=== PATIENT | male | born 1945 | race Hispanic/Latino ===

== ENCOUNTER 2018-02-14 09:45 | Inpatient (IN) | payer MEDICARE ==
[2018-02-14] MEDS ORDERED: TYLENOL FEEDTUBE PRN (09:56)
[2018-02-14] MEDS ORDERED: NACL 0.9% 1000 ML IV ONE (09:56)
[2018-02-14] MEDS ORDERED: VANCOMYCIN VIAL IV ONE (09:56)
[2018-02-14] MEDS ORDERED: HumuLIN R IV ONE (09:59)
[2018-02-14] MEDS ORDERED: MAXIPIME/NS 2 GM/100 ML 2 GM/100 ML BAG IV ONE (10:00)
[2018-02-14] MEDS ORDERED: VANCOMYCIN PHARMACY TO DOSE IV SCH (10:00)
[2018-02-14] MEDS ORDERED: TYLENOL PR ONE ×2 (10:04→10:20)
--- NOTE | 2018-02-14 10:04 | Emergency Department Report ---
ED Fever HPI - General Chief Complaint: Dyspnea/Respdistress Stated Complaint: SEPTIZ Time Seen by Provider: 02/14/18 09:55 Source: EMS (verbal report received from EMS.ems notes not available at time of chart dictation) Exam Limitations: physical impairment - History of Present Illness Initial Comments: This is a 72-year-old male who was previously unknown to this provider, has a past medical history of intracranial hemorrhage, tracheostomy, debility, sacral ulcer Brought to the hospital by EMS for hypoxia, clogs tracheostomy tube, fever, weakness. The patient is altered and cannot describe exacerbating or relieving factors. He was hypothermic in the field with a temperature of 102.7 and hyperglycemic. The patient cannot describe exacerbating or relieving factors. No further history is available for collateral information. Fever Severity/Quality: greater than 102 F Fever Therapy TRANSVERSE ABDOMINAL MUSCLE NURSE: other (patient nonverbal) Associated Symptoms: other (patient is nonverbal) ED Review of Systems ROS: Stated complaint: SEPTIZ Other details as noted in HPI Comment: Unobtainable due to pts medical conditions ED Past Medical Hx - Past Medical History Previous Medical History?: Yes Hx Hypertension: Yes Hx Diabetes: Yes Hx GERD: Yes Hx Seizures: Yes Additional medical history: acute respiratory failure. generalized muscle weakness. anemia. dysphagia. hyperlipidemia. BPH. cataracts - Surgical History Past Surgical History?: Yes Additional Surgical History: trach. PEG tube - Social History Smoking Status: Unknown if ever smoked ED Physical Exam - General Limitations: Altered Mental Status, Physical Limitation General appearance: lethargic, in distress - Head Head exam: Present: atraumatic, normocephalic - Eye Eye exam: Present: normal appearance - ENT ENT exam: Present: mucous membranes dry - Neck Neck exam: Present: normal inspection, other (tracheostomy tube noted with no redness, pus or streaking) - Respiratory Respiratory exam: Present: respiratory distress, wheezes, rhonchi - Cardiovascular Cardiovascular Exam: Present: normal rhythm, tachycardia, normal heart sounds. Absent: systolic murmur, diastolic murmur, rubs, gallop - GI/Abdominal GI/Abdominal exam: Present: soft, normal bowel sounds, other (feeding tube is noted with no redness, pus or streaking). Absent: distended, tenderness, guarding, rebound, rigid, pulsatile mass - Rectal Rectal exam: Present: other (there is a 2 x 3 cm sacral wound, unstageable, covered in feces. No active infection is noted at this time.) - exam: Present: normal inspection External exam: Present: normal external exam - Extremities Exam Extremities exam: Present: other (no palpable cord.). Absent: normal inspection (sacral heel wound is noted on the left heel.) - Back Exam Back exam: Present: normal inspection. Absent: paraspinal tenderness, vertebral tenderness - Neurological Exam Neurological exam: Present: altered, other (patient grimaces in response to painful stimuli. Moving the right upper extremity.) - Psychiatric Psychiatric exam: Present: other (patient is nonverbal) - Skin Skin exam: Present: warm ED Course Vital Signs 02/14/18 02/14/18 02/14/18 09:48 10:07 10:17 Temperature 100.7 F H 102 F H Pulse Rate 135 H 139 H Respiratory 56 H 56 H 36 H Rate Blood Pressure 130/88 Blood Pressure 141/91 [Right] O2 Sat by Pulse 90 92 92 Oximetry 02/14/18 10:18 Temperature Pulse Rate Respiratory 37 H Rate Blood Pressure Blood Pressure [Right] O2 Sat by Pulse Oximetry - Reevaluation(s) Reevaluation #1: 02/14/18 11:02 Differential diagnosis, including but not limited to: Pneumonia, bacteremia, urinary tract infection, dehydration, diabetic ketoacidosis, hyperosmolar state Assessment and plan: 72-year-old male who is tachycardic, febrile, weak, hyperglycemic without anion gap and hyponatremic. Appears to be very volume depleted. Patient will be treated empirically for sepsis with IV fluids, blood cultures, acetaminophen, vancomycin and cefepime. At this point time he does not require central line or vasoactive medications. He is also given insulin for his hyperglycemia. He will require medical admission for his undifferentiated sepsis at this time. Reevaluation #2: 02/14/18 11:07 Dr FIGUEROA ACCEPTS THE patient to his service ED Medical Decision Making - Lab Data Result diagrams: 02/14/18 10:15 02/14/18 10:15 Vital Signs 02/14/18 02/14/18 02/14/18 09:48 10:07 10:17 Temperature 100.7 F H 102 F H Pulse Rate 135 H 139 H Respiratory 56 H 56 H 36 H Rate Blood Pressure 130/88 Blood Pressure 141/91 [Right] O2 Sat by Pulse 90 92 92 Oximetry 02/14/18 10:18 Temperature Pulse Rate Respiratory 37 H Rate Blood Pressure Blood Pressure [Right] O2 Sat by Pulse Oximetry Lab Results 02/14/18 02/14/18 02/14/18 Range/Units 09:53 10:04 10:15 WBC (4.5-11.0) K/mm3 RBC (3.65-5.03) M/mm3 Hgb (11.8-15.2) gm/dl Hct (35.5-45.6) % MCV (84-94) fl MCH (28-32) pg MCHC (32-34) % RDW (13.2-15.2) % Plt Count (140-440) K/mm3 APTT (24.2-36.6) Sec. POC ABG pH (7.35-7.45) POC ABG pCO2 (35-45) POC ABG pO2 (80-105) POC ABG HCO3 POC ABG Total CO2 POC ABG O2 Sat POC ABG Base Excess FiO2 % Sodium (137-145) mmol/L Potassium (3.6-5.0) mmol/L Chloride (98-107) mmol/L Carbon Dioxide (22-30) mmol/L Anion Gap mmol/L BUN (9-20) mg/dL Creatinine (0.8-1.5) mg/dL Estimated GFR ml/min BUN/Creatinine Ratio % POC Glucose > 500 H (70-105) Calcium (8.4-10.2) mg/dL Total Bilirubin (0.1-1.2) mg/dL ALT (7-56) units/L Alkaline Phosphatase (35-129) units/L Total Creatine Kinase (55-170) units/L Total Protein (6.3-8.2) g/dL Albumin (3.9-5) g/dL Albumin/Globulin Ratio % Urine Color Yellow (Yellow) Urine Turbidity Hazy (Clear) Urine pH 5.0 (5.0-7.0) Ur Specific [place] 1.022 (1.003-1.030) Urine Protein 30 mg/dl (Negative) mg/dL Urine Glucose (UA) >=500 (Negative) mg/dL Urine Ketones Neg (Negative) mg/dL Urine Blood Sm (Negative) Urine Nitrite Neg (Negative) Urine Bilirubin Neg (Negative) Urine Urobilinogen < 2.0 (<2.0) mg/dL Ur Leukocyte Esterase Lg (Negative) Urine WBC (Auto) 53.0 H (0.0-6.0) /HPF Urine RBC (Auto) 13.0 (0.0-6.0) /HPF U Epithel Cells (Auto) < 1.0 (0-13.0) /HPF Urine Bacteria (Auto) 2+ (Negative) /HPF Urine WBC Clumps 3+ /HPF Hyaline Casts 7 /LPF Urine Mucus Few /HPF Blood Type O POSITIVE 02/14/18 02/14/18 02/14/18 Range/Units 10:15 10:15 10:15 WBC 22.9 H (4.5-11.0) K/mm3 RBC 5.53 H (3.65-5.03) M/mm3 Hgb 12.9 (11.8-15.2) gm/dl Hct 43.1 (35.5-45.6) % MCV 78 L (84-94) fl MCH 23 L (28-32) pg MCHC 30 L (32-34) % RDW 17.5 H (13.2-15.2) % Plt Count 312 (140-440) K/mm3 APTT 31.9 (24.2-36.6) Sec. POC ABG pH (7.35-7.45) POC ABG pCO2 (35-45) POC ABG pO2 (80-105) POC ABG HCO3 POC ABG Total CO2 POC ABG O2 Sat POC ABG Base Excess FiO2 % Sodium 160 H (137-145) mmol/L Potassium 5.3 H (3.6-5.0) mmol/L Chloride 116.1 H (98-107) mmol/L Carbon Dioxide 31 H (22-30) mmol/L Anion Gap 18 mmol/L BUN 61 H (9-20) mg/dL Creatinine 1.3 (0.8-1.5) mg/dL Estimated GFR 55 ml/min BUN/Creatinine Ratio 47 % POC Glucose (70-105) Calcium 11.0 H (8.4-10.2) mg/dL Total Bilirubin 0.40 (0.1-1.2) mg/dL ALT 55 (7-56) units/L Alkaline Phosphatase 216 H (35-129) units/L Total Creatine Kinase 46 L (55-170) units/L Total Protein 6.5 (6.3-8.2) g/dL Albumin 2.9 L (3.9-5) g/dL Albumin/Globulin Ratio 0.8 % Urine Color (Yellow) Urine Turbidity (Clear) Urine pH (5.0-7.0) Ur Specific [place] (1.003-1.030) Urine Protein (Negative) mg/dL Urine Glucose (UA) (Negative) mg/dL Urine Ketones (Negative) mg/dL Urine Blood (Negative) Urine Nitrite (Negative) Urine Bilirubin (Negative) Urine Urobilinogen (<2.0) mg/dL Ur Leukocyte Esterase (Negative) Urine WBC (Auto) (0.0-6.0) /HPF Urine RBC (Auto) (0.0-6.0) /HPF U Epithel Cells (Auto) (0-13.0) /HPF Urine Bacteria (Auto) (Negative) /HPF Urine WBC Clumps /HPF Hyaline Casts /LPF Urine Mucus /HPF Blood Type 02/14/18 Range/Units 10:39 WBC (4.5-11.0) K/mm3 RBC (3.65-5.03) M/mm3 Hgb (11.8-15.2) gm/dl Hct (35.5-45.6) % MCV (84-94) fl MCH (28-32) pg MCHC (32-34) % RDW (13.2-15.2) % Plt Count (140-440) K/mm3 APTT (24.2-36.6) Sec. POC ABG pH 7.521 H (7.35-7.45) POC ABG pCO2 38.8 (35-45) POC ABG pO2 58 L (80-105) POC ABG HCO3 31.8 POC ABG Total CO2 33 POC ABG O2 Sat 92 POC ABG Base Excess 9 FiO2 80 % Sodium (137-145) mmol/L Potassium (3.6-5.0) mmol/L Chloride (98-107) mmol/L Carbon Dioxide (22-30) mmol/L Anion Gap mmol/L BUN (9-20) mg/dL Creatinine (0.8-1.5) mg/dL Estimated GFR ml/min BUN/Creatinine Ratio % POC Glucose (70-105) Calcium (8.4-10.2) mg/dL Total Bilirubin (0.1-1.2) mg/dL ALT (7-56) units/L Alkaline Phosphatase (35-129) units/L Total Creatine Kinase (55-170) units/L Total Protein (6.3-8.2) g/dL Albumin (3.9-5) g/dL Albumin/Globulin Ratio % Urine Color (Yellow) Urine Turbidity (Clear) Urine pH (5.0-7.0) Ur Specific [place] (1.003-1.030) Urine Protein (Negative) mg/dL Urine Glucose (UA) (Negative) mg/dL Urine Ketones (Negative) mg/dL Urine Blood (Negative) Urine Nitrite (Negative) Urine Bilirubin (Negative) Urine Urobilinogen (<2.0) mg/dL Ur Leukocyte Esterase (Negative) Urine WBC (Auto) (0.0-6.0) /HPF Urine RBC (Auto) (0.0-6.0) /HPF U Epithel Cells (Auto) (0-13.0) /HPF Urine Bacteria (Auto) (Negative) /HPF Urine WBC Clumps /HPF Hyaline Casts /LPF Urine Mucus /HPF Blood Type - EKG Data -: EKG Interpreted by Me - EKG Data When compared to previous EKG there are: previous EKG unavailable 02/14/18 11:02 Sinus tachycardia, 133 bpm, normal axis, normal intervals, not consistent with a STEMI - Radiology Data Radiology results: image reviewed interpreted by me: x-ray of the chest, interpreted by me: Right lower lobe pneumonia, tracheostomy tube is in place. Critical care attestation.: If time is entered above; I have spent that time in minutes in the direct care of this critically ill patient, excluding procedure time. ED Disposition Clinical Impression: Sepsis, Dehydration, Hypernatremia, Hyperglycemia Disposition: DC09 OP ADMIT IP TO THIS HOSP Is pt being admited?: Yes Condition: Poor
[2018-02-14 10:24] LABS: Bacteria,Urine 2+ /HPF (Negative); Bilirubin,Urine NEG (Negative); Blood,Urine SM (Negative); Color,Urine Yellow (Yellow); Hyaline Casts,Urine 7 /LPF; Mucus,Urine FEW /HPF; Urobilinogen,Urine < 2.0 mg/dL (<2.0)
[2018-02-14 10:36] LABS: Mean Corpuscular HGB Conc 30 % (32-34); Mean Corpuscular Volume 78 fl (84-94); Platelet Count 312 K/mm3 (140-440); Red Blood Count 5.53 M/mm3 (3.65-5.03); Red Cell Distribution Width 17.5 % (13.2-15.2)
[2018-02-14 10:40] LABS: Hematocrit 43.1 % (35.5-45.6); Hemoglobin 12.9 gm/dl (11.8-15.2); Mean Corpuscular Hemoglobin 23 pg (28-32)
[2018-02-14] MEDS ORDERED: MAXIPIME 2 GM in NACL 0.9% 20 ML IV NR (10:45)
[2018-02-14 10:49] LABS: Albumin 2.9 g/dL (3.9-5)
[2018-02-14] MEDS ORDERED: VANCOMYCIN 2,000 MG in NACL 0.9% 500 ML 500 ML IV ONE (11:00)
[2018-02-14 11:14] LABS: Band Neutrophils # (Manual) 4.4 K/mm3; Basophils % (Manual) 0 % (0.0-1.8); Eosinophils % (Manual) 0 % (0.0-4.3); Total Cells Counted 100
[2018-02-14 11:15] LABS: Anisocytosis 1+; Helmet Cells Rare; Ovalocytes Few; Platelet Clumps Rare; Poikilocytosis 1+; Tear Drop Cells Rare
--- NOTE | 2018-02-14 11:17 | XRay Report ---
AP CHEST: HISTORY: Respiratory distress No comparison. There appears to be an endotracheal tube in position. Small to medium right pleural effusion is identified. There are mild chronic interstitial changes in both lungs but no evidence for pneumonia or pneumothorax. Minor atelectatic changes at the right lung base are noted. Heart size and pulmonary vascularity are within normal limits. IMPRESSION: Small to medium right pleural effusion. Atelectatic changes at the right lung base.
--- NOTE | 2018-02-14 19:53 | Event Note ---
Date: 02/14/18 See dictated H/p in reports
[2018-02-14] MEDS ORDERED: ZOFRAN IV PRN (19:54)
[2018-02-14] MEDS ORDERED: TYLENOL PO PRN (19:54)
[2018-02-14] MEDS ORDERED: SODIUM CHLORIDE FLUSH SYRINGE 10 ML IV PRN (19:54)
[2018-02-14] MEDS ORDERED: MORPHINE IV PRN (19:54)
[2018-02-14] MEDS ORDERED: D5NS 1,000 ML IV SCH (20:00)
[2018-02-14] MEDS: PEPCID IV SCH (22:53)
[2018-02-14] MEDS: SODIUM CHLORIDE FLUSH SYRINGE 10 ML IV SCH (22:54)
[2018-02-14] MEDS: HumaLOG SUB-Q SCH (22:55)
[2018-02-14] MEDS: HEPARIN SUB-Q SCH (22:56)
[2018-02-14] MEDS: LANTUS SUB-Q SCH (22:57)
[2018-02-14] MEDS: VANCOMYCIN 1,500 MG in NACL 0.9% 500 ML 500 ML IV SCH (22:59)
[2018-02-14] MEDS: ZOSYN/NS 3.375GM/50ML 3.375 GM/50 ML BAG IV SCH (23:24)
[2018-02-15 02:40] LABS: Hematocrit 38.8 % (35.5-45.6); Hemoglobin 12.2 gm/dl (11.8-15.2); Mean Corpuscular HGB Conc 31 % (32-34); Mean Corpuscular Volume 77 fl (84-94); Platelet Count 249 K/mm3 (140-440); Red Blood Count 5.02 M/mm3 (3.65-5.03)
[2018-02-15 02:47] LABS: Mean Corpuscular Hemoglobin 24 pg (28-32)
[2018-02-15 02:58] LABS: Alanine Aminotransferase 41 units/L (7-56); BUN/Creatinine Ratio 50; Blood Urea Nitrogen 45 mg/dL (9-20); Calcium 10.7 mg/dL (8.4-10.2); Hemolysis Index 9
[2018-02-15 04:04] LABS: Band Neutrophils # (Manual) 4.5 K/mm3; Basophils % (Manual) 0 % (0.0-1.8); Eosinophils % (Manual) 0.5 % (0.0-4.3); Monocytes % (Manual) 2.5 % (0.0-7.3); Myelocytes # (Manual) 0.2 K/mm3; Total Cells Counted 200
[2018-02-15 04:05] LABS: Platelet Estimate Consistent w Auto
[2018-02-15 04:06] LABS: Hypochromasia 1+
[2018-02-15] MEDS: ZOSYN/NS 3.375GM/50ML 3.375 GM/50 ML BAG IV SCH (06:51)
--- NOTE | 2018-02-15 08:35 | History and Physical Report ---
CHIEF COMPLAINT: Altered sensorium. HISTORY OF PRESENT ILLNESS: A 72-year-old male with past medical history of intracranial hemorrhage, tracheostomy, debility, and sacral ulcer brought in by EMS for hypoxia, clogged tracheostomy tube, fever and weakness, and altered sensorium. The patient was having a temperature 102.7 and high blood glucose in the field. No exacerbating or relieving factors. Not much information available. No chills. No seizures. PAST MEDICAL HISTORY: Significant for hypertension, diabetes, gastroesophageal reflux disease, seizures, acute respiratory failure, generalized muscle weakness, anemia and dysphagia, hyperlipidemia, BPH, and cataracts. PAST SURGICAL HISTORY: Tracheostomy and PEG tube. SOCIAL HISTORY: Not a smoker. FAMILY HISTORY: Hypertension. REVIEW OF SYSTEMS: Significant for altered sensorium, high blood glucose levels and high fever. Otherwise, review of systems negative. A 14-point review of systems done. PHYSICAL EXAMINATION: GENERAL: Elderly man with altered sensorium. VITAL SIGNS: Temperature 100.7 and 102. Pulse rate is 135, respiratory rate is 56, blood pressure is 130/88, sats are 90%. HEENT: Dry mucous membranes. NECK: Supple, no lymphadenopathy, no thyromegaly. LUNGS: Scattered rhonchi bilaterally. CARDIOVASCULAR: S1, S2 heard. No gallop, no murmur, no rub. Apical impulse in left fifth intercostal space and midclavicular line. ABDOMEN: Soft and benign. No hepatosplenomegaly. No guarding, no rigidity. Hernial orifices are normal. EXTREMITIES: Good pedal pulses. No pedal edema. CENTRAL NERVOUS SYSTEM: The patient is totally confused and lethargic. X-ray of the chest, right lower lobe infiltrate present. Tracheostomy tube in place. EKG, sinus tachycardia, heart rate of 133 per minute. LABORATORY DATA: White count is 22,900, H and H is 12.9 and 43.1, platelet count is 312,000. Sodium is 150, potassium 5.3, bicarbonate is 31, chloride is 116, BUN and creatinine 51 and 1.3. Lactic acid is 2.4, glucose is 346. AST is 19, ALT is 41, alkaline phosphatase is 173. Total protein is 6.2, albumin is 2.0. Urine shows white count of 53 cells. ASSESSMENT AND PLAN: 1. Sepsis, probably secondary to urinary tract infection. The patient initiated on broad spectrum antibiotics. Zosyn and vancomycin. IV fluids. 2. Hypernatremia. The patient initiated on D5W. To monitor sodium. Probable dehydration. Volume depletion. 3. Hyperkalemia, mild, should correct with IV fluids. No Kayexalate or calcium gluconate given 4. Urinary tract infection. As mentioned, the patient started on IV Zosyn. Elevated lactic acid secondary to sepsis. Sepsis protocol initiated. 5. Hyperglycemia and uncontrolled diabetes, insulin coverage for the time being. Also, long-acting insulin added for the night regimen and the basal bolus insulin also started. 6. Right lower lobe pneumonia. IV Zosyn again. 7. Deep venous thrombosis prophylaxis, heparin. 8. Acute kidney injury. IV fluids for the time being. Monitor BUN, creatinine. 9. Severe malnutrition. Dietary consult requested. Albumin is 2.0. Oral supplements ordered. In summary, the patient has sepsis, right lower lobe pneumonia and urinary tract infection and hypernatremia and hyperkalemia. JOB# [id number] KAREN/SUZY
[2018-02-15] MEDS: HumaLOG SUB-Q SCH ×3 (08:38→17:03)
--- NOTE | 2018-02-15 08:48 | Progress Note ---
Assessment and Plan Assessment and plan: --Metabolic encephalopathy; multifactorial Secondary to sepsis. Severe hypernatremia, possible UTI Continue supportive care, empiric antibiotics, follow cultures --Lactic acidosis; secondary to sepsis, continue current management --Severe Hypernatremia; free water flushes, D5W, nephrology consultation Closely monitor electrolytes --Sepsis secondary to urinary tract infection; continue empiric antibiotics and follow cultures, supportive care --Type 2 diabetes mellitus uncontrolled diabetes mellitus; Accu-Chek sliding scale coverage tube feeding, insulin as needed --Status post trach and PEG; tracheostomy and PEG tube care --Dyslipidemia; continue lipid lowering medications --DVT prophylaxis; SCD, heparin -- History Interval history: Patient seen and examined medical records reviewed Admitted with altered level of consciousness, clogged trach tube Septic, lactic acidosis On empiric antibiotics Patient noncommunicative, status post trach and PEG Vital signs reviewed Hospitalist Physical - Constitutional Vitals: Temp Pulse Resp BP Pulse Ox 98.0 F 122 H 28 H 125/83 98 02/15/18 07:59 02/15/18 07:59 02/15/18 07:59 02/15/18 07:59 02/14/18 22:07 General appearance: Present: no acute distress, other (noncommunicative, trach and PEG) - EENT Eyes: Present: PERRL, EOM intact ENT: other (tracheostomy) - Neck Neck: Present: supple - Respiratory Respiratory effort: normal Respiratory: bilateral: diminished, rhonchi, negative: rales, wheezing - Cardiovascular Rhythm: regular Heart Sounds: Present: S1 & S2 - Extremities Extremities: no ischemia, No edema, abnormal (contracted) - Abdominal General gastrointestinal: soft, non-tender, non-distended, normal bowel sounds, other (PEG tube in place) - Integumentary Integumentary: Present: clear, warm - Psychiatric Psychiatric: other (noncommunicative) - Neurologic Neurologic: other (noncommunicative) Results - Labs CBC & Chem 7: 02/15/18 02:16 02/15/18 02:16 Labs: Laboratory Last Values WBC 21.8 K/mm3 (4.5-11.0) H 02/15/18 02:16 RBC 5.02 M/mm3 (3.65-5.03) 02/15/18 02:16 Hgb 12.2 gm/dl (11.8-15.2) 02/15/18 02:16 Hct 38.8 % (35.5-45.6) 02/15/18 02:16 MCV 77 fl (84-94) L 02/15/18 02:16 MCH 24 pg (28-32) L 02/15/18 02:16 MCHC 31 % (32-34) L 02/15/18 02:16 RDW 18.0 % (13.2-15.2) H 02/15/18 02:16 Plt Count 249 K/mm3 (140-440) 02/15/18 02:16 Add Manual Diff Complete 02/15/18 02:16 Total Counted 200 02/15/18 02:16 Seg Neuts % (Manual) 62.5 % (40.0-70.0) 02/15/18 02:16 Band Neutrophils % 20.5 % 02/15/18 02:16 Lymphocytes % (Manual) 13.0 % (13.4-35.0) L 02/15/18 02:16 Reactive Lymphs % (Man) 0 % 02/15/18 02:16 Monocytes % (Manual) 2.5 % (0.0-7.3) 02/15/18 02:16 Eosinophils % (Manual) 0.5 % (0.0-4.3) 02/15/18 02:16 Basophils % (Manual) 0 % (0.0-1.8) 02/15/18 02:16 Metamyelocytes % 0 % 02/15/18 02:16 Myelocytes % 1.0 % 02/15/18 02:16 Promyelocytes % 0 % 02/15/18 02:16 Blast Cells % 0 % 02/15/18 02:16 Nucleated RBC % Not Reportable 02/15/18 02:16 Seg Neutrophils # Man 13.6 K/mm3 (1.8-7.7) H 02/15/18 02:16 Band Neutrophils # 4.5 K/mm3 02/15/18 02:16 Lymphocytes # (Manual) 2.8 K/mm3 (1.2-5.4) 02/15/18 02:16 Abs React Lymphs (Man) 0.0 K/mm3 02/15/18 02:16 Monocytes # (Manual) 0.5 K/mm3 (0.0-0.8) 02/15/18 02:16 Eosinophils # (Manual) 0.1 K/mm3 (0.0-0.4) 02/15/18 02:16 Basophils # (Manual) 0.0 K/mm3 (0.0-0.1) 02/15/18 02:16 Metamyelocytes # 0.0 K/mm3 02/15/18 02:16 Myelocytes # 0.2 K/mm3 02/15/18 02:16 Promyelocytes # 0.0 K/mm3 02/15/18 02:16 Blast Cells # 0.0 K/mm3 02/15/18 02:16 WBC Morphology Not Reportable 02/15/18 02:16 Hypersegmented Neuts Not Reportable 02/15/18 02:16 Hyposegmented Neuts Not Reportable 02/15/18 02:16 Hypogranular Neuts Not Reportable 02/15/18 02:16 Smudge Cells Not Reportable 02/15/18 02:16 Toxic Granulation Not Reportable 02/15/18 02:16 Toxic Vacuolation Not Reportable 02/15/18 02:16 Dohle Bodies Not Reportable 02/15/18 02:16 Pelger-Huet Anomaly Not Reportable 02/15/18 02:16 Helene Rods Not Reportable 02/15/18 02:16 Platelet Estimate Consistent w auto 02/15/18 02:16 Clumped Platelets Not Reportable 02/15/18 02:16 Plt Clumps, EDTA Not Reportable 02/15/18 02:16 Large Platelets Not Reportable 02/15/18 02:16 Giant Platelets Not Reportable 02/15/18 02:16 Platelet Satelliting Not Reportable 02/15/18 02:16 Plt Morphology Comment Not Reportable 02/15/18 02:16 RBC Morphology Not Reportable 02/15/18 02:16 Dimorphic RBCs Not Reportable 02/15/18 02:16 Polychromasia Not Reportable 02/15/18 02:16 Hypochromasia 1+ 02/15/18 02:16 Poikilocytosis Not Reportable 02/15/18 02:16 Anisocytosis Not Reportable 02/15/18 02:16 Microcytosis Not Reportable 02/15/18 02:16 Macrocytosis Not Reportable 02/15/18 02:16 Spherocytes Not Reportable 02/15/18 02:16 Pappenheimer Bodies Not Reportable 02/15/18 02:16 Sickle Cells Not Reportable 02/15/18 02:16 Target Cells Not Reportable 02/15/18 02:16 Tear Drop Cells Not Reportable 02/15/18 02:16 Ovalocytes Not Reportable 02/15/18 02:16 Helmet Cells Not Reportable 02/15/18 02:16 [place] Bodies Not Reportable 02/15/18 02:16 [place] Rings Not Reportable 02/15/18 02:16 [place] Cells Not Reportable 02/15/18 02:16 Bite Cells Not Reportable 02/15/18 02:16 Crenated Cell Not Reportable 02/15/18 02:16 Elliptocytes Not Reportable 02/15/18 02:16 Acanthocytes (Spur) Not Reportable 02/15/18 02:16 Rouleaux Not Reportable 02/15/18 02:16 Hemoglobin C Crystals Not Reportable 02/15/18 02:16 Schistocytes Not Reportable 02/15/18 02:16 Malaria parasites Not Reportable 02/15/18 02:16 Huy Bodies Not Reportable 02/15/18 02:16 Hem Pathologist Commnt No 02/15/18 02:16 APTT 31.9 Sec. (24.2-36.6) 02/14/18 10:15 POC ABG pH 7.521 (7.35-7.45) H 02/14/18 10:39 POC ABG pCO2 38.8 (35-45) 02/14/18 10:39 POC ABG pO2 58 (80-105) L 02/14/18 10:39 POC ABG HCO3 31.8 02/14/18 10:39 POC ABG Total CO2 33 02/14/18 10:39 POC ABG O2 Sat 92 02/14/18 10:39 POC ABG Base Excess 9 02/14/18 10:39 FiO2 80 % 02/14/18 10:39 Sodium 163 mmol/L (137-145) H* 02/15/18 02:16 Potassium 4.1 mmol/L (3.6-5.0) D 02/15/18 02:16 Chloride 122.4 mmol/L (98-107) H 02/15/18 02:16 Carbon Dioxide 30 mmol/L (22-30) 02/15/18 02:16 Anion Gap 15 mmol/L 02/15/18 02:16 BUN 45 mg/dL (9-20) H 02/15/18 02:16 Creatinine 0.9 mg/dL (0.8-1.5) 02/15/18 02:16 Estimated GFR > 60 ml/min 02/15/18 02:16 BUN/Creatinine Ratio 50 % 02/15/18 02:16 Glucose 390 mg/dL (75-100) H 02/15/18 02:16 POC Glucose 242 (70-105) H 02/15/18 08:03 Hemoglobin A1c 10.1 % (4-6) H 02/14/18 20:21 Lactic Acid 3.00 mmol/L (0.7-2.0) H* 02/15/18 05:53 Calcium 10.7 mg/dL (8.4-10.2) H 02/15/18 02:16 Total Bilirubin 0.50 mg/dL (0.1-1.2) 02/15/18 02:16 AST 19 units/L (5-40) 02/15/18 02:16 ALT 41 units/L (7-56) 02/15/18 02:16 Alkaline Phosphatase 173 units/L (35-129) H 02/15/18 02:16 Total Creatine Kinase 46 units/L (55-170) L 02/14/18 10:15 Total Protein 6.2 g/dL (6.3-8.2) L 02/15/18 02:16 Albumin 2.0 g/dL (3.9-5) L 02/15/18 02:16 Albumin/Globulin Ratio 0.5 % 02/15/18 02:16 Urine Color Yellow (Yellow) 02/14/18 10:04 Urine Turbidity Hazy (Clear) 02/14/18 10:04 Urine pH 5.0 (5.0-7.0) 02/14/18 10:04 Ur Specific [place] 1.022 (1.003-1.030) 02/14/18 10:04 Urine Protein 30 mg/dl mg/dL (Negative) 02/14/18 10:04 Urine Glucose (UA) >=500 mg/dL (Negative) 02/14/18 10:04 Urine Ketones Neg mg/dL (Negative) 02/14/18 10:04 Urine Blood Sm (Negative) 02/14/18 10:04 Urine Nitrite Neg (Negative) 02/14/18 10:04 Urine Bilirubin Neg (Negative) 02/14/18 10:04 Urine Urobilinogen < 2.0 mg/dL (<2.0) 02/14/18 10:04 Ur Leukocyte Esterase Lg (Negative) 02/14/18 10:04 Urine WBC (Auto) 53.0 /HPF (0.0-6.0) H 02/14/18 10:04 Urine RBC (Auto) 13.0 /HPF (0.0-6.0) 02/14/18 10:04 U Epithel Cells (Auto) < 1.0 /HPF (0-13.0) 02/14/18 10:04 Urine Bacteria (Auto) 2+ /HPF (Negative) 02/14/18 10:04 Urine WBC Clumps 3+ /HPF 02/14/18 10:04 Hyaline Casts 7 /LPF 02/14/18 10:04 Urine Mucus Few /HPF 02/14/18 10:04 Blood Type O POSITIVE 02/14/18 10:15 Antibody Screen Negative 02/14/18 10:15
[2018-02-15] MEDS: D5W 1,000 ML IV SCH ×2 (08:57→20:10)
[2018-02-15] MEDS: HEPARIN SUB-Q SCH ×2 (09:13→22:50)
[2018-02-15] MEDS: VANCOMYCIN 1,500 MG in NACL 0.9% 500 ML 500 ML IV SCH ×2 (09:13→23:36)
[2018-02-15] MEDS: PEPCID IV SCH ×2 (09:14→22:50)
--- NOTE | 2018-02-15 11:10 | Consultation ---
History of Present Illness - Reason for Consult Consult date: 02/15/18 acute renal failure, hypernatremia, hyperkalemia - History of Present Illness The patient is a 72 YO AAM with medical history significant for h/o Intracranial hemorrhage, S/p tracheostomy, HTN, HLD and Sacral ulcer who was brought to the hospital from [place] by EMS for hypoxia, clogged tracheostomy tube, fever and weakness. Unable to obtain any history from the patient at this time and the information was obtained from previous documentation. The T max was 102F. Labs were significant for sodium 160, K 5.3 and creatinine 1.3. Past History Past Medical History: hypertension, hyperlipidemia, other (S/p Trach & PEG, Intracranial hemorrhage) Medications and Allergies Allergies Allergy/AdvReac Type Severity Reaction Status Date / Time aspirin Allergy Unknown Verified 02/14/18 09:48 Home Medications Medication Instructions Recorded Confirmed Last Taken Type Acetaminophen [Tylenol] 650 mg FEEDTUBE Q6HR PRN 02/14/18 02/14/18 Unknown History Amantadine [Symmetrel] 10 ml FEEDTUBE QDAY 02/14/18 02/14/18 Unknown History Atorvastatin Calcium [Lipitor] 10 mg FEEDTUBE HS 02/14/18 02/14/18 Unknown History Benazepril (Nf) 5 mg FEEDTUBE QDAY 02/14/18 02/14/18 Unknown History Bisacodyl [Bisac-Evac] 10 mg RC Q24H PRN 02/14/18 02/14/18 Unknown History Collagenase [Santyl] 1 applicatio TP QDAY 02/14/18 02/14/18 Unknown History Famotidine [Pepcid] 20 mg FEEDTUBE BID 02/14/18 02/14/18 Unknown History Insulin Glargine,Hum.rec.anlog 45 units SUB-Q Q12H 02/14/18 02/14/18 Unknown History [Basaglar Kwikpen U-100] Insulin Lispro [Humalog 100 See Protocol SUB-Q Q6H 02/14/18 02/14/18 Unknown History UNITS/ML Kwikpen] Ipratropium/Albuterol Sulfate 1 ampul IH Q4HR PRN 02/14/18 02/14/18 Unknown History [DUONEB *Not for PRN Use*] Ipratropium/Albuterol Sulfate 1 ampul IH Q6HR PRN 02/14/18 02/14/18 Unknown History [DUONEB *Not for PRN Use*] Levobunolol HCl [Betagan] 1 drop OU QDAY 02/14/18 02/14/18 Unknown History Metoprolol [Lopressor TAB] 50 mg FEEDTUBE Q8H 02/14/18 02/14/18 Unknown History Scopolamine [Transderm-Scop] 1 each TD Q3D 02/14/18 02/14/18 Unknown History Sennosides [Senna] 8.6 mg FEEDTUBE QDAY PRN 02/14/18 02/14/18 Unknown History levETIRAcetam [Levetiracetam] 5 ml FEEDTUBE Q12H 02/14/18 02/14/18 Unknown History traZODone [Desyrel] 25 mg FEEDTUBE BID 02/14/18 02/14/18 Unknown History Active Meds: Active Medications Acetaminophen (Tylenol) 650 mg PO Q4H PRN PRN Reason: Pain MILD(1-3)/Fever >100.5/ALCARAZ Famotidine (Pepcid) 20 mg IV BID [facility] Last Admin: 02/15/18 09:14 Dose: 20 mg Heparin Sodium (Porcine) (Heparin) 5,000 unit SUB-Q Q12HR [facility] Last Admin: 02/15/18 09:13 Dose: 5,000 unit Vancomycin HCl 1,500 mg/ (Sodium Chloride) 515 mls @ 333.333 mls/hr IV Q12HR [facility] Last Admin: 02/15/18 09:13 Dose: 333.333 mls/hr Dextrose (D5w) 1,000 mls @ 125 mls/hr IV DIRECT [facility] Last Admin: 02/15/18 08:57 Dose: 125 mls/hr Piperacillin Sod/Tazobactam Sod (Zosyn/Ns 4.5gm/100ml) 4.5 gm in 100 mls @ 200 mls/hr IV Q8HR [facility] Insulin Glargine (Lantus) 30 units SUB-Q QHS [facility] Last Admin: 02/14/18 22:57 Dose: 30 units Insulin Human Lispro (Humalog) 0 unit SUB-Q ACHS [facility]; Protocol Last Admin: 02/15/18 08:38 Dose: 3 unit Morphine Sulfate (Morphine) 2 mg IV Q4H PRN PRN Reason: Pain, Moderate (4-6) Ondansetron HCl (Zofran) 4 mg IV Q8H PRN PRN Reason: Nausea And Vomiting Sodium Chloride (Sodium Chloride Flush Syringe 10 Ml) 10 ml IV BID [facility] Last Admin: 02/14/18 22:54 Dose: 10 ml Sodium Chloride (Sodium Chloride Flush Syringe 10 Ml) 10 ml IV PRN PRN PRN Reason: LINE FLUSH Vancomycin HCl (Vancomycin Pharmacy To Dose) 1 each IV PKCONSULT [facility] Review of Systems ROS unobtainable: due to mental status Exam - Vital Signs Vital signs: Vital Signs Temp Pulse Resp BP Pulse Ox 100.7 F H 135 H 56 H 130/88 90 02/14/18 09:48 02/14/18 09:48 02/14/18 09:48 02/14/18 09:48 02/14/18 09:48 - General Appearance General appearance: well-developed, appears stated age, other (no distress) EENT: ATNC Neck: Present: Other (s/p Trached on t-piece) Respiratory: Clear to Ascultation Heart: S1S2, no murmurs Gastrointestinal: Present: normoactive bowel sounds, other (PEG tube noted). Absent: tenderness Integumentary: no rash Neurologic: aphasic, other (not following any command, appears stuporous) Musculoskeletal: Present: other (no edema) Results - Lab Results 02/15/18 02:16 02/15/18 02:16 Most recent lab results Calcium 10.7 mg/dL (8.4-10.2) H 02/15/18 02:16 Assessment and Plan 1. Hypernatremia: Continue IV D5W. Water flushes to be started along with tube feeding. 2. Acute kidney injury: Improved. 3. Hyperkalemia: Improved. 4. Sepsis. 5. Lactic acidosis.
[2018-02-15] MEDS ORDERED: SIMPLE SYRUP FEEDTUBE PRN ×2 (14:38)
[2018-02-15] MEDS ORDERED: PANCREAZE DR 10,500 UNIT FEEDTUBE PRN (14:38)
[2018-02-15] MEDS ORDERED: SODIUM BICARBONATE FEEDTUBE PRN (14:38)
[2018-02-15] MEDS: ZOSYN/NS 4.5GM/100ML 4.5 GM/100 ML VIAL IV SCH ×2 (16:25→22:49)
[2018-02-15] MEDS: SODIUM CHLORIDE FLUSH SYRINGE 10 ML IV SCH ×2 (16:26→20:27)
[2018-02-15] MEDS ORDERED: DULCOLAX PR PRN (17:06)
[2018-02-15] MEDS ORDERED: DUONEB *Not for PRN Use IH (17:06)
[2018-02-15] MEDS ORDERED: LEVETIRACETAM FEEDTUBE SCH (17:15)
[2018-02-15] MEDS ORDERED: PROVENTIL IH PRN (17:25)
[2018-02-15] MEDS: TRANSDERM-SCOP TD SCH (18:44)
[2018-02-15] MEDS: LOPRESSOR FEEDTUBE SCH (20:10)
[2018-02-15 20:11] LABS: BUN/Creatinine Ratio 33; Blood Urea Nitrogen 33 mg/dL (9-20); Calcium 10.7 mg/dL (8.4-10.2); Hemolysis Index 8
[2018-02-15] MEDS: DAKIN'S FULL STRENGTH TP SCH (22:29)
[2018-02-15] MEDS: DESYREL PO SCH (22:49)
[2018-02-15] MEDS: LANTUS SUB-Q SCH (22:50)
[2018-02-15] MEDS: KEPPRA FEEDTUBE SCH (22:50)
[2018-02-16] MEDS: HumaLOG SUB-Q SCH ×4 (02:03→17:32)
[2018-02-16] MEDS: ZOSYN/NS 4.5GM/100ML 4.5 GM/100 ML VIAL IV SCH ×3 (06:26→20:18)
[2018-02-16] MEDS: LOPRESSOR FEEDTUBE SCH ×3 (06:26→21:16)
[2018-02-16 06:38] LABS: BUN/Creatinine Ratio 32; Blood Urea Nitrogen 32 mg/dL (9-20); Calcium 10.3 mg/dL (8.4-10.2); Hemolysis Index 0
[2018-02-16] MEDS ORDERED: NACL 0.45% 1000 ML 1,000 ML IV SCH (07:00)
--- NOTE | 2018-02-16 07:37 | Progress Note ---
Assessment and Plan Assessment and plan: --Severe Hypernatremia; mild improvement , continue free water flushes, D5W, nephrology evaluation and recommendation noted and appreciated Frequent monitoring of sodium levels --Hypokalemia; replace per protocol and monitor levels --Metabolic encephalopathy; multifactorial Secondary to sepsis. Severe hypernatremia, possible UTI IV fluids, empiric antibiotics, follow cultures --Lactic acidosis; secondary to sepsis, continue to monitor levels --Sepsis secondary to urinary tract infection; empiric antibiotics, cultures positive for gram-negative rods Follow sensitivities, adjust medications --Type 2 diabetes mellitus uncontrolled diabetes mellitus; Accu-Chek sliding scale coverage tube feeding, insulin as needed --Status post trach and PEG; tracheostomy and PEG tube care --Dyslipidemia; continue lipid lowering medications --DVT prophylaxis; SCD, heparin Full CODE STATUS Continue current management History Interval history: Patient seen and examined medical records reviewed Patient is noncommunicative, no new events reported by the nursing Afebrile last 48 hours Not in acute distress, vital signs reviewed Hospitalist Physical - Constitutional Vitals: Temp Pulse Resp BP Pulse Ox 99.4 F 112 H 28 H 138/82 95 02/16/18 04:01 02/16/18 06:26 02/16/18 04:01 02/16/18 06:26 02/16/18 04:01 General appearance: Present: no acute distress, well-nourished, other ( noncommunicative, trach and PEG) - EENT Eyes: Present: PERRL, EOM intact ENT: other (tracheostomy/T piece) - Neck Neck: Present: supple - Respiratory Respiratory effort: normal Respiratory: bilateral: diminished, negative: rales, rhonchi, wheezing - Cardiovascular Rhythm: regular Heart Sounds: Present: S1 & S2 - Extremities Extremities: no ischemia Extremity abnormal: edema - Abdominal General gastrointestinal: soft, non-tender, non-distended, normal bowel sounds, other (PEG tube in place) - Integumentary Integumentary: Present: clear, warm - Psychiatric Psychiatric: other (noncommunicative) - Neurologic Neurologic: other (noncommunicative) Results - Labs CBC & Chem 7: 02/15/18 02:16 02/16/18 10:17 Labs: Laboratory Last Values WBC 21.8 K/mm3 (4.5-11.0) H 02/15/18 02:16 RBC 5.02 M/mm3 (3.65-5.03) 02/15/18 02:16 Hgb 12.2 gm/dl (11.8-15.2) 02/15/18 02:16 Hct 38.8 % (35.5-45.6) 02/15/18 02:16 MCV 77 fl (84-94) L 02/15/18 02:16 MCH 24 pg (28-32) L 02/15/18 02:16 MCHC 31 % (32-34) L 02/15/18 02:16 RDW 18.0 % (13.2-15.2) H 02/15/18 02:16 Plt Count 249 K/mm3 (140-440) 02/15/18 02:16 Add Manual Diff Complete 02/15/18 02:16 Total Counted 200 02/15/18 02:16 Seg Neuts % (Manual) 62.5 % (40.0-70.0) 02/15/18 02:16 Band Neutrophils % 20.5 % 02/15/18 02:16 Lymphocytes % (Manual) 13.0 % (13.4-35.0) L 02/15/18 02:16 Reactive Lymphs % (Man) 0 % 02/15/18 02:16 Monocytes % (Manual) 2.5 % (0.0-7.3) 02/15/18 02:16 Eosinophils % (Manual) 0.5 % (0.0-4.3) 02/15/18 02:16 Basophils % (Manual) 0 % (0.0-1.8) 02/15/18 02:16 Metamyelocytes % 0 % 02/15/18 02:16 Myelocytes % 1.0 % 02/15/18 02:16 Promyelocytes % 0 % 02/15/18 02:16 Blast Cells % 0 % 02/15/18 02:16 Nucleated RBC % Not Reportable 02/15/18 02:16 Seg Neutrophils # Man 13.6 K/mm3 (1.8-7.7) H 02/15/18 02:16 Band Neutrophils # 4.5 K/mm3 02/15/18 02:16 Lymphocytes # (Manual) 2.8 K/mm3 (1.2-5.4) 02/15/18 02:16 Abs React Lymphs (Man) 0.0 K/mm3 02/15/18 02:16 Monocytes # (Manual) 0.5 K/mm3 (0.0-0.8) 02/15/18 02:16 Eosinophils # (Manual) 0.1 K/mm3 (0.0-0.4) 02/15/18 02:16 Basophils # (Manual) 0.0 K/mm3 (0.0-0.1) 02/15/18 02:16 Metamyelocytes # 0.0 K/mm3 02/15/18 02:16 Myelocytes # 0.2 K/mm3 02/15/18 02:16 Promyelocytes # 0.0 K/mm3 02/15/18 02:16 Blast Cells # 0.0 K/mm3 02/15/18 02:16 WBC Morphology Not Reportable 02/15/18 02:16 Hypersegmented Neuts Not Reportable 02/15/18 02:16 Hyposegmented Neuts Not Reportable 02/15/18 02:16 Hypogranular Neuts Not Reportable 02/15/18 02:16 Smudge Cells Not Reportable 02/15/18 02:16 Toxic Granulation Not Reportable 02/15/18 02:16 Toxic Vacuolation Not Reportable 02/15/18 02:16 Dohle Bodies Not Reportable 02/15/18 02:16 Pelger-Huet Anomaly Not Reportable 02/15/18 02:16 Helene Rods Not Reportable 02/15/18 02:16 Platelet Estimate Consistent w auto 02/15/18 02:16 Clumped Platelets Not Reportable 02/15/18 02:16 Plt Clumps, EDTA Not Reportable 02/15/18 02:16 Large Platelets Not Reportable 02/15/18 02:16 Giant Platelets Not Reportable 02/15/18 02:16 Platelet Satelliting Not Reportable 02/15/18 02:16 Plt Morphology Comment Not Reportable 02/15/18 02:16 RBC Morphology Not Reportable 02/15/18 02:16 Dimorphic RBCs Not Reportable 02/15/18 02:16 Polychromasia Not Reportable 02/15/18 02:16 Hypochromasia 1+ 02/15/18 02:16 Poikilocytosis Not Reportable 02/15/18 02:16 Anisocytosis Not Reportable 02/15/18 02:16 Microcytosis Not Reportable 02/15/18 02:16 Macrocytosis Not Reportable 02/15/18 02:16 Spherocytes Not Reportable 02/15/18 02:16 Pappenheimer Bodies Not Reportable 02/15/18 02:16 Sickle Cells Not Reportable 02/15/18 02:16 Target Cells Not Reportable 02/15/18 02:16 Tear Drop Cells Not Reportable 02/15/18 02:16 Ovalocytes Not Reportable 02/15/18 02:16 Helmet Cells Not Reportable 02/15/18 02:16 Chaudhry-Brawley Bodies Not Reportable 02/15/18 02:16 [place] Rings Not Reportable 02/15/18 02:16 Patricia Cells Not Reportable 02/15/18 02:16 Bite Cells Not Reportable 02/15/18 02:16 Crenated Cell Not Reportable 02/15/18 02:16 Elliptocytes Not Reportable 02/15/18 02:16 Acanthocytes (Spur) Not Reportable 02/15/18 02:16 Rouleaux Not Reportable 02/15/18 02:16 Hemoglobin C Crystals Not Reportable 02/15/18 02:16 Schistocytes Not Reportable 02/15/18 02:16 Malaria parasites Not Reportable 02/15/18 02:16 Huy Bodies Not Reportable 02/15/18 02:16 Hem Pathologist Commnt No 02/15/18 02:16 APTT 31.9 Sec. (24.2-36.6) 02/14/18 10:15 POC ABG pH 7.521 (7.35-7.45) H 02/14/18 10:39 POC ABG pCO2 38.8 (35-45) 02/14/18 10:39 POC ABG pO2 58 (80-105) L 02/14/18 10:39 POC ABG HCO3 31.8 02/14/18 10:39 POC ABG Total CO2 33 02/14/18 10:39 POC ABG O2 Sat 92 02/14/18 10:39 POC ABG Base Excess 9 02/14/18 10:39 FiO2 80 % 02/14/18 10:39 Sodium 164 mmol/L (137-145) H* 02/16/18 05:28 Potassium 3.3 mmol/L (3.6-5.0) L 02/16/18 05:28 Chloride 123.1 mmol/L (98-107) H 02/16/18 05:28 Carbon Dioxide 29 mmol/L (22-30) 02/16/18 05:28 Anion Gap 14 mmol/L 02/16/18 05:28 BUN 32 mg/dL (9-20) H 02/16/18 05:28 Creatinine 1.0 mg/dL (0.8-1.5) 02/16/18 05:28 Estimated GFR > 60 ml/min 02/16/18 05:28 BUN/Creatinine Ratio 32 % 02/16/18 05:28 Glucose 231 mg/dL (75-100) H 02/16/18 05:28 POC Glucose 240 (70-105) H 02/16/18 05:47 Hemoglobin A1c 10.1 % (4-6) H 02/14/18 20:21 Lactic Acid 3.00 mmol/L (0.7-2.0) H* 02/15/18 05:53 Calcium 10.3 mg/dL (8.4-10.2) H 02/16/18 05:28 Phosphorus 2.90 mg/dL (2.5-4.5) 02/16/18 05:28 Magnesium 2.40 mg/dL (1.7-2.3) H 02/16/18 05:28 Total Bilirubin 0.50 mg/dL (0.1-1.2) 02/15/18 02:16 AST 19 units/L (5-40) 02/15/18 02:16 ALT 41 units/L (7-56) 02/15/18 02:16 Alkaline Phosphatase 173 units/L (35-129) H 02/15/18 02:16 Total Creatine Kinase 46 units/L (55-170) L 02/14/18 10:15 Total Protein 6.2 g/dL (6.3-8.2) L 02/15/18 02:16 Albumin 2.0 g/dL (3.9-5) L 02/15/18 02:16 Albumin/Globulin Ratio 0.5 % 02/15/18 02:16 Urine Color Yellow (Yellow) 02/14/18 10:04 Urine Turbidity Hazy (Clear) 02/14/18 10:04 Urine pH 5.0 (5.0-7.0) 02/14/18 10:04 Ur Specific Laura 1.022 (1.003-1.030) 02/14/18 10:04 Urine Protein 30 mg/dl mg/dL (Negative) 02/14/18 10:04 Urine Glucose (UA) >=500 mg/dL (Negative) 02/14/18 10:04 Urine Ketones Neg mg/dL (Negative) 02/14/18 10:04 Urine Blood Sm (Negative) 02/14/18 10:04 Urine Nitrite Neg (Negative) 02/14/18 10:04 Urine Bilirubin Neg (Negative) 02/14/18 10:04 Urine Urobilinogen < 2.0 mg/dL (<2.0) 02/14/18 10:04 Ur Leukocyte Esterase Lg (Negative) 02/14/18 10:04 Urine WBC (Auto) 53.0 /HPF (0.0-6.0) H 02/14/18 10:04 Urine RBC (Auto) 13.0 /HPF (0.0-6.0) 02/14/18 10:04 U Epithel Cells (Auto) < 1.0 /HPF (0-13.0) 02/14/18 10:04 Urine Bacteria (Auto) 2+ /HPF (Negative) 02/14/18 10:04 Urine WBC Clumps 3+ /HPF 02/14/18 10:04 Hyaline Casts 7 /LPF 02/14/18 10:04 Urine Mucus Few /HPF 02/14/18 10:04 Blood Type O POSITIVE 02/14/18 10:15 Antibody Screen Negative 02/14/18 10:15
[2018-02-16] MEDS ORDERED: POTASSIUM CHLORIDE FEEDTUBE ONE (08:00)
[2018-02-16] MEDS: HEPARIN SUB-Q SCH ×2 (09:24→21:18)
[2018-02-16] MEDS: DESYREL PO SCH ×2 (09:25→21:16)
[2018-02-16] MEDS: KEPPRA FEEDTUBE SCH ×2 (09:25→21:17)
[2018-02-16] MEDS: ZESTRIL FEEDTUBE SCH (09:27)
[2018-02-16] MEDS: SODIUM CHLORIDE FLUSH SYRINGE 10 ML IV SCH ×2 (09:28→21:22)
[2018-02-16] MEDS: LANTUS SUB-Q SCH ×2 (09:28→21:19)
[2018-02-16] MEDS: PEPCID IV SCH ×2 (09:28→21:18)
[2018-02-16] MEDS: SYMMETREL FEEDTUBE SCH (09:30)
[2018-02-16] MEDS ORDERED: BENAZEPRIL 5 MG FEEDTUBE SCH (10:00)
--- NOTE | 2018-02-16 12:27 | Progress Note ---
Assessment and Plan 1. Hypernatremia: Patient is on 1/2 NS and water flushes. Sodium level is improving. 2. Acute kidney injury: Improved. 3. Hypokalemia: Replete K. 4. Sepsis. 5. Lactic acidosis. Subjective Date of service: 02/16/18 Interval history: Patient was seen and examined at the bedside. Objective - Vital Signs Vital signs: Vital Signs - 12hr 02/16/18 02/16/18 02/16/18 04:01 06:26 07:23 Temperature 99.4 F 98.4 F Pulse Rate 110 H 112 H 77 Respiratory 28 H 20 Rate Blood Pressure 136/75 138/82 138/73 O2 Sat by Pulse 95 84 Oximetry O2 Sat by Pulse Oximetry [ Assessment] 02/16/18 10:00 Temperature Pulse Rate Respiratory Rate Blood Pressure O2 Sat by Pulse 93 Oximetry O2 Sat by Pulse 93 Oximetry [ Assessment] - General Appearance General appearance: well-developed, appears stated age, other (stuporous) EENT: ATNC Neck: other (Trached, on T-piece) Respiratory: Present: Clear to Ascultation Cardiology: regular, S1S2, no murmurs Gastrointestinal: normoactive bowel sounds, no tenderness, other (PEG tube noted ) Integumentary: no rash, warm and dry Neurologic: aphasic, other (not following any command) Musculoskeletal: other (no edema) - Lab 02/15/18 02:16 02/16/18 10:17 Most recent lab results Calcium 10.3 mg/dL (8.4-10.2) H 02/16/18 05:28 Phosphorus 2.90 mg/dL (2.5-4.5) 02/16/18 05:28 Magnesium 2.40 mg/dL (1.7-2.3) H 02/16/18 05:28
[2018-02-16] MEDS: VANCOMYCIN 1,500 MG in NACL 0.9% 500 ML 500 ML IV SCH ×2 (14:43→21:23)
[2018-02-16] MEDS: D5W 1,000 ML IV SCH (14:48)
[2018-02-16] MEDS: DAKIN'S FULL STRENGTH TP SCH ×2 (15:00→21:23)
[2018-02-17 05:12] LABS: Hematocrit 32.8 % (35.5-45.6); Hemoglobin 10.1 gm/dl (11.8-15.2); Mean Corpuscular HGB Conc 31 % (32-34); Mean Corpuscular Volume 76 fl (84-94); Platelet Count 208 K/mm3 (140-440); Red Blood Count 4.31 M/mm3 (3.65-5.03); Red Cell Distribution Width 17.2 % (13.2-15.2)
[2018-02-17 05:25] LABS: BUN/Creatinine Ratio 25; Blood Urea Nitrogen 28 mg/dL (9-20); Calcium 9.7 mg/dL (8.4-10.2); Hemolysis Index 8; Mean Corpuscular Hemoglobin 24 pg (28-32)
[2018-02-17] MEDS: HumaLOG SUB-Q SCH ×4 (06:17→18:23)
[2018-02-17] MEDS: ZOSYN/NS 4.5GM/100ML 4.5 GM/100 ML VIAL IV SCH ×3 (06:53→22:03)
[2018-02-17] MEDS: LOPRESSOR FEEDTUBE SCH ×3 (06:55→22:03)
[2018-02-17 07:35] LABS: Anisocytosis 1+; Band Neutrophils # (Manual) 0.4 K/mm3; Basophils % (Manual) 0 % (0.0-1.8); Hypochromasia 1+; Monocytes % (Manual) 0 % (0.0-7.3); Total Cells Counted 100
[2018-02-17 07:36] LABS: Platelet Estimate Cons
--- NOTE | 2018-02-17 08:32 | Progress Note ---
Assessment and Plan 1. Hypernatremia: Increase IV D5W. Monitor Sodium level. 2. Acute kidney injury: Improved. 3. Hypokalemia: Replete as appropriate. Monitor. 4. Sepsis. 5. Lactic acidosis. Subjective Date of service: 02/17/18 Interval history: Patient was seen and examined at the bedside. Objective - Vital Signs Vital signs: Vital Signs - 12hr 02/16/18 02/16/18 02/16/18 21:16 22:00 23:46 Temperature Pulse Rate 110 H 94 H Pulse Rate [ 110 H Left Radial] Respiratory 24 Rate Blood Pressure 156/87 Blood Pressure [Right] O2 Sat by Pulse 97 97 Oximetry O2 Sat by Pulse Oximetry [ Assessment] 02/17/18 02/17/18 02/17/18 00:01 00:50 04:09 Temperature 98.9 F 98.8 F Pulse Rate 95 H 105 H Pulse Rate [ Left Radial] Respiratory 20 20 Rate Blood Pressure 140/82 Blood Pressure 131/74 [Right] O2 Sat by Pulse 97 97 Oximetry O2 Sat by Pulse 97 Oximetry [ Assessment] 02/17/18 02/17/18 06:55 07:32 Temperature 98.9 F Pulse Rate 96 H 86 Pulse Rate [ Left Radial] Respiratory 22 Rate Blood Pressure 137/77 Blood Pressure [Right] O2 Sat by Pulse 97 Oximetry O2 Sat by Pulse Oximetry [ Assessment] - General Appearance General appearance: well-developed, appears stated age, other (no distress) EENT: ATNC Neck: other (Trached on T-piece) Respiratory: Present: Clear to Ascultation Cardiology: regular, S1S2, no murmurs Gastrointestinal: normoactive bowel sounds, no tenderness, other (PEG tube noted ) Integumentary: no rash Neurologic: other (stuporous) Musculoskeletal: other (no edema) - Lab 02/17/18 04:25 02/17/18 04:25 Most recent lab results Calcium 9.7 mg/dL (8.4-10.2) 02/17/18 04:25 Phosphorus 3.50 mg/dL (2.5-4.5) D 02/17/18 04:25 Magnesium 2.30 mg/dL (1.7-2.3) 02/17/18 04:25
--- NOTE | 2018-02-17 08:34 | Progress Note ---
Assessment and Plan Assessment and plan: 72-year-old -[place] male with history of hemorrhagic stroke, status post [facility]ach [facility] admitted for sepsis, dehydration -Severe Hypernatremia; mild improvement , continue free water flushes, D5W, nephrology evaluation and recommendation noted and appreciated Frequent monitoring of sodium levels -Hypokalemia: repleted and corrected -Metabolic encephalopathy; multifactorial -patient is non communicative Secondary to sepsis. Severe hypernatremia, possible UTI IV fluids, empiric antibiotics, follow cultures --Lactic acidosis - Due to the above - Resolved --Sepsis secondary to urinary tract infection; empiric antibiotics, cultures positive for gram-negative rods Follow sensitivities, adjust medications --Type 2 diabetes mellitus uncontrolled diabetes mellitus; Accu-Chek sliding scale coverage tube feeding, insulin as needed --Status post trach and PEG; tracheostomy and PEG tube care --Dyslipidemia; continue lipid lowering medications --DVT prophylaxis; SCD, heparin Severe malnutrition Full CODE STATUS Continue current management History Interval history: Patient is on trach, noncommunicative Hospitalist Physical - Physical exam Narrative exam: Patient has trach and on 5 L of oxygen Vital signs as documented. Head exam is unremarkable. No scleral icterus . Neck is without jugular venous distension, thyromegaly, or carotid bruits. Lungs are clear to auscultation. Cardiac exam reveals regular rate and Rhythm. First and second heart sounds normal. No murmurs, rubs or gallops. Abdominal exam reveals normal bowel sounds, no masses, no organomegaly and no aortic enlargement. 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 - Constitutional Vitals: Temp Pulse Resp BP Pulse Ox 98.9 F 86 22 137/77 97 02/17/18 07:32 02/17/18 07:32 02/17/18 07:32 02/17/18 07:32 02/17/18 07:32 General appearance: Present: no acute distress, other (noncommunicative, trach and PEG) Results - Labs CBC & Chem 7: 02/17/18 04:25 02/17/18 04:25 Labs: Laboratory Last Values WBC 18.7 K/mm3 (4.5-11.0) H 02/17/18 04:25 RBC 4.31 M/mm3 (3.65-5.03) 02/17/18 04:25 Hgb 10.1 gm/dl (11.8-15.2) L 02/17/18 04:25 Hct 32.8 % (35.5-45.6) L D 02/17/18 04:25 MCV 76 fl (84-94) L 02/17/18 04:25 MCH 24 pg (28-32) L 02/17/18 04:25 MCHC 31 % (32-34) L 02/17/18 04:25 RDW 17.2 % (13.2-15.2) H 02/17/18 04:25 Plt Count 208 K/mm3 (140-440) 02/17/18 04:25 Add Manual Diff Complete 02/17/18 04:25 Total Counted 100 02/17/18 04:25 Seg Neuts % (Manual) 78.0 % (40.0-70.0) H 02/17/18 04:25 Band Neutrophils % 2.0 % 02/17/18 04:25 Lymphocytes % (Manual) 18.0 % (13.4-35.0) 02/17/18 04:25 Reactive Lymphs % (Man) 0 % 02/17/18 04:25 Monocytes % (Manual) 0 % (0.0-7.3) 02/17/18 04:25 Eosinophils % (Manual) 1.0 % (0.0-4.3) 02/17/18 04:25 Basophils % (Manual) 0 % (0.0-1.8) 02/17/18 04:25 Metamyelocytes % 1.0 % 02/17/18 04:25 Myelocytes % 0 % 02/17/18 04:25 Promyelocytes % 0 % 02/17/18 04:25 Blast Cells % 0 % 02/17/18 04:25 Nucleated RBC % Not Reportable 02/17/18 04:25 Seg Neutrophils # Man 14.6 K/mm3 (1.8-7.7) H 02/17/18 04:25 Band Neutrophils # 0.4 K/mm3 02/17/18 04:25 Lymphocytes # (Manual) 3.4 K/mm3 (1.2-5.4) 02/17/18 04:25 Abs React Lymphs (Man) 0.0 K/mm3 02/17/18 04:25 Monocytes # (Manual) 0.0 K/mm3 (0.0-0.8) 02/17/18 04:25 Eosinophils # (Manual) 0.2 K/mm3 (0.0-0.4) 02/17/18 04:25 Basophils # (Manual) 0.0 K/mm3 (0.0-0.1) 02/17/18 04:25 Metamyelocytes # 0.2 K/mm3 02/17/18 04:25 Myelocytes # 0.0 K/mm3 02/17/18 04:25 Promyelocytes # 0.0 K/mm3 02/17/18 04:25 Blast Cells # 0.0 K/mm3 02/17/18 04:25 WBC Morphology Not Reportable 02/17/18 04:25 Hypersegmented Neuts Not Reportable 02/17/18 04:25 Hyposegmented Neuts Not Reportable 02/17/18 04:25 Hypogranular Neuts Not Reportable 02/17/18 04:25 Smudge Cells Not Reportable 02/17/18 04:25 Toxic Granulation Not Reportable 02/17/18 04:25 Toxic Vacuolation Not Reportable 02/17/18 04:25 Dohle Bodies Not Reportable 02/17/18 04:25 Pelger-Huet Anomaly Not Reportable 02/17/18 04:25 Helene Rods Not Reportable 02/17/18 04:25 Platelet Estimate Cons 02/17/18 04:25 Clumped Platelets Not Reportable 02/17/18 04:25 Plt Clumps, EDTA Not Reportable 02/17/18 04:25 Large Platelets Not Reportable 02/17/18 04:25 Giant Platelets Not Reportable 02/17/18 04:25 Platelet Satelliting Not Reportable 02/17/18 04:25 Plt Morphology Comment Not Reportable 02/17/18 04:25 RBC Morphology Not Reportable 02/17/18 04:25 Dimorphic RBCs Not Reportable 02/17/18 04:25 Polychromasia Not Reportable 02/17/18 04:25 Hypochromasia 1+ 02/17/18 04:25 Poikilocytosis Not Reportable 02/17/18 04:25 Anisocytosis 1+ 02/17/18 04:25 Microcytosis Not Reportable 02/17/18 04:25 Macrocytosis Not Reportable 02/17/18 04:25 Spherocytes Not Reportable 02/17/18 04:25 Pappenheimer Bodies Not Reportable 02/17/18 04:25 Sickle Cells Not Reportable 02/17/18 04:25 Target Cells Not Reportable 02/17/18 04:25 Tear Drop Cells Not Reportable 02/17/18 04:25 Ovalocytes Not Reportable 02/17/18 04:25 Helmet Cells Not Reportable 02/17/18 04:25 Chaudhry-[place] Bodies Not Reportable 02/17/18 04:25 [place] Rings Not Reportable 02/17/18 04:25 Patricia Cells Not Reportable 02/17/18 04:25 Bite Cells Not Reportable 02/17/18 04:25 Crenated Cell Not Reportable 02/17/18 04:25 Elliptocytes Not Reportable 02/17/18 04:25 Acanthocytes (Spur) Not Reportable 02/17/18 04:25 Rouleaux Not Reportable 02/17/18 04:25 Hemoglobin C Crystals Not Reportable 02/17/18 04:25 Schistocytes Not Reportable 02/17/18 04:25 Malaria parasites Not Reportable 02/17/18 04:25 Huy Bodies Not Reportable 02/17/18 04:25 Hem Pathologist Commnt No 02/17/18 04:25 APTT 31.9 Sec. (24.2-36.6) 02/14/18 10:15 POC ABG pH 7.521 (7.35-7.45) H 02/14/18 10:39 POC ABG pCO2 38.8 (35-45) 02/14/18 10:39 POC ABG pO2 58 (80-105) L 02/14/18 10:39 POC ABG HCO3 31.8 02/14/18 10:39 POC ABG Total CO2 33 02/14/18 10:39 POC ABG O2 Sat 92 02/14/18 10:39 POC ABG Base Excess 9 02/14/18 10:39 FiO2 80 % 02/14/18 10:39 Sodium 160 mmol/L (137-145) H 02/17/18 04:25 Potassium 3.8 mmol/L (3.6-5.0) 02/17/18 04:25 Chloride 121.6 mmol/L (98-107) H 02/17/18 04:25 Carbon Dioxide 29 mmol/L (22-30) 02/17/18 04:25 Anion Gap 13 mmol/L 02/17/18 04:25 BUN 28 mg/dL (9-20) H 02/17/18 04:25 Creatinine 1.1 mg/dL (0.8-1.5) 02/17/18 04:25 Estimated GFR > 60 ml/min 02/17/18 04:25 BUN/Creatinine Ratio 25 % 02/17/18 04:25 Glucose 226 mg/dL (75-100) H 02/17/18 04:25 POC Glucose 214 (70-105) H 02/17/18 06:18 Hemoglobin A1c 10.1 % (4-6) H 02/14/18 20:21 Lactic Acid 3.00 mmol/L (0.7-2.0) H* 02/15/18 05:53 Calcium 9.7 mg/dL (8.4-10.2) 02/17/18 04:25 Phosphorus 3.50 mg/dL (2.5-4.5) D 02/17/18 04:25 Magnesium 2.30 mg/dL (1.7-2.3) 02/17/18 04:25 Total Bilirubin 0.50 mg/dL (0.1-1.2) 02/15/18 02:16 AST 19 units/L (5-40) 02/15/18 02:16 ALT 41 units/L (7-56) 02/15/18 02:16 Alkaline Phosphatase 173 units/L (35-129) H 02/15/18 02:16 Total Creatine Kinase 46 units/L (55-170) L 02/14/18 10:15 Total Protein 6.2 g/dL (6.3-8.2) L 02/15/18 02:16 Albumin 2.0 g/dL (3.9-5) L 02/15/18 02:16 Albumin/Globulin Ratio 0.5 % 02/15/18 02:16 Urine Color Yellow (Yellow) 02/14/18 10:04 Urine Turbidity Hazy (Clear) 02/14/18 10:04 Urine pH 5.0 (5.0-7.0) 02/14/18 10:04 Ur Specific [place] 1.022 (1.003-1.030) 02/14/18 10:04 Urine Protein 30 mg/dl mg/dL (Negative) 02/14/18 10:04 Urine Glucose (UA) >=500 mg/dL (Negative) 02/14/18 10:04 Urine Ketones Neg mg/dL (Negative) 02/14/18 10:04 Urine Blood Sm (Negative) 02/14/18 10:04 Urine Nitrite Neg (Negative) 02/14/18 10:04 Urine Bilirubin Neg (Negative) 02/14/18 10:04 Urine Urobilinogen < 2.0 mg/dL (<2.0) 02/14/18 10:04 Ur Leukocyte Esterase Lg (Negative) 02/14/18 10:04 Urine WBC (Auto) 53.0 /HPF (0.0-6.0) H 02/14/18 10:04 Urine RBC (Auto) 13.0 /HPF (0.0-6.0) 02/14/18 10:04 U Epithel Cells (Auto) < 1.0 /HPF (0-13.0) 02/14/18 10:04 Urine Bacteria (Auto) 2+ /HPF (Negative) 02/14/18 10:04 Urine WBC Clumps 3+ /HPF 02/14/18 10:04 Hyaline Casts 7 /LPF 02/14/18 10:04 Urine Mucus Few /HPF 02/14/18 10:04 Blood Type O POSITIVE 02/14/18 10:15 Antibody Screen Negative 02/14/18 10:15
[2018-02-17] MEDS: VANCOMYCIN 1,500 MG in NACL 0.9% 500 ML 500 ML IV SCH ×2 (10:00→10:16)
[2018-02-17] MEDS: KEPPRA FEEDTUBE SCH ×2 (10:17→22:04)
[2018-02-17] MEDS: DESYREL PO SCH ×2 (10:17→22:04)
[2018-02-17] MEDS: ZESTRIL FEEDTUBE SCH (10:17)
[2018-02-17] MEDS: PEPCID FEEDTUBE SCH ×2 (10:17→22:04)
[2018-02-17] MEDS: SYMMETREL FEEDTUBE SCH (10:17)
[2018-02-17] MEDS: LANTUS SUB-Q SCH (10:18)
[2018-02-17] MEDS: HEPARIN SUB-Q SCH ×2 (10:18→22:04)
[2018-02-17] MEDS ORDERED: POTASSIUM CHLORIDE FEEDTUBE ONE (14:00)
[2018-02-17] MEDS: D5W 1,000 ML IV SCH (14:57)
[2018-02-17] MEDS: SODIUM CHLORIDE FLUSH SYRINGE 10 ML IV SCH ×2 (14:58→22:15)
[2018-02-17] MEDS: DAKIN'S FULL STRENGTH TP SCH ×2 (14:58→22:04)
[2018-02-18] MEDS: LANTUS SUB-Q SCH ×2 (00:28→22:21)
[2018-02-18] MEDS: HumaLOG SUB-Q SCH ×4 (00:28→19:07)
[2018-02-18] MEDS: LOPRESSOR FEEDTUBE SCH ×3 (04:51→22:25)
[2018-02-18] MEDS: ZOSYN/NS 4.5GM/100ML 4.5 GM/100 ML VIAL IV SCH (05:14)
[2018-02-18 06:21] LABS: BUN/Creatinine Ratio 26; Blood Urea Nitrogen 26 mg/dL (9-20); Calcium 9.3 mg/dL (8.4-10.2); Hemolysis Index 0
[2018-02-18 06:45] LABS: Hematocrit 30.7 % (35.5-45.6); Hemoglobin 9.5 gm/dl (11.8-15.2); Mean Corpuscular Hemoglobin 24 pg (28-32); Mean Corpuscular Volume 76 fl (84-94); Red Blood Count 4.06 M/mm3 (3.65-5.03)
[2018-02-18 06:46] LABS: Basophils # (Auto) 0.1 K/mm3 (0.0-0.1); Basophils % (Auto) 0.4 % (0.0-1.8); Eosinophils # (Auto) 0.5 K/mm3 (0.0-0.4); Eosinophils % (Auto) 3.9 % (0.0-4.3); Lymphocytes # (Auto) 1.6 K/mm3 (1.2-5.4); Lymphocytes % (Auto) 11.5 % (13.4-35.0); Mean Corpuscular HGB Conc 31 % (32-34); Mean Platelet Volume 8.3 fl (6-12); Monocytes # (Auto) 0.7 K/mm3 (0.0-0.8); Monocytes % (Auto) 5.1 % (0.0-7.3); Platelet Count 187 K/mm3 (140-440); Red Cell Distribution Width 17.1 % (13.2-15.2)
--- NOTE | 2018-02-18 07:15 | Progress Note ---
Assessment and Plan 1. Hypernatremia: Sdoium level is better. IV D5W was stopped due to hyeprglycemia. Monitor Sodium level. 2. Acute kidney injury: Improved. 3. Hypokalemia: Replete as appropriate. Monitor. 4. Sepsis. 5. Lactic acidosis. Subjective Date of service: 02/18/18 Interval history: Patient was seen and examined at the bedside. Objective - Vital Signs Vital signs: Vital Signs - 12hr 02/17/18 02/17/18 02/17/18 20:05 22:00 22:03 Temperature 99.6 F Pulse Rate 98 H 98 H Respiratory 20 Rate Blood Pressure 145/82 145/82 O2 Sat by Pulse 95 97 Oximetry O2 Sat by Pulse Oximetry [ Assessment] 02/17/18 02/17/18 02/18/18 23:00 23:07 03:34 Temperature 98.8 F Pulse Rate 82 Respiratory 20 Rate Blood Pressure 139/77 O2 Sat by Pulse 96 100 Oximetry O2 Sat by Pulse 97 Oximetry [ Assessment] 02/18/18 02/18/18 04:29 04:51 Temperature 99.2 F Pulse Rate 94 H 93 H Respiratory 20 Rate Blood Pressure 145/82 145/82 O2 Sat by Pulse 96 Oximetry O2 Sat by Pulse Oximetry [ Assessment] - General Appearance General appearance: well-developed, appears stated age, other (Trached on T- piece) EENT: ATNC Neck: supple Respiratory: Present: Clear to Ascultation Cardiology: regular, S1S2, no murmurs Gastrointestinal: normoactive bowel sounds, no tenderness, other (PEG tube noted ) Integumentary: no rash Neurologic: other (opens eyes, not following any command) Musculoskeletal: other (no edema) - Lab 02/18/18 05:43 02/18/18 05:43 Most recent lab results Calcium 9.3 mg/dL (8.4-10.2) 02/18/18 05:43 Phosphorus 3.50 mg/dL (2.5-4.5) D 02/17/18 04:25 Magnesium 2.30 mg/dL (1.7-2.3) 02/17/18 04:25
[2018-02-18] MEDS ORDERED: VANCOMYCIN PHARMACY TO DOSE IV SCH (08:00)
[2018-02-18] MEDS ORDERED: LANTUS SUB-Q SCH (08:00)
[2018-02-18] MEDS ORDERED: POTASSIUM CHLORIDE FEEDTUBE NR (08:00)
[2018-02-18] MEDS: SYMMETREL FEEDTUBE SCH (11:28)
[2018-02-18] MEDS: PEPCID FEEDTUBE SCH ×2 (11:29→22:21)
[2018-02-18] MEDS: KEPPRA FEEDTUBE SCH ×2 (11:29→22:20)
[2018-02-18] MEDS: ZESTRIL FEEDTUBE SCH (11:30)
[2018-02-18] MEDS: DAKIN'S FULL STRENGTH TP SCH ×2 (11:31→22:23)
[2018-02-18] MEDS: DESYREL PO SCH ×2 (11:31→22:21)
[2018-02-18] MEDS: SODIUM CHLORIDE FLUSH SYRINGE 10 ML IV SCH ×2 (11:31→22:40)
[2018-02-18] MEDS: HEPARIN SUB-Q SCH ×2 (11:32→22:21)
[2018-02-18] MEDS ORDERED: MAXIPIME/NS 2 GM/100 ML 2 GM/100 ML BAG IV SCH (12:00)
[2018-02-18] MEDS: MAXIPIME 2 GM in NACL 0.9% 20 ML IV SCH (13:56)
--- NOTE | 2018-02-18 13:56 | Progress Note ---
Assessment and Plan Assessment and plan: 72-year-old -[place] male with history of hemorrhagic stroke, status post PEG and trach from long-term admitted for sepsis, dehydration -Severe Hypernatremia; mild improvement , continue free water flushes, D5W, nephrology evaluation and recommendation noted and appreciated Frequent monitoring of sodium levels -Hypokalemia: repleted and corrected -Metabolic encephalopathy; multifactorial -patient is non communicative Secondary to sepsis. Severe hypernatremia, possible UTI IV fluids, empiric antibiotics, follow cultures --Lactic acidosis - Due to the above - Resolved --Sepsis secondary to urinary tract infection - Culture showed MDR bacterias and ID consulted, patient is currently on cefepime and Isolation --Type 2 diabetes mellitus uncontrolled diabetes mellitus; Accu-Chek sliding scale coverage tube feeding, insulin as needed --Status post trach and PEG; tracheostomy and PEG tube care --Dyslipidemia; continue lipid lowering medications --DVT prophylaxis; SCD, heparin Severe malnutrition Full CODE STATUS Continue current management History Interval history: Patient is on trach, noncommunicative but his eyes were open. Hospitalist Physical - Physical exam Narrative exam: Patient has trach and on 5 L of oxygen Vital signs as documented. Head exam is unremarkable. No scleral icterus . Neck is without jugular venous distension, thyromegaly, or carotid bruits. Lungs are clear to auscultation. Cardiac exam reveals regular rate and Rhythm. First and second heart sounds normal. No murmurs, rubs or gallops. Abdominal exam reveals normal bowel sounds, no masses, no organomegaly and no aortic enlargement. 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 were open - Constitutional Vitals: Temp Pulse Resp BP Pulse Ox 99.2 F 82 19 165/90 100 02/18/18 04:29 02/18/18 07:14 02/18/18 07:14 02/18/18 11:30 02/18/18 08:40 General appearance: Present: no acute distress, other (noncommunicative, trach and PEG) Results - Labs CBC & Chem 7: 02/18/18 05:43 02/18/18 05:43 Labs: Laboratory Last Values WBC 13.8 K/mm3 (4.5-11.0) H 02/18/18 05:43 RBC 4.06 M/mm3 (3.65-5.03) 02/18/18 05:43 Hgb 9.5 gm/dl (11.8-15.2) L 02/18/18 05:43 Hct 30.7 % (35.5-45.6) L 02/18/18 05:43 MCV 76 fl (84-94) L 02/18/18 05:43 MCH 24 pg (28-32) L 02/18/18 05:43 MCHC 31 % (32-34) L 02/18/18 05:43 RDW 17.1 % (13.2-15.2) H 02/18/18 05:43 Plt Count 187 K/mm3 (140-440) 02/18/18 05:43 Lymph % (Auto) 11.5 % (13.4-35.0) L 02/18/18 05:43 [place] % (Auto) 5.1 % (0.0-7.3) 02/18/18 05:43 Eos % (Auto) 3.9 % (0.0-4.3) 02/18/18 05:43 Baso % (Auto) 0.4 % (0.0-1.8) 02/18/18 05:43 Lymph # 1.6 K/mm3 (1.2-5.4) 02/18/18 05:43 [place] # 0.7 K/mm3 (0.0-0.8) 02/18/18 05:43 Eos # 0.5 K/mm3 (0.0-0.4) H 02/18/18 05:43 Baso # 0.1 K/mm3 (0.0-0.1) 02/18/18 05:43 Add Manual Diff Complete 02/17/18 04:25 Total Counted 100 02/17/18 04:25 Seg Neutrophils % 79.1 % (40.0-70.0) H 02/18/18 05:43 Seg Neuts % (Manual) 78.0 % (40.0-70.0) H 02/17/18 04:25 Band Neutrophils % 2.0 % 02/17/18 04:25 Lymphocytes % (Manual) 18.0 % (13.4-35.0) 02/17/18 04:25 Reactive Lymphs % (Man) 0 % 02/17/18 04:25 Monocytes % (Manual) 0 % (0.0-7.3) 02/17/18 04:25 Eosinophils % (Manual) 1.0 % (0.0-4.3) 02/17/18 04:25 Basophils % (Manual) 0 % (0.0-1.8) 02/17/18 04:25 Metamyelocytes % 1.0 % 02/17/18 04:25 Myelocytes % 0 % 02/17/18 04:25 Promyelocytes % 0 % 02/17/18 04:25 Blast Cells % 0 % 02/17/18 04:25 Nucleated RBC % Not Reportable 02/17/18 04:25 Seg Neutrophils # 10.9 K/mm3 (1.8-7.7) H 02/18/18 05:43 Seg Neutrophils # Man 14.6 K/mm3 (1.8-7.7) H 02/17/18 04:25 Band Neutrophils # 0.4 K/mm3 02/17/18 04:25 Lymphocytes # (Manual) 3.4 K/mm3 (1.2-5.4) 02/17/18 04:25 Abs React Lymphs (Man) 0.0 K/mm3 02/17/18 04:25 Monocytes # (Manual) 0.0 K/mm3 (0.0-0.8) 02/17/18 04:25 Eosinophils # (Manual) 0.2 K/mm3 (0.0-0.4) 02/17/18 04:25 Basophils # (Manual) 0.0 K/mm3 (0.0-0.1) 02/17/18 04:25 Metamyelocytes # 0.2 K/mm3 02/17/18 04:25 Myelocytes # 0.0 K/mm3 02/17/18 04:25 Promyelocytes # 0.0 K/mm3 02/17/18 04:25 Blast Cells # 0.0 K/mm3 02/17/18 04:25 WBC Morphology Not Reportable 02/17/18 04:25 Hypersegmented Neuts Not Reportable 02/17/18 04:25 Hyposegmented Neuts Not Reportable 02/17/18 04:25 Hypogranular Neuts Not Reportable 02/17/18 04:25 Smudge Cells Not Reportable 02/17/18 04:25 Toxic Granulation Not Reportable 02/17/18 04:25 Toxic Vacuolation Not Reportable 02/17/18 04:25 Dohle Bodies Not Reportable 02/17/18 04:25 Pelger-Huet Anomaly Not Reportable 02/17/18 04:25 Helene Rods Not Reportable 02/17/18 04:25 Platelet Estimate Cons 02/17/18 04:25 Clumped Platelets Not Reportable 02/17/18 04:25 Plt Clumps, EDTA Not Reportable 02/17/18 04:25 Large Platelets Not Reportable 02/17/18 04:25 Giant Platelets Not Reportable 02/17/18 04:25 Platelet Satelliting Not Reportable 02/17/18 04:25 Plt Morphology Comment Not Reportable 02/17/18 04:25 RBC Morphology Not Reportable 02/17/18 04:25 Dimorphic RBCs Not Reportable 02/17/18 04:25 Polychromasia Not Reportable 02/17/18 04:25 Hypochromasia 1+ 02/17/18 04:25 Poikilocytosis Not Reportable 02/17/18 04:25 Anisocytosis 1+ 02/17/18 04:25 Microcytosis Not Reportable 02/17/18 04:25 Macrocytosis Not Reportable 02/17/18 04:25 Spherocytes Not Reportable 02/17/18 04:25 Pappenheimer Bodies Not Reportable 02/17/18 04:25 Sickle Cells Not Reportable 02/17/18 04:25 Target Cells Not Reportable 02/17/18 04:25 Tear Drop Cells Not Reportable 02/17/18 04:25 Ovalocytes Not Reportable 02/17/18 04:25 Helmet Cells Not Reportable 02/17/18 04:25 Chaudhry-[place] Bodies Not Reportable 02/17/18 04:25 [place] Rings Not Reportable 02/17/18 04:25 Patricia Cells Not Reportable 02/17/18 04:25 Bite Cells Not Reportable 02/17/18 04:25 Crenated Cell Not Reportable 02/17/18 04:25 Elliptocytes Not Reportable 02/17/18 04:25 Acanthocytes (Spur) Not Reportable 02/17/18 04:25 Rouleaux Not Reportable 02/17/18 04:25 Hemoglobin C Crystals Not Reportable 02/17/18 04:25 Schistocytes Not Reportable 02/17/18 04:25 Malaria parasites Not Reportable 02/17/18 04:25 Huy Bodies Not Reportable 02/17/18 04:25 Hem Pathologist Commnt No 02/17/18 04:25 APTT 31.9 Sec. (24.2-36.6) 02/14/18 10:15 POC ABG pH 7.521 (7.35-7.45) H 02/14/18 10:39 POC ABG pCO2 38.8 (35-45) 02/14/18 10:39 POC ABG pO2 58 (80-105) L 02/14/18 10:39 POC ABG HCO3 31.8 02/14/18 10:39 POC ABG Total CO2 33 02/14/18 10:39 POC ABG O2 Sat 92 02/14/18 10:39 POC ABG Base Excess 9 02/14/18 10:39 FiO2 80 % 02/14/18 10:39 Sodium 152 mmol/L (137-145) H 02/18/18 05:43 Potassium 3.6 mmol/L (3.6-5.0) 02/18/18 05:43 Chloride 114.3 mmol/L (98-107) H 02/18/18 05:43 Carbon Dioxide 30 mmol/L (22-30) 02/18/18 05:43 Anion Gap 11 mmol/L 02/18/18 05:43 BUN 26 mg/dL (9-20) H 02/18/18 05:43 Creatinine 1.0 mg/dL (0.8-1.5) 02/18/18 05:43 Estimated GFR > 60 ml/min 02/18/18 05:43 BUN/Creatinine Ratio 26 % 02/18/18 05:43 Glucose 322 mg/dL (75-100) H 02/18/18 05:43 POC Glucose 328 (70-105) H 02/18/18 12:21 Hemoglobin A1c 10.1 % (4-6) H 02/14/18 20:21 Lactic Acid 3.00 mmol/L (0.7-2.0) H* 02/15/18 05:53 Calcium 9.3 mg/dL (8.4-10.2) 02/18/18 05:43 Phosphorus 3.50 mg/dL (2.5-4.5) D 02/17/18 04:25 Magnesium 2.30 mg/dL (1.7-2.3) 02/17/18 04:25 Total Bilirubin 0.50 mg/dL (0.1-1.2) 02/15/18 02:16 AST 19 units/L (5-40) 02/15/18 02:16 ALT 41 units/L (7-56) 02/15/18 02:16 Alkaline Phosphatase 173 units/L (35-129) H 02/15/18 02:16 Total Creatine Kinase 46 units/L (55-170) L 02/14/18 10:15 Total Protein 6.2 g/dL (6.3-8.2) L 02/15/18 02:16 Albumin 2.0 g/dL (3.9-5) L 02/15/18 02:16 Albumin/Globulin Ratio 0.5 % 02/15/18 02:16 Urine Color Yellow (Yellow) 02/14/18 10:04 Urine Turbidity Hazy (Clear) 02/14/18 10:04 Urine pH 5.0 (5.0-7.0) 02/14/18 10:04 Ur Specific [place] 1.022 (1.003-1.030) 02/14/18 10:04 Urine Protein 30 mg/dl mg/dL (Negative) 02/14/18 10:04 Urine Glucose (UA) >=500 mg/dL (Negative) 02/14/18 10:04 Urine Ketones Neg mg/dL (Negative) 02/14/18 10:04 Urine Blood Sm (Negative) 02/14/18 10:04 Urine Nitrite Neg (Negative) 02/14/18 10:04 Urine Bilirubin Neg (Negative) 02/14/18 10:04 Urine Urobilinogen < 2.0 mg/dL (<2.0) 02/14/18 10:04 Ur Leukocyte Esterase Lg (Negative) 02/14/18 10:04 Urine WBC (Auto) 53.0 /HPF (0.0-6.0) H 02/14/18 10:04 Urine RBC (Auto) 13.0 /HPF (0.0-6.0) 02/14/18 10:04 U Epithel Cells (Auto) < 1.0 /HPF (0-13.0) 02/14/18 10:04 Urine Bacteria (Auto) 2+ /HPF (Negative) 02/14/18 10:04 Urine WBC Clumps 3+ /HPF 02/14/18 10:04 Hyaline Casts 7 /LPF 02/14/18 10:04 Urine Mucus Few /HPF 02/14/18 10:04 Vancomycin Trough 31.4 ug/mL (5.0-20.0) H 02/17/18 09:37 Random Vancomycin 16.5 ug/mL (0-40.0) 02/18/18 05:43 Blood Type O POSITIVE 02/14/18 10:15 Antibody Screen Negative 02/14/18 10:15
[2018-02-18] MEDS: TRANSDERM-SCOP TD SCH (17:44)
--- NOTE | 2018-02-18 20:29 | Cat Scan Report ---
FINAL REPORT EXAM: CT HEAD/BRAIN WO CON HISTORY: AMS TECHNIQUE: Noncontrast CT axial images of the brain. PRIORS: None. FINDINGS: Mild, patchy low density in the periventricular and subcortical white matter is nonspecific, but may relate to chronic small vessel ischemic change. Focal area of decreased attenuation in the right posteroinferior parieto-occipital region, with some serpiginous isodensity within it may represent ischemic change or infarct versus vasogenic edema secondary to infectious/inflammatory process or neoplastic/metastatic disease. Partial effacement of right occipital horn and overlying cortical sulci. Age related volume loss. No other parenchymal mass, hemorrhage, midline shift or hydrocephalus. No other evidence of acute cortical infarct. No abnormal, extra-axial fluid or air collection. Osseous calvarium grossly intact. Probable mucous retention cyst versus polyp in the left maxillary sinus. Partial opacification of right mastoid air complex. IMPRESSION: 1. Focal area of decreased attenuation in the right parieto-occipital region may represent ischemic change, acute versus subacute or chronic. Differential diagnosis also includes nonspecific, infectious or inflammatory process, as well as neoplastic or metastatic disease. Please note that MRI is a far more sensitive modality in the evaluation of acute cerebral ischemia, inflammatory or neoplastic processes. Therefore, if symptoms persist or clinical suspicion for pathology remains, evaluation with MRI brain may help in further evaluation, as clinically indicated. 2. Chronic ischemic and atrophic changes.
[2018-02-19] MEDS: HumaLOG SUB-Q SCH ×5 (01:20→23:06)
[2018-02-19] MEDS: MAXIPIME 2 GM in NACL 0.9% 20 ML IV SCH ×3 (01:21→23:11)
[2018-02-19] MEDS: LOPRESSOR FEEDTUBE SCH ×3 (04:48→21:01)
[2018-02-19 07:53] LABS: Hemoglobin 10.2 gm/dl (11.8-15.2); Mean Corpuscular HGB Conc 33 % (32-34); Mean Corpuscular Hemoglobin 24 pg (28-32); Mean Corpuscular Volume 74 fl (84-94); Mean Platelet Volume 8.2 fl (6-12); Platelet Count 187 K/mm3 (140-440); Red Blood Count 4.18 M/mm3 (3.65-5.03); Red Cell Distribution Width 16.9 % (13.2-15.2)
[2018-02-19 08:00] LABS: BUN/Creatinine Ratio 30; Blood Urea Nitrogen 24 mg/dL (9-20); Calcium 9.4 mg/dL (8.4-10.2); Hemolysis Index 1
[2018-02-19] MEDS: LANTUS SUB-Q SCH ×2 (08:45→23:06)
[2018-02-19] MEDS: DESYREL PO SCH ×2 (10:59→21:03)
[2018-02-19] MEDS: KEPPRA FEEDTUBE SCH ×2 (10:59→21:02)
[2018-02-19] MEDS: SYMMETREL FEEDTUBE SCH (10:59)
[2018-02-19] MEDS: ZESTRIL FEEDTUBE SCH (10:59)
[2018-02-19] MEDS: HEPARIN SUB-Q SCH ×2 (11:00→21:02)
[2018-02-19] MEDS: PEPCID FEEDTUBE SCH ×2 (11:00→21:02)
[2018-02-19] MEDS: DAKIN'S FULL STRENGTH TP SCH ×2 (11:01→21:13)
[2018-02-19] MEDS: SODIUM CHLORIDE FLUSH SYRINGE 10 ML IV SCH ×2 (11:02→21:12)
[2018-02-19 11:22] LABS: Basophils % (Manual) 0 % (0.0-1.8); Eosinophils % (Manual) 0 % (0.0-4.3); Total Cells Counted 100
[2018-02-19 11:23] LABS: Anisocytosis 1+; Ovalocytes 1+
--- NOTE | 2018-02-19 13:15 | Progress Note ---
Assessment and Plan 1. Hypernatremia: Sdoium level continue to improve. Continue water flushes. Monitor Sodium level. 2. Acute kidney injury: Improved. 3. Hypokalemia: Replete as appropriate. Monitor. 4. Sepsis. 5. Lactic acidosis. Subjective Date of service: 02/19/18 Interval history: Patient was seen and examined at the bedside. Objective - Vital Signs Vital signs: Vital Signs - 12hr 02/19/18 02/19/18 02/19/18 04:37 04:38 04:48 Temperature 98.1 F Pulse Rate 99 H 98 H 83 Respiratory 20 Rate Blood Pressure 138/81 138/82 O2 Sat by Pulse 93 98 Oximetry O2 Sat by Pulse Oximetry [ Assessment] 02/19/18 02/19/18 02/19/18 07:18 07:58 08:00 Temperature 99.0 F Pulse Rate 85 Respiratory 19 Rate Blood Pressure 159/88 O2 Sat by Pulse 96 97 Oximetry O2 Sat by Pulse 97 Oximetry [ Assessment] 02/19/18 02/19/18 10:59 11:19 Temperature 99.4 F Pulse Rate 101 H Respiratory 19 Rate Blood Pressure 159/88 147/85 O2 Sat by Pulse 94 Oximetry O2 Sat by Pulse Oximetry [ Assessment] - General Appearance General appearance: well-developed, appears stated age, other (no distress) EENT: ATNC Neck: supple, other (Trached, on T-piece) Respiratory: Present: Clear to Ascultation Cardiology: regular, S1S2, no murmurs Gastrointestinal: normoactive bowel sounds, no tenderness, no distended, other ( PEG tube noted) Integumentary: no rash, warm and dry Neurologic: other (opens eyes, non-verbal) Musculoskeletal: other (no edema) - Lab 02/19/18 07:14 02/19/18 07:14 Most recent lab results Calcium 9.4 mg/dL (8.4-10.2) 02/19/18 07:14 Phosphorus 3.50 mg/dL (2.5-4.5) D 02/17/18 04:25 Magnesium 2.30 mg/dL (1.7-2.3) 02/17/18 04:25
--- NOTE | 2018-02-19 13:24 | Progress Note ---
Assessment and Plan Assessment and plan: 72-year-old -[place] male with history of hemorrhagic stroke, status post PEG and trach from [facility] admitted for sepsis, dehydration -Severe Hypernatremia; mild improvement , continue free water flushes, D5W, nephrology evaluation and recommendation noted and appreciated Improving -Hypokalemia: repleted -Metabolic encephalopathy; multifactorial, improving Secondary to sepsis. Severe hypernatremia, possible UTI IV fluids, empiric antibiotics, follow cultures --Lactic acidosis - Due to the above - Resolved Sepsis secondary to urinary tract infection - Culture showed MDR bacterias and ID consulted, patient is currently on cefepime and Isolation --Type 2 diabetes mellitus uncontrolled diabetes mellitus; Accu-Chek sliding scale coverage tube feeding, insulin as needed --Status post trach and PEG; tracheostomy and PEG tube care --Dyslipidemia; continue lipid lowering medications --DVT prophylaxis; SCD, heparin Severe malnutrition Full CODE STATUS Continue current management CT head was done and result noted. Patient's mentation is getting better, if worsened we may do MRI. History Interval history: Patient is on trach, patient is on trach, he tried to talk but couldn't understood him, but he was alert and looks understand. Hospitalist Physical - Physical exam Narrative exam: Patient has trach and on 5 L of oxygen Vital signs as documented. Head exam is unremarkable. No scleral icterus . Neck is without jugular venous distension, thyromegaly, or carotid bruits. Lungs are clear to auscultation. Cardiac exam reveals regular rate and Rhythm. First and second heart sounds normal. No murmurs, rubs or gallops. Abdominal exam reveals normal bowel sounds, no masses, no organomegaly and no aortic enlargement. 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 - Constitutional Vitals: Temp Pulse Resp BP Pulse Ox 99.4 F 101 H 19 147/85 94 02/19/18 11:19 02/19/18 11:19 02/19/18 11:19 02/19/18 11:19 02/19/18 11:19 General appearance: Present: no acute distress, other (noncommunicative, trach and PEG) Results - Labs CBC & Chem 7: 02/19/18 07:14 02/19/18 07:14 Labs: Laboratory Last Values WBC 13.8 K/mm3 (4.5-11.0) H 02/19/18 07:14 RBC 4.18 M/mm3 (3.65-5.03) 02/19/18 07:14 Hgb 10.2 gm/dl (11.8-15.2) L 02/19/18 07:14 Hct 31.0 % (35.5-45.6) L 02/19/18 07:14 MCV 74 fl (84-94) L 02/19/18 07:14 MCH 24 pg (28-32) L 02/19/18 07:14 MCHC 33 % (32-34) 02/19/18 07:14 RDW 16.9 % (13.2-15.2) H 02/19/18 07:14 Plt Count 187 K/mm3 (140-440) 02/19/18 07:14 Lymph % (Auto) 11.5 % (13.4-35.0) L 02/18/18 05:43 [place] % (Auto) 5.1 % (0.0-7.3) 02/18/18 05:43 Eos % (Auto) 3.9 % (0.0-4.3) 02/18/18 05:43 Baso % (Auto) 0.4 % (0.0-1.8) 02/18/18 05:43 Lymph # 1.6 K/mm3 (1.2-5.4) 02/18/18 05:43 [place] # 0.7 K/mm3 (0.0-0.8) 02/18/18 05:43 Eos # 0.5 K/mm3 (0.0-0.4) H 02/18/18 05:43 Baso # 0.1 K/mm3 (0.0-0.1) 02/18/18 05:43 Add Manual Diff Complete 02/19/18 07:14 Total Counted 100 02/19/18 07:14 Seg Neutrophils % 79.1 % (40.0-70.0) H 02/18/18 05:43 Seg Neuts % (Manual) 86.0 % (40.0-70.0) H 02/19/18 07:14 Band Neutrophils % 0 % 02/19/18 07:14 Lymphocytes % (Manual) 9.0 % (13.4-35.0) L 02/19/18 07:14 Reactive Lymphs % (Man) 0 % 02/19/18 07:14 Monocytes % (Manual) 4.0 % (0.0-7.3) 02/19/18 07:14 Eosinophils % (Manual) 0 % (0.0-4.3) 02/19/18 07:14 Basophils % (Manual) 0 % (0.0-1.8) 02/19/18 07:14 Metamyelocytes % 1.0 % 02/19/18 07:14 Myelocytes % 0 % 02/19/18 07:14 Promyelocytes % 0 % 02/19/18 07:14 Blast Cells % 0 % 02/19/18 07:14 Nucleated RBC % Not Reportable 02/19/18 07:14 Seg Neutrophils # 10.9 K/mm3 (1.8-7.7) H 02/18/18 05:43 Seg Neutrophils # Man 11.9 K/mm3 (1.8-7.7) H 02/19/18 07:14 Band Neutrophils # 0.0 K/mm3 02/19/18 07:14 Lymphocytes # (Manual) 1.2 K/mm3 (1.2-5.4) 02/19/18 07:14 Abs React Lymphs (Man) 0.0 K/mm3 02/19/18 07:14 Monocytes # (Manual) 0.6 K/mm3 (0.0-0.8) 02/19/18 07:14 Eosinophils # (Manual) 0.0 K/mm3 (0.0-0.4) 02/19/18 07:14 Basophils # (Manual) 0.0 K/mm3 (0.0-0.1) 02/19/18 07:14 Metamyelocytes # 0.1 K/mm3 02/19/18 07:14 Myelocytes # 0.0 K/mm3 02/19/18 07:14 Promyelocytes # 0.0 K/mm3 02/19/18 07:14 Blast Cells # 0.0 K/mm3 02/19/18 07:14 WBC Morphology Not Reportable 02/19/18 07:14 Hypersegmented Neuts Not Reportable 02/19/18 07:14 Hyposegmented Neuts Not Reportable 02/19/18 07:14 Hypogranular Neuts Not Reportable 02/19/18 07:14 Smudge Cells Not Reportable 02/19/18 07:14 Toxic Granulation Not Reportable 02/19/18 07:14 Toxic Vacuolation Not Reportable 02/19/18 07:14 Dohle Bodies Not Reportable 02/19/18 07:14 Pelger-Huet Anomaly Not Reportable 02/19/18 07:14 Helene Rods Not Reportable 02/19/18 07:14 Platelet Estimate Appears normal 02/19/18 07:14 Clumped Platelets Not Reportable 02/19/18 07:14 Plt Clumps, EDTA Not Reportable 02/19/18 07:14 Large Platelets Not Reportable 02/19/18 07:14 Giant Platelets Not Reportable 02/19/18 07:14 Platelet Satelliting Not Reportable 02/19/18 07:14 Plt Morphology Comment Not Reportable 02/19/18 07:14 RBC Morphology Not Reportable 02/19/18 07:14 Dimorphic RBCs Not Reportable 02/19/18 07:14 Polychromasia Not Reportable 02/19/18 07:14 Hypochromasia Not Reportable 02/19/18 07:14 Poikilocytosis Not Reportable 02/19/18 07:14 Anisocytosis 1+ 02/19/18 07:14 Microcytosis Not Reportable 02/19/18 07:14 Macrocytosis Not Reportable 02/19/18 07:14 Spherocytes Not Reportable 02/19/18 07:14 Pappenheimer Bodies Not Reportable 02/19/18 07:14 Sickle Cells Not Reportable 02/19/18 07:14 Target Cells Not Reportable 02/19/18 07:14 Tear Drop Cells Not Reportable 02/19/18 07:14 Ovalocytes 1+ 02/19/18 07:14 Helmet Cells Not Reportable 02/19/18 07:14 [place] Bodies Not Reportable 02/19/18 07:14 [place] Rings Not Reportable 02/19/18 07:14 [place] Cells Not Reportable 02/19/18 07:14 Bite Cells Not Reportable 02/19/18 07:14 Crenated Cell Not Reportable 02/19/18 07:14 Elliptocytes Few 02/19/18 07:14 Acanthocytes (Spur) Not Reportable 02/19/18 07:14 Rouleaux Not Reportable 02/19/18 07:14 Hemoglobin C Crystals Not Reportable 02/19/18 07:14 Schistocytes Not Reportable 02/19/18 07:14 Malaria parasites Not Reportable 02/19/18 07:14 Huy Bodies Not Reportable 02/19/18 07:14 Hem Pathologist Commnt No 02/19/18 07:14 APTT 31.9 Sec. (24.2-36.6) 02/14/18 10:15 POC ABG pH 7.521 (7.35-7.45) H 02/14/18 10:39 POC ABG pCO2 38.8 (35-45) 02/14/18 10:39 POC ABG pO2 58 (80-105) L 02/14/18 10:39 POC ABG HCO3 31.8 02/14/18 10:39 POC ABG Total CO2 33 02/14/18 10:39 POC ABG O2 Sat 92 02/14/18 10:39 POC ABG Base Excess 9 02/14/18 10:39 FiO2 80 % 02/14/18 10:39 Sodium 149 mmol/L (137-145) H 02/19/18 07:14 Potassium 3.5 mmol/L (3.6-5.0) L 02/19/18 07:14 Chloride 111.1 mmol/L (98-107) H 02/19/18 07:14 Carbon Dioxide 30 mmol/L (22-30) 02/19/18 07:14 Anion Gap 11 mmol/L 02/19/18 07:14 BUN 24 mg/dL (9-20) H 02/19/18 07:14 Creatinine 0.8 mg/dL (0.8-1.5) 02/19/18 07:14 Estimated GFR > 60 ml/min 02/19/18 07:14 BUN/Creatinine Ratio 30 % 02/19/18 07:14 Glucose 263 mg/dL (75-100) H 02/19/18 07:14 POC Glucose 293 (70-105) H 02/19/18 11:36 Hemoglobin A1c 10.1 % (4-6) H 02/14/18 20:21 Lactic Acid 3.00 mmol/L (0.7-2.0) H* 02/15/18 05:53 Calcium 9.4 mg/dL (8.4-10.2) 02/19/18 07:14 Phosphorus 3.50 mg/dL (2.5-4.5) D 02/17/18 04:25 Magnesium 2.30 mg/dL (1.7-2.3) 02/17/18 04:25 Total Bilirubin 0.50 mg/dL (0.1-1.2) 02/15/18 02:16 AST 19 units/L (5-40) 02/15/18 02:16 ALT 41 units/L (7-56) 02/15/18 02:16 Alkaline Phosphatase 173 units/L (35-129) H 02/15/18 02:16 Total Creatine Kinase 46 units/L (55-170) L 02/14/18 10:15 Total Protein 6.2 g/dL (6.3-8.2) L 02/15/18 02:16 Albumin 2.0 g/dL (3.9-5) L 02/15/18 02:16 Albumin/Globulin Ratio 0.5 % 02/15/18 02:16 Urine Color Yellow (Yellow) 02/14/18 10:04 Urine Turbidity Hazy (Clear) 02/14/18 10:04 Urine pH 5.0 (5.0-7.0) 02/14/18 10:04 Ur Specific [place] 1.022 (1.003-1.030) 02/14/18 10:04 Urine Protein 30 mg/dl mg/dL (Negative) 02/14/18 10:04 Urine Glucose (UA) >=500 mg/dL (Negative) 02/14/18 10:04 Urine Ketones Neg mg/dL (Negative) 02/14/18 10:04 Urine Blood Sm (Negative) 02/14/18 10:04 Urine Nitrite Neg (Negative) 02/14/18 10:04 Urine Bilirubin Neg (Negative) 02/14/18 10:04 Urine Urobilinogen < 2.0 mg/dL (<2.0) 02/14/18 10:04 Ur Leukocyte Esterase Lg (Negative) 02/14/18 10:04 Urine WBC (Auto) 53.0 /HPF (0.0-6.0) H 02/14/18 10:04 Urine RBC (Auto) 13.0 /HPF (0.0-6.0) 02/14/18 10:04 U Epithel Cells (Auto) < 1.0 /HPF (0-13.0) 02/14/18 10:04 Urine Bacteria (Auto) 2+ /HPF (Negative) 02/14/18 10:04 Urine WBC Clumps 3+ /HPF 02/14/18 10:04 Hyaline Casts 7 /LPF 02/14/18 10:04 Urine Mucus Few /HPF 02/14/18 10:04 Vancomycin Trough 31.4 ug/mL (5.0-20.0) H 02/17/18 09:37 Random Vancomycin 16.5 ug/mL (0-40.0) 02/18/18 05:43 Blood Type O POSITIVE 02/14/18 10:15 Antibody Screen Negative 02/14/18 10:15
[2018-02-19] MEDS ORDERED: POTASSIUM CHLORIDE FEEDTUBE ONE (14:00)
[2018-02-20] MEDS: LOPRESSOR FEEDTUBE SCH ×3 (04:34→22:50)
[2018-02-20 06:05] LABS: Hematocrit 31.1 % (35.5-45.6); Hemoglobin 10.1 gm/dl (11.8-15.2); Mean Corpuscular HGB Conc 33 % (32-34); Mean Corpuscular Hemoglobin 24 pg (28-32); Mean Corpuscular Volume 74 fl (84-94); Red Blood Count 4.22 M/mm3 (3.65-5.03)
[2018-02-20 06:06] LABS: Platelet Count 209 K/mm3 (140-440); Red Cell Distribution Width 16.7 % (13.2-15.2)
[2018-02-20 06:18] LABS: BUN/Creatinine Ratio 30; Blood Urea Nitrogen 24 mg/dL (9-20); Calcium 9.5 mg/dL (8.4-10.2); Hemolysis Index 14
[2018-02-20] MEDS: HumaLOG SUB-Q SCH ×3 (06:31→19:14)
[2018-02-20 07:17] LABS: Anisocytosis 1+; Band Neutrophils # (Manual) 0.3 K/mm3; Basophils % (Manual) 0 % (0.0-1.8); Ovalocytes 1+; Total Cells Counted 100
[2018-02-20 07:18] LABS: Helmet Cells Rare; Stomatocytes Few; Tear Drop Cells Few
--- NOTE | 2018-02-20 09:11 | Progress Note ---
Assessment and Plan 1. Hypernatremia: Will give a dose of Diuril. Continue water flushes. Monitor Sodium level. 2. Acute kidney injury: Improved. 3. Hypokalemia: Replete as appropriate. Monitor. 4. Sepsis. 5. Lactic acidosis. Subjective Date of service: 02/20/18 Interval history: Patient was seen and examined at the bedside. Objective - Vital Signs Vital signs: Vital Signs - 12hr 02/19/18 02/20/18 02/20/18 23:20 00:00 03:28 Temperature 98.1 F 98.4 F Pulse Rate 86 97 H Respiratory 32 H 32 H Rate Blood Pressure 148/80 152/88 O2 Sat by Pulse 95 98 Oximetry O2 Sat by Pulse 98 Oximetry [ Assessment] 02/20/18 02/20/18 04:34 07:30 Temperature 98.0 F Pulse Rate 97 H 91 H Respiratory 32 H Rate Blood Pressure 152/88 145/85 O2 Sat by Pulse 94 Oximetry O2 Sat by Pulse Oximetry [ Assessment] - General Appearance General appearance: well-developed, appears stated age, other (Trached on T- piece) EENT: ATNC, PERRL Neck: supple Respiratory: Present: Clear to Ascultation Cardiology: regular, S1S2, no murmurs Gastrointestinal: normoactive bowel sounds, no tenderness, other (PEG tube noted ) Integumentary: no rash Neurologic: other (opens eyes, follows some command) Musculoskeletal: other (no edema) - Lab 02/20/18 05:03 02/20/18 05:03 Most recent lab results Calcium 9.5 mg/dL (8.4-10.2) 02/20/18 05:03 Phosphorus 3.50 mg/dL (2.5-4.5) D 02/17/18 04:25 Magnesium 2.30 mg/dL (1.7-2.3) 02/17/18 04:25
[2018-02-20] MEDS ORDERED: DIURIL IV SCH (11:00)
[2018-02-20] MEDS ORDERED: WATER FOR INJ IV NR (11:30)
[2018-02-20] MEDS ORDERED: DIURIL IV NR (11:30)
[2018-02-20] MEDS: SYMMETREL FEEDTUBE SCH (12:33)
[2018-02-20] MEDS: PEPCID FEEDTUBE SCH ×2 (12:33→22:44)
[2018-02-20] MEDS: DESYREL PO SCH ×2 (12:34→22:44)
[2018-02-20] MEDS: KEPPRA FEEDTUBE SCH ×2 (12:34→22:43)
[2018-02-20] MEDS: DAKIN'S FULL STRENGTH TP SCH ×2 (12:37→22:42)
[2018-02-20] MEDS: SODIUM CHLORIDE FLUSH SYRINGE 10 ML IV SCH ×2 (12:37→22:45)
[2018-02-20] MEDS: HEPARIN SUB-Q SCH ×2 (12:53→22:44)
[2018-02-20] MEDS: LANTUS SUB-Q SCH ×3 (12:53→22:46)
[2018-02-20] MEDS: ZESTRIL FEEDTUBE SCH (12:53)
--- NOTE | 2018-02-20 13:31 | Progress Note ---
Assessment and Plan Assessment and plan: Severe hypernatremia, likely secondary to dehydration -mild improvement -continue free water flushes and IV D5W -nephrology following Sepsis secondary to UTI -urine culture grew klebsiella and pseudomonas -blood culture neg so far -cont IV cefepime Acute encephalopathy, likely multifactorial -CT head suspicious for ischemic change, will do MRI brain for further eval Hypokalemia -resolved Dysphagia -Status post PEG tube placement -Continue tube feeding Chronic respiratory failure with hypoxia -Status post tracheostomy -Continue supportive care Severe protein calorie malnutrition -On tube feeding -Dietitian following History of hemorrhagic stroke -Continue statin and supportive care IDDM2 with hyperglycemia -Lantus dose increased Dyslipidemia -Continue statin Hypertension, fairly controlled -Lisinopril dose increased -Continue metoprolol -DVT prophylaxis; SCD, heparin Disposition: Discharge patient when medically stable 32 minutes spent coordinating care History Interval history: Patient seen and examined today. He is nonverbal. Hospitalist Physical - Constitutional Vitals: Temp Pulse Resp BP Pulse Ox 97.8 F 99 H 32 H 150/87 96 02/20/18 11:40 02/20/18 12:53 02/20/18 11:40 02/20/18 12:53 02/20/18 11:40 General appearance: Present: no acute distress, other (nonviable) - EENT Eyes: Present: PERRL, EOM intact - Neck Neck: Present: supple, other (status post trach) - Respiratory Respiratory effort: normal Respiratory: bilateral: diminished - Cardiovascular Rhythm: regular Heart Sounds: Present: S1 & S2 - Extremities Extremities: No edema - Abdominal General gastrointestinal: soft, non-tender, normal bowel sounds, other (PEG tube noted) - Neurologic Neurologic: other (patient is nonverbal and unable to follow commands) Results - Labs CBC & Chem 7: 02/20/18 05:03 02/20/18 05:03 Labs: Laboratory Last Values WBC 13.6 K/mm3 (4.5-11.0) H 02/20/18 05:03 RBC 4.22 M/mm3 (3.65-5.03) 02/20/18 05:03 Hgb 10.1 gm/dl (11.8-15.2) L 02/20/18 05:03 Hct 31.1 % (35.5-45.6) L 02/20/18 05:03 MCV 74 fl (84-94) L 02/20/18 05:03 MCH 24 pg (28-32) L 02/20/18 05:03 MCHC 33 % (32-34) 02/20/18 05:03 RDW 16.7 % (13.2-15.2) H 02/20/18 05:03 Plt Count 209 K/mm3 (140-440) 02/20/18 05:03 Lymph % (Auto) 11.5 % (13.4-35.0) L 02/18/18 05:43 [place] % (Auto) 5.1 % (0.0-7.3) 02/18/18 05:43 Eos % (Auto) 3.9 % (0.0-4.3) 02/18/18 05:43 Baso % (Auto) 0.4 % (0.0-1.8) 02/18/18 05:43 Lymph # 1.6 K/mm3 (1.2-5.4) 02/18/18 05:43 [place] # 0.7 K/mm3 (0.0-0.8) 02/18/18 05:43 Eos # 0.5 K/mm3 (0.0-0.4) H 02/18/18 05:43 Baso # 0.1 K/mm3 (0.0-0.1) 02/18/18 05:43 Add Manual Diff Complete 02/20/18 05:03 Total Counted 100 02/20/18 05:03 Seg Neutrophils % 79.1 % (40.0-70.0) H 02/18/18 05:43 Seg Neuts % (Manual) 85.0 % (40.0-70.0) H 02/20/18 05:03 Band Neutrophils % 2.0 % 02/20/18 05:03 Lymphocytes % (Manual) 7.0 % (13.4-35.0) L 02/20/18 05:03 Reactive Lymphs % (Man) 0 % 02/20/18 05:03 Monocytes % (Manual) 1.0 % (0.0-7.3) 02/20/18 05:03 Eosinophils % (Manual) 2.0 % (0.0-4.3) 02/20/18 05:03 Basophils % (Manual) 0 % (0.0-1.8) 02/20/18 05:03 Metamyelocytes % 3.0 % 02/20/18 05:03 Myelocytes % 0 % 02/20/18 05:03 Promyelocytes % 0 % 02/20/18 05:03 Blast Cells % 0 % 02/20/18 05:03 Nucleated RBC % Not Reportable 02/20/18 05:03 Seg Neutrophils # 10.9 K/mm3 (1.8-7.7) H 02/18/18 05:43 Seg Neutrophils # Man 11.6 K/mm3 (1.8-7.7) H 02/20/18 05:03 Band Neutrophils # 0.3 K/mm3 02/20/18 05:03 Lymphocytes # (Manual) 1.0 K/mm3 (1.2-5.4) L 02/20/18 05:03 Abs React Lymphs (Man) 0.0 K/mm3 02/20/18 05:03 Monocytes # (Manual) 0.1 K/mm3 (0.0-0.8) 02/20/18 05:03 Eosinophils # (Manual) 0.3 K/mm3 (0.0-0.4) 02/20/18 05:03 Basophils # (Manual) 0.0 K/mm3 (0.0-0.1) 02/20/18 05:03 Metamyelocytes # 0.4 K/mm3 02/20/18 05:03 Myelocytes # 0.0 K/mm3 02/20/18 05:03 Promyelocytes # 0.0 K/mm3 02/20/18 05:03 Blast Cells # 0.0 K/mm3 02/20/18 05:03 WBC Morphology Not Reportable 02/20/18 05:03 Hypersegmented Neuts Not Reportable 02/20/18 05:03 Hyposegmented Neuts Not Reportable 02/20/18 05:03 Hypogranular Neuts Not Reportable 02/20/18 05:03 Smudge Cells Not Reportable 02/20/18 05:03 Toxic Granulation Not Reportable 02/20/18 05:03 Toxic Vacuolation Not Reportable 02/20/18 05:03 Dohle Bodies Not Reportable 02/20/18 05:03 Pelger-Huet Anomaly Not Reportable 02/20/18 05:03 Helene Rods Not Reportable 02/20/18 05:03 Platelet Estimate Appears normal 02/20/18 05:03 Clumped Platelets Not Reportable 02/20/18 05:03 Plt Clumps, EDTA Not Reportable 02/20/18 05:03 Large Platelets Not Reportable 02/20/18 05:03 Giant Platelets Not Reportable 02/20/18 05:03 Platelet Satelliting Not Reportable 02/20/18 05:03 Plt Morphology Comment Not Reportable 02/20/18 05:03 RBC Morphology Not Reportable 02/20/18 05:03 Dimorphic RBCs Not Reportable 02/20/18 05:03 Polychromasia 1+ 02/20/18 05:03 Hypochromasia Not Reportable 02/20/18 05:03 Poikilocytosis Not Reportable 02/20/18 05:03 Anisocytosis 1+ 02/20/18 05:03 Microcytosis Not Reportable 02/20/18 05:03 Macrocytosis Not Reportable 02/20/18 05:03 Spherocytes Not Reportable 02/20/18 05:03 Pappenheimer Bodies Not Reportable 02/20/18 05:03 Sickle Cells Not Reportable 02/20/18 05:03 Target Cells Not Reportable 02/20/18 05:03 Tear Drop Cells Few 02/20/18 05:03 Ovalocytes 1+ 02/20/18 05:03 Stomatocytes Few 02/20/18 05:03 Helmet Cells Rare 02/20/18 05:03 Chaud[place] Bodies Not Reportable 02/20/18 05:03 [place] Rings Not Reportable 02/20/18 05:03 [place] Cells Not Reportable 02/20/18 05:03 Bite Cells Not Reportable 02/20/18 05:03 Crenated Cell Not Reportable 02/20/18 05:03 Elliptocytes Few 02/20/18 05:03 Acanthocytes (Spur) Not Reportable 02/20/18 05:03 Rouleaux Not Reportable 02/20/18 05:03 Hemoglobin C Crystals Not Reportable 02/20/18 05:03 Schistocytes Not Reportable 02/20/18 05:03 Malaria parasites Not Reportable 02/20/18 05:03 Huy Bodies Not Reportable 02/20/18 05:03 Hem Pathologist Commnt No 02/20/18 05:03 APTT 31.9 Sec. (24.2-36.6) 02/14/18 10:15 POC ABG pH 7.521 (7.35-7.45) H 02/14/18 10:39 POC ABG pCO2 38.8 (35-45) 02/14/18 10:39 POC ABG pO2 58 (80-105) L 02/14/18 10:39 POC ABG HCO3 31.8 02/14/18 10:39 POC ABG Total CO2 33 02/14/18 10:39 POC ABG O2 Sat 92 02/14/18 10:39 POC ABG Base Excess 9 02/14/18 10:39 FiO2 80 % 02/14/18 10:39 Sodium 151 mmol/L (137-145) H 02/20/18 05:03 Potassium 4.2 mmol/L (3.6-5.0) 02/20/18 05:03 Chloride 112.5 mmol/L (98-107) H 02/20/18 05:03 Carbon Dioxide 30 mmol/L (22-30) 02/20/18 05:03 Anion Gap 13 mmol/L 02/20/18 05:03 BUN 24 mg/dL (9-20) H 02/20/18 05:03 Creatinine 0.8 mg/dL (0.8-1.5) 02/20/18 05:03 Estimated GFR > 60 ml/min 02/20/18 05:03 BUN/Creatinine Ratio 30 % 02/20/18 05:03 Glucose 237 mg/dL (75-100) H 02/20/18 05:03 POC Glucose 266 (70-105) H 02/20/18 11:46 Hemoglobin A1c 10.1 % (4-6) H 02/14/18 20:21 Lactic Acid 3.00 mmol/L (0.7-2.0) H* 02/15/18 05:53 Calcium 9.5 mg/dL (8.4-10.2) 02/20/18 05:03 Phosphorus 3.50 mg/dL (2.5-4.5) D 02/17/18 04:25 Magnesium 2.30 mg/dL (1.7-2.3) 02/17/18 04:25 Total Bilirubin 0.50 mg/dL (0.1-1.2) 02/15/18 02:16 AST 19 units/L (5-40) 02/15/18 02:16 ALT 41 units/L (7-56) 02/15/18 02:16 Alkaline Phosphatase 173 units/L (35-129) H 02/15/18 02:16 Total Creatine Kinase 46 units/L (55-170) L 02/14/18 10:15 Total Protein 6.2 g/dL (6.3-8.2) L 02/15/18 02:16 Albumin 2.0 g/dL (3.9-5) L 02/15/18 02:16 Albumin/Globulin Ratio 0.5 % 02/15/18 02:16 Urine Color Yellow (Yellow) 02/14/18 10:04 Urine Turbidity Hazy (Clear) 02/14/18 10:04 Urine pH 5.0 (5.0-7.0) 02/14/18 10:04 Ur Specific [place] 1.022 (1.003-1.030) 02/14/18 10:04 Urine Protein 30 mg/dl mg/dL (Negative) 02/14/18 10:04 Urine Glucose (UA) >=500 mg/dL (Negative) 02/14/18 10:04 Urine Ketones Neg mg/dL (Negative) 02/14/18 10:04 Urine Blood Sm (Negative) 02/14/18 10:04 Urine Nitrite Neg (Negative) 02/14/18 10:04 Urine Bilirubin Neg (Negative) 02/14/18 10:04 Urine Urobilinogen < 2.0 mg/dL (<2.0) 02/14/18 10:04 Ur Leukocyte Esterase Lg (Negative) 02/14/18 10:04 Urine WBC (Auto) 53.0 /HPF (0.0-6.0) H 02/14/18 10:04 Urine RBC (Auto) 13.0 /HPF (0.0-6.0) 02/14/18 10:04 U Epithel Cells (Auto) < 1.0 /HPF (0-13.0) 02/14/18 10:04 Urine Bacteria (Auto) 2+ /HPF (Negative) 02/14/18 10:04 Urine WBC Clumps 3+ /HPF 02/14/18 10:04 Hyaline Casts 7 /LPF 02/14/18 10:04 Urine Mucus Few /HPF 02/14/18 10:04 Vancomycin Trough 31.4 ug/mL (5.0-20.0) H 02/17/18 09:37 Random Vancomycin 16.5 ug/mL (0-40.0) 02/18/18 05:43 Blood Type O POSITIVE 02/14/18 10:15 Antibody Screen Negative 02/14/18 10:15
[2018-02-20] MEDS: MAXIPIME 2 GM in NACL 0.9% 20 ML IV SCH (15:45)
--- NOTE | 2018-02-20 16:30 | Consultation ---
History of Present Illness - Reason for Consult Consult date: 02/20/18 MDR UTI Requesting physician: MCKENZIE LAROSE - History of Present Illness 72 y/o male with history of Intracranial hemorrhage, S/p tracheostomy/PEG, HTN , HLD and Sacral ulcer; admitted on 02/14/18 due to recent fever and weakness, also hypoxia and clogged tracheostomy tube. Patient comes from a [facility]. Patient is a non-historian, unable to provide a history. In the ED, initial temperature 102, heart rate 135, respirations 56, O2 sat 90, blood pressure 130/88. White count 22.9. Nuha 12.9. Platelets 312. Bands 19. Creatinine 1.3. Glucose 544. Urinalysis 53 white blood cells and large leukocyte esterase. In the ED he was found lethargic and nonverbal. He came with a trach, G-tube, santos and a sacral decubitus. Chest x-ray showed right pleural effusion, small. CT of the head showed decreased attenuation of the right parietal occipital ischemic changes. Microbiology: Blood cultures: 02/14 ngtd Urine cultures: 02/14 Serratia K[employer], Pseudomonas MDR Tracheal asp: 02/14 many squamous cells Current Antimicrobials: cefepime 02/18/18 Previous Antimicrobials: Past History Past Medical History: hypertension, hyperlipidemia, other (S/p Trach & PEG, Intracranial hemorrhage) Medications and Allergies Allergies Allergy/AdvReac Type Severity Reaction Status Date / Time aspirin Allergy Unknown Verified 02/14/18 09:48 Home Medications Medication Instructions Recorded Confirmed Last Taken Type Acetaminophen [Tylenol] 650 mg FEEDTUBE Q6HR PRN 02/14/18 02/14/18 Unknown History Amantadine [Symmetrel] 10 ml FEEDTUBE QDAY 02/14/18 02/14/18 Unknown History Atorvastatin Calcium [Lipitor] 10 mg FEEDTUBE HS 02/14/18 02/14/18 Unknown History Benazepril (Nf) 5 mg FEEDTUBE QDAY 02/14/18 02/14/18 Unknown History Bisacodyl [Bisac-Evac] 10 mg RC Q24H PRN 02/14/18 02/14/18 Unknown History Collagenase [Santyl] 1 applicatio TP QDAY 02/14/18 02/14/18 Unknown History Famotidine [Pepcid] 20 mg FEEDTUBE BID 02/14/18 02/14/18 Unknown History Insulin Glargine,Hum.rec.anlog 45 units SUB-Q Q12H 02/14/18 02/14/18 Unknown History [Basaglar Kwikpen U-100] Insulin Lispro [Humalog 100 See Protocol SUB-Q Q6H 02/14/18 02/14/18 Unknown History UNITS/ML Kwikpen] Ipratropium/Albuterol Sulfate 1 ampul IH Q4HR PRN 02/14/18 02/14/18 Unknown History [DUONEB *Not for PRN Use*] Ipratropium/Albuterol Sulfate 1 ampul IH Q6HR PRN 02/14/18 02/14/18 Unknown History [DUONEB *Not for PRN Use*] Levobunolol HCl [Betagan] 1 drop OU QDAY 02/14/18 02/14/18 Unknown History Metoprolol [Lopressor TAB] 50 mg FEEDTUBE Q8H 02/14/18 02/14/18 Unknown History Scopolamine [Transderm-Scop] 1 each TD Q3D 02/14/18 02/14/18 Unknown History Sennosides [Senna] 8.6 mg FEEDTUBE QDAY PRN 02/14/18 02/14/18 Unknown History levETIRAcetam [Levetiracetam] 5 ml FEEDTUBE Q12H 02/14/18 02/14/18 Unknown History traZODone [Desyrel] 25 mg FEEDTUBE BID 02/14/18 02/14/18 Unknown History Active Meds: Active Medications Acetaminophen (Tylenol) 650 mg PO Q4H PRN PRN Reason: Pain MILD(1-3)/Fever >100.5/ALCARAZ Albuterol (Proventil) 2.5 mg IH Q4HRT PRN PRN Reason: Shortness Of Breath Amantadine HCl (Symmetrel) 100 mg FEEDTUBE QDAY [facility] Last Admin: 02/20/18 12:33 Dose: 100 mg Lipase/Protease/Amylase (Pancreaze Dr 10,500 Unit) 1 each FEEDTUBE PRN PRN PRN Reason: For Clogged Feeding Tube Atorvastatin Calcium (Lipitor) 10 mg FEEDTUBE [facility] Last Admin: 02/19/18 21:02 Dose: 10 mg Bisacodyl (Dulcolax) 10 mg MI Q24H PRN PRN Reason: Constipation Famotidine (Pepcid) 20 mg FEEDTUBE BID [facility] Last Admin: 02/20/18 12:33 Dose: 20 mg Heparin Sodium (Porcine) (Heparin) 5,000 unit SUB-Q Q12HR [facility] Last Admin: 02/20/18 12:53 Dose: 5,000 unit Cefepime HCl 2 gm/ Sodium (Chloride) 20 mls @ 2 mls/min IV Q12H [facility] Last Admin: 02/20/18 15:45 Dose: 2 mls/min Insulin Glargine (Lantus) 40 units SUB-Q QHS MARIA LUZ Insulin Glargine (Lantus) 40 units SUB-Q QAMDIAB [facility] Last Admin: 02/20/18 12:53 Dose: 40 units Insulin Human Lispro (Humalog) 0 unit SUB-Q Q6HR [facility]; Protocol Last Admin: 02/20/18 12:33 Dose: 4 unit Levetiracetam (Keppra) 500 mg FEEDTUBE BID [facility] Last Admin: 02/20/18 12:34 Dose: 500 mg Lisinopril (Zestril) 40 mg FEEDTUBE QDAY [facility] Metoprolol Tartrate (Lopressor) 50 mg FEEDTUBE Q8H [facility] Last Admin: 02/20/18 15:58 Dose: 50 mg Morphine Sulfate (Morphine) 2 mg IV Q4H PRN PRN Reason: Pain, Moderate (4-6) Ondansetron HCl (Zofran) 4 mg IV Q8H PRN PRN Reason: Nausea And Vomiting Scopolamine (Transderm-Scop) 1 each TD Q3D [facility] Last Admin: 02/18/18 17:44 Dose: 1 each Simple Syrup (Simple Syrup) 15 ml FEEDTUBE PRN PRN PRN Reason: Hypoglycemia Simple Syrup (Simple Syrup) 30 ml FEEDTUBE PRN PRN PRN Reason: Hypoglycemia Sodium Bicarbonate (Sodium Bicarbonate) 325 mg FEEDTUBE PRN PRN PRN Reason: For Clogged Feeding Tube Sodium Chloride (Sodium Chloride Flush Syringe 10 Ml) 10 ml IV BID [facility] Last Admin: 02/20/18 12:37 Dose: 10 ml Sodium Chloride (Sodium Chloride Flush Syringe 10 Ml) 10 ml IV PRN PRN PRN Reason: LINE FLUSH Sodium Hypochlorite (Dakin's Full Strength) 1 applic TP Q12HR [facility] Last Admin: 02/20/18 12:37 Dose: 1 applicatio Trazodone HCl (Desyrel) 25 mg PO BID [facility] Last Admin: 02/20/18 12:34 Dose: 25 mg Review of Systems ROS unobtainable: due to mental status Physical Examination - Physical Exam Narrative exam: General appearance: Alert in NAD, non conversant Eyes: anicteric sclerae, moist conjunctivae; no lid-lag; PERRLA HENT: Atraumatic; oropharynx limited Neck: Trach with thick greenish secretion Lungs: jeffrey rhonchi CV: RRR, no murmurs Abdomen: Soft, non-tender; Gtube Extremities: No peripheral edema or extremity lymphadenopathy Skin: Normal temperature, turgor and texture; no rash, ulcers or subcutaneous nodules Psych: non verbal Neuro: non verbal Lines: santos in place - Constitutional Vitals: Vital Signs Temp Pulse Resp BP Pulse Ox 97.8 F 105 H 32 H 140/88 96 02/20/18 11:40 02/20/18 15:58 02/20/18 11:40 02/20/18 15:58 02/20/18 11:40 Temperature -Last 24 Hours Temperature 97.8 F Temperature 98.0 F Temperature 98.4 F Temperature 98.1 F Temperature 98.3 F Temperature 99.4 F Results - Labs CBC & Chem 7: 02/20/18 05:03 02/20/18 05:03 Labs: Abnormal lab results 02/19/18 02/19/18 02/20/18 Range/Units 16:42 21:36 05:03 WBC (4.5-11.0) K/mm3 Hgb (11.8-15.2) gm/dl Hct (35.5-45.6) % MCV (84-94) fl MCH (28-32) pg RDW (13.2-15.2) % Seg Neuts % (Manual) (40.0-70.0) % Lymphocytes % (Manual) (13.4-35.0) % Seg Neutrophils # Man (1.8-7.7) K/mm3 Lymphocytes # (Manual) (1.2-5.4) K/mm3 Sodium 151 H (137-145) mmol/L Chloride 112.5 H (98-107) mmol/L BUN 24 H (9-20) mg/dL Glucose 237 H (75-100) mg/dL POC Glucose 264 H 208 H (70-105) 02/20/18 02/20/18 02/20/18 Range/Units 05:03 05:57 11:46 WBC 13.6 H (4.5-11.0) K/mm3 Hgb 10.1 L (11.8-15.2) gm/dl Hct 31.1 L (35.5-45.6) % MCV 74 L (84-94) fl MCH 24 L (28-32) pg RDW 16.7 H (13.2-15.2) % Seg Neuts % (Manual) 85.0 H (40.0-70.0) % Lymphocytes % (Manual) 7.0 L (13.4-35.0) % Seg Neutrophils # Man 11.6 H (1.8-7.7) K/mm3 Lymphocytes # (Manual) 1.0 L (1.2-5.4) K/mm3 Sodium (137-145) mmol/L Chloride (98-107) mmol/L BUN (9-20) mg/dL Glucose (75-100) mg/dL POC Glucose 264 H 266 H (70-105) Assessment and Plan Assessment: 1) Sepsis: Present on admission, manifested by fever, tachycardia, leukocytosis , bandemia, increased lactate. Etiology most likely multifactorial UTI +/- infected sacral decubitus +/- tracheobronchitis. 2) Complicated CA-UTI: Secondary to K[employer] HANDY[employer] Serratia and [employer] Pseudomonas 3) Sacral debubitus infected - per wound care 5.5x9x1.5 cm with purulence, sloughing and necrosis 4) Presumed tracheobronchitis vs. pneumonia-initial CXR did not show consolidation pt came hypoxemic 5) Acute on chronic resp failure 6) DM with hyperglycemia 7) Left heel eschar-present on admission 8) History of Intracranial hemorrhage, S/p tracheostomy/PEG Plan: -exchange santos if it has not been done -obtain repeat tracheal aspirate -repeat CXR -Surgical consult for sacral dec debridement -continue cefepime for now -I asked pharmacy for Avycaz fro K[employer]-Serratia and Pseudomonas -strict contact and droplet isolation due to K[employer]-infection control alerted -wound care Poor prognosis due to comorbilities and K[employer] infection Thank you for your consultation, will follow up with you. Jess Luo MD Infectious Diseases Specialist [facility] M [phone] O [phone]
--- NOTE | 2018-02-20 22:36 | XRay Report ---
FINAL REPORT EXAM: XR CHEST 1V AP HISTORY: eval for pneumonia TECHNIQUE: Single, portable chest x-ray. PRIORS: None. FINDINGS: Patient rotated to the left. Tracheostomy tube tip projects approximately 4.5 cm above the juan antonio. Cardiac and mediastinal silhouette within normal limits. Lungs show patchy and partially confluent opacities projected over the bilateral lower lungs. Very mild blunting of bilateral costophrenic angles. No apparent pneumothorax. IMPRESSION: 1. Patchy, bibasilar opacities or infiltrates and probable small bilateral pleural effusions, which may represent acute inflammatory process. Clinical correlation and radiographic followup after 4-6 weeks advised to document resolution.
[2018-02-21] MEDS: MAXIPIME 2 GM in NACL 0.9% 20 ML IV SCH ×2 (00:47→11:03)
[2018-02-21] MEDS: HumaLOG SUB-Q SCH ×4 (03:37→20:06)
[2018-02-21] MEDS: LOPRESSOR FEEDTUBE SCH ×2 (06:05→15:17)
[2018-02-21 07:24] LABS: BUN/Creatinine Ratio 26; Blood Urea Nitrogen 21 mg/dL (9-20); Calcium 9.9 mg/dL (8.4-10.2); Hemolysis Index 3
--- NOTE | 2018-02-21 08:40 | Progress Note ---
Assessment and Plan Assessment and plan: 72-year-old -[place] male with history of hemorrhagic stroke, status post PEG and trach from senior living admitted for sepsis, dehydration -Severe Hypernatremia; mild improvement , continue free water flushes, -D5W, nephrology evaluation and recommendation noted and appreciated -Improving, Na 146 -Hypokalemia: repleted, corrected -Metabolic encephalopathy; multifactorial, improving Secondary to sepsis. Severe hypernatremia, possible UTI, ischemia IV fluids, follow cultures CXR showed bilateralinfiltrates --Lactic acidosis - Due to the above - Resolved Sepsis secondary to urinary tract infection - Culture showed [employer] SUPER[employer] serratia and pseudomonas, ID consulted, patient is currently on cefepime and Isolation --Type 2 diabetes mellitus uncontrolled diabetes mellitus; Accu-Chek sliding scale coverage tube feeding, adjust insulin as needed sacral decubitus ulcer infected - General surgery consulted for debridement --Status post trach and PEG; tracheostomy and PEG tube care --Dyslipidemia; continue lipid lowering medications --DVT prophylaxis; SCD, heparin Severe malnutrition Full CODE STATUS Continue current management CT head was done and result noted. Will do MRI. History Interval history: Patient is on trach, patient is on trach, he tried to talk but couldn't understood him, but he was alert and looks understand. Hospitalist Physical - Physical exam Narrative exam: Patient has trach and on 5 L of oxygen Vital signs as documented. Head exam is unremarkable. No scleral icterus . Neck is without jugular venous distension, thyromegaly, or carotid bruits. Lungs are clear to auscultation. Cardiac exam reveals regular rate and Rhythm. First and second heart sounds normal. No murmurs, rubs or gallops. Abdominal exam reveals normal bowel sounds, no masses, no organomegaly and no aortic enlargement. Integumentary sacral and heel ulcer POA. 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 - Constitutional Vitals: Temp Pulse Resp BP Pulse Ox 98.7 F 108 H 32 H 148/91 97 02/21/18 03:29 02/21/18 03:29 02/21/18 03:29 02/21/18 03:29 02/21/18 03:29 General appearance: Present: no acute distress, other (nonviable) Results - Labs CBC & Chem 7: 02/20/18 05:03 02/21/18 06:13 Labs: Laboratory Last Values WBC 13.6 K/mm3 (4.5-11.0) H 02/20/18 05:03 RBC 4.22 M/mm3 (3.65-5.03) 02/20/18 05:03 Hgb 10.1 gm/dl (11.8-15.2) L 02/20/18 05:03 Hct 31.1 % (35.5-45.6) L 02/20/18 05:03 MCV 74 fl (84-94) L 02/20/18 05:03 MCH 24 pg (28-32) L 02/20/18 05:03 MCHC 33 % (32-34) 02/20/18 05:03 RDW 16.7 % (13.2-15.2) H 02/20/18 05:03 Plt Count 209 K/mm3 (140-440) 02/20/18 05:03 Lymph % (Auto) 11.5 % (13.4-35.0) L 02/18/18 05:43 Emmons % (Auto) 5.1 % (0.0-7.3) 02/18/18 05:43 Eos % (Auto) 3.9 % (0.0-4.3) 02/18/18 05:43 Baso % (Auto) 0.4 % (0.0-1.8) 02/18/18 05:43 Lymph # 1.6 K/mm3 (1.2-5.4) 02/18/18 05:43 Emmons # 0.7 K/mm3 (0.0-0.8) 02/18/18 05:43 Eos # 0.5 K/mm3 (0.0-0.4) H 02/18/18 05:43 Baso # 0.1 K/mm3 (0.0-0.1) 02/18/18 05:43 Add Manual Diff Complete 02/20/18 05:03 Total Counted 100 02/20/18 05:03 Seg Neutrophils % 79.1 % (40.0-70.0) H 02/18/18 05:43 Seg Neuts % (Manual) 85.0 % (40.0-70.0) H 02/20/18 05:03 Band Neutrophils % 2.0 % 02/20/18 05:03 Lymphocytes % (Manual) 7.0 % (13.4-35.0) L 02/20/18 05:03 Reactive Lymphs % (Man) 0 % 02/20/18 05:03 Monocytes % (Manual) 1.0 % (0.0-7.3) 02/20/18 05:03 Eosinophils % (Manual) 2.0 % (0.0-4.3) 02/20/18 05:03 Basophils % (Manual) 0 % (0.0-1.8) 02/20/18 05:03 Metamyelocytes % 3.0 % 02/20/18 05:03 Myelocytes % 0 % 02/20/18 05:03 Promyelocytes % 0 % 02/20/18 05:03 Blast Cells % 0 % 02/20/18 05:03 Nucleated RBC % Not Reportable 02/20/18 05:03 Seg Neutrophils # 10.9 K/mm3 (1.8-7.7) H 02/18/18 05:43 Seg Neutrophils # Man 11.6 K/mm3 (1.8-7.7) H 02/20/18 05:03 Band Neutrophils # 0.3 K/mm3 02/20/18 05:03 Lymphocytes # (Manual) 1.0 K/mm3 (1.2-5.4) L 02/20/18 05:03 Abs React Lymphs (Man) 0.0 K/mm3 02/20/18 05:03 Monocytes # (Manual) 0.1 K/mm3 (0.0-0.8) 02/20/18 05:03 Eosinophils # (Manual) 0.3 K/mm3 (0.0-0.4) 02/20/18 05:03 Basophils # (Manual) 0.0 K/mm3 (0.0-0.1) 02/20/18 05:03 Metamyelocytes # 0.4 K/mm3 02/20/18 05:03 Myelocytes # 0.0 K/mm3 02/20/18 05:03 Promyelocytes # 0.0 K/mm3 02/20/18 05:03 Blast Cells # 0.0 K/mm3 02/20/18 05:03 WBC Morphology Not Reportable 02/20/18 05:03 Hypersegmented Neuts Not Reportable 02/20/18 05:03 Hyposegmented Neuts Not Reportable 02/20/18 05:03 Hypogranular Neuts Not Reportable 02/20/18 05:03 Smudge Cells Not Reportable 02/20/18 05:03 Toxic Granulation Not Reportable 02/20/18 05:03 Toxic Vacuolation Not Reportable 02/20/18 05:03 Dohle Bodies Not Reportable 02/20/18 05:03 Pelger-Huet Anomaly Not Reportable 02/20/18 05:03 Helene Rods Not Reportable 02/20/18 05:03 Platelet Estimate Appears normal 02/20/18 05:03 Clumped Platelets Not Reportable 02/20/18 05:03 Plt Clumps, EDTA Not Reportable 02/20/18 05:03 Large Platelets Not Reportable 02/20/18 05:03 Giant Platelets Not Reportable 02/20/18 05:03 Platelet Satelliting Not Reportable 02/20/18 05:03 Plt Morphology Comment Not Reportable 02/20/18 05:03 RBC Morphology Not Reportable 02/20/18 05:03 Dimorphic RBCs Not Reportable 02/20/18 05:03 Polychromasia 1+ 02/20/18 05:03 Hypochromasia Not Reportable 02/20/18 05:03 Poikilocytosis Not Reportable 02/20/18 05:03 Anisocytosis 1+ 02/20/18 05:03 Microcytosis Not Reportable 02/20/18 05:03 Macrocytosis Not Reportable 02/20/18 05:03 Spherocytes Not Reportable 02/20/18 05:03 Pappenheimer Bodies Not Reportable 02/20/18 05:03 Sickle Cells Not Reportable 02/20/18 05:03 Target Cells Not Reportable 02/20/18 05:03 Tear Drop Cells Few 02/20/18 05:03 Ovalocytes 1+ 02/20/18 05:03 Stomatocytes Few 02/20/18 05:03 Helmet Cells Rare 02/20/18 05:03 [place] Bodies Not Reportable 02/20/18 05:03 [place] Rings Not Reportable 02/20/18 05:03 Patricia Cells Not Reportable 02/20/18 05:03 Bite Cells Not Reportable 02/20/18 05:03 Crenated Cell Not Reportable 02/20/18 05:03 Elliptocytes Few 02/20/18 05:03 Acanthocytes (Spur) Not Reportable 02/20/18 05:03 Rouleaux Not Reportable 02/20/18 05:03 Hemoglobin C Crystals Not Reportable 02/20/18 05:03 Schistocytes Not Reportable 02/20/18 05:03 Malaria parasites Not Reportable 02/20/18 05:03 Huy Bodies Not Reportable 02/20/18 05:03 Hem Pathologist Commnt No 02/20/18 05:03 APTT 31.9 Sec. (24.2-36.6) 02/14/18 10:15 POC ABG pH 7.521 (7.35-7.45) H 02/14/18 10:39 POC ABG pCO2 38.8 (35-45) 02/14/18 10:39 POC ABG pO2 58 (80-105) L 02/14/18 10:39 POC ABG HCO3 31.8 02/14/18 10:39 POC ABG Total CO2 33 02/14/18 10:39 POC ABG O2 Sat 92 02/14/18 10:39 POC ABG Base Excess 9 02/14/18 10:39 FiO2 80 % 02/14/18 10:39 Sodium 146 mmol/L (137-145) H 02/21/18 06:13 Potassium 4.0 mmol/L (3.6-5.0) 02/21/18 06:13 Chloride 108.2 mmol/L (98-107) H 02/21/18 06:13 Carbon Dioxide 28 mmol/L (22-30) 02/21/18 06:13 Anion Gap 14 mmol/L 02/21/18 06:13 BUN 21 mg/dL (9-20) H 02/21/18 06:13 Creatinine 0.8 mg/dL (0.8-1.5) 02/21/18 06:13 Estimated GFR > 60 ml/min 02/21/18 06:13 BUN/Creatinine Ratio 26 % 02/21/18 06:13 Glucose 198 mg/dL (75-100) H 02/21/18 06:13 POC Glucose 207 (70-105) H 02/21/18 05:56 Hemoglobin A1c 10.1 % (4-6) H 02/14/18 20:21 Lactic Acid 3.00 mmol/L (0.7-2.0) H* 02/15/18 05:53 Calcium 9.9 mg/dL (8.4-10.2) 02/21/18 06:13 Phosphorus 3.50 mg/dL (2.5-4.5) D 02/17/18 04:25 Magnesium 2.30 mg/dL (1.7-2.3) 02/17/18 04:25 Total Bilirubin 0.50 mg/dL (0.1-1.2) 02/15/18 02:16 AST 19 units/L (5-40) 02/15/18 02:16 ALT 41 units/L (7-56) 02/15/18 02:16 Alkaline Phosphatase 173 units/L (35-129) H 02/15/18 02:16 Total Creatine Kinase 46 units/L (55-170) L 02/14/18 10:15 C-Reactive Protein 4.50 mg/dL (0.00-1.30) H 02/20/18 05:03 Total Protein 6.2 g/dL (6.3-8.2) L 02/15/18 02:16 Albumin 2.0 g/dL (3.9-5) L 02/15/18 02:16 Albumin/Globulin Ratio 0.5 % 02/15/18 02:16 Urine Color Yellow (Yellow) 02/14/18 10:04 Urine Turbidity Hazy (Clear) 02/14/18 10:04 Urine pH 5.0 (5.0-7.0) 02/14/18 10:04 Ur Specific [place] 1.022 (1.003-1.030) 02/14/18 10:04 Urine Protein 30 mg/dl mg/dL (Negative) 02/14/18 10:04 Urine Glucose (UA) >=500 mg/dL (Negative) 02/14/18 10:04 Urine Ketones Neg mg/dL (Negative) 02/14/18 10:04 Urine Blood Sm (Negative) 02/14/18 10:04 Urine Nitrite Neg (Negative) 02/14/18 10:04 Urine Bilirubin Neg (Negative) 02/14/18 10:04 Urine Urobilinogen < 2.0 mg/dL (<2.0) 02/14/18 10:04 Ur Leukocyte Esterase Lg (Negative) 02/14/18 10:04 Urine WBC (Auto) 53.0 /HPF (0.0-6.0) H 02/14/18 10:04 Urine RBC (Auto) 13.0 /HPF (0.0-6.0) 02/14/18 10:04 U Epithel Cells (Auto) < 1.0 /HPF (0-13.0) 02/14/18 10:04 Urine Bacteria (Auto) 2+ /HPF (Negative) 02/14/18 10:04 Urine WBC Clumps 3+ /HPF 02/14/18 10:04 Hyaline Casts 7 /LPF 02/14/18 10:04 Urine Mucus Few /HPF 02/14/18 10:04 Vancomycin Trough 31.4 ug/mL (5.0-20.0) H 02/17/18 09:37 Random Vancomycin 16.5 ug/mL (0-40.0) 02/18/18 05:43 Blood Type O POSITIVE 02/14/18 10:15 Antibody Screen Negative 02/14/18 10:15
--- NOTE | 2018-02-21 09:20 | Progress Note ---
Assessment and Plan 1. Hypernatremia: Received a dose of Diuril yesterday. Continue water flushes. Monitor Sodium level. 2. Acute kidney injury: Improved. 3. Hypokalemia: Improved. 4. Sepsis. 5. Lactic acidosis. Subjective Date of service: 02/21/18 Interval history: Patient was seen and examined at the bedside. Objective - Vital Signs Vital signs: Vital Signs - 12hr 02/20/18 02/20/18 02/21/18 22:00 23:18 01:10 Temperature 99.1 F Pulse Rate 105 H Respiratory 32 H Rate Blood Pressure 137/86 O2 Sat by Pulse 99 92 Oximetry O2 Sat by Pulse 98 Oximetry [ Assessment] 02/21/18 02/21/18 03:29 07:30 Temperature 98.7 F 98.2 F Pulse Rate 108 H 97 H Respiratory 32 H 19 Rate Blood Pressure 148/91 138/86 O2 Sat by Pulse 97 95 Oximetry O2 Sat by Pulse Oximetry [ Assessment] - General Appearance General appearance: well-developed, appears stated age, other (no distress, trached, on T-piece) EENT: ATNC, hearing intact Neck: supple Respiratory: Present: Clear to Ascultation Cardiology: regular, S1S2, no murmurs Gastrointestinal: normoactive bowel sounds, other (PEG tube noted) Integumentary: no rash, warm and dry Neurologic: other (opens eyes and follows some simple command) Musculoskeletal: other (no edema) - Lab 02/20/18 05:03 02/22/18 05:46 Most recent lab results Calcium 9.9 mg/dL (8.4-10.2) 02/21/18 06:13 Phosphorus 3.50 mg/dL (2.5-4.5) D 02/17/18 04:25 Magnesium 2.30 mg/dL (1.7-2.3) 02/17/18 04:25
[2018-02-21] MEDS: DESYREL PO SCH (10:48)
[2018-02-21] MEDS: KEPPRA FEEDTUBE SCH (10:48)
[2018-02-21] MEDS: PEPCID FEEDTUBE SCH (10:48)
[2018-02-21] MEDS: LANTUS SUB-Q SCH (10:48)
[2018-02-21] MEDS: SYMMETREL FEEDTUBE SCH (10:49)
[2018-02-21] MEDS: ZESTRIL FEEDTUBE SCH (10:49)
[2018-02-21] MEDS: HEPARIN SUB-Q SCH (11:02)
[2018-02-21] MEDS: SODIUM CHLORIDE FLUSH SYRINGE 10 ML IV SCH (11:02)
[2018-02-21] MEDS: DAKIN'S FULL STRENGTH TP SCH (11:05)
--- NOTE | 2018-02-21 14:24 | Progress Note ---
Assessment and Plan Assessment: 1) Sepsis: better. Etiology most likely multifactorial UTI +/- infected sacral decubitus +/- tracheobronchitis. 2) Complicated CA-UTI: Secondary to [employer]DER Serratia and [employer] Pseudomonas 3) Sacral debubitus infected - per wound care 5.5x9x1.5 cm with purulence, sloughing and necrosis 4) Bilateral pneumonia-initial CXR did not show consolidation pt came hypoxemic. Repeat CXR - jeffrey infiltrates 5) Acute on chronic resp failure 6) DM with hyperglycemia 7) Left heel eschar-present on admission 8) History of Intracranial hemorrhage, S/p tracheostomy/PEG Plan: -exchange santos if it has not been done ? 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 Thank you for your consultation, will follow up with you. Jess Luo MD Infectious Diseases Specialist [facility] M [phone] O [phone] Subjective Date of service: 02/21/18 Principal diagnosis: L[employer] UTI Interval history: Remains non verbal somnolent, no fever. Microbiology: Blood cultures: 02/14 neg Urine cultures: 02/14 Serratia [employer] G[employer] BUILDER, Pseudomonas MDR Tracheal asp: 02/14 many squamous cells Current Antimicrobials: cefepime 02/18/18 Objective - Exam Narrative Exam: General appearance: somnolent in NAD, non conversant Eyes: anicteric sclerae, moist conjunctivae; no lid-lag; PERRLA HENT: Atraumatic; oropharynx limited Neck: Trach with thick greenish secretion Lungs: jeffrey rhonchi CV: RRR, no murmurs Abdomen: Soft, non-tender; Gtube Extremities: No peripheral edema or extremity lymphadenopathy Skin: Normal temperature, turgor and texture; no rash, ulcers or subcutaneous nodules Psych: non verbal Neuro: non verbal Lines: santos in place - Constitutional Vitals: Vital Signs Temp Pulse Resp BP Pulse Ox 98.0 F 97 H 19 149/93 95 02/21/18 12:12 02/21/18 07:30 02/21/18 12:12 02/21/18 12:12 02/21/18 07:30 Temperature -Last 24 Hours Temperature 98.0 F Temperature 98.2 F Temperature 98.7 F Temperature 99.1 F Temperature 98.2 F Temperature 98.7 F - Labs CBC & Chem 7: 02/20/18 05:03 02/21/18 06:13 Labs: Abnormal lab results 02/20/18 02/20/18 02/20/18 Range/Units 05:03 16:09 22:08 Sodium (137-145) mmol/L Chloride (98-107) mmol/L BUN (9-20) mg/dL Glucose (75-100) mg/dL POC Glucose 233 H 207 H (70-105) C-Reactive Protein 4.50 H (0.00-1.30) mg/dL 02/21/18 02/21/18 Range/Units 05:56 06:13 Sodium 146 H (137-145) mmol/L Chloride 108.2 H (98-107) mmol/L BUN 21 H (9-20) mg/dL Glucose 198 H (75-100) mg/dL POC Glucose 207 H (70-105) C-Reactive Protein (0.00-1.30) mg/dL
--- NOTE | 2018-02-21 15:41 | Consultation ---
History of Present Illness Consult date: 02/21/18 Reason for consult: wound care Requesting physician: MCKENZIE LAROSE Chief complaint: sacral wound - History of present illness History of present illness: 72-year-old male [facility] resident presented to the emergency room with a sepsis picture and occluded tracheostomy. Initial evaluation revealed the large sacral wound. General surgery has been consult for evaluation and management. Wound care is currently caring for the wound. Patient unable to give in history. reports that since his stroke in December, he has gradually been declining. She was unaware of this large wound on his back. Past History Past Medical History: diabetes, GERD, hypertension, hyperlipidemia, stroke, other (S/p Trach & PEG, Intracranial hemorrhage) Past Surgical History: Other (tracheostomy and PEG tube placement) Social history: . denies: smoking, alcohol abuse, prescription drug abuse, IV drug use Family history: no significant family history Medications and Allergies Allergies Allergy/AdvReac Type Severity Reaction Status Date / Time aspirin Allergy Unknown Verified 02/14/18 09:48 Home Medications Medication Instructions Recorded Confirmed Last Taken Type Acetaminophen [Tylenol] 650 mg FEEDTUBE Q6HR PRN 02/14/18 02/14/18 Unknown History Amantadine [Symmetrel] 10 ml FEEDTUBE QDAY 02/14/18 02/14/18 Unknown History Atorvastatin Calcium [Lipitor] 10 mg FEEDTUBE HS 02/14/18 02/14/18 Unknown History Benazepril (Nf) 5 mg FEEDTUBE QDAY 02/14/18 02/14/18 Unknown History Bisacodyl [Bisac-Evac] 10 mg RC Q24H PRN 02/14/18 02/14/18 Unknown History Collagenase [Santyl] 1 applicatio TP QDAY 02/14/18 02/14/18 Unknown History Famotidine [Pepcid] 20 mg FEEDTUBE BID 02/14/18 02/14/18 Unknown History Insulin Glargine,Hum.rec.anlog 45 units SUB-Q Q12H 02/14/18 02/14/18 Unknown History [Basaglar Kwikpen U-100] Insulin Lispro [Humalog 100 See Protocol SUB-Q Q6H 02/14/18 02/14/18 Unknown History UNITS/ML Kwikpen] Ipratropium/Albuterol Sulfate 1 ampul IH Q4HR PRN 02/14/18 02/14/18 Unknown History [DUONEB *Not for PRN Use*] Ipratropium/Albuterol Sulfate 1 ampul IH Q6HR PRN 02/14/18 02/14/18 Unknown History [DUONEB *Not for PRN Use*] Levobunolol HCl [Betagan] 1 drop OU QDAY 02/14/18 02/14/18 Unknown History Metoprolol [Lopressor TAB] 50 mg FEEDTUBE Q8H 02/14/18 02/14/18 Unknown History Scopolamine [Transderm-Scop] 1 each TD Q3D 02/14/18 02/14/18 Unknown History Sennosides [Senna] 8.6 mg FEEDTUBE QDAY PRN 02/14/18 02/14/18 Unknown History levETIRAcetam [Levetiracetam] 5 ml FEEDTUBE Q12H 02/14/18 02/14/18 Unknown History traZODone [Desyrel] 25 mg FEEDTUBE BID 02/14/18 02/14/18 Unknown History Active Meds: Active Medications Acetaminophen (Tylenol) 650 mg PO Q4H PRN PRN Reason: Pain MILD(1-3)/Fever >100.5/ALCRAAZ Albuterol (Proventil) 2.5 mg IH Q4HRT PRN PRN Reason: Shortness Of Breath Amantadine HCl (Symmetrel) 100 mg FEEDTUBE QDAY [facility] Last Admin: 02/21/18 10:49 Dose: Not Given Lipase/Protease/Amylase (Pancreles Dr 10,500 Unit) 1 each FEEDTUBE PRN PRN PRN Reason: For Clogged Feeding Tube Atorvastatin Calcium (Lipitor) 10 mg FEEDTUBE HS [facility] Last Admin: 02/20/18 23:00 Dose: 10 mg Bisacodyl (Dulcolax) 10 mg OK Q24H PRN PRN Reason: Constipation Famotidine (Pepcid) 20 mg FEEDTUBE BID [facility] Last Admin: 02/21/18 10:48 Dose: Not Given Heparin Sodium (Porcine) (Heparin) 5,000 unit SUB-Q Q12HR [facility] Last Admin: 02/21/18 11:02 Dose: 5,000 unit CEFTAZIDIME/AVIBACTAM (NF) 2.5 (gm/ Sodium Chloride) 50 mls @ 25 mls/hr IV Q8HR [facility] Insulin Glargine (Lantus) 40 units SUB-Q QHS [facility] Last Admin: 02/20/18 22:46 Dose: Not Given Insulin Glargine (Lantus) 40 units SUB-Q QAMDIAB [facility] Last Admin: 02/21/18 10:48 Dose: Not Given Insulin Human Lispro (Humalog) 0 unit SUB-Q Q6HR [facility]; Protocol Last Admin: 02/21/18 12:35 Dose: Not Given Levetiracetam (Keppra) 500 mg FEEDTUBE BID [facility] Last Admin: 02/21/18 10:48 Dose: Not Given Lisinopril (Zestril) 40 mg FEEDTUBE QDAY [facility] Last Admin: 02/21/18 10:49 Dose: Not Given Metoprolol Tartrate (Lopressor) 50 mg FEEDTUBE Q8H [facility] Last Admin: 02/21/18 15:17 Dose: Not Given Morphine Sulfate (Morphine) 2 mg IV Q4H PRN PRN Reason: Pain, Moderate (4-6) Ondansetron HCl (Zofran) 4 mg IV Q8H PRN PRN Reason: Nausea And Vomiting Scopolamine (Transderm-Scop) 1 each TD Q3D [facility] Last Admin: 02/18/18 17:44 Dose: 1 each Simple Syrup (Simple Syrup) 15 ml FEEDTUBE PRN PRN PRN Reason: Hypoglycemia Simple Syrup (Simple Syrup) 30 ml FEEDTUBE PRN PRN PRN Reason: Hypoglycemia Sodium Bicarbonate (Sodium Bicarbonate) 325 mg FEEDTUBE PRN PRN PRN Reason: For Clogged Feeding Tube Sodium Chloride (Sodium Chloride Flush Syringe 10 Ml) 10 ml IV BID [facility] Last Admin: 02/21/18 11:02 Dose: 10 ml Sodium Chloride (Sodium Chloride Flush Syringe 10 Ml) 10 ml IV PRN PRN PRN Reason: LINE FLUSH Sodium Hypochlorite (Dakin's Full Strength) 1 applic TP Q12HR [facility] Last Admin: 02/21/18 11:05 Dose: 0.5 applicatio Trazodone HCl (Desyrel) 25 mg PO BID [facility] Last Admin: 02/21/18 10:48 Dose: Not Given Review of Systems ROS unobtainable: due to mental status Exam Vital Signs Temp Pulse Resp BP Pulse Ox 100.7 F H 135 H 56 H 130/88 90 02/14/18 09:48 02/14/18 09:48 02/14/18 09:48 02/14/18 09:48 02/14/18 09:48 - General physical appearance Positive: no distress, other (minimally responsive) - Neck Positive: other (trach in place) - Respiratory Positive: normal expansion - Integumentary other (large wound is noted in the low back. It is about 5 x 9 cm. The right half of the wound has a dry eschar. The left half is an open wound that goes into the subcutaneous tissue with some granulation and some fibrinous exudate. No bone or muscle is exposed. I do not appreciate any significant erythema.) Results - Labs 02/20/18 05:03 02/21/18 06:13 Abnormal lab results 02/20/18 02/20/18 02/20/18 Range/Units 05:03 16:09 22:08 Sodium (137-145) mmol/L Chloride (98-107) mmol/L BUN (9-20) mg/dL Glucose (75-100) mg/dL POC Glucose 233 H 207 H (70-105) C-Reactive Protein 4.50 H (0.00-1.30) mg/dL 02/21/18 02/21/18 02/21/18 Range/Units 05:56 06:13 12:20 Sodium 146 H (137-145) mmol/L Chloride 108.2 H (98-107) mmol/L BUN 21 H (9-20) mg/dL Glucose 198 H (75-100) mg/dL POC Glucose 207 H 168 H (70-105) C-Reactive Protein (0.00-1.30) mg/dL Diabetes panel 02/21/18 Range/Units 06:13 Sodium 146 H (137-145) mmol/L Potassium 4.0 (3.6-5.0) mmol/L Chloride 108.2 H (98-107) mmol/L Carbon Dioxide 28 (22-30) mmol/L BUN 21 H (9-20) mg/dL Creatinine 0.8 (0.8-1.5) mg/dL Glucose 198 H (75-100) mg/dL Calcium 9.9 (8.4-10.2) mg/dL Calcium panel 02/21/18 Range/Units 06:13 Calcium 9.9 (8.4-10.2) mg/dL Pituitary panel 02/21/18 Range/Units 06:13 Sodium 146 H (137-145) mmol/L Potassium 4.0 (3.6-5.0) mmol/L Chloride 108.2 H (98-107) mmol/L Carbon Dioxide 28 (22-30) mmol/L BUN 21 H (9-20) mg/dL Creatinine 0.8 (0.8-1.5) mg/dL Glucose 198 H (75-100) mg/dL Calcium 9.9 (8.4-10.2) mg/dL Adrenal panel 02/21/18 Range/Units 06:13 Sodium 146 H (137-145) mmol/L Potassium 4.0 (3.6-5.0) mmol/L Chloride 108.2 H (98-107) mmol/L Carbon Dioxide 28 (22-30) mmol/L BUN 21 H (9-20) mg/dL Creatinine 0.8 (0.8-1.5) mg/dL Glucose 198 H (75-100) mg/dL Calcium 9.9 (8.4-10.2) mg/dL Assessment and Plan - Patient Problems (1) Decubitus ulcer Current Visit: Yes Status: Acute Qualifiers: Pressure ulcer location: sacral region Pressure ulcer stage: unspecified pressure ulcer stage Qualified Code(s): L89.159 - Pressure ulcer of sacral region, unspecified stage Plan to address problem: Patient is stable. We discussed various options from aggressive character comfort care. was struggling with the decision to make. She ultimately decided for aggressive care. Procedure, risks, benefits, alternatives for sacral debridement with wound VAC placement were discussed. All questions were answered. Consent was obtained. Patient is scheduled for surgery on morning at 7:30 AM. Preop orders will be written tomorrow. Time=50min
[2018-02-21] MEDS ORDERED: ATIVAN IV ONE (17:46)
[2018-02-21] MEDS: AVYCAZ IV SCH (18:09)
[2018-02-21] MEDS: NACL 0.9% IV SCH (18:09)
--- NOTE | 2018-02-21 19:19 | Magnetic Resonance Report ---
FINAL REPORT PROCEDURE: MR BRAIN WO CON TECHNIQUE: Magnetic resonance imaging of the brain was performed without contrast material. HISTORY: AMS with abnormal brain CT finding COMPARISON: CT head 02/18/2018 FINDINGS: There is a large area of restricted diffusion in the right occipital lobe. There is high T1 signal and signal dropout seen on gradient echo images peripherally, compatible with areas of hemorrhage of varying stages. There is mild mass effect on the right occipital horn. No midline shift. No cerebellar tonsillar ectopia is seen. No hydrocephalus. There is underlying chronic microvascular ischemic change with bilateral periventricular white matter high T2 signal foci. No abnormal extra-axial fluid collections are seen. There is a mucosal retention cyst in the left maxillary sinus. There is small amount of fluid in the right mastoid air cells. Globes and orbits are unremarkable in appearance. IMPRESSION: Findings are compatible with hemorrhagic infarct in the right occipital lobe. Recommend follow-up CT to evaluate degree of hemorrhage.
--- NOTE | 2018-02-21 19:40 | Cat Scan Report ---
FINAL REPORT PROCEDURE: CT ABDOMEN PELVIS W CON TECHNIQUE: Computerized axial tomography of the abdomen and pelvis was performed after the IV injection of iodinated nonionic contrast. HISTORY: pt septic with large sacral dec COMPARISON: No prior studies are available for comparison. FINDINGS: Visualized lower thorax: There are bilateral lower lobe airspace opacities, which may be related to pneumonia. Small bilateral pleural effusions are present. Liver: Normal size and attenuation. Spleen: Normal size and attenuation. Gallbladder and biliary system: Normal. Pancreas: Normal. Adrenals: Bilateral adrenal hyperplasia. Kidneys: There is a horseshoe kidney. No hydronephrosis bilaterally. GI tract: There is a large volume of stool in the colon, compatible with constipation. The appendix is visualized and does not appear inflamed. There is no bowel obstruction or acute inflammation. There is a gastrostomy tube, with the tip in the gastric lumen. Lymph nodes and mesentery: Normal. Vasculature: There is aortic and bilateral common iliac artery calcification. Bladder: Andrews catheter is present. Reproductive organs: Normal. Peritoneum: No free fluid. Musculoskeletal structures: Multilevel lumbar degenerative disc and facet arthritic changes are present Other: None. IMPRESSION: Constipation. Bilateral lower lobe airspace opacities are compatible with pneumonia.
[2018-02-22] MEDS: LOPRESSOR FEEDTUBE SCH ×4 (00:56→23:22)
[2018-02-22] MEDS: DESYREL PO SCH ×3 (00:58→23:06)
[2018-02-22] MEDS: PEPCID FEEDTUBE SCH ×3 (00:58→23:06)
[2018-02-22] MEDS: KEPPRA FEEDTUBE SCH ×3 (01:00→23:06)
[2018-02-22] MEDS: HEPARIN SUB-Q SCH ×3 (01:02→23:07)
[2018-02-22] MEDS: LANTUS SUB-Q SCH ×3 (01:02→23:07)
[2018-02-22] MEDS: TRANSDERM-SCOP TD SCH (01:05)
[2018-02-22] MEDS: HumaLOG SUB-Q SCH ×5 (01:08→23:07)
[2018-02-22] MEDS: SODIUM CHLORIDE FLUSH SYRINGE 10 ML IV SCH ×3 (01:08→23:23)
[2018-02-22] MEDS: DAKIN'S FULL STRENGTH TP SCH ×2 (01:25→10:00)
[2018-02-22] MEDS: AVYCAZ IV SCH ×4 (02:16→23:24)
[2018-02-22] MEDS: NACL 0.9% IV SCH ×4 (02:16→23:24)
[2018-02-22 07:19] LABS: BUN/Creatinine Ratio 28; Blood Urea Nitrogen 22 mg/dL (9-20); Calcium 10.2 mg/dL (8.4-10.2); Hemolysis Index 0
--- NOTE | 2018-02-22 09:59 | Progress Note ---
Assessment and Plan - Patient Problems (1) Decubitus ulcer Current Visit: Yes Status: Acute Qualifiers: Pressure ulcer location: sacral region Pressure ulcer stage: unspecified pressure ulcer stage Qualified Code(s): L89.159 - Pressure ulcer of sacral region, unspecified stage Plan to address problem: Patient is stable. I called this morning. I informed her that surgery is scheduled for tomorrow morning. She was appreciative. All questions were answered. Consent was obtained. Patient is scheduled for surgery on at 7:30 AM. Preop orders have been written Time=10min Subjective Date of service: 02/22/18 Patient Reports: Positive: other (No new issues) Objective Vital Signs - 12hr 02/21/18 02/22/18 02/22/18 23:12 00:56 01:00 Temperature 98.9 F Pulse Rate 121 H 115 H Respiratory 22 Rate Blood Pressure 143/90 143/90 O2 Sat by Pulse 100 Oximetry O2 Sat by Pulse 98 Oximetry [ Assessment] 02/22/18 02/22/18 02/22/18 04:12 04:38 07:53 Temperature 98.6 F 97.5 F L Pulse Rate 99 H 99 H 95 H Respiratory 20 19 Rate Blood Pressure 138/85 138/88 150/86 O2 Sat by Pulse 96 97 Oximetry O2 Sat by Pulse Oximetry [ Assessment] 02/22/18 02/22/18 09:00 09:35 Temperature Pulse Rate Respiratory Rate Blood Pressure O2 Sat by Pulse 96 Oximetry O2 Sat by Pulse 96 Oximetry [ Assessment] - General physical appearance no distress, no pain, other (resting comfortably in bed) - Respiratory normal expansion, normal respiratory effort - Neurologic other (minimally responsive) - Labs 02/20/18 05:03 02/22/18 05:46 Diabetes panel 02/22/18 Range/Units 05:46 Sodium 145 (137-145) mmol/L Potassium 4.2 (3.6-5.0) mmol/L Chloride 106.6 (98-107) mmol/L Carbon Dioxide 28 (22-30) mmol/L BUN 22 H (9-20) mg/dL Creatinine 0.8 (0.8-1.5) mg/dL Calcium 10.2 (8.4-10.2) mg/dL Calcium panel 02/22/18 Range/Units 05:46 Calcium 10.2 (8.4-10.2) mg/dL Pituitary panel 02/22/18 Range/Units 05:46 Sodium 145 (137-145) mmol/L Potassium 4.2 (3.6-5.0) mmol/L Chloride 106.6 (98-107) mmol/L Carbon Dioxide 28 (22-30) mmol/L BUN 22 H (9-20) mg/dL Creatinine 0.8 (0.8-1.5) mg/dL Calcium 10.2 (8.4-10.2) mg/dL Adrenal panel 02/22/18 Range/Units 05:46 Sodium 145 (137-145) mmol/L Potassium 4.2 (3.6-5.0) mmol/L Chloride 106.6 (98-107) mmol/L Carbon Dioxide 28 (22-30) mmol/L BUN 22 H (9-20) mg/dL Creatinine 0.8 (0.8-1.5) mg/dL Calcium 10.2 (8.4-10.2) mg/dL
[2018-02-22] MEDS: ZESTRIL FEEDTUBE SCH (10:00)
[2018-02-22] MEDS: SYMMETREL FEEDTUBE SCH (10:00)
--- NOTE | 2018-02-22 11:04 | Progress Note ---
Assessment and Plan 1. Hypernatremia: Sodium level is improving. Continue water flushes. 2. Acute kidney injury: Improved. 3. Hypokalemia: Improved. 4. Sepsis. 5. Lactic acidosis. 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 Objective - Vital Signs Vital signs: Vital Signs - 12hr 02/21/18 02/22/18 02/22/18 23:12 00:56 01:00 Temperature 98.9 F Pulse Rate 121 H 115 H Respiratory 22 Rate Blood Pressure 143/90 143/90 O2 Sat by Pulse 100 Oximetry O2 Sat by Pulse 98 Oximetry [ Assessment] 02/22/18 02/22/18 02/22/18 04:12 04:38 07:53 Temperature 98.6 F 97.5 F L Pulse Rate 99 H 99 H 95 H Respiratory 20 19 Rate Blood Pressure 138/85 138/88 150/86 O2 Sat by Pulse 96 97 Oximetry O2 Sat by Pulse Oximetry [ Assessment] 02/22/18 02/22/18 09:00 09:35 Temperature Pulse Rate Respiratory Rate Blood Pressure O2 Sat by Pulse 96 Oximetry O2 Sat by Pulse 96 Oximetry [ Assessment] - General Appearance General appearance: well-developed, appears stated age, other (no distress, trached on T-piece) EENT: ATNC, hearing intact Neck: supple Respiratory: Present: Clear to Ascultation Cardiology: regular, S1S2, no murmurs Gastrointestinal: normoactive bowel sounds, no tenderness, other (PEG tube noted ) Integumentary: no rash, warm and dry Neurologic: other (opens eyes) Musculoskeletal: other (no edema) - Lab 02/20/18 05:03 02/22/18 05:46 Most recent lab results Calcium 10.2 mg/dL (8.4-10.2) 02/22/18 05:46 Phosphorus 3.50 mg/dL (2.5-4.5) D 02/17/18 04:25 Magnesium 2.30 mg/dL (1.7-2.3) 02/17/18 04:25
--- NOTE | 2018-02-22 13:02 | Progress Note ---
Assessment and Plan Assessment and plan: 72-year-old -[place] male with history of hemorrhagic stroke, status post PEG and trach from longterm admitted for sepsis, dehydration -Severe Hypernatremia; resolved. -Nephrology is following -This morning Na 145 -Hypokalemia: repleted, corrected -Metabolic encephalopathy; multifactorial, improving Secondary to sepsis. Severe hypernatremia, possible UTI, ischemia IV fluids, follow cultures CXR showed bilateralinfiltrates -Lactic acidosis - Due to the above - Resolved Sepsis secondary to urinary tract infection - Culture showed CHAR CONVEYOR TENDER CELLAR serratia and pseudomonas, ID consulted, patient is currently on cefepime and Isolation --Type 2 diabetes mellitus uncontrolled diabetes mellitus; Accu-Chek sliding scale coverage tube feeding, adjust insulin as needed sacral decubitus ulcer infected - General surgery consulted and will do debridement tomorrow --Status post trach and PEG; tracheostomy and PEG tube care --Dyslipidemia; continue lipid lowering medications --DVT prophylaxis; SCD, heparin Severe malnutrition Full CODE STATUS Continue current management CT head was done and result noted. Will do MRI. History Interval history: Patient is on trach and PEG, patient is alert but not communicative. Hospitalist Physical - Physical exam Narrative exam: Patient has trach and on 5 L of oxygen Vital signs as documented. Head exam is unremarkable. No scleral icterus . Neck is without jugular venous distension, thyromegaly, or carotid bruits. Lungs are clear to auscultation. Cardiac exam reveals regular rate and Rhythm. First and second heart sounds normal. No murmurs, rubs or gallops. Abdominal exam reveals normal bowel sounds, no masses, no organomegaly and no aortic enlargement. Integumentary sacral and heel ulcer POA. 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2) H 02/20/18 05:03 Plt Count 209 K/mm3 (140-440) 02/20/18 05:03 Lymph % (Auto) 11.5 % (13.4-35.0) L 02/18/18 05:43 Curry % (Auto) 5.1 % (0.0-7.3) 02/18/18 05:43 Eos % (Auto) 3.9 % (0.0-4.3) 02/18/18 05:43 Baso % (Auto) 0.4 % (0.0-1.8) 02/18/18 05:43 Lymph # 1.6 K/mm3 (1.2-5.4) 02/18/18 05:43 Curry # 0.7 K/mm3 (0.0-0.8) 02/18/18 05:43 Eos # 0.5 K/mm3 (0.0-0.4) H 02/18/18 05:43 Baso # 0.1 K/mm3 (0.0-0.1) 02/18/18 05:43 Add Manual Diff Complete 02/20/18 05:03 Total Counted 100 02/20/18 05:03 Seg Neutrophils % 79.1 % (40.0-70.0) H 02/18/18 05:43 Seg Neuts % (Manual) 85.0 % (40.0-70.0) H 02/20/18 05:03 Band Neutrophils % 2.0 % 02/20/18 05:03 Lymphocytes % (Manual) 7.0 % (13.4-35.0) L 02/20/18 05:03 Reactive Lymphs % (Man) 0 % 02/20/18 05:03 Monocytes % (Manual) 1.0 % (0.0-7.3) 02/20/18 05:03 Eosinophils % (Manual) 2.0 % (0.0-4.3) 02/20/18 05:03 Basophils % (Manual) 0 % (0.0-1.8) 02/20/18 05:03 Metamyelocytes % 3.0 % 02/20/18 05:03 Myelocytes % 0 % 02/20/18 05:03 Promyelocytes % 0 % 02/20/18 05:03 Blast Cells % 0 % 02/20/18 05:03 Nucleated RBC % Not Reportable 02/20/18 05:03 Seg Neutrophils # 10.9 K/mm3 (1.8-7.7) H 02/18/18 05:43 Seg Neutrophils # Man 11.6 K/mm3 (1.8-7.7) H 02/20/18 05:03 Band Neutrophils # 0.3 K/mm3 02/20/18 05:03 Lymphocytes # (Manual) 1.0 K/mm3 (1.2-5.4) L 02/20/18 05:03 Abs React Lymphs (Man) 0.0 K/mm3 02/20/18 05:03 Monocytes # (Manual) 0.1 K/mm3 (0.0-0.8) 02/20/18 05:03 Eosinophils # (Manual) 0.3 K/mm3 (0.0-0.4) 02/20/18 05:03 Basophils # (Manual) 0.0 K/mm3 (0.0-0.1) 02/20/18 05:03 Metamyelocytes # 0.4 K/mm3 02/20/18 05:03 Myelocytes # 0.0 K/mm3 02/20/18 05:03 Promyelocytes # 0.0 K/mm3 02/20/18 05:03 Blast Cells # 0.0 K/mm3 02/20/18 05:03 WBC Morphology Not Reportable 02/20/18 05:03 Hypersegmented Neuts Not Reportable 02/20/18 05:03 Hyposegmented Neuts Not Reportable 02/20/18 05:03 Hypogranular Neuts Not Reportable 02/20/18 05:03 Smudge Cells Not Reportable 02/20/18 05:03 Toxic Granulation Not Reportable 02/20/18 05:03 Toxic Vacuolation Not Reportable 02/20/18 05:03 Dohle Bodies Not Reportable 02/20/18 05:03 Pelger-Huet Anomaly Not Reportable 02/20/18 05:03 Helene Rods Not Reportable 02/20/18 05:03 Platelet Estimate Appears normal 02/20/18 05:03 Clumped Platelets Not Reportable 02/20/18 05:03 Plt Clumps, EDTA Not Reportable 02/20/18 05:03 Large Platelets Not Reportable 02/20/18 05:03 Giant Platelets Not Reportable 02/20/18 05:03 Platelet Satelliting Not Reportable 02/20/18 05:03 Plt Morphology Comment Not Reportable 02/20/18 05:03 RBC Morphology Not Reportable 02/20/18 05:03 Dimorphic RBCs Not Reportable 02/20/18 05:03 Polychromasia 1+ 02/20/18 05:03 Hypochromasia Not Reportable 02/20/18 05:03 Poikilocytosis Not Reportable 02/20/18 05:03 Anisocytosis 1+ 02/20/18 05:03 Microcytosis Not Reportable 02/20/18 05:03 Macrocytosis Not Reportable 02/20/18 05:03 Spherocytes Not Reportable 02/20/18 05:03 Pappenheimer Bodies Not Reportable 02/20/18 05:03 Sickle Cells Not Reportable 02/20/18 05:03 Target Cells Not Reportable 02/20/18 05:03 Tear Drop Cells Few 02/20/18 05:03 Ovalocytes 1+ 02/20/18 05:03 Stomatocytes Few 02/20/18 05:03 Helmet Cells Rare 02/20/18 05:03 [place] Bodies Not Reportable 02/20/18 05:03 [place] Rings Not Reportable 02/20/18 05:03 Wheeler Cells Not Reportable 02/20/18 05:03 Bite Cells Not Reportable 02/20/18 05:03 Crenated Cell Not Reportable 02/20/18 05:03 Elliptocytes Few 02/20/18 05:03 Acanthocytes (Spur) Not Reportable 02/20/18 05:03 Rouleaux Not Reportable 02/20/18 05:03 Hemoglobin C Crystals Not Reportable 02/20/18 05:03 Schistocytes Not Reportable 02/20/18 05:03 Malaria parasites Not Reportable 02/20/18 05:03 Huy Bodies Not Reportable 02/20/18 05:03 Hem Pathologist Commnt No 02/20/18 05:03 APTT 31.9 Sec. (24.2-36.6) 02/14/18 10:15 POC ABG pH 7.521 (7.35-7.45) H 02/14/18 10:39 POC ABG pCO2 38.8 (35-45) 02/14/18 10:39 POC ABG pO2 58 (80-105) L 02/14/18 10:39 POC ABG HCO3 31.8 02/14/18 10:39 POC ABG Total CO2 33 02/14/18 10:39 POC ABG O2 Sat 92 02/14/18 10:39 POC ABG Base Excess 9 02/14/18 10:39 FiO2 80 % 02/14/18 10:39 Sodium 145 mmol/L (137-145) 02/22/18 05:46 Potassium 4.2 mmol/L (3.6-5.0) 02/22/18 05:46 Chloride 106.6 mmol/L (98-107) 02/22/18 05:46 Carbon Dioxide 28 mmol/L (22-30) 02/22/18 05:46 Anion Gap 15 mmol/L 02/22/18 05:46 BUN 22 mg/dL (9-20) H 02/22/18 05:46 Creatinine 0.8 mg/dL (0.8-1.5) 02/22/18 05:46 Estimated GFR > 60 ml/min 02/22/18 05:46 BUN/Creatinine Ratio 28 % 02/22/18 05:46 Glucose 198 mg/dL (75-100) H 02/21/18 06:13 POC Glucose 183 (70-105) H 02/22/18 06:11 Hemoglobin A1c 10.1 % (4-6) H 02/14/18 20:21 Lactic Acid 3.00 mmol/L (0.7-2.0) H* 02/15/18 05:53 Calcium 10.2 mg/dL (8.4-10.2) 02/22/18 05:46 Phosphorus 3.50 mg/dL (2.5-4.5) D 02/17/18 04:25 Magnesium 2.30 mg/dL (1.7-2.3) 02/17/18 04:25 Total Bilirubin 0.50 mg/dL (0.1-1.2) 02/15/18 02:16 AST 19 units/L (5-40) 02/15/18 02:16 ALT 41 units/L (7-56) 02/15/18 02:16 Alkaline Phosphatase 173 units/L (35-129) H 02/15/18 02:16 Total Creatine Kinase 46 units/L (55-170) L 02/14/18 10:15 C-Reactive Protein 4.50 mg/dL (0.00-1.30) H 02/20/18 05:03 Total Protein 6.2 g/dL (6.3-8.2) L 02/15/18 02:16 Albumin 2.0 g/dL (3.9-5) L 02/15/18 02:16 Albumin/Globulin Ratio 0.5 % 02/15/18 02:16 Urine Color Yellow (Yellow) 02/14/18 10:04 Urine Turbidity Hazy (Clear) 02/14/18 10:04 Urine pH 5.0 (5.0-7.0) 02/14/18 10:04 Ur Specific [place] 1.022 (1.003-1.030) 02/14/18 10:04 Urine Protein 30 mg/dl mg/dL (Negative) 02/14/18 10:04 Urine Glucose (UA) >=500 mg/dL (Negative) 02/14/18 10:04 Urine Ketones Neg mg/dL (Negative) 02/14/18 10:04 Urine Blood Sm (Negative) 02/14/18 10:04 Urine Nitrite Neg (Negative) 02/14/18 10:04 Urine Bilirubin Neg (Negative) 02/14/18 10:04 Urine Urobilinogen < 2.0 mg/dL (<2.0) 02/14/18 10:04 Ur Leukocyte Esterase Lg (Negative) 02/14/18 10:04 Urine WBC (Auto) 53.0 /HPF (0.0-6.0) H 02/14/18 10:04 Urine RBC (Auto) 13.0 /HPF (0.0-6.0) 02/14/18 10:04 U Epithel Cells (Auto) < 1.0 /HPF (0-13.0) 02/14/18 10:04 Urine Bacteria (Auto) 2+ /HPF (Negative) 02/14/18 10:04 Urine WBC Clumps 3+ /HPF 02/14/18 10:04 Hyaline Casts 7 /LPF 02/14/18 10:04 Urine Mucus Few /HPF 02/14/18 10:04 Vancomycin Trough 31.4 ug/mL (5.0-20.0) H 02/17/18 09:37 Random Vancomycin 16.5 ug/mL (0-40.0) 02/18/18 05:43 Blood Type O POSITIVE 02/14/18 10:15 Antibody Screen Negative 02/14/18 10:15
--- NOTE | 2018-02-22 16:23 | Progress Note ---
Assessment and Plan Assessment: 1) Sepsis: better. Etiology most likely multifactorial UTI +/- infected sacral decubitus +/- tracheobronchitis. 2) Complicated CA-UTI: Secondary to DEPUTY HARBORMASTER Serratia and DEPUTY HARBORMASTER Pseudomonas 3) Sacral debubitus infected - per wound care 5.5x9x1.5 cm with purulence, sloughing and necrosis 4) Bilateral pneumonia-initial CXR did not show consolidation pt came hypoxemic. Repeat CXR - jeffrey infiltrates 5) Acute on chronic resp failure 6) DM with hyperglycemia 7) Left heel eschar-present on admission 8) History of Intracranial hemorrhage, S/p tracheostomy/PEG Plan: -please call CT radiologist provider who read CT to clarify finding in sacral area (not mentioned) -repeat tracheal aspirate - pending -Surgical consult for sacral dec debridement - to be done tomorrow. Appreciate surgery input -obtain deep tissu cultures -treat constipation -continue avycaz D2/10 -strict contact and droplet isolation due to DEPUTY HARBORMASTER-infection control alerted -wound care Poor prognosis Thank you for your consultation, will follow up with you. Jess Luo MD Infectious Diseases Specialist [facility] ([facility] M [phone] O [phone] Subjective Date of service: 02/22/18 Principal diagnosis: DEPUTY HARBORMASTER UTI Interval history: Remains non verbal somnolent, no fever. Microbiology: Blood cultures: 02/14 neg Urine cultures: 02/14 Serratia DEPUTY HARBORMASTER, Pseudomonas MDR Tracheal asp: 02/14 many squamous cells Current Antimicrobials: 02/21 Avycaz Prior Antimicrobials: cefepime 02/18/18-02/21 Objective - Exam Narrative Exam: General appearance: somnolent in NAD, non conversant Eyes: anicteric sclerae, moist conjunctivae; no lid-lag; PERRLA HENT: Atraumatic; oropharynx limited Neck: Trach with thick greenish secretion Lungs: jeffrey rhonchi CV: RRR, no murmurs Abdomen: Soft, non-tender; Gtube Extremities: No peripheral edema or extremity lymphadenopathy Skin: Normal temperature, turgor and texture; no rash, ulcers or subcutaneous nodules Psych: non verbal Neuro: non verbal Lines: santos in place - Constitutional Vitals: Vital Signs Temp Pulse Resp BP Pulse Ox 97.6 F 95 H 19 135/91 96 02/22/18 11:22 02/22/18 07:53 02/22/18 11:22 02/22/18 11:22 02/22/18 09:35 Temperature -Last 24 Hours Temperature 97.6 F Temperature 97.5 F Temperature 98.6 F Temperature 98.9 F Temperature 98.5 F - Labs CBC & Chem 7: 02/20/18 05:03 02/22/18 05:46 Labs: Abnormal lab results 02/21/18 02/21/18 02/21/18 Range/Units 17:14 19:26 21:51 BUN (9-20) mg/dL Glucose (75-100) mg/dL POC Glucose 116 H 121 H 132 H (70-105) 02/22/18 02/22/18 Range/Units 05:46 06:11 BUN 22 H (9-20) mg/dL Glucose 203 H (75-100) mg/dL POC Glucose 183 H (70-105)
[2018-02-23] MEDS: LOPRESSOR FEEDTUBE SCH ×2 (04:08→15:21)
[2018-02-23] MEDS ORDERED: LACTATED RINGERS 1,000 ML IV SCH (06:00)
[2018-02-23] MEDS ORDERED: HYDROGEN PEROXIDE ONE (06:41)
[2018-02-23] MEDS ORDERED: MARCAINE 0.5% 0 ML INFILTRATI ONE (06:41)
[2018-02-23] MEDS: AVYCAZ IV SCH ×3 (06:54→22:52)
[2018-02-23] MEDS: NACL 0.9% IV SCH ×3 (06:54→22:52)
[2018-02-23 07:05] LABS: BUN/Creatinine Ratio 21; Blood Urea Nitrogen 21 mg/dL (9-20); Calcium 10.6 mg/dL (8.4-10.2); Hemolysis Index 5
[2018-02-23] MEDS ORDERED: VERSED IV ONE (07:15)
[2018-02-23] MEDS ORDERED: SUBLIMAZE ONE (07:15)
[2018-02-23] MEDS ORDERED: SUBLIMAZE IV PRN (07:43)
--- NOTE | 2018-02-23 07:43 | Anesthesia Day of Surgery ---
Anesthesia Day of Surgery - Day of Surgery Patient Examined: Yes Patient H&P Reviewed: Yes Patient is NPO: Yes Beta Blockers: Yes
--- NOTE | 2018-02-23 07:43 | Anesthesia Consultation ---
Anesthesia Consult and Med Hx Date of service: 02/23/18 - Pulmonary Exam CTA: No (decreased b/l) - Cardiac Exam Cardiac Exam: RRR - Pre-Operative Health Status ASA Pre-Surgery Classification: ASA4 Proposed Anesthetic Plan: General - Pulmonary Hx Respiratory Symptoms: Yes (b/l pneumonia) - Cardiovascular System Hx Hypertension: Yes - Central Nervous System Hx Seizures: Yes CVA: Yes (s/p ICHmrg. s/p TRACH/PEG) - Endocrine Hx Renal Disease: Yes (ARF) Hx Non-Insulin Dependent Diabetes: Yes - Other Systems Hx Cancer: No - Additional Comments Anesthesia Medical History Comments: sepsis, UTI
[2018-02-23] MEDS: LANTUS SUB-Q SCH (08:00)
[2018-02-23] MEDS: HumaLOG SUB-Q SCH ×3 (08:06→18:23)
[2018-02-23] MEDS ORDERED: NACL 0.9% IR ONE (08:30)
--- NOTE | 2018-02-23 08:42 | Post Operative Note ---
Date of procedure: 02/23/18 (Dictation#[id number]) Pre-op diagnosis: Sacral decubitus ulcer Findings: 11x7.5x5cm bilobed ulcer with 0.5cm depth Procedure: debridement of ulcer and wound vac placement Anesthesia: MAY Surgeon: JUSTEN PINA Estimated blood loss: minimal Pathology: list (necrotic tissue from ulcer) Specimen disposition: to lab Condition: stable Disposition: PACU
[2018-02-23] MEDS ORDERED: D50W (25GM) Syringe IV ONE (08:56)
[2018-02-23] MEDS ORDERED: ZOFRAN ONE (09:00)
[2018-02-23] MEDS ORDERED: D50W (25GM) Syringe IV NR (09:01)
--- NOTE | 2018-02-23 09:39 | Operative Report ---
PREOPERATIVE DIAGNOSIS: Sacral decubitus ulcer. POSTOPERATIVE DIAGNOSIS: Sacral decubitus ulcer. PROCEDURES: 1. Debridement of subcutaneous tissue, muscle and fascia. Total area is 67.5 square cm. 2. Negative pressure wound therapy (wound VAC placement). ATTENDING PHYSICIAN: Carlos Hart M.D. ANESTHESIA: General. ESTIMATED BLOOD LOSS: Minimal. FLUIDS: 250 mL. FINDINGS: Scattered area of necrotic tissue and fascia on the left side of the wound. On the right, the patient had necrotic skin, subcutaneous tissue, fascia and some muscle. SPECIMEN: Necrotic tissue sent for culture. DRAINS: Wound VAC. COMPLICATIONS: Stable, transport to Recovery Room. INDICATIONS: This is a 72-year-old male, detention patient who presented for other issues to the hospital. He was identified to have a large sacral decubitus ulcer. Wound care and General Surgery were consulted. The patient assessed to need for debridement in the operating room. Procedure, risks, benefits were explained to . Risks included but were not limited to infection, bleeding, pain, injury to surrounding structures, possible need for further procedures in the future. understood and consented. OPERATIVE NOTE: The patient was brought to the operating room and placed on the table in supine position. After adequate general anesthesia was established, the patient was placed in the left lateral decubitus position. Sterile prep and drape was performed. The patient was already on antibiotics. Time-out was performed. I began by measuring the wound. The wound bilobed nature. The total was 11 cm. One lobe was 7.5 cm in length, the other one was 5 and then there were some small extensions on the left side. Approximately in total, there was 67.5 square cm. Final depth of the wound was about 0.5 cm. This was down to the level of the fascia on the left and on the right, it went through the fascia to some of the underlying muscle. Bone was palpable, but not visible. There still appeared to be a thin layer of tissue above the sacrum. Began by combination of sharp and electrocautery debridement of all the necrotic tissue. Hemostasis was achieved with electrocautery. Once we had hemostasis, wound was thoroughly washed out. We made sure there are no other bleeding or no other areas of necrosis. The final wound appearance appeared to have viable tissue throughout. There was no longer any necrotic or questionably viable tissue. In order to have a better seal after the wound was cleaned and dried, I placed Mastisol on the inferior aspect of the wound margins. DuoDERM was placed just above the anal opening in order to protect that area of skin and allow for better seal of the wound VAC. We then applied the wound VAC. We had a good seal. There was no leak. The patient tolerated the procedure well. There were no complications. All counts were correct at the end of the case. I called the to give her an update. She was pleased. All questions were answered. JOB# [id number] PATTI/SUZY
--- NOTE | 2018-02-23 09:49 | Progress Note ---
Assessment and Plan 1. Hypernatremia: Increase in the Sodium level since yesterday. Continue water flushes. Start on IV D5W. 2. Acute kidney injury: Improved. 3. Hypokalemia: Improved. 4. Sepsis. 5. Lactic acidosis. Subjective Date of service: 02/23/18 Principal diagnosis: TECHNOLOGY LEAD UTI Interval history: Patient was seen and examined at the bedside. Objective - Vital Signs Vital signs: Vital Signs - 12hr 02/22/18 02/22/18 02/23/18 22:00 23:22 00:03 Temperature 98.2 F Pulse Rate 91 H 89 Respiratory 20 Rate Blood Pressure 138/85 133/80 O2 Sat by Pulse 95 95 Oximetry O2 Sat by Pulse Oximetry [ Assessment] 02/23/18 02/23/18 02/23/18 01:00 04:08 06:35 Temperature 98.2 F Pulse Rate 92 H 92 H Respiratory 20 Rate Blood Pressure 137/87 137/87 O2 Sat by Pulse 95 Oximetry O2 Sat by Pulse 97 Oximetry [ Assessment] 02/23/18 02/23/18 02/23/18 08:35 08:40 08:45 Temperature 97.7 F Pulse Rate 86 85 84 Respiratory 21 21 21 Rate Blood Pressure 107/69 118/78 120/75 O2 Sat by Pulse 93 93 94 Oximetry O2 Sat by Pulse Oximetry [ Assessment] 02/23/18 02/23/18 02/23/18 08:50 08:55 09:00 Temperature Pulse Rate 84 84 84 Respiratory 19 Rate Blood Pressure 111/70 116/71 113/69 O2 Sat by Pulse 94 95 94 Oximetry O2 Sat by Pulse Oximetry [ Assessment] 02/23/18 02/23/18 09:15 09:30 Temperature Pulse Rate 84 83 Respiratory 20 Rate Blood Pressure 120/79 125/81 O2 Sat by Pulse 95 99 Oximetry O2 Sat by Pulse Oximetry [ Assessment] - General Appearance General appearance: well-developed, appears stated age, other (no distress, Trached, on T-piece) EENT: ATNC Neck: supple Respiratory: Present: Clear to Ascultation Cardiology: regular, S1S2, no murmurs Gastrointestinal: normoactive bowel sounds, no tenderness, no distended, other ( PEG tube noted) Integumentary: no rash Neurologic: other (opens eyes, not following any command) Musculoskeletal: other (no edema) - Lab 02/20/18 05:03 02/23/18 05:21 Most recent lab results Calcium 10.6 mg/dL (8.4-10.2) H 02/23/18 05:21 Phosphorus 3.50 mg/dL (2.5-4.5) D 02/17/18 04:25 Magnesium 2.30 mg/dL (1.7-2.3) 02/17/18 04:25
[2018-02-23] MEDS: DAKIN'S FULL STRENGTH TP SCH (12:00)
--- NOTE | 2018-02-23 13:54 | Progress Note ---
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 - CXR showed bilateral infiltrates - on Avibactam Day 12/17, was treated with cefepime - Lactic acidosis Type 2 diabetes mellitus uncontrolled diabetes mellitus; - Accu-Chek sliding scale coverage - tube feeding, adjust insulin as needed sacral decubitus ulcer infected - General surgery consulted and did debridement and wound VAC placement Nutrition - Through PEG tube Dyslipidemia; - continue lipid lowering medications DVT prophylaxis; - SCD, heparin Severe malnutrition - Dietary consult Full CODE STATUS Prognosis: poor History Interval history: Patient is on trach and PEG, patient is alert but not communicative. was in the room and discussed the management plan. Hospitalist Physical - Physical exam Narrative exam: Patient has trach and on 5 L of oxygen Vital signs as documented. Head exam is unremarkable. No scleral icterus . Neck is without jugular venous distension, thyromegaly, or carotid bruits. Lungs are clear to auscultation. Cardiac exam reveals regular rate and Rhythm. First and second heart sounds normal. No murmurs, rubs or gallops. Abdominal exam reveals normal bowel sounds, no masses, no organomegaly and no aortic enlargement. Integumentary sacral and heel ulcer POA. 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 - Constitutional Vitals: Temp Pulse Resp BP Pulse Ox 97.7 F 83 20 125/81 96 02/23/18 08:35 02/23/18 09:30 02/23/18 09:30 02/23/18 09:30 02/23/18 10:00 General appearance: Present: no acute distress, other (nonviable) Results - Labs CBC & Chem 7: 02/20/18 05:03 02/23/18 05:21 Labs: Laboratory Last Values WBC 13.6 K/mm3 (4.5-11.0) H 02/20/18 05:03 RBC 4.22 M/mm3 (3.65-5.03) 02/20/18 05:03 Hgb 10.1 gm/dl (11.8-15.2) L 02/20/18 05:03 Hct 31.1 % (35.5-45.6) L 02/20/18 05:03 MCV 74 fl (84-94) L 02/20/18 05:03 MCH 24 pg (28-32) L 02/20/18 05:03 MCHC 33 % (32-34) 02/20/18 05:03 RDW 16.7 % (13.2-15.2) H 02/20/18 05:03 Plt Count 209 K/mm3 (140-440) 02/20/18 05:03 Lymph % (Auto) 11.5 % (13.4-35.0) L 02/18/18 05:43 Bent % (Auto) 5.1 % (0.0-7.3) 02/18/18 05:43 Eos % (Auto) 3.9 % (0.0-4.3) 02/18/18 05:43 Baso % (Auto) 0.4 % (0.0-1.8) 02/18/18 05:43 Lymph # 1.6 K/mm3 (1.2-5.4) 02/18/18 05:43 Bent # 0.7 K/mm3 (0.0-0.8) 02/18/18 05:43 Eos # 0.5 K/mm3 (0.0-0.4) H 02/18/18 05:43 Baso # 0.1 K/mm3 (0.0-0.1) 02/18/18 05:43 Add Manual Diff Complete 02/20/18 05:03 Total Counted 100 02/20/18 05:03 Seg Neutrophils % 79.1 % (40.0-70.0) H 02/18/18 05:43 Seg Neuts % (Manual) 85.0 % (40.0-70.0) H 02/20/18 05:03 Band Neutrophils % 2.0 % 02/20/18 05:03 Lymphocytes % (Manual) 7.0 % (13.4-35.0) L 02/20/18 05:03 Reactive Lymphs % (Man) 0 % 02/20/18 05:03 Monocytes % (Manual) 1.0 % (0.0-7.3) 02/20/18 05:03 Eosinophils % (Manual) 2.0 % (0.0-4.3) 02/20/18 05:03 Basophils % (Manual) 0 % (0.0-1.8) 02/20/18 05:03 Metamyelocytes % 3.0 % 02/20/18 05:03 Myelocytes % 0 % 02/20/18 05:03 Promyelocytes % 0 % 02/20/18 05:03 Blast Cells % 0 % 02/20/18 05:03 Nucleated RBC % Not Reportable 02/20/18 05:03 Seg Neutrophils # 10.9 K/mm3 (1.8-7.7) H 02/18/18 05:43 Seg Neutrophils # Man 11.6 K/mm3 (1.8-7.7) H 02/20/18 05:03 Band Neutrophils # 0.3 K/mm3 02/20/18 05:03 Lymphocytes # (Manual) 1.0 K/mm3 (1.2-5.4) L 02/20/18 05:03 Abs React Lymphs (Man) 0.0 K/mm3 02/20/18 05:03 Monocytes # (Manual) 0.1 K/mm3 (0.0-0.8) 02/20/18 05:03 Eosinophils # (Manual) 0.3 K/mm3 (0.0-0.4) 02/20/18 05:03 Basophils # (Manual) 0.0 K/mm3 (0.0-0.1) 02/20/18 05:03 Metamyelocytes # 0.4 K/mm3 02/20/18 05:03 Myelocytes # 0.0 K/mm3 02/20/18 05:03 Promyelocytes # 0.0 K/mm3 02/20/18 05:03 Blast Cells # 0.0 K/mm3 02/20/18 05:03 WBC Morphology Not Reportable 02/20/18 05:03 Hypersegmented Neuts Not Reportable 02/20/18 05:03 Hyposegmented Neuts Not Reportable 02/20/18 05:03 Hypogranular Neuts Not Reportable 02/20/18 05:03 Smudge Cells Not Reportable 02/20/18 05:03 Toxic Granulation Not Reportable 02/20/18 05:03 Toxic Vacuolation Not Reportable 02/20/18 05:03 Dohle Bodies Not Reportable 02/20/18 05:03 Pelger-Huet Anomaly Not Reportable 02/20/18 05:03 Helene Rods Not Reportable 02/20/18 05:03 Platelet Estimate Appears normal 02/20/18 05:03 Clumped Platelets Not Reportable 02/20/18 05:03 Plt Clumps, EDTA Not Reportable 02/20/18 05:03 Large Platelets Not Reportable 02/20/18 05:03 Giant Platelets Not Reportable 02/20/18 05:03 Platelet Satelliting Not Reportable 02/20/18 05:03 Plt Morphology Comment Not Reportable 02/20/18 05:03 RBC Morphology Not Reportable 02/20/18 05:03 Dimorphic RBCs Not Reportable 02/20/18 05:03 Polychromasia 1+ 02/20/18 05:03 Hypochromasia Not Reportable 02/20/18 05:03 Poikilocytosis Not Reportable 02/20/18 05:03 Anisocytosis 1+ 02/20/18 05:03 Microcytosis Not Reportable 02/20/18 05:03 Macrocytosis Not Reportable 02/20/18 05:03 Spherocytes Not Reportable 02/20/18 05:03 Pappenheimer Bodies Not Reportable 02/20/18 05:03 Sickle Cells Not Reportable 02/20/18 05:03 Target Cells Not Reportable 02/20/18 05:03 Tear Drop Cells Few 02/20/18 05:03 Ovalocytes 1+ 02/20/18 05:03 Stomatocytes Few 02/20/18 05:03 Helmet Cells Rare 02/20/18 05:03 [place] Bodies Not Reportable 02/20/18 05:03 [place] Rings Not Reportable 02/20/18 05:03 Patricia Cells Not Reportable 02/20/18 05:03 Bite Cells Not Reportable 02/20/18 05:03 Crenated Cell Not Reportable 02/20/18 05:03 Elliptocytes Few 02/20/18 05:03 Acanthocytes (Spur) Not Reportable 02/20/18 05:03 Rouleaux Not Reportable 02/20/18 05:03 Hemoglobin C Crystals Not Reportable 02/20/18 05:03 Schistocytes Not Reportable 02/20/18 05:03 Malaria parasites Not Reportable 02/20/18 05:03 Huy Bodies Not Reportable 02/20/18 05:03 Hem Pathologist Commnt No 02/20/18 05:03 APTT 31.9 Sec. (24.2-36.6) 02/14/18 10:15 POC ABG pH 7.521 (7.35-7.45) H 02/14/18 10:39 POC ABG pCO2 38.8 (35-45) 02/14/18 10:39 POC ABG pO2 58 (80-105) L 02/14/18 10:39 POC ABG HCO3 31.8 02/14/18 10:39 POC ABG Total CO2 33 02/14/18 10:39 POC ABG O2 Sat 92 02/14/18 10:39 POC ABG Base Excess 9 02/14/18 10:39 FiO2 80 % 02/14/18 10:39 Sodium 147 mmol/L (137-145) H 02/23/18 05:21 Potassium 4.8 mmol/L (3.6-5.0) 02/23/18 05:21 Chloride 107.3 mmol/L (98-107) H 02/23/18 05:21 Carbon Dioxide 33 mmol/L (22-30) H 02/23/18 05:21 Anion Gap 12 mmol/L 02/23/18 05:21 BUN 21 mg/dL (9-20) H 02/23/18 05:21 Creatinine 1.0 mg/dL (0.8-1.5) 02/23/18 05:21 Estimated GFR > 60 ml/min 02/23/18 05:21 BUN/Creatinine Ratio 21 % 02/23/18 05:21 Glucose 70 mg/dL (75-100) L 02/23/18 05:21 POC Glucose 88 (70-105) 02/23/18 11:36 Hemoglobin A1c 10.1 % (4-6) H 02/14/18 20:21 Lactic Acid 3.00 mmol/L (0.7-2.0) H* 02/15/18 05:53 Calcium 10.6 mg/dL (8.4-10.2) H 02/23/18 05:21 Phosphorus 3.50 mg/dL (2.5-4.5) D 02/17/18 04:25 Magnesium 2.30 mg/dL (1.7-2.3) 02/17/18 04:25 Total Bilirubin 0.50 mg/dL (0.1-1.2) 02/15/18 02:16 AST 19 units/L (5-40) 02/15/18 02:16 ALT 41 units/L (7-56) 02/15/18 02:16 Alkaline Phosphatase 173 units/L (35-129) H 02/15/18 02:16 Total Creatine Kinase 46 units/L (55-170) L 02/14/18 10:15 C-Reactive Protein 4.50 mg/dL (0.00-1.30) H 02/20/18 05:03 Total Protein 6.2 g/dL (6.3-8.2) L 02/15/18 02:16 Albumin 2.0 g/dL (3.9-5) L 02/15/18 02:16 Albumin/Globulin Ratio 0.5 % 02/15/18 02:16 Urine Color Yellow (Yellow) 02/14/18 10:04 Urine Turbidity Hazy (Clear) 02/14/18 10:04 Urine pH 5.0 (5.0-7.0) 02/14/18 10:04 Ur Specific Philipp 1.022 (1.003-1.030) 02/14/18 10:04 Urine Protein 30 mg/dl mg/dL (Negative) 02/14/18 10:04 Urine Glucose (UA) >=500 mg/dL (Negative) 02/14/18 10:04 Urine Ketones Neg mg/dL (Negative) 02/14/18 10:04 Urine Blood Sm (Negative) 02/14/18 10:04 Urine Nitrite Neg (Negative) 02/14/18 10:04 Urine Bilirubin Neg (Negative) 02/14/18 10:04 Urine Urobilinogen < 2.0 mg/dL (<2.0) 02/14/18 10:04 Ur Leukocyte Esterase Lg (Negative) 02/14/18 10:04 Urine WBC (Auto) 53.0 /HPF (0.0-6.0) H 02/14/18 10:04 Urine RBC (Auto) 13.0 /HPF (0.0-6.0) 02/14/18 10:04 U Epithel Cells (Auto) < 1.0 /HPF (0-13.0) 02/14/18 10:04 Urine Bacteria (Auto) 2+ /HPF (Negative) 02/14/18 10:04 Urine WBC Clumps 3+ /HPF 02/14/18 10:04 Hyaline Casts 7 /LPF 02/14/18 10:04 Urine Mucus Few /HPF 02/14/18 10:04 Vancomycin Trough 31.4 ug/mL (5.0-20.0) H 02/17/18 09:37 Random Vancomycin 16.5 ug/mL (0-40.0) 02/18/18 05:43 Blood Type O POSITIVE 02/14/18 10:15 Antibody Screen Negative 02/14/18 10:15
[2018-02-23] MEDS ORDERED: D5W 1,000 ML IV SCH (14:14)
--- NOTE | 2018-02-23 14:46 | Post Anesthesia Evaluation ---
- Post Anesthesia Evaluation Patient Participated: Yes Airway Patent: Yes Stable Respiratory Function: Yes Nausea/Vomiting: No Temp > 96.8F: Yes Pain Manageable: Yes Adequeate Hydration: Yes Anesthesia Complications: No
[2018-02-23] MEDS: SYMMETREL FEEDTUBE SCH (15:19)
[2018-02-23] MEDS: KEPPRA FEEDTUBE SCH ×2 (15:20→22:56)
[2018-02-23] MEDS: DESYREL PO SCH ×2 (15:20→22:57)
[2018-02-23] MEDS: PEPCID FEEDTUBE SCH ×2 (15:21→22:57)
[2018-02-23] MEDS: HEPARIN SUB-Q SCH ×2 (15:21→22:58)
[2018-02-23] MEDS: SODIUM CHLORIDE FLUSH SYRINGE 10 ML IV SCH (15:22)
[2018-02-23] MEDS: ZESTRIL FEEDTUBE SCH (15:22)
--- NOTE | 2018-02-23 17:10 | Query-Ulcer ---
Dear Chalino Navarro___Date:__02/23/2018____ Duck Farmer/CDS: Rajat Phone#:____[phone] Exercise your independent professional judgment when responding to query. Questions asked do not imply a particular answer is desired or expected. We greatly appreciate your clarification on this issue. Clinical Documentation States: 72-year-old -[place]er male with history of hemorrhagic stroke, status post PEG and trach from residential admitted for sepsis, dehydration. Hospitalist progress note (Chalino Perdomo) 02/23/18. Assessement and Plan: acute on chronic respiratory failure Type 2 diabetes mellitus uncontrolled diabetes mellitus sacral decubitus ulcer infected. General surgery consulted and did debridement Clinical Findings Show: UNSTAGEABLE PRESSURE INJURY TO SACRAL AREA-MEASURES 5.5X9X1.5-ULCER. Description taken from wound nurse note written by (Ayana Azul) on 2017. Pre-op diagnosis: Sacral decubitus ulcer 11x7.5x5cm bilobed ulcer with 0.5cm depth. Taken from operative note(Carlos Jamil) on 02/23/18 Please specify the cause of Ulcer: [ ] Diabetic Ulcer [x ] Pressure Ulcer [ ] Venous Stasis Ulcer [ ] Arterial Ulcers (Ischemic Ulcer) [ ] Other: [ ] Unspecified Please specify the stage below: [ ] Stage I (pre-ulcer skin changes limited to persistent focal erythema) [ ] Stage II (abrasion, blister, and partial thickness skin loss) [ ] Stage III (full thickness skin loss with subcutaneous necrosis/damage) [ ] Stage IV (necrosis of soft tissues through to underlying muscle, tendon, bone) [x ] Unstageable [ ] Unable to determine Present on Admission: [ x] Yes (Y) [ ] Clinically undeterminable (W) [ ] No (N) Please also document response in your Progress Notes and/or Discharge Summary and indicate if the condition was present on admission. MTDD
[2018-02-24] MEDS: HumaLOG SUB-Q SCH ×4 (00:53→18:35)
[2018-02-24] MEDS: LANTUS SUB-Q SCH ×3 (00:56→23:30)
[2018-02-24] MEDS: LOPRESSOR FEEDTUBE SCH ×3 (00:58→13:00)
[2018-02-24 05:43] LABS: Basophils # (Auto) 0.1 K/mm3 (0.0-0.1); Basophils % (Auto) 0.7 % (0.0-1.8); Eosinophils # (Auto) 0.3 K/mm3 (0.0-0.4); Eosinophils % (Auto) 2.7 % (0.0-4.3); Hematocrit 31.4 % (35.5-45.6); Hemoglobin 10.3 gm/dl (11.8-15.2); Lymphocytes # (Auto) 1.5 K/mm3 (1.2-5.4); Mean Corpuscular HGB Conc 33 % (32-34); Mean Corpuscular Volume 74 fl (84-94); Monocytes # (Auto) 0.7 K/mm3 (0.0-0.8); Monocytes % (Auto) 5.5 % (0.0-7.3); Platelet Count 320 K/mm3 (140-440); Red Blood Count 4.25 M/mm3 (3.65-5.03); Red Cell Distribution Width 17.3 % (13.2-15.2)
[2018-02-24 05:52] LABS: BUN/Creatinine Ratio 24; Blood Urea Nitrogen 19 mg/dL (9-20); Calcium 9.9 mg/dL (8.4-10.2); Hemolysis Index 13
[2018-02-24 05:55] LABS: Mean Corpuscular Hemoglobin 24 pg (28-32)
[2018-02-24] MEDS: DAKIN'S FULL STRENGTH TP SCH ×3 (08:37→11:14)
[2018-02-24] MEDS: SODIUM CHLORIDE FLUSH SYRINGE 10 ML IV SCH ×2 (08:38→09:37)
[2018-02-24] MEDS: NACL 0.9% IV SCH ×3 (09:35→23:23)
[2018-02-24] MEDS: AVYCAZ IV SCH ×3 (09:35→23:23)
[2018-02-24] MEDS: HEPARIN SUB-Q SCH ×2 (09:36→23:29)
[2018-02-24] MEDS: DESYREL PO SCH ×2 (09:36→23:28)
[2018-02-24] MEDS: KEPPRA FEEDTUBE SCH ×2 (09:36→23:30)
[2018-02-24] MEDS: ZESTRIL FEEDTUBE SCH (09:37)
[2018-02-24] MEDS: PEPCID FEEDTUBE SCH ×2 (09:37→23:28)
--- NOTE | 2018-02-24 10:30 | Progress Note ---
Assessment and Plan 1. Hypernatremia: Sodium level has improved. Continue water flushes. Will stop IV D5W. 2. Acute kidney injury: Improved. 3. Electrolytes: Hypokalemia, improved. Hyeprcalcemia, improved. Improved. 4. Sepsis. 5. Lactic acidosis. 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 Objective - Vital Signs Vital signs: Vital Signs - 12hr 02/23/18 02/24/18 02/24/18 23:27 00:58 04:50 Temperature 98.6 F Pulse Rate 103 H 100 H 111 H Respiratory 20 Rate Blood Pressure 147/93 140/82 O2 Sat by Pulse 96 98 Oximetry 02/24/18 02/24/18 04:54 08:03 Temperature 98.5 F Pulse Rate 111 H 115 H Respiratory 22 Rate Blood Pressure 157/97 O2 Sat by Pulse 98 98 Oximetry - General Appearance General appearance: well-developed, appears stated age, other (trached, on T- piece, no distress) EENT: ATNC Neck: supple Respiratory: Present: Clear to Ascultation Cardiology: regular, S1S2, no murmurs Gastrointestinal: normoactive bowel sounds, no tenderness, no distended, other ( PEG tube noted) Integumentary: no rash Neurologic: other (barely arousable) Musculoskeletal: other (no edema) - Lab 02/24/18 04:35 02/24/18 04:35 Most recent lab results Calcium 9.9 mg/dL (8.4-10.2) 02/24/18 04:35 Phosphorus 3.50 mg/dL (2.5-4.5) D 02/17/18 04:25 Magnesium 2.30 mg/dL (1.7-2.3) 02/17/18 04:25
--- NOTE | 2018-02-24 11:25 | Progress Note ---
Assessment and Plan Assessment: 1) Sepsis: better. Etiology most likely multifactorial UTI +/- infected sacral decubitus +/- tracheobronchitis. 2) Complicated CA-UTI: Secondary to SOIL SAMPLER Serratia and SOIL SAMPLER Pseudomonas 3) Sacral debubitus infected - per wound care 5.5x9x1.5 cm with purulence, sloughing and necrosis -S/P debridement and wound VAC on 02/23. No clinical osteomyelitis. 4) Bilateral pneumonia-initial CXR did not show consolidation pt came hypoxemic. Repeat CXR - jeffrey infiltrates 5) Acute on chronic resp failure 6) DM with hyperglycemia 7) Left heel eschar-present on admission 8) History of Intracranial hemorrhage, S/p tracheostomy/PEG Plan: -F/u surgical tissue -treat constipation -continue avycaz D4/10 -strict contact and droplet isolation due to SOIL SAMPLER -wound care Poor prognosis Thank you for your consultation, will follow up with you. Jess Luo MD Infectious Diseases Specialist [facility] ([facility] M [phone] O [phone] Subjective Date of service: 02/24/18 Principal diagnosis: SOIL SAMPLER UTI Interval history: Remains non verbal somnolent, no fever. Microbiology: Blood cultures: 02/14 neg Urine cultures: 02/14 Serratia SOIL SAMPLER, Pseudomonas MDR Tracheal asp: 02/14 many squamous cells Current Antimicrobials: 02/21 Avycaz Prior Antimicrobials: cefepime 02/18/18-02/21 Objective - Exam Narrative Exam: General appearance: somnolent in NAD, non conversant Eyes: anicteric sclerae, moist conjunctivae; no lid-lag; PERRLA HENT: Atraumatic; oropharynx limited Neck: Trach with thick greenish secretion Lungs: jeffrey rhonchi CV: RRR, no murmurs Abdomen: Soft, non-tender; Gtube Extremities: No peripheral edema or extremity lymphadenopathy Skin: Normal temperature, turgor and texture; no rash, ulcers or subcutaneous nodules Psych: non verbal Neuro: non verbal Lines: santos in place - Constitutional Vitals: Vital Signs Temp Pulse Resp BP Pulse Ox 98.5 F 115 H 22 157/97 98 02/24/18 08:03 02/24/18 08:03 02/24/18 08:03 02/24/18 08:03 02/24/18 08:03 Temperature -Last 24 Hours Temperature 98.5 F Temperature 98.6 F Temperature 98.4 F Temperature 98.0 F Temperature 98.0 F - Labs CBC & Chem 7: 02/24/18 04:35 02/24/18 04:35 Labs: Abnormal lab results 02/23/18 02/23/18 02/23/18 Range/Units 09:43 17:05 23:54 WBC (4.5-11.0) K/mm3 Hgb (11.8-15.2) gm/dl Hct (35.5-45.6) % MCV (84-94) fl MCH (28-32) pg RDW (13.2-15.2) % Lymph % (Auto) (13.4-35.0) % Seg Neutrophils % (40.0-70.0) % Seg Neutrophils # (1.8-7.7) K/mm3 Glucose (75-100) mg/dL POC Glucose 107 H 110 H 219 H (70-105) 02/24/18 02/24/18 02/24/18 Range/Units 04:35 04:35 05:09 WBC 12.4 H (4.5-11.0) K/mm3 Hgb 10.3 L (11.8-15.2) gm/dl Hct 31.4 L (35.5-45.6) % MCV 74 L (84-94) fl MCH 24 L (28-32) pg RDW 17.3 H (13.2-15.2) % Lymph % (Auto) 12.0 L (13.4-35.0) % Seg Neutrophils % 79.1 H (40.0-70.0) % Seg Neutrophils # 9.8 H (1.8-7.7) K/mm3 Glucose 254 H (75-100) mg/dL POC Glucose 264 H (70-105)
--- NOTE | 2018-02-24 12:37 | Progress Note ---
Assessment and Plan Assessment and plan: 72-year-old -[place] male with history of hemorrhagic stroke, status post PEG and trach from [facility] admitted for sepsis, dehydration acute on chronic respiratory failure - On tracheobronchitis - Trach was clogged on admission, on trach care - On 5 litres of oxygen Hypernatremia -Resolved Hypokalemia: - repleted, corrected Metabolic encephalopathy; - multifactorial - Lethargic Sepsis, due to UTI and Pneumonia, sacral wound infection - BUYING AGENT serratia and BUYING AGENT pseudomonas - CXR showed bilateral infiltrates - on Avibactam Day 12/17, was treated with cefepime - Lactic acidosis Type 2 diabetes mellitus uncontrolled diabetes mellitus; - Accu-Chek sliding scale coverage - tube feeding, adjust insulin as needed sacral decubitus ulcer infected -Status post debridement and wound VAC placement -Pending surgical culture results Nutrition - Through PEG tube Dyslipidemia; - continue lipid lowering medications DVT prophylaxis; - SCD, heparin Severe malnutrition - Dietary consult Full CODE STATUS Prognosis: Guarded History Interval history: Patient is on trach and PEG, patient was lethargic and not communicative. was in the room yesterday and discussed the management plan. Hospitalist Physical - Physical exam Narrative exam: Patient has trach and on 5 L of oxygen Vital signs as documented. Head exam is unremarkable. No scleral icterus . Neck is without jugular venous distension, thyromegaly, or carotid bruits. Lungs are clear to auscultation. Cardiac exam reveals regular rate and Rhythm. First and second heart sounds normal. No murmurs, rubs or gallops. Abdominal exam reveals normal bowel sounds, no masses, no organomegaly and no aortic enlargement. Integumentary sacral and heel ulcer POA. 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 - Constitutional Vitals: Temp Pulse Resp BP Pulse Ox 98.6 F 115 H 22 152/95 98 02/24/18 11:14 02/24/18 11:14 02/24/18 11:14 02/24/18 11:14 02/24/18 11:14 General appearance: Present: no acute distress, other (nonviable) Results - Labs CBC & Chem 7: 02/24/18 04:35 02/24/18 04:35 Labs: Laboratory Last Values WBC 12.4 K/mm3 (4.5-11.0) H 02/24/18 04:35 RBC 4.25 M/mm3 (3.65-5.03) 02/24/18 04:35 Hgb 10.3 gm/dl (11.8-15.2) L 02/24/18 04:35 Hct 31.4 % (35.5-45.6) L 02/24/18 04:35 MCV 74 fl (84-94) L 02/24/18 04:35 MCH 24 pg (28-32) L 02/24/18 04:35 MCHC 33 % (32-34) 02/24/18 04:35 RDW 17.3 % (13.2-15.2) H 02/24/18 04:35 Plt Count 320 K/mm3 (140-440) 02/24/18 04:35 Lymph % (Auto) 12.0 % (13.4-35.0) L 02/24/18 04:35 [place] % (Auto) 5.5 % (0.0-7.3) 02/24/18 04:35 Eos % (Auto) 2.7 % (0.0-4.3) 02/24/18 04:35 Baso % (Auto) 0.7 % (0.0-1.8) 02/24/18 04:35 Lymph # 1.5 K/mm3 (1.2-5.4) 02/24/18 04:35 [place] # 0.7 K/mm3 (0.0-0.8) 02/24/18 04:35 Eos # 0.3 K/mm3 (0.0-0.4) 02/24/18 04:35 Baso # 0.1 K/mm3 (0.0-0.1) 02/24/18 04:35 Add Manual Diff Complete 02/20/18 05:03 Total Counted 100 02/20/18 05:03 Seg Neutrophils % 79.1 % (40.0-70.0) H 02/24/18 04:35 Seg Neuts % (Manual) 85.0 % (40.0-70.0) H 02/20/18 05:03 Band Neutrophils % 2.0 % 02/20/18 05:03 Lymphocytes % (Manual) 7.0 % (13.4-35.0) L 02/20/18 05:03 Reactive Lymphs % (Man) 0 % 02/20/18 05:03 Monocytes % (Manual) 1.0 % (0.0-7.3) 02/20/18 05:03 Eosinophils % (Manual) 2.0 % (0.0-4.3) 02/20/18 05:03 Basophils % (Manual) 0 % (0.0-1.8) 02/20/18 05:03 Metamyelocytes % 3.0 % 02/20/18 05:03 Myelocytes % 0 % 02/20/18 05:03 Promyelocytes % 0 % 02/20/18 05:03 Blast Cells % 0 % 02/20/18 05:03 Nucleated RBC % Not Reportable 02/20/18 05:03 Seg Neutrophils # 9.8 K/mm3 (1.8-7.7) H 02/24/18 04:35 Seg Neutrophils # Man 11.6 K/mm3 (1.8-7.7) H 02/20/18 05:03 Band Neutrophils # 0.3 K/mm3 02/20/18 05:03 Lymphocytes # (Manual) 1.0 K/mm3 (1.2-5.4) L 02/20/18 05:03 Abs React Lymphs (Man) 0.0 K/mm3 02/20/18 05:03 Monocytes # (Manual) 0.1 K/mm3 (0.0-0.8) 02/20/18 05:03 Eosinophils # (Manual) 0.3 K/mm3 (0.0-0.4) 02/20/18 05:03 Basophils # (Manual) 0.0 K/mm3 (0.0-0.1) 02/20/18 05:03 Metamyelocytes # 0.4 K/mm3 02/20/18 05:03 Myelocytes # 0.0 K/mm3 02/20/18 05:03 Promyelocytes # 0.0 K/mm3 02/20/18 05:03 Blast Cells # 0.0 K/mm3 02/20/18 05:03 WBC Morphology Not Reportable 02/20/18 05:03 Hypersegmented Neuts Not Reportable 02/20/18 05:03 Hyposegmented Neuts Not Reportable 02/20/18 05:03 Hypogranular Neuts Not Reportable 02/20/18 05:03 Smudge Cells Not Reportable 02/20/18 05:03 Toxic Granulation Not Reportable 02/20/18 05:03 Toxic Vacuolation Not Reportable 02/20/18 05:03 Dohle Bodies Not Reportable 02/20/18 05:03 Pelger-Huet Anomaly Not Reportable 02/20/18 05:03 Helene Rods Not Reportable 02/20/18 05:03 Platelet Estimate Appears normal 02/20/18 05:03 Clumped Platelets Not Reportable 02/20/18 05:03 Plt Clumps, EDTA Not Reportable 02/20/18 05:03 Large Platelets Not Reportable 02/20/18 05:03 Giant Platelets Not Reportable 02/20/18 05:03 Platelet Satelliting Not Reportable 02/20/18 05:03 Plt Morphology Comment Not Reportable 02/20/18 05:03 RBC Morphology Not Reportable 02/20/18 05:03 Dimorphic RBCs Not Reportable 02/20/18 05:03 Polychromasia 1+ 02/20/18 05:03 Hypochromasia Not Reportable 02/20/18 05:03 Poikilocytosis Not Reportable 02/20/18 05:03 Anisocytosis 1+ 02/20/18 05:03 Microcytosis Not Reportable 02/20/18 05:03 Macrocytosis Not Reportable 02/20/18 05:03 Spherocytes Not Reportable 02/20/18 05:03 Pappenheimer Bodies Not Reportable 02/20/18 05:03 Sickle Cells Not Reportable 02/20/18 05:03 Target Cells Not Reportable 02/20/18 05:03 Tear Drop Cells Few 02/20/18 05:03 Ovalocytes 1+ 02/20/18 05:03 Stomatocytes Few 02/20/18 05:03 Helmet Cells Rare 02/20/18 05:03 Chaudhry-[place] Bodies Not Reportable 02/20/18 05:03 [place] Rings Not Reportable 02/20/18 05:03 Patricia Cells Not Reportable 02/20/18 05:03 Bite Cells Not Reportable 02/20/18 05:03 Crenated Cell Not Reportable 02/20/18 05:03 Elliptocytes Few 02/20/18 05:03 Acanthocytes (Spur) Not Reportable 02/20/18 05:03 Rouleaux Not Reportable 02/20/18 05:03 Hemoglobin C Crystals Not Reportable 02/20/18 05:03 Schistocytes Not Reportable 02/20/18 05:03 Malaria parasites Not Reportable 02/20/18 05:03 Huy Bodies Not Reportable 02/20/18 05:03 Hem Pathologist Commnt No 02/20/18 05:03 APTT 31.9 Sec. (24.2-36.6) 02/14/18 10:15 POC ABG pH 7.521 (7.35-7.45) H 02/14/18 10:39 POC ABG pCO2 38.8 (35-45) 02/14/18 10:39 POC ABG pO2 58 (80-105) L 02/14/18 10:39 POC ABG HCO3 31.8 02/14/18 10:39 POC ABG Total CO2 33 02/14/18 10:39 POC ABG O2 Sat 92 02/14/18 10:39 POC ABG Base Excess 9 02/14/18 10:39 FiO2 80 % 02/14/18 10:39 Sodium 142 mmol/L (137-145) 02/24/18 04:35 Potassium 4.3 mmol/L (3.6-5.0) 02/24/18 04:35 Chloride 101.1 mmol/L (98-107) 02/24/18 04:35 Carbon Dioxide 30 mmol/L (22-30) 02/24/18 04:35 Anion Gap 15 mmol/L 02/24/18 04:35 BUN 19 mg/dL (9-20) 02/24/18 04:35 Creatinine 0.8 mg/dL (0.8-1.5) 02/24/18 04:35 Estimated GFR > 60 ml/min 02/24/18 04:35 BUN/Creatinine Ratio 24 % 02/24/18 04:35 Glucose 254 mg/dL (75-100) H 02/24/18 04:35 POC Glucose 276 (70-105) H 02/24/18 11:21 Hemoglobin A1c 10.1 % (4-6) H 02/14/18 20:21 Lactic Acid 3.00 mmol/L (0.7-2.0) H* 02/15/18 05:53 Calcium 9.9 mg/dL (8.4-10.2) 02/24/18 04:35 Phosphorus 3.50 mg/dL (2.5-4.5) D 02/17/18 04:25 Magnesium 2.30 mg/dL (1.7-2.3) 02/17/18 04:25 Total Bilirubin 0.50 mg/dL (0.1-1.2) 02/15/18 02:16 AST 19 units/L (5-40) 02/15/18 02:16 ALT 41 units/L (7-56) 02/15/18 02:16 Alkaline Phosphatase 173 units/L (35-129) H 02/15/18 02:16 Total Creatine Kinase 46 units/L (55-170) L 02/14/18 10:15 C-Reactive Protein 4.50 mg/dL (0.00-1.30) H 02/20/18 05:03 Total Protein 6.2 g/dL (6.3-8.2) L 02/15/18 02:16 Albumin 2.0 g/dL (3.9-5) L 02/15/18 02:16 Albumin/Globulin Ratio 0.5 % 02/15/18 02:16 Urine Color Yellow (Yellow) 02/14/18 10:04 Urine Turbidity Hazy (Clear) 02/14/18 10:04 Urine pH 5.0 (5.0-7.0) 02/14/18 10:04 Ur Specific [place] 1.022 (1.003-1.030) 02/14/18 10:04 Urine Protein 30 mg/dl mg/dL (Negative) 02/14/18 10:04 Urine Glucose (UA) >=500 mg/dL (Negative) 02/14/18 10:04 Urine Ketones Neg mg/dL (Negative) 02/14/18 10:04 Urine Blood Sm (Negative) 02/14/18 10:04 Urine Nitrite Neg (Negative) 02/14/18 10:04 Urine Bilirubin Neg (Negative) 02/14/18 10:04 Urine Urobilinogen < 2.0 mg/dL (<2.0) 02/14/18 10:04 Ur Leukocyte Esterase Lg (Negative) 02/14/18 10:04 Urine WBC (Auto) 53.0 /HPF (0.0-6.0) H 02/14/18 10:04 Urine RBC (Auto) 13.0 /HPF (0.0-6.0) 02/14/18 10:04 U Epithel Cells (Auto) < 1.0 /HPF (0-13.0) 02/14/18 10:04 Urine Bacteria (Auto) 2+ /HPF (Negative) 02/14/18 10:04 Urine WBC Clumps 3+ /HPF 02/14/18 10:04 Hyaline Casts 7 /LPF 02/14/18 10:04 Urine Mucus Few /HPF 02/14/18 10:04 Vancomycin Trough 31.4 ug/mL (5.0-20.0) H 02/17/18 09:37 Random Vancomycin 16.5 ug/mL (0-40.0) 02/18/18 05:43 Blood Type O POSITIVE 02/14/18 10:15 Antibody Screen Negative 02/14/18 10:15
[2018-02-24] MEDS: SYMMETREL FEEDTUBE SCH (13:00)
--- NOTE | 2018-02-24 15:38 | Progress Note ---
Assessment and Plan - Patient Problems (1) Decubitus ulcer Current Visit: Yes Status: Acute Qualifiers: Pressure ulcer location: sacral region Pressure ulcer stage: unspecified pressure ulcer stage Qualified Code(s): L89.159 - Pressure ulcer of sacral region, unspecified stage Plan to address problem: Patient is stable. s/p sacral decubitus ulcer debridement and wound vac placement 02/23/18 - POD#1. Spoke with Wound Care today. They will manage the wound vac. Next change will be on Tuesday. Continue present care. Please call with questions. Time=10min Subjective Date of service: 02/24/18 Patient Reports: Positive: other (no events) Objective Vital Signs - 12hr 02/24/18 02/24/18 02/24/18 04:50 04:54 08:03 Temperature 98.5 F Pulse Rate 111 H 111 H 115 H Respiratory 22 Rate Blood Pressure 157/97 O2 Sat by Pulse 98 98 98 Oximetry O2 Sat by Pulse Oximetry [ Assessment] 02/24/18 02/24/18 02/24/18 09:00 11:14 15:21 Temperature 98.6 F Pulse Rate 115 H Respiratory 22 Rate Blood Pressure 152/95 O2 Sat by Pulse 98 98 Oximetry O2 Sat by Pulse 98 Oximetry [ Assessment] - General physical appearance no distress, no pain - Respiratory normal expansion, normal respiratory effort - Integumentary other (Wound vac in place with minimal non-purulent drainage. ) - Psychiatric other (minimal interaction) - Labs 02/24/18 04:35 02/24/18 04:35 Diabetes panel 02/24/18 Range/Units 04:35 Sodium 142 (137-145) mmol/L Potassium 4.3 (3.6-5.0) mmol/L Chloride 101.1 (98-107) mmol/L Carbon Dioxide 30 (22-30) mmol/L BUN 19 (9-20) mg/dL Creatinine 0.8 (0.8-1.5) mg/dL Glucose 254 H (75-100) mg/dL Calcium 9.9 (8.4-10.2) mg/dL Calcium panel 02/24/18 Range/Units 04:35 Calcium 9.9 (8.4-10.2) mg/dL Pituitary panel 02/24/18 Range/Units 04:35 Sodium 142 (137-145) mmol/L Potassium 4.3 (3.6-5.0) mmol/L Chloride 101.1 (98-107) mmol/L Carbon Dioxide 30 (22-30) mmol/L BUN 19 (9-20) mg/dL Creatinine 0.8 (0.8-1.5) mg/dL Glucose 254 H (75-100) mg/dL Calcium 9.9 (8.4-10.2) mg/dL Adrenal panel 02/24/18 Range/Units 04:35 Sodium 142 (137-145) mmol/L Potassium 4.3 (3.6-5.0) mmol/L Chloride 101.1 (98-107) mmol/L Carbon Dioxide 30 (22-30) mmol/L BUN 19 (9-20) mg/dL Creatinine 0.8 (0.8-1.5) mg/dL Glucose 254 H (75-100) mg/dL Calcium 9.9 (8.4-10.2) mg/dL
[2018-02-24] MEDS: TRANSDERM-SCOP TD SCH (18:30)
[2018-02-25 06:00] LABS: BUN/Creatinine Ratio 27; Blood Urea Nitrogen 19 mg/dL (9-20); Calcium 9.7 mg/dL (8.4-10.2); Hemolysis Index 23
[2018-02-25 06:28] LABS: Basophils % (Auto) 0.3 % (0.0-1.8); Eosinophils # (Auto) 0.3 K/mm3 (0.0-0.4); Eosinophils % (Auto) 2.7 % (0.0-4.3); Hematocrit 30.8 % (35.5-45.6); Hemoglobin 10.2 gm/dl (11.8-15.2); Lymphocytes # (Auto) 1.9 K/mm3 (1.2-5.4); Lymphocytes % (Auto) 15.4 % (13.4-35.0); Mean Corpuscular HGB Conc 33 % (32-34); Mean Corpuscular Volume 74 fl (84-94); Monocytes # (Auto) 0.7 K/mm3 (0.0-0.8); Monocytes % (Auto) 5.6 % (0.0-7.3); Platelet Count 364 K/mm3 (140-440); Red Blood Count 4.17 M/mm3 (3.65-5.03); Red Cell Distribution Width 17.9 % (13.2-15.2)
[2018-02-25 06:32] LABS: Mean Corpuscular Hemoglobin 24 pg (28-32)
[2018-02-25] MEDS: DAKIN'S FULL STRENGTH TP SCH ×3 (08:00→21:48)
[2018-02-25] MEDS: LOPRESSOR FEEDTUBE SCH ×3 (08:00→21:38)
[2018-02-25] MEDS: SODIUM CHLORIDE FLUSH SYRINGE 10 ML IV SCH ×3 (08:01→21:35)
[2018-02-25] MEDS: HumaLOG SUB-Q SCH ×4 (08:01→17:43)
[2018-02-25] MEDS: AVYCAZ IV SCH ×3 (08:37→21:32)
[2018-02-25] MEDS: NACL 0.9% IV SCH ×3 (08:37→21:32)
[2018-02-25] MEDS: LANTUS SUB-Q SCH (08:37)
[2018-02-25] MEDS: DESYREL PO SCH ×2 (10:32→21:38)
[2018-02-25] MEDS: SYMMETREL FEEDTUBE SCH (10:33)
[2018-02-25] MEDS: KEPPRA FEEDTUBE SCH ×2 (10:33→21:38)
[2018-02-25] MEDS: PEPCID FEEDTUBE SCH ×2 (10:33→21:38)
[2018-02-25] MEDS: HEPARIN SUB-Q SCH ×2 (10:33→21:38)
[2018-02-25] MEDS: ZESTRIL FEEDTUBE SCH (10:33)
--- NOTE | 2018-02-25 12:28 | Progress Note ---
Assessment and Plan 1. Hypernatremia: Sodium level has improved. Continue water flushes. 2. Acute kidney injury: Improved. 3. Electrolytes: Hypokalemia, improved. Hyeprcalcemia, improved. Improved. 4. Sepsis. 5. Lactic acidosis. Will sign off. 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 Objective - Vital Signs Vital signs: Vital Signs - 12hr 02/25/18 02/25/18 02/25/18 04:05 08:05 10:33 Temperature 98.0 F 98.5 F Pulse Rate 113 H 114 H Respiratory 20 22 Rate Blood Pressure 122/76 140/85 140/85 O2 Sat by Pulse 98 97 Oximetry - General Appearance General appearance: well-developed, appears stated age, other (Trached, on T- piece) EENT: ATNC, PERRL Neck: supple Respiratory: Present: Clear to Ascultation Cardiology: regular, S1S2, no murmurs Gastrointestinal: normoactive bowel sounds, no tenderness, other (PEG tube noted ) Integumentary: no rash Neurologic: other (opens eyes, not following any command) Musculoskeletal: other (no edema) - Lab 02/25/18 04:16 02/25/18 04:16 Most recent lab results Calcium 9.7 mg/dL (8.4-10.2) 02/25/18 04:16 Phosphorus 3.50 mg/dL (2.5-4.5) D 02/17/18 04:25 Magnesium 2.30 mg/dL (1.7-2.3) 02/17/18 04:25
--- NOTE | 2018-02-25 13:59 | Progress Note ---
Assessment and Plan Assessment and plan: 72-year-old -Citizen Of [place] male with history of hemorrhagic stroke, status post PEG and trach from [facility] admitted for sepsis, dehydration acute on chronic respiratory failure - On tracheobronchitis - Trach was clogged on admission, on trach care - On 5 litres of oxygen Hypernatremia -Resolved Hypokalemia: - repleted, corrected Metabolic encephalopathy; - multifactorial - Lethargic Sepsis, due to UTI and Pneumonia, sacral wound infection - OUTSIDE [employer]S SALES serratia and OUTSIDE [employer] SALES pseudomonas - CXR showed bilateral infiltrates - on Avibactam Day 01/17, was treated with cefepime - Lactic acidosis Type 2 diabetes mellitus uncontrolled diabetes mellitus; - Accu-Chek sliding scale coverage - tube feeding, adjust insulin as needed sacral decubitus ulcer infected -Status post debridement and wound VAC placement -Pending surgical culture results Nutrition - Through PEG tube Dyslipidemia; - continue lipid lowering medications DVT prophylaxis; - SCD, heparin Severe malnutrition - Dietary consult Full CODE STATUS Prognosis: Guarded History Interval history: Patient is on trach and PEG, patient was lethargic and not communicative. Hospitalist Physical - Physical exam Narrative exam: Patient has trach and on 5 L of oxygen Vital signs as documented. Head exam is unremarkable. No scleral icterus . Neck is without jugular venous distension, thyromegaly, or carotid bruits. Lungs are clear to auscultation. Cardiac exam reveals regular rate and Rhythm. First and second heart sounds normal. No murmurs, rubs or gallops. Abdominal exam reveals PEG tube in place. Integumentary sacral and heel ulcer POA. 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 - Constitutional Vitals: Temp Pulse Resp BP Pulse Ox 98.5 F 114 H 22 140/85 97 02/25/18 08:05 02/25/18 08:05 02/25/18 08:05 02/25/18 10:33 02/25/18 08:05 General appearance: Present: no acute distress, other (nonviable) Results - Labs CBC & Chem 7: 02/25/18 04:16 02/25/18 04:16 Labs: Laboratory Last Values WBC 12.3 K/mm3 (4.5-11.0) H 02/25/18 04:16 RBC 4.17 M/mm3 (3.65-5.03) 02/25/18 04:16 Hgb 10.2 gm/dl (11.8-15.2) L 02/25/18 04:16 Hct 30.8 % (35.5-45.6) L 02/25/18 04:16 MCV 74 fl (84-94) L 02/25/18 04:16 MCH 24 pg (28-32) L 02/25/18 04:16 MCHC 33 % (32-34) 02/25/18 04:16 RDW 17.9 % (13.2-15.2) H 02/25/18 04:16 Plt Count 364 K/mm3 (140-440) 02/25/18 04:16 Lymph % (Auto) 15.4 % (13.4-35.0) 02/25/18 04:16 [place] % (Auto) 5.6 % (0.0-7.3) 02/25/18 04:16 Eos % (Auto) 2.7 % (0.0-4.3) 02/25/18 04:16 Baso % (Auto) 0.3 % (0.0-1.8) 02/25/18 04:16 Lymph # 1.9 K/mm3 (1.2-5.4) 02/25/18 04:16 [place] # 0.7 K/mm3 (0.0-0.8) 02/25/18 04:16 Eos # 0.3 K/mm3 (0.0-0.4) 02/25/18 04:16 Baso # 0.0 K/mm3 (0.0-0.1) 02/25/18 04:16 Add Manual Diff Complete 02/20/18 05:03 Total Counted 100 02/20/18 05:03 Seg Neutrophils % 76.0 % (40.0-70.0) H 02/25/18 04:16 Seg Neuts % (Manual) 85.0 % (40.0-70.0) H 02/20/18 05:03 Band Neutrophils % 2.0 % 02/20/18 05:03 Lymphocytes % (Manual) 7.0 % (13.4-35.0) L 02/20/18 05:03 Reactive Lymphs % (Man) 0 % 02/20/18 05:03 Monocytes % (Manual) 1.0 % (0.0-7.3) 02/20/18 05:03 Eosinophils % (Manual) 2.0 % (0.0-4.3) 02/20/18 05:03 Basophils % (Manual) 0 % (0.0-1.8) 02/20/18 05:03 Metamyelocytes % 3.0 % 02/20/18 05:03 Myelocytes % 0 % 02/20/18 05:03 Promyelocytes % 0 % 02/20/18 05:03 Blast Cells % 0 % 02/20/18 05:03 Nucleated RBC % Not Reportable 02/20/18 05:03 Seg Neutrophils # 9.3 K/mm3 (1.8-7.7) H 02/25/18 04:16 Seg Neutrophils # Man 11.6 K/mm3 (1.8-7.7) H 02/20/18 05:03 Band Neutrophils # 0.3 K/mm3 02/20/18 05:03 Lymphocytes # (Manual) 1.0 K/mm3 (1.2-5.4) L 02/20/18 05:03 Abs React Lymphs (Man) 0.0 K/mm3 02/20/18 05:03 Monocytes # (Manual) 0.1 K/mm3 (0.0-0.8) 02/20/18 05:03 Eosinophils # (Manual) 0.3 K/mm3 (0.0-0.4) 02/20/18 05:03 Basophils # (Manual) 0.0 K/mm3 (0.0-0.1) 02/20/18 05:03 Metamyelocytes # 0.4 K/mm3 02/20/18 05:03 Myelocytes # 0.0 K/mm3 02/20/18 05:03 Promyelocytes # 0.0 K/mm3 02/20/18 05:03 Blast Cells # 0.0 K/mm3 02/20/18 05:03 WBC Morphology Not Reportable 02/20/18 05:03 Hypersegmented Neuts Not Reportable 02/20/18 05:03 Hyposegmented Neuts Not Reportable 02/20/18 05:03 Hypogranular Neuts Not Reportable 02/20/18 05:03 Smudge Cells Not Reportable 02/20/18 05:03 Toxic Granulation Not Reportable 02/20/18 05:03 Toxic Vacuolation Not Reportable 02/20/18 05:03 Dohle Bodies Not Reportable 02/20/18 05:03 Pelger-Huet Anomaly Not Reportable 02/20/18 05:03 Helene Rods Not Reportable 02/20/18 05:03 Platelet Estimate Appears normal 02/20/18 05:03 Clumped Platelets Not Reportable 02/20/18 05:03 Plt Clumps, EDTA Not Reportable 02/20/18 05:03 Large Platelets Not Reportable 02/20/18 05:03 Giant Platelets Not Reportable 02/20/18 05:03 Platelet Satelliting Not Reportable 02/20/18 05:03 Plt Morphology Comment Not Reportable 02/20/18 05:03 RBC Morphology Not Reportable 02/20/18 05:03 Dimorphic RBCs Not Reportable 02/20/18 05:03 Polychromasia 1+ 02/20/18 05:03 Hypochromasia Not Reportable 02/20/18 05:03 Poikilocytosis Not Reportable 02/20/18 05:03 Anisocytosis 1+ 02/20/18 05:03 Microcytosis Not Reportable 02/20/18 05:03 Macrocytosis Not Reportable 02/20/18 05:03 Spherocytes Not Reportable 02/20/18 05:03 Pappenheimer Bodies Not Reportable 02/20/18 05:03 Sickle Cells Not Reportable 02/20/18 05:03 Target Cells Not Reportable 02/20/18 05:03 Tear Drop Cells Few 02/20/18 05:03 Ovalocytes 1+ 02/20/18 05:03 Stomatocytes Few 02/20/18 05:03 Helmet Cells Rare 02/20/18 05:03 [place]aud[place]ry[place] Bodies Not Reportable 02/20/18 05:03 [place] Rings Not Reportable 02/20/18 05:03 Patricia Cells Not Reportable 02/20/18 05:03 Bite Cells Not Reportable 02/20/18 05:03 Crenated Cell Not Reportable 02/20/18 05:03 Elliptocytes Few 02/20/18 05:03 Acanthocytes (Spur) Not Reportable 02/20/18 05:03 Rouleaux Not Reportable 02/20/18 05:03 Hemoglobin C Crystals Not Reportable 02/20/18 05:03 Schistocytes Not Reportable 02/20/18 05:03 Malaria parasites Not Reportable 02/20/18 05:03 Huy Bodies Not Reportable 02/20/18 05:03 Hem Pathologist Commnt No 02/20/18 05:03 APTT 31.9 Sec. (24.2-36.6) 02/14/18 10:15 POC ABG pH 7.521 (7.35-7.45) H 02/14/18 10:39 POC ABG pCO2 38.8 (35-45) 02/14/18 10:39 POC ABG pO2 58 (80-105) L 02/14/18 10:39 POC ABG HCO3 31.8 02/14/18 10:39 POC ABG Total CO2 33 02/14/18 10:39 POC ABG O2 Sat 92 02/14/18 10:39 POC ABG Base Excess 9 02/14/18 10:39 FiO2 80 % 02/14/18 10:39 Sodium 141 mmol/L (137-145) 02/25/18 04:16 Potassium 4.7 mmol/L (3.6-5.0) 02/25/18 04:16 Chloride 101.7 mmol/L (98-107) 02/25/18 04:16 Carbon Dioxide 28 mmol/L (22-30) 02/25/18 04:16 Anion Gap 16 mmol/L 02/25/18 04:16 BUN 19 mg/dL (9-20) 02/25/18 04:16 Creatinine 0.7 mg/dL (0.8-1.5) L 02/25/18 04:16 Estimated GFR > 60 ml/min 02/25/18 04:16 BUN/Creatinine Ratio 27 % 02/25/18 04:16 Glucose 251 mg/dL (75-100) H 02/25/18 04:16 POC Glucose 213 (70-105) H 02/25/18 05:36 Hemoglobin A1c 10.1 % (4-6) H 02/14/18 20:21 Lactic Acid 3.00 mmol/L (0.7-2.0) H* 02/15/18 05:53 Calcium 9.7 mg/dL (8.4-10.2) 02/25/18 04:16 Phosphorus 3.50 mg/dL (2.5-4.5) D 02/17/18 04:25 Magnesium 2.30 mg/dL (1.7-2.3) 02/17/18 04:25 Total Bilirubin 0.50 mg/dL (0.1-1.2) 02/15/18 02:16 AST 19 units/L (5-40) 02/15/18 02:16 ALT 41 units/L (7-56) 02/15/18 02:16 Alkaline Phosphatase 173 units/L (35-129) H 02/15/18 02:16 Total Creatine Kinase 46 units/L (55-170) L 02/14/18 10:15 C-Reactive Protein 4.50 mg/dL (0.00-1.30) H 02/20/18 05:03 Total Protein 6.2 g/dL (6.3-8.2) L 02/15/18 02:16 Albumin 2.0 g/dL (3.9-5) L 02/15/18 02:16 Albumin/Globulin Ratio 0.5 % 02/15/18 02:16 Urine Color Yellow (Yellow) 02/14/18 10:04 Urine Turbidity Hazy (Clear) 02/14/18 10:04 Urine pH 5.0 (5.0-7.0) 02/14/18 10:04 Ur Specific [place] 1.022 (1.003-1.030) 02/14/18 10:04 Urine Protein 30 mg/dl mg/dL (Negative) 02/14/18 10:04 Urine Glucose (UA) >=500 mg/dL (Negative) 02/14/18 10:04 Urine Ketones Neg mg/dL (Negative) 02/14/18 10:04 Urine Blood Sm (Negative) 02/14/18 10:04 Urine Nitrite Neg (Negative) 02/14/18 10:04 Urine Bilirubin Neg (Negative) 02/14/18 10:04 Urine Urobilinogen < 2.0 mg/dL (<2.0) 02/14/18 10:04 Ur Leukocyte Esterase Lg (Negative) 02/14/18 10:04 Urine WBC (Auto) 53.0 /HPF (0.0-6.0) H 02/14/18 10:04 Urine RBC (Auto) 13.0 /HPF (0.0-6.0) 02/14/18 10:04 U Epithel Cells (Auto) < 1.0 /HPF (0-13.0) 02/14/18 10:04 Urine Bacteria (Auto) 2+ /HPF (Negative) 02/14/18 10:04 Urine WBC Clumps 3+ /HPF 02/14/18 10:04 Hyaline Casts 7 /LPF 02/14/18 10:04 Urine Mucus Few /HPF 02/14/18 10:04 Vancomycin Trough 31.4 ug/mL (5.0-20.0) H 02/17/18 09:37 Random Vancomycin 16.5 ug/mL (0-40.0) 02/18/18 05:43 Blood Type O POSITIVE 02/14/18 10:15 Antibody Screen Negative 02/14/18 10:15
[2018-02-26] MEDS: HumaLOG SUB-Q SCH ×4 (01:03→17:54)
[2018-02-26] MEDS: LANTUS SUB-Q SCH ×3 (01:03→22:30)
[2018-02-26] MEDS: LOPRESSOR FEEDTUBE SCH ×3 (06:13→22:30)
[2018-02-26 06:36] LABS: BUN/Creatinine Ratio 23; Blood Urea Nitrogen 18 mg/dL (9-20); Calcium 10.2 mg/dL (8.4-10.2); Hemolysis Index 30
[2018-02-26] MEDS: AVYCAZ IV SCH ×3 (07:02→22:28)
[2018-02-26] MEDS: NACL 0.9% IV SCH ×3 (07:02→22:28)
[2018-02-26] MEDS: DESYREL PO SCH ×2 (09:07→22:29)
[2018-02-26] MEDS: SYMMETREL FEEDTUBE SCH (09:07)
[2018-02-26] MEDS: PEPCID FEEDTUBE SCH ×2 (09:07→22:31)
[2018-02-26] MEDS: HEPARIN SUB-Q SCH (09:07)
[2018-02-26] MEDS: ZESTRIL FEEDTUBE SCH (09:08)
[2018-02-26] MEDS: SODIUM CHLORIDE FLUSH SYRINGE 10 ML IV SCH ×2 (09:09→22:31)
[2018-02-26] MEDS: KEPPRA FEEDTUBE SCH ×2 (10:35→22:30)
--- NOTE | 2018-02-26 13:04 | Progress Note ---
Assessment and Plan Assessment: 1) Sepsis: better. Etiology most likely multifactorial UTI +/- infected sacral decubitus +/- tracheobronchitis. 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 No clinical osteomyelitis. -OR cultures 02/23 HOTEL ASSISTANT MANAGER Pseudomonas, Proteus and Enterococcus raffinosus 4) Bilateral pneumonia-initial CXR did not show consolidation pt came hypoxemic. Repeat CXR - jeffrey infiltrates - still copious secretion 5) Acute on chronic resp failure 6) DM with hyperglycemia 7) Left heel eschar-present on admission 8) History of Intracranial hemorrhage, S/p tracheostomy/PEG Plan: -continue avycaz /10 -strict contact and droplet isolation due to HOTEL ASSISTANT MANAGER -wound care Poor prognosis Thank you for your consultation, will follow up with you. Jess Luo MD Infectious Diseases Specialist [facility] [phone] Subjective Date of service: 02/26/18 Principal diagnosis: HOTEL ASSISTANT MANAGER UTI Interval history: More alert, no fever. Microbiology: Blood cultures: 02/14 neg Urine cultures: 02/14 Serratia HOTEL ASSISTANT MANAGER, Pseudomonas MDR Tracheal asp: 02/14 many squamous cells OR cultures: 02/23 HOTEL ASSISTANT MANAGER Pseudomonas, Proteus and Enterococcus raffinosus Current Antimicrobials: 02/21 Avycaz Prior Antimicrobials: cefepime 02/18/18-02/21 Objective - Exam Narrative Exam: General appearance: somnolent in NAD, non conversant Eyes: anicteric sclerae, moist conjunctivae; no lid-lag; PERRLA HENT: Atraumatic; oropharynx limited Neck: Trach with thick greenish secretion Lungs: jeffrey rhonchi CV: RRR, no murmurs Abdomen: Soft, non-tender; Gtube Extremities: No peripheral edema or extremity lymphadenopathy Skin: Normal temperature, turgor and texture; no rash, ulcers or subcutaneous nodules Psych: non verbal Neuro: non verbal Lines: santos in place - Constitutional Vitals: Vital Signs Temp Pulse Resp BP Pulse Ox 98.2 F 87 20 139/80 98 02/26/18 07:54 02/26/18 07:54 02/26/18 07:54 02/26/18 07:54 02/26/18 08:00 Temperature -Last 24 Hours Temperature 98.2 F Temperature 98.3 F Temperature 99.6 F Temperature 99.3 F Temperature 122.0 F Temperature 98.7 F - Labs CBC & Chem 7: 02/25/18 04:16 02/26/18 05:41 Labs: Abnormal lab results 02/25/18 02/25/18 02/26/18 Range/Units 13:30 17:42 00:28 Glucose (75-100) mg/dL POC Glucose 121 H 111 H 164 H (70-105) 02/26/18 02/26/18 Range/Units 05:41 06:55 Glucose 163 H (75-100) mg/dL POC Glucose 144 H (70-105)
--- NOTE | 2018-02-26 13:44 | Progress Note ---
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 and HUMAN SERVICE WORKER pseudomonas - CXR showed bilateral infiltrates - on Avibactam Day 03/19, was treated with cefepime - Lactic acidosis -OR cultures 02/23 HUMAN SERVICE WORKER Pseudomonas, Proteus and Enterococcus raffinosus Type 2 diabetes mellitus uncontrolled diabetes mellitus; - Accu-Chek sliding scale coverage - tube feeding, adjust insulin as needed sacral decubitus ulcer infected -Status post debridement and wound VAC placement -Pending surgical culture results Nutrition - Through PEG tube Dyslipidemia; - continue lipid lowering medications Hemorrhagic stroke - MRI showed could be chronic, will do F/U CT DVT prophylaxis; - SCD becaues of hemorrhagic stroke Severe malnutrition - Dietary consult Full CODE STATUS Prognosis: poor History Interval history: Patient is on trach and PEG, patient was lethargic and not communicative. Hospitalist Physical - Physical exam Narrative exam: Patient has trach and on 5 L of oxygen Vital signs as documented. Head exam is unremarkable. No scleral icterus . Neck is without jugular venous distension, thyromegaly, or carotid bruits. Lungs are clear to auscultation. Cardiac exam reveals regular rate and Rhythm. First and second heart sounds normal. No murmurs, rubs or gallops. Abdominal exam reveals PEG tube in place. Integumentary sacral and heel ulcer POA. PATIENT CARE; sleepy - Constitutional Vitals: Temp Pulse Resp BP Pulse Ox 98.2 F 87 20 139/80 98 02/26/18 07:54 02/26/18 07:54 02/26/18 07:54 02/26/18 07:54 02/26/18 08:00 General appearance: Present: no acute distress, other (nonviable) Results - Labs CBC & Chem 7: 02/25/18 04:16 02/26/18 05:41 Labs: Laboratory Last Values WBC 12.3 K/mm3 (4.5-11.0) H 02/25/18 04:16 RBC 4.17 M/mm3 (3.65-5.03) 02/25/18 04:16 Hgb 10.2 gm/dl (11.8-15.2) L 02/25/18 04:16 Hct 30.8 % (35.5-45.6) L 02/25/18 04:16 MCV 74 fl (84-94) L 02/25/18 04:16 MCH 24 pg (28-32) L 02/25/18 04:16 MCHC 33 % (32-34) 02/25/18 04:16 RDW 17.9 % (13.2-15.2) H 02/25/18 04:16 Plt Count 364 K/mm3 (140-440) 02/25/18 04:16 Lymph % (Auto) 15.4 % (13.4-35.0) 02/25/18 04:16 [place] % (Auto) 5.6 % (0.0-7.3) 02/25/18 04:16 Eos % (Auto) 2.7 % (0.0-4.3) 02/25/18 04:16 Baso % (Auto) 0.3 % (0.0-1.8) 02/25/18 04:16 Lymph # 1.9 K/mm3 (1.2-5.4) 02/25/18 04:16 [place] # 0.7 K/mm3 (0.0-0.8) 02/25/18 04:16 Eos # 0.3 K/mm3 (0.0-0.4) 02/25/18 04:16 Baso # 0.0 K/mm3 (0.0-0.1) 02/25/18 04:16 Add Manual Diff Complete 02/20/18 05:03 Total Counted 100 02/20/18 05:03 Seg Neutrophils % 76.0 % (40.0-70.0) H 02/25/18 04:16 Seg Neuts % (Manual) 85.0 % (40.0-70.0) H 02/20/18 05:03 Band Neutrophils % 2.0 % 02/20/18 05:03 Lymphocytes % (Manual) 7.0 % (13.4-35.0) L 02/20/18 05:03 Reactive Lymphs % (Man) 0 % 02/20/18 05:03 Monocytes % (Manual) 1.0 % (0.0-7.3) 02/20/18 05:03 Eosinophils % (Manual) 2.0 % (0.0-4.3) 02/20/18 05:03 Basophils % (Manual) 0 % (0.0-1.8) 02/20/18 05:03 Metamyelocytes % 3.0 % 02/20/18 05:03 Myelocytes % 0 % 02/20/18 05:03 Promyelocytes % 0 % 02/20/18 05:03 Blast Cells % 0 % 02/20/18 05:03 Nucleated RBC % Not Reportable 02/20/18 05:03 Seg Neutrophils # 9.3 K/mm3 (1.8-7.7) H 02/25/18 04:16 Seg Neutrophils # Man 11.6 K/mm3 (1.8-7.7) H 02/20/18 05:03 Band Neutrophils # 0.3 K/mm3 02/20/18 05:03 Lymphocytes # (Manual) 1.0 K/mm3 (1.2-5.4) L 02/20/18 05:03 Abs React Lymphs (Man) 0.0 K/mm3 02/20/18 05:03 Monocytes # (Manual) 0.1 K/mm3 (0.0-0.8) 02/20/18 05:03 Eosinophils # (Manual) 0.3 K/mm3 (0.0-0.4) 02/20/18 05:03 Basophils # (Manual) 0.0 K/mm3 (0.0-0.1) 02/20/18 05:03 Metamyelocytes # 0.4 K/mm3 02/20/18 05:03 Myelocytes # 0.0 K/mm3 02/20/18 05:03 Promyelocytes # 0.0 K/mm3 02/20/18 05:03 Blast Cells # 0.0 K/mm3 02/20/18 05:03 WBC Morphology Not Reportable 02/20/18 05:03 Hypersegmented Neuts Not Reportable 02/20/18 05:03 Hyposegmented Neuts Not Reportable 02/20/18 05:03 Hypogranular Neuts Not Reportable 02/20/18 05:03 Smudge Cells Not Reportable 02/20/18 05:03 Toxic Granulation Not Reportable 02/20/18 05:03 Toxic Vacuolation Not Reportable 02/20/18 05:03 Dohle Bodies Not Reportable 02/20/18 05:03 Pelger-Huet Anomaly Not Reportable 02/20/18 05:03 Helene Rods Not Reportable 02/20/18 05:03 Platelet Estimate Appears normal 02/20/18 05:03 Clumped Platelets Not Reportable 02/20/18 05:03 Plt Clumps, EDTA Not Reportable 02/20/18 05:03 Large Platelets Not Reportable 02/20/18 05:03 Giant Platelets Not Reportable 02/20/18 05:03 Platelet Satelliting Not Reportable 02/20/18 05:03 Plt Morphology Comment Not Reportable 02/20/18 05:03 RBC Morphology Not Reportable 02/20/18 05:03 Dimorphic RBCs Not Reportable 02/20/18 05:03 Polychromasia 1+ 02/20/18 05:03 Hypochromasia Not Reportable 02/20/18 05:03 Poikilocytosis Not Reportable 02/20/18 05:03 Anisocytosis 1+ 02/20/18 05:03 Microcytosis Not Reportable 02/20/18 05:03 Macrocytosis Not Reportable 02/20/18 05:03 Spherocytes Not Reportable 02/20/18 05:03 Pappenheimer Bodies Not Reportable 02/20/18 05:03 Sickle Cells Not Reportable 02/20/18 05:03 Target Cells Not Reportable 02/20/18 05:03 Tear Drop Cells Few 02/20/18 05:03 Ovalocytes 1+ 02/20/18 05:03 Stomatocytes Few 02/20/18 05:03 Helmet Cells Rare 02/20/18 05:03 Chaudhry-[place] Bodies Not Reportable 02/20/18 05:03 Bulger Rings Not Reportable 02/20/18 05:03 [place] Cells Not Reportable 02/20/18 05:03 Bite Cells Not Reportable 02/20/18 05:03 Crenated Cell Not Reportable 02/20/18 05:03 Elliptocytes Few 02/20/18 05:03 Acanthocytes (Spur) Not Reportable 02/20/18 05:03 Rouleaux Not Reportable 02/20/18 05:03 Hemoglobin C Crystals Not Reportable 02/20/18 05:03 Schistocytes Not Reportable 02/20/18 05:03 Malaria parasites Not Reportable 02/20/18 05:03 Huy Bodies Not Reportable 02/20/18 05:03 Hem Pathologist Commnt No 02/20/18 05:03 APTT 31.9 Sec. (24.2-36.6) 02/14/18 10:15 POC ABG pH 7.521 (7.35-7.45) H 02/14/18 10:39 POC ABG pCO2 38.8 (35-45) 02/14/18 10:39 POC ABG pO2 58 (80-105) L 02/14/18 10:39 POC ABG HCO3 31.8 02/14/18 10:39 POC ABG Total CO2 33 02/14/18 10:39 POC ABG O2 Sat 92 02/14/18 10:39 POC ABG Base Excess 9 02/14/18 10:39 FiO2 80 % 02/14/18 10:39 Sodium 138 mmol/L (137-145) 02/26/18 05:41 Potassium 4.6 mmol/L (3.6-5.0) 02/26/18 05:41 Chloride 98.3 mmol/L (98-107) 02/26/18 05:41 Carbon Dioxide 28 mmol/L (22-30) 02/26/18 05:41 Anion Gap 16 mmol/L 02/26/18 05:41 BUN 18 mg/dL (9-20) 02/26/18 05:41 Creatinine 0.8 mg/dL (0.8-1.5) 02/26/18 05:41 Estimated GFR > 60 ml/min 02/26/18 05:41 BUN/Creatinine Ratio 23 % 02/26/18 05:41 Glucose 163 mg/dL (75-100) H 02/26/18 05:41 POC Glucose 144 (70-105) H 02/26/18 06:55 Hemoglobin A1c 10.1 % (4-6) H 02/14/18 20:21 Lactic Acid 3.00 mmol/L (0.7-2.0) H* 02/15/18 05:53 Calcium 10.2 mg/dL (8.4-10.2) 05/20/18 05:41 Phosphorus 3.50 mg/dL (2.5-4.5) D 02/17/18 04:25 Magnesium 2.30 mg/dL (1.7-2.3) 02/17/18 04:25 Total Bilirubin 0.50 mg/dL (0.1-1.2) 02/15/18 02:16 AST 19 units/L (5-40) 02/15/18 02:16 ALT 41 units/L (7-56) 02/15/18 02:16 Alkaline Phosphatase 173 units/L (35-129) H 02/15/18 02:16 Total Creatine Kinase 46 units/L (55-170) L 02/14/18 10:15 C-Reactive Protein 4.50 mg/dL (0.00-1.30) H 02/20/18 05:03 Total Protein 6.2 g/dL (6.3-8.2) L 02/15/18 02:16 Albumin 2.0 g/dL (3.9-5) L 02/15/18 02:16 Albumin/Globulin Ratio 0.5 % 02/15/18 02:16 Urine Color Yellow (Yellow) 02/14/18 10:04 Urine Turbidity Hazy (Clear) 02/14/18 10:04 Urine pH 5.0 (5.0-7.0) 02/14/18 10:04 Ur Specific [place] 1.022 (1.003-1.030) 02/14/18 10:04 Urine Protein 30 mg/dl mg/dL (Negative) 02/14/18 10:04 Urine Glucose (UA) >=500 mg/dL (Negative) 02/14/18 10:04 Urine Ketones Neg mg/dL (Negative) 02/14/18 10:04 Urine Blood Sm (Negative) 02/14/18 10:04 Urine Nitrite Neg (Negative) 02/14/18 10:04 Urine Bilirubin Neg (Negative) 02/14/18 10:04 Urine Urobilinogen < 2.0 mg/dL (<2.0) 02/14/18 10:04 Ur Leukocyte Esterase Lg (Negative) 02/14/18 10:04 Urine WBC (Auto) 53.0 /HPF (0.0-6.0) H 02/14/18 10:04 Urine RBC (Auto) 13.0 /HPF (0.0-6.0) 02/14/18 10:04 U Epithel Cells (Auto) < 1.0 /HPF (0-13.0) 02/14/18 10:04 Urine Bacteria (Auto) 2+ /HPF (Negative) 02/14/18 10:04 Urine WBC Clumps 3+ /HPF 02/14/18 10:04 Hyaline Casts 7 /LPF 02/14/18 10:04 Urine Mucus Few /HPF 02/14/18 10:04 Vancomycin Trough 31.4 ug/mL (5.0-20.0) H 02/17/18 09:37 Random Vancomycin 16.5 ug/mL (0-40.0) 02/18/18 05:43 Blood Type O POSITIVE 02/14/18 10:15 Antibody Screen Negative 02/14/18 10:15
--- NOTE | 2018-02-26 15:59 | Cat Scan Report ---
FINAL REPORT PROCEDURE: CT HEAD/BRAIN WO CON TECHNIQUE: Computerized tomography of the head was performed without contrast material. HISTORY: F/U hemorrhagic stroke COMPARISON: Prior CT scan of the brain 02/18/2018 FINDINGS: Moderate-sized area of mixed density again visualized in the right parietal lobe posteriorly extending into the right occipital lobe again visualized. This shows mixed density with predominantly decreased density although ill-defined areas of increased density present more centrally located. This was seen on the prior study as well. Moderate-sized ischemic infarction with scattered hemorrhagic components again appears to be visualized. This has not increased in size significantly compared to the prior study. The abnormality is slightly more clearly defined consistent with ongoing encephalomalacia. There is subtle increased density dependently in the posterior aspect of the right lateral ventricle which may represent a trace amount of intraventricular hemorrhage. This has not changed compared to the prior study. The ventricles sulcal pattern and fissures are prominent consistent with atrophy. There is mild decreased density in the periventricular white matter and deep white matter seen on the prior study suggesting gliosis related to microvascular disease or white matter changes of aging. Nonspecific mineralization of the basal ganglia are visualized bilaterally. Visualized paranasal sinuses appear clear. Mastoid air cells are clear. No evidence of skull fracture. IMPRESSION: Evolving encephalomalacia right parietal lobe extending into the right occipital lobe with a small amount of scattered parenchymal hemorrhage. The amount of hemorrhage has not changed significantly. There appears to be trace intraventricular hemorrhage posteriorly in the right lateral ventricle which is also stable. There is additional evidence of atrophy and gliosis.
[2018-02-26] MEDS: DAKIN'S FULL STRENGTH TP SCH ×2 (22:27→23:58)
[2018-02-27] MEDS: HumaLOG SUB-Q SCH ×4 (00:38→17:56)
[2018-02-27] MEDS: NACL 0.9% IV SCH ×3 (06:12→23:33)
[2018-02-27] MEDS: AVYCAZ IV SCH ×3 (06:12→23:33)
[2018-02-27] MEDS: LOPRESSOR FEEDTUBE SCH ×3 (06:13→23:37)
--- NOTE | 2018-02-27 08:15 | Consultation ---
History of Present Illness Consult date: 02/27/18 History of present illness: patient seen and still very poorly responsive on trach and spoke to RT this appears stable Imp severe encephalopathy poorly responsive pattern r/o seizure plan EEG Past History Past Medical History: diabetes, GERD, hypertension, hyperlipidemia, stroke, other (S/p Trach & PEG, Intracranial hemorrhage) Past Surgical History: Other (tracheostomy and PEG tube placement) Social history: . denies: smoking, alcohol abuse, prescription drug abuse, IV drug use Family history: no significant family history Medications and Allergies Allergies Allergy/AdvReac Type Severity Reaction Status Date / Time aspirin Allergy Unknown Verified 02/14/18 09:48 Home Medications Medication Instructions Recorded Confirmed Last Taken Type Acetaminophen [Tylenol] 650 mg FEEDTUBE Q6HR PRN 02/14/18 02/14/18 Unknown History Amantadine [Symmetrel] 10 ml FEEDTUBE QDAY 02/14/18 02/14/18 Unknown History Atorvastatin Calcium [Lipitor] 10 mg FEEDTUBE HS 02/14/18 02/14/18 Unknown History Benazepril (Nf) 5 mg FEEDTUBE QDAY 02/14/18 02/14/18 Unknown History Bisacodyl [Bisac-Evac] 10 mg RC Q24H PRN 02/14/18 02/14/18 Unknown History Collagenase [Santyl] 1 applicatio TP QDAY 02/14/18 02/14/18 Unknown History Famotidine [Pepcid] 20 mg FEEDTUBE BID 02/14/18 02/14/18 Unknown History Insulin Glargine,Hum.rec.anlog 45 units SUB-Q Q12H 02/14/18 02/14/18 Unknown History [Basaglar Kwikpen U-100] Insulin Lispro [Humalog 100 See Protocol SUB-Q Q6H 02/14/18 02/14/18 Unknown History UNITS/ML Kwikpen] Ipratropium/Albuterol Sulfate 1 ampul IH Q4HR PRN 02/14/18 02/14/18 Unknown History [DUONEB *Not for PRN Use*] Ipratropium/Albuterol Sulfate 1 ampul IH Q6HR PRN 18 02/14/18 Unknown History [DUONEB *Not for PRN Use*] Levobunolol HCl [Betagan] 1 drop OU QDAY 02/14/18 02/14/18 Unknown History Metoprolol [Lopressor TAB] 50 mg FEEDTUBE Q8H 02/14/18 02/14/18 Unknown History Scopolamine [Transderm-Scop] 1 each TD Q3D 02/14/18 02/14/18 Unknown History Sennosides [Senna] 8.6 mg FEEDTUBE QDAY PRN 02/14/18 02/14/18 Unknown History levETIRAcetam [Levetiracetam] 5 ml FEEDTUBE Q12H 02/14/18 02/14/18 Unknown History traZODone [Desyrel] 25 mg FEEDTUBE BID 02/14/18 02/14/18 Unknown History Active Meds: Active Medications Acetaminophen (Tylenol) 650 mg PO Q4H PRN PRN Reason: Pain MILD(1-3)/Fever >100.5/ALCARAZ Albuterol (Proventil) 2.5 mg IH Q4HRT PRN PRN Reason: Shortness Of Breath Amantadine HCl (Symmetrel) 100 mg FEEDTUBE QDAY [facility] Last Admin: 02/26/18 09:07 Dose: 100 mg Lipase/Protease/Amylase (Pancreaze Dr 10,500 Unit) 1 each FEEDTUBE PRN PRN PRN Reason: For Clogged Feeding Tube Atorvastatin Calcium (Lipitor) 10 mg FEEDTUBE HS [facility] Last Admin: 02/26/18 22:30 Dose: 10 mg Bisacodyl (Dulcolax) 10 mg ME Q24H PRN PRN Reason: Constipation Famotidine (Pepcid) 20 mg FEEDTUBE BID [facility] Last Admin: 02/26/18 22:31 Dose: 20 mg CEFTAZIDIME/AVIBACTAM (NF) 2.5 (gm/ Sodium Chloride) 50 mls @ 25 mls/hr IV Q8HR [facility] Stop: 03/02/18 15:59 Last Admin: 02/27/18 06:12 Dose: 25 mls/hr Insulin Glargine (Lantus) 40 units SUB-Q QHS [facility] Last Admin: 02/26/18 22:30 Dose: 40 units Insulin Glargine (Lantus) 40 units SUB-Q QAMDIAB [facility] Last Admin: 02/26/18 09:09 Dose: 40 units Insulin Human Lispro (Humalog) 0 unit SUB-Q Q6HR [facility]; Protocol Last Admin: 02/27/18 06:47 Dose: 3 unit Levetiracetam (Keppra) 500 mg FEEDTUBE BID [facility] Last Admin: 02/26/18 22:30 Dose: 500 mg Lisinopril (Zestril) 40 mg FEEDTUBE QDAY [facility] Last Admin: 02/26/18 09:08 Dose: 40 mg Metoprolol Tartrate (Lopressor) 50 mg FEEDTUBE Q8H [facility] Last Admin: 02/27/18 06:13 Dose: 50 mg Morphine Sulfate (Morphine) 2 mg IV Q4H PRN PRN Reason: Pain, Moderate (4-6) Last Admin: 02/27/18 04:30 Dose: 2 mg Ondansetron HCl (Zofran) 4 mg IV Q8H PRN PRN Reason: Nausea And Vomiting Scopolamine (Transderm-Scop) 1 each TD Q3D [facility] Last Admin: 02/24/18 18:30 Dose: 1 each Simple Syrup (Simple Syrup) 15 ml FEEDTUBE PRN PRN PRN Reason: Hypoglycemia Simple Syrup (Simple Syrup) 30 ml FEEDTUBE PRN PRN PRN Reason: Hypoglycemia Sodium Bicarbonate (Sodium Bicarbonate) 325 mg FEEDTUBE PRN PRN PRN Reason: For Clogged Feeding Tube Sodium Chloride (Sodium Chloride Flush Syringe 10 Ml) 10 ml IV BID [facility] Last Admin: 02/26/18 22:31 Dose: 10 ml Sodium Chloride (Sodium Chloride Flush Syringe 10 Ml) 10 ml IV PRN PRN PRN Reason: LINE FLUSH Sodium Hypochlorite (Dakin's Full Strength) 1 applic TP Q12HR [facility] Last Admin: 02/26/18 23:58 Dose: Not Given Trazodone HCl (Desyrel) 25 mg PO BID [facility] Last Admin: 02/26/18 22:29 Dose: 25 mg Physical Examination - Vital Signs Vital Signs: Vital Signs Temp Pulse Resp BP Pulse Ox 100.7 F H 135 H 56 H 130/88 90 02/14/18 09:48 02/14/18 09:48 02/14/18 09:48 02/14/18 09:48 02/14/18 09:48 Results - Laboratory Findings CBC and BMP: 02/25/18 04:16 02/26/18 05:41 Abnormal Lab Findings: Abnormal Labs 02/14/18 02/14/18 02/14/18 09:53 10:04 10:15 WBC 22.9 H RBC 5.53 H Hgb Hct MCV 78 L MCH 23 L MCHC 30 L RDW 17.5 H Lymph % (Auto) Eos # Seg Neutrophils % Seg Neuts % (Manual) Lymphocytes % (Manual) 13.0 L Seg Neutrophils # Seg Neutrophils # Man 14.4 H Lymphocytes # (Manual) POC ABG pH POC ABG pO2 Sodium Potassium Chloride Carbon Dioxide BUN Creatinine Glucose POC Glucose > 500 H Hemoglobin A1c Lactic Acid Calcium Magnesium AST Alkaline Phosphatase Total Creatine Kinase C-Reactive Protein Total Protein Albumin Urine WBC (Auto) 53.0 H Vancomycin Trough 02/14/18 02/14/18 02/14/18 10:15 10:15 10:39 WBC RBC Hgb Hct MCV MCH MCHC RDW Lymph % (Auto) Eos # Seg Neutrophils % Seg Neuts % (Manual) Lymphocytes % (Manual) Seg Neutrophils # Seg Neutrophils # Man Lymphocytes # (Manual) POC ABG pH 7.521 H POC ABG pO2 58 L Sodium 160 H Potassium 5.3 H Chloride 116.1 H Carbon Dioxide 31 H BUN 61 H Creatinine Glucose 544 H* POC Glucose Hemoglobin A1c Lactic Acid 3.80 H* Calcium 11.0 H Magnesium AST 52 H Alkaline Phosphatase 216 H Total Creatine Kinase 46 L C-Reactive Protein Total Protein Albumin 2.9 L Urine WBC (Auto) Vancomycin Trough 02/14/18 02/14/18 02/14/18 11:36 13:20 14:40 WBC RBC Hgb Hct MCV MCH MCHC RDW Lymph % (Auto) Eos # Seg Neutrophils % Seg Neuts % (Manual) Lymphocytes % (Manual) Seg Neutrophils # Seg Neutrophils # Man Lymphocytes # (Manual) POC ABG pH POC ABG pO2 Sodium Potassium Chloride Carbon Dioxide BUN Creatinine Glucose POC Glucose 409 H Hemoglobin A1c Lactic Acid 3.20 H* 2.40 H* Calcium Magnesium AST Alkaline Phosphatase Total Creatine Kinase C-Reactive Protein Total Protein Albumin Urine WBC (Auto) Vancomycin Trough 02/14/18 02/14/18 02/14/18 17:05 18:35 20:21 WBC RBC Hgb Hct MCV MCH MCHC RDW Lymph % (Auto) Eos # Seg Neutrophils % Seg Neuts % (Manual) Lymphocytes % (Manual) Seg Neutrophils # Seg Neutrophils # Man Lymphocytes # (Manual) POC ABG pH POC ABG pO2 Sodium Potassium Chloride Carbon Dioxide BUN Creatinine Glucose POC Glucose 386 H Hemoglobin A1c Lactic Acid 2.60 H* 2.70 H* Calcium Magnesium AST Alkaline Phosphatase Total Creatine Kinase C-Reactive Protein Total Protein Albumin Urine WBC (Auto) Vancomycin Trough 02/14/18 02/14/18 02/14/18 20:21 21:15 22:13 WBC RBC Hgb Hct MCV MCH MCHC RDW Lymph % (Auto) Eos # Seg Neutrophils % Seg Neuts % (Manual) Lymphocytes % (Manual) Seg Neutrophils # Seg Neutrophils # Man Lymphocytes # (Manual) POC ABG pH POC ABG pO2 Sodium Potassium Chloride Carbon Dioxide BUN Creatinine Glucose POC Glucose Hemoglobin A1c 10.1 H Lactic Acid 2.80 H* 2.60 H* Calcium Magnesium AST Alkaline Phosphatase Total Creatine Kinase C-Reactive Protein Total Protein Albumin Urine WBC (Auto) Vancomycin Trough 02/14/18 02/14/18 02/15/18 22:17 22:54 00:02 WBC RBC Hgb Hct MCV MCH MCHC RDW Lymph % (Auto) Eos # Seg Neutrophils % Seg Neuts % (Manual) Lymphocytes % (Manual) Seg Neutrophils # Seg Neutrophils # Man Lymphocytes # (Manual) POC ABG pH POC ABG pO2 Sodium Potassium Chloride Carbon Dioxide BUN Creatinine Glucose POC Glucose 360 H Hemoglobin A1c Lactic Acid 3.10 H* 2.80 H* Calcium Magnesium AST Alkaline Phosphatase Total Creatine Kinase C-Reactive Protein Total Protein Albumin Urine WBC (Auto) Vancomycin Trough 02/15/18 02/15/18 02/15/18 02:16 02:16 02:16 WBC 21.8 H RBC Hgb Hct MCV 77 L MCH 24 L MCHC 31 L RDW 18.0 H Lymph % (Auto) Eos # Seg Neutrophils % Seg Neuts % (Manual) Lymphocytes % (Manual) 13.0 L Seg Neutrophils # Seg Neutrophils # Man 13.6 H Lymphocytes # (Manual) POC ABG pH POC ABG pO2 Sodium 163 H* Potassium Chloride 122.4 H Carbon Dioxide BUN 45 H Creatinine Glucose 390 H POC Glucose Hemoglobin A1c Lactic Acid 3.30 H* Calcium 10.7 H Magnesium AST Alkaline Phosphatase 173 H Total Creatine Kinase C-Reactive Protein Total Protein 6.2 L Albumin 2.0 L Urine WBC (Auto) Vancomycin Trough 02/15/18 02/15/1802/15/18 05:53 08:03 11:30 WBC RBC Hgb Hct MCV MCH MCHC RDW Lymph % (Auto) Eos # Seg Neutrophils % Seg Neuts % (Manual) Lymphocytes % (Manual) Seg Neutrophils # Seg Neutrophils # Man Lymphocytes # (Manual) POC ABG pH POC ABG pO2 Sodium Potassium Chloride Carbon Dioxide BUN Creatinine Glucose POC Glucose 242 H 306 H Hemoglobin A1c Lactic Acid 3.00 H* Calcium Magnesium AST Alkaline Phosphatase Total Creatine Kinase C-Reactive Protein Total Protein Albumin Urine WBC (Auto) Vancomycin Trough 02/15/18 02/15/18 02/15/18 16:13 19:26 23:30 WBC RBC Hgb Hct MCV MCH MCHC RDW Lymph % (Auto) Eos # Seg Neutrophils % Seg Neuts % (Manual) Lymphocytes % (Manual) Seg Neutrophils # Seg Neutrophils # Man Lymphocytes # (Manual) POC ABG pH POC ABG pO2 Sodium 168 H* Potassium 3.2 L D Chloride 126.8 H Carbon Dioxide BUN 33 H Creatinine Glucose 206 H POC Glucose 246 H 252 H Hemoglobin A1c Lactic Acid Calcium 10.7 H Magnesium AST Alkaline Phosphatase Total Creatine Kinase C-Reactive Protein Total Protein Albumin Urine WBC (Auto) Vancomycin Trough 02/16/18 02/16/18 02/16/18 00:05 05:28 05:47 WBC RBC Hgb Hct MCV MCH MCHC RDW Lymph % (Auto) Eos # Seg Neutrophils % Seg Neuts % (Manual) Lymphocytes % (Manual) Seg Neutrophils # Seg Neutrophils # Man Lymphocytes # (Manual) POC ABG pH POC ABG pO2 Sodium 166 H* 164 H* Potassium 3.3 L Chloride 123.1 H Carbon Dioxide BUN 32 H Creatinine Glucose 231 H POC Glucose 240 H Hemoglobin A1c Lactic Acid Calcium 10.3 H Magnesium 2.40 H AST Alkaline Phosphatase Total Creatine Kinase C-Reactive Protein Total Protein Albumin Urine WBC (Auto) Vancomycin Trough 02/16/18 02/16/18 02/16/18 10:17 11:42 16:41 WBC RBC Hgb Hct MCV MCH MCHC RDW Lymph % (Auto) Eos # Seg Neutrophils % Seg Neuts % (Manual) Lymphocytes % (Manual) Seg Neutrophils # Seg Neutrophils # Man Lymphocytes # (Manual) POC ABG pH POC ABG pO2 Sodium 161 H* Potassium Chloride Carbon Dioxide BUN Creatinine Glucose POC Glucose 152 H 110 H Hemoglobin A1c Lactic Acid Calcium Magnesium AST Alkaline Phosphatase Total Creatine Kinase C-Reactive Protein Total Protein Albumin Urine WBC (Auto) Vancomycin Trough 02/16/18 02/16/18 02/17/18 21:13 21:31 04:25 WBC RBC Hgb Hct MCV MCH MCHC RDW Lymph % (Auto) Eos # Seg Neutrophils % Seg Neuts % (Manual) Lymphocytes % (Manual) Seg Neutrophils # Seg Neutrophils # Man Lymphocytes # (Manual) POC ABG pH POC ABG pO2 Sodium 161 H* 160 H Potassium Chloride 121.6 H Carbon Dioxide BUN 28 H Creatinine Glucose 226 H POC Glucose 187 H Hemoglobin A1c Lactic Acid Calcium Magnesium AST Alkaline Phosphatase Total Creatine Kinase C-Reactive Protein Total Protein Albumin Urine WBC (Auto) Vancomycin Trough 02/17/18 02/17/18 02/17/18 04:25 06:18 09:37 WBC 18.7 H RBC Hgb 10.1 L Hct 32.8 L D MCV 76 L MCH 24 L MCHC 31 L RDW 17.2 H Lymph % (Auto) Eos # Seg Neutrophils % Seg Neuts % (Manual) 78.0 H Lymphocytes % (Manual) Seg Neutrophils # Seg Neutrophils # Man 14.6 H Lymphocytes # (Manual) POC ABG pH POC ABG pO2 Sodium Potassium Chloride Carbon Dioxide BUN Creatinine Glucose POC Glucose 214 H Hemoglobin A1c Lactic Acid Calcium Magnesium AST Alkaline Phosphatase Total Creatine Kinase C-Reactive Protein Total Protein Albumin Urine WBC (Auto) Vancomycin Trough 31.4 H 02/17/18 02/17/18 02/17/18 12:31 17:38 23:51 WBC RBC Hgb Hct MCV MCH MCHC RDW Lymph % (Auto) Eos # Seg Neutrophils % Seg Neuts % (Manual) Lymphocytes % (Manual) Seg Neutrophils # Seg Neutrophils # Man Lymphocytes # (Manual) POC ABG pH POC ABG pO2 Sodium Potassium Chloride Carbon Dioxide BUN Creatinine Glucose POC Glucose 141 H 209 H 261 H Hemoglobin A1c Lactic Acid Calcium Magnesium AST Alkaline Phosphatase Total Creatine Kinase C-Reactive Protein Total Protein Albumin Urine WBC (Auto) Vancomycin Trough 02/18/18 02/18/18 02/18/18 05:43 05:43 06:26 WBC 13.8 H RBC Hgb 9.5 L Hct 30.7 L MCV 76 L MCH 24 L MCHC 31 L RDW 17.1 H Lymph % (Auto) 11.5 L Eos # 0.5 H Seg Neutrophils % 79.1 H Seg Neuts % (Manual) Lymphocytes % (Manual) Seg Neutrophils # 10.9 H Seg Neutrophils # Man Lymphocytes # (Manual) POC ABG pH POC ABG pO2 Sodium 152 H Potassium Chloride 114.3 H Carbon Dioxide BUN 26 H Creatinine Glucose 322 H POC Glucose 308 H Hemoglobin A1c Lactic Acid Calcium Magnesium AST Alkaline Phosphatase Total Creatine Kinase C-Reactive Protein Total Protein Albumin Urine WBC (Auto) Vancomycin Trough 02/18/18 02/18/18 02/18/18 12:21 16:29 21:24 WBC RBC Hgb Hct MCV MCH MCHC RDW Lymph % (Auto) Eos # Seg Neutrophils % Seg Neuts % (Manual) Lymphocytes % (Manual) Seg Neutrophils # Seg Neutrophils # Man Lymphocytes # (Manual) POC ABG pH POC ABG pO2 Sodium Potassium Chloride Carbon Dioxide BUN Creatinine Glucose POC Glucose 328 H 296 H 249 H Hemoglobin A1c Lactic Acid Calcium Magnesium AST Alkaline Phosphatase Total Creatine Kinase C-Reactive Protein Total Protein Albumin Urine WBC (Auto) Vancomycin Trough 02/19/18 02/19/18 02/19/18 06:42 07:14 07:14 WBC 13.8 H RBC Hgb 10.2 L Hct 31.0 L MCV 74 L MCH 24 L MCHC RDW 16.9 H Lymph % (Auto) Eos # Seg Neutrophils % Seg Neuts % (Manual) 86.0 H Lymphocytes % (Manual) 9.0 L Seg Neutrophils # Seg Neutrophils # Man 11.9 H Lymphocytes # (Manual) POC ABG pH POC ABG pO2 Sodium 149 H Potassium 3.5 L Chloride 111.1 H Carbon Dioxide BUN 24 H Creatinine Glucose 263 H POC Glucose 258 H Hemoglobin A1c Lactic Acid Calcium Magnesium AST Alkaline Phosphatase Total Creatine Kinase C-Reactive Protein Total Protein Albumin Urine WBC (Auto) Vancomycin Trough 02/19/18 02/19/18 02/19/18 11:36 16:42 21:36 WBC RBC Hgb Hct MCV MCH MCHC RDW Lymph % (Auto) Eos # Seg Neutrophils % Seg Neuts % (Manual) Lymphocytes % (Manual) Seg Neutrophils # Seg Neutrophils # Man Lymphocytes # (Manual) POC ABG pH POC ABG pO2 Sodium Potassium Chloride Carbon Dioxide BUN Creatinine Glucose POC Glucose 293 H 264 H 208 H Hemoglobin A1c Lactic Acid Calcium Magnesium AST Alkaline Phosphatase Total Creatine Kinase C-Reactive Protein Total Protein Albumin Urine WBC (Auto) Vancomycin Trough 02/20/18 02/20/18 02/20/18 05:03 05:03 05:03 WBC 13.6 H RBC Hgb 10.1 L Hct 31.1 L MCV 74 L MCH 24 L MCHC RDW 16.7 H Lymph % (Auto) Eos # Seg Neutrophils % Seg Neuts % (Manual) 85.0 H Lymphocytes % (Manual) 7.0 L Seg Neutrophils # Seg Neutrophils # Man 11.6 H Lymphocytes # (Manual) 1.0 L POC ABG pH POC ABG pO2 Sodium 151 H Potassium Chloride 112.5 H Carbon Dioxide BUN 24 H Creatinine Glucose 237 H POC Glucose Hemoglobin A1c Lactic Acid Calcium Magnesium AST Alkaline Phosphatase Total Creatine Kinase C-Reactive Protein 4.50 H Total Protein Albumin Urine WBC (Auto) Vancomycin Trough 02/20/18 02/20/18 02/20/18 05:57 11:46 16:09 WBC RBC Hgb Hct MCV MCH MCHC RDW Lymph % (Auto) Eos # Seg Neutrophils % Seg Neuts % (Manual) Lymphocytes % (Manual) Seg Neutrophils # Seg Neutrophils # Man Lymphocytes # (Manual) POC ABG pH POC ABG pO2 Sodium Potassium Chloride Carbon Dioxide BUN Creatinine Glucose POC Glucose 264 H 266 H 233 H Hemoglobin A1c Lactic Acid Calcium Magnesium AST Alkaline Phosphatase Total Creatine Kinase C-Reactive Protein Total Protein Albumin Urine WBC (Auto) Vancomycin Trough 02/20/18 02/21/18 02/21/18 22:08 05:56 06:13 WBC RBC Hgb Hct MCV MCH MCHC RDW Lymph % (Auto) Eos # Seg Neutrophils % Seg Neuts % (Manual) Lymphocytes % (Manual) Seg Neutrophils # Seg Neutrophils # Man Lymphocytes # (Manual) POC ABG pH POC ABG pO2 Sodium 146 H Potassium Chloride 108.2 H Carbon Dioxide BUN 21 H Creatinine Glucose 198 H POC Glucose 207 H 207 H Hemoglobin A1c Lactic Acid Calcium Magnesium AST Alkaline Phosphatase Total Creatine Kinase C-Reactive Protein Total Protein Albumin Urine WBC (Auto) Vancomycin Trough 02/21/18 02/21/18 02/21/18 12:20 17:14 19:26 WBC RBC Hgb Hct MCV MCH MCHC RDW Lymph % (Auto) Eos # Seg Neutrophils % Seg Neuts % (Manual) Lymphocytes % (Manual) Seg Neutrophils # Seg Neutrophils # Man Lymphocytes # (Manual) POC ABG pH POC ABG pO2 Sodium Potassium Chloride Carbon Dioxide BUN Creatinine Glucose POC Glucose 168 H 116 H 121 H Hemoglobin A1c Lactic Acid Calcium Magnesium AST Alkaline Phosphatase Total Creatine Kinase C-Reactive Protein Total Protein Albumin Urine WBC (Auto) Vancomycin Trough 02/21/18 02/22/18 02/22/18 21:51 05:46 06:11 WBC RBC Hgb Hct MCV MCH MCHC RDW Lymph % (Auto) Eos # Seg Neutrophils % Seg Neuts % (Manual) Lymphocytes % (Manual) Seg Neutrophils # Seg Neutrophils # Man Lymphocytes # (Manual) POC ABG pH POC ABG pO2 Sodium Potassium Chloride Carbon Dioxide BUN 22 H Creatinine Glucose 203 H POC Glucose 132 H 183 H Hemoglobin A1c Lactic Acid Calcium Magnesium AST Alkaline Phosphatase Total Creatine Kinase C-Reactive Protein Total Protein Albumin Urine WBC (Auto) Vancomycin Trough 02/22/18 02/22/18 02/22/18 11:30 17:36 22:15 WBC RBC Hgb Hct MCV MCH MCHC RDW Lymph % (Auto) Eos # Seg Neutrophils % Seg Neuts % (Manual) Lymphocytes % (Manual) Seg Neutrophils # Seg Neutrophils # Man Lymphocytes # (Manual) POC ABG pH POC ABG pO2 Sodium Potassium Chloride Carbon Dioxide BUN Creatinine Glucose POC Glucose 222 H 249 H 203 H Hemoglobin A1c Lactic Acid Calcium Magnesium AST Alkaline Phosphatase Total Creatine Kinase C-Reactive Protein Total Protein Albumin Urine WBC (Auto) Vancomycin Trough 02/23/18 02/23/18 02/23/18 05:21 05:58 08:48 WBC RBC Hgb Hct MCV MCH MCHC RDW Lymph % (Auto) Eos # Seg Neutrophils % Seg Neuts % (Manual) Lymphocytes % (Manual) Seg Neutrophils # Seg Neutrophils # Man Lymphocytes # (Manual) POC ABG pH POC ABG pO2 Sodium 147 H Potassium Chloride 107.3 H Carbon Dioxide 33 H BUN 21 H Creatinine Glucose 70 L POC Glucose 66 L 43 L Hemoglobin A1c Lactic Acid Calcium 10.6 H Magnesium AST Alkaline Phosphatase Total Creatine Kinase C-Reactive Protein Total Protein Albumin Urine WBC (Auto) Vancomycin Trough 02/23/18 02/23/18 02/23/18 09:43 17:05 23:54 WBC RBC Hgb Hct MCV MCH MCHC RDW Lymph % (Auto) Eos # Seg Neutrophils % Seg Neuts % (Manual) Lymphocytes % (Manual) Seg Neutrophils # Seg Neutrophils # Man Lymphocytes # (Manual) POC ABG pH POC ABG pO2 Sodium Potassium Chloride Carbon Dioxide BUN Creatinine Glucose POC Glucose 107 H 110 H 219 H Hemoglobin A1c Lactic Acid Calcium Magnesium AST Alkaline Phosphatase Total Creatine Kinase C-Reactive Protein Total Protein Albumin Urine WBC (Auto) Vancomycin Trough 02/24/18 02/24/1818 04:35 04:35 05:09 WBC 12.4 H RBC Hgb 10.3 L Hct 31.4 L MCV 74 L MCH 24 L MCHC RDW 17.3 H Lymph % (Auto) 12.0 L Eos # Seg Neutrophils % 79.1 H Seg Neuts % (Manual) Lymphocytes % (Manual) Seg Neutrophils # 9.8 H Seg Neutrophils # Man Lymphocytes # (Manual) POC ABG pH POC ABG pO2 Sodium Potassium Chloride Carbon Dioxide BUN Creatinine Glucose 254 H POC Glucose 264 H Hemoglobin A1c Lactic Acid Calcium Magnesium AST Alkaline Phosphatase Total Creatine Kinase C-Reactive Protein Total Protein Albumin Urine WBC (Auto) Vancomycin Trough 02/24/18 02/24/18 02/25/18 11:21 16:33 00:08 WBC RBC Hgb Hct MCV MCH MCHC RDW Lymph % (Auto) Eos # Seg Neutrophils % Seg Neuts % (Manual) Lymphocytes % (Manual) Seg Neutrophils # Seg Neutrophils # Man Lymphocytes # (Manual) POC ABG pH POC ABG pO2 Sodium Potassium Chloride Carbon Dioxide BUN Creatinine Glucose POC Glucose 276 H 227 H 250 H Hemoglobin A1c Lactic Acid Calcium Magnesium AST Alkaline Phosphatase Total Creatine Kinase C-Reactive Protein Total Protein Albumin Urine WBC (Auto) Vancomycin Trough 02/25/18 02/25/18 02/25/18 04:16 04:16 05:36 WBC 12.3 H RBC Hgb 10.2 L Hct 30.8 L MCV 74 L MCH 24 L MCHC RDW 17.9 H Lymph % (Auto) Eos # Seg Neutrophils % 76.0 H Seg Neuts % (Manual) Lymphocytes % (Manual) Seg Neutrophils # 9.3 H Seg Neutrophils # Man Lymphocytes # (Manual) POC ABG pH POC ABG pO2 Sodium Potassium Chloride Carbon Dioxide BUN Creatinine 0.7 L Glucose 251 H POC Glucose 213 H Hemoglobin A1c Lactic Acid Calcium Magnesium AST Alkaline Phosphatase Total Creatine Kinase C-Reactive Protein Total Protein Albumin Urine WBC (Auto) Vancomycin Trough 02/25/18 02/25/18 02/26/18 13:30 17:42 00:28 WBC RBC Hgb Hct MCV MCH MCHC RDW Lymph % (Auto) Eos # Seg Neutrophils % Seg Neuts % (Manual) Lymphocytes % (Manual) Seg Neutrophils # Seg Neutrophils # Man Lymphocytes # (Manual) POC ABG pH POC ABG pO2 Sodium Potassium Chloride Carbon Dioxide BUN Creatinine Glucose POC Glucose 121 H 111 H 164 H Hemoglobin A1c Lactic Acid Calcium Magnesium AST Alkaline Phosphatase Total Creatine Kinase C-Reactive Protein Total Protein Albumin Urine WBC (Auto) Vancomycin Trough 02/26/18 02/26/18 02/26/18 05:41 06:55 17:30 WBC RBC Hgb Hct MCV MCH MCHC RDW Lymph % (Auto) Eos # Seg Neutrophils % Seg Neuts % (Manual) Lymphocytes % (Manual) Seg Neutrophils # Seg Neutrophils # Man Lymphocytes # (Manual) POC ABG pH POC ABG pO2 Sodium Potassium Chloride Carbon Dioxide BUN Creatinine Glucose 163 H POC Glucose 144 H 186 H Hemoglobin A1c Lactic Acid Calcium Magnesium AST Alkaline Phosphatase Total Creatine Kinase C-Reactive Protein Total Protein Albumin Urine WBC (Auto) Vancomycin Trough 02/27/18 02/27/18 00:20 06:35 WBC RBC Hgb Hct MCV MCH MCHC RDW Lymph % (Auto) Eos # Seg Neutrophils % Seg Neuts % (Manual) Lymphocytes % (Manual) Seg Neutrophils # Seg Neutrophils # Man Lymphocytes # (Manual) POC ABG pH POC ABG pO2 Sodium Potassium Chloride Carbon Dioxide BUN Creatinine Glucose POC Glucose 154 H 211 H Hemoglobin A1c Lactic Acid Calcium Magnesium AST Alkaline Phosphatase Total Creatine Kinase C-Reactive Protein Total Protein Albumin Urine WBC (Auto) Vancomycin Trough
[2018-02-27] MEDS: LANTUS SUB-Q SCH ×2 (09:08→23:15)
[2018-02-27] MEDS: SYMMETREL FEEDTUBE SCH (09:10)
[2018-02-27] MEDS: KEPPRA FEEDTUBE SCH ×2 (09:10→23:20)
[2018-02-27] MEDS: ZESTRIL FEEDTUBE SCH (09:11)
[2018-02-27] MEDS: PEPCID FEEDTUBE SCH ×2 (09:12→23:25)
[2018-02-27] MEDS: DESYREL PO SCH ×2 (09:14→23:33)
[2018-02-27] MEDS: DAKIN'S FULL STRENGTH TP SCH (09:14)
[2018-02-27] MEDS: SODIUM CHLORIDE FLUSH SYRINGE 10 ML IV SCH (09:15)
--- NOTE | 2018-02-27 13:55 | Progress Note ---
Assessment and Plan Assessment and plan: 72-year-old -[place] male with history of hemorrhagic stroke, status post PEG and trach from snf admitted for sepsis, dehydration acute on chronic respiratory failure - On tracheobronchitis - Trach was clogged on admission, copious secretions, on trach care - On 5 litres of oxygen Hypernatremia -Resolved Hypokalemia: - repleted, corrected Metabolic encephalopathy; - multifactorial - Lethargic Sepsis, due to UTI and Pneumonia, sacral wound infection - CHIEF MEDICAL PHYSICIST serratia and CHIEF MEDICAL PHYSICIST pseudomonas - CXR showed bilateral infiltrates - on Avibactam Day 03/19, was treated with cefepime - Lactic acidosis -OR cultures 02/23 CHIEF MEDICAL PHYSICIST Pseudomonas, Proteus and Enterococcus raffinosus Type 2 diabetes mellitus uncontrolled diabetes mellitus; - Accu-Chek sliding scale coverage - tube feeding, adjust insulin as needed sacral decubitus ulcer infected -Status post debridement and wound VAC placement -Pending surgical culture results Nutrition - Through PEG tube Dyslipidemia; - continue lipid lowering medications Hemorrhagic stroke - MRI showed could be chronic - Patient has history of hemorrhagic stroke - Repeat CT showed no change from baseline DVT prophylaxis; - SCD becaues of hemorrhagic stroke Severe malnutrition - Dietary consult Full CODE STATUS Prognosis: poor I have discussed the management plan and the prognosis with his Mrs Fleming on the phone yesterday. History Interval history: Patient is on trach and PEG, patient was lethargic and non communicative. Hospitalist Physical - Physical exam Narrative exam: Patient has trach and on 5 L of oxygen Vital signs as documented. Head exam is unremarkable. No scleral icterus . Neck is without jugular venous distension, thyromegaly, or carotid bruits. Lungs are clear to auscultation. Cardiac exam reveals regular rate and Rhythm. First and second heart sounds normal. No murmurs, rubs or gallops. Abdominal exam reveals PEG tube in place. Integumentary sacral and heel ulcer POA. OUTSOLE FLEXER: minimally responsive. - Constitutional Vitals: Temp Pulse Resp BP Pulse Ox 98.2 F 111 H 24 124/68 96 02/27/18 07:50 02/27/18 09:11 02/27/18 07:50 02/27/18 09:11 02/27/18 09:00 General appearance: Present: no acute distress, other (nonviable) Results - Labs CBC & Chem 7: 02/25/18 04:16 02/26/18 05:41 Labs: Laboratory Last Values WBC 12.3 K/mm3 (4.5-11.0) H 02/25/18 04:16 RBC 4.17 M/mm3 (3.65-5.03) 02/25/18 04:16 Hgb 10.2 gm/dl (11.8-15.2) L 02/25/18 04:16 Hct 30.8 % (35.5-45.6) L 02/25/18 04:16 MCV 74 fl (84-94) L 02/25/18 04:16 MCH 24 pg (28-32) L 02/25/18 04:16 MCHC 33 % (32-34) 02/25/18 04:16 RDW 17.9 % (13.2-15.2) H 02/25/18 04:16 Plt Count 364 K/mm3 (140-440) 02/25/18 04:16 Lymph % (Auto) 15.4 % (13.4-35.0) 02/25/18 04:16 [place] % (Auto) 5.6 % (0.0-7.3) 02/25/18 04:16 Eos % (Auto) 2.7 % (0.0-4.3) 02/25/18 04:16 Baso % (Auto) 0.3 % (0.0-1.8) 02/25/18 04:16 Lymph # 1.9 K/mm3 (1.2-5.4) 02/25/18 04:16 [place] # 0.7 K/mm3 (0.0-0.8) 02/25/18 04:16 Eos # 0.3 K/mm3 (0.0-0.4) 02/25/18 04:16 Baso # 0.0 K/mm3 (0.0-0.1) 02/25/18 04:16 Add Manual Diff Complete 02/20/18 05:03 Total Counted 100 02/20/18 05:03 Seg Neutrophils % 76.0 % (40.0-70.0) H 02/25/18 04:16 Seg Neuts % (Manual) 85.0 % (40.0-70.0) H 02/20/18 05:03 Band Neutrophils % 2.0 % 02/20/18 05:03 Lymphocytes % (Manual) 7.0 % (13.4-35.0) L 02/20/18 05:03 Reactive Lymphs % (Man) 0 % 02/20/18 05:03 Monocytes % (Manual) 1.0 % (0.0-7.3) 02/20/18 05:03 Eosinophils % (Manual) 2.0 % (0.0-4.3) 02/20/18 05:03 Basophils % (Manual) 0 % (0.0-1.8) 02/20/18 05:03 Metamyelocytes % 3.0 % 02/20/18 05:03 Myelocytes % 0 % 02/20/18 05:03 Promyelocytes % 0 % 02/20/18 05:03 Blast Cells % 0 % 02/20/18 05:03 Nucleated RBC % Not Reportable 02/20/18 05:03 Seg Neutrophils # 9.3 K/mm3 (1.8-7.7) H 02/25/18 04:16 Seg Neutrophils # Man 11.6 K/mm3 (1.8-7.7) H 02/20/18 05:03 Band Neutrophils # 0.3 K/mm3 02/20/18 05:03 Lymphocytes # (Manual) 1.0 K/mm3 (1.2-5.4) L 02/20/18 05:03 Abs React Lymphs (Man) 0.0 K/mm3 02/20/18 05:03 Monocytes # (Manual) 0.1 K/mm3 (0.0-0.8) 02/20/18 05:03 Eosinophils # (Manual) 0.3 K/mm3 (0.0-0.4) 02/20/18 05:03 Basophils # (Manual) 0.0 K/mm3 (0.0-0.1) 02/20/18 05:03 Metamyelocytes # 0.4 K/mm3 02/20/18 05:03 Myelocytes # 0.0 K/mm3 02/20/18 05:03 Promyelocytes # 0.0 K/mm3 02/20/18 05:03 Blast Cells # 0.0 K/mm3 02/20/18 05:03 WBC Morphology Not Reportable 02/20/18 05:03 Hypersegmented Neuts Not Reportable 02/20/18 05:03 Hyposegmented Neuts Not Reportable 02/20/18 05:03 Hypogranular Neuts Not Reportable 02/20/18 05:03 Smudge Cells Not Reportable 02/20/18 05:03 Toxic Granulation Not Reportable 02/20/18 05:03 Toxic Vacuolation Not Reportable 02/20/18 05:03 Dohle Bodies Not Reportable 02/20/18 05:03 Pelger-Huet Anomaly Not Reportable 02/20/18 05:03 Helene Rods Not Reportable 02/20/18 05:03 Platelet Estimate Appears normal 02/20/18 05:03 Clumped Platelets Not Reportable 02/20/18 05:03 Plt Clumps, EDTA Not Reportable 02/20/18 05:03 Large Platelets Not Reportable 02/20/18 05:03 Giant Platelets Not Reportable 02/20/18 05:03 Platelet Satelliting Not Reportable 02/20/18 05:03 Plt Morphology Comment Not Reportable 02/20/18 05:03 RBC Morphology Not Reportable 02/20/18 05:03 Dimorphic RBCs Not Reportable 02/20/18 05:03 Polychromasia 1+ 02/20/18 05:03 Hypochromasia Not Reportable 02/20/18 05:03 Poikilocytosis Not Reportable 02/20/18 05:03 Anisocytosis 1+ 02/20/18 05:03 Microcytosis Not Reportable 02/20/18 05:03 Macrocytosis Not Reportable 02/20/18 05:03 Spherocytes Not Reportable 02/20/18 05:03 Pappenheimer Bodies Not Reportable 02/20/18 05:03 Sickle Cells Not Reportable 02/20/18 05:03 Target Cells Not Reportable 02/20/18 05:03 Tear Drop Cells Few 02/20/18 05:03 Ovalocytes 1+ 02/20/18 05:03 Stomatocytes Few 02/20/18 05:03 Helmet Cells Rare 02/20/18 05:03 Chaudhry-Harvey Bodies Not Reportable 02/20/18 05:03 [place] Rings Not Reportable 02/20/18 05:03 Patricia Cells Not Reportable 02/20/18 05:03 Bite Cells Not Reportable 02/20/18 05:03 Crenated Cell Not Reportable 02/20/18 05:03 Elliptocytes Few 02/20/18 05:03 Acanthocytes (Spur) Not Reportable 02/20/18 05:03 Rouleaux Not Reportable 02/20/18 05:03 Hemoglobin C Crystals Not Reportable 02/20/18 05:03 Schistocytes Not Reportable 02/20/18 05:03 Malaria parasites Not Reportable 02/20/18 05:03 Huy Bodies Not Reportable 02/20/18 05:03 Hem Pathologist Commnt No 02/20/18 05:03 APTT 31.9 Sec. (24.2-36.6) 02/14/18 10:15 POC ABG pH 7.521 (7.35-7.45) H 02/14/18 10:39 POC ABG pCO2 38.8 (35-45) 02/14/18 10:39 POC ABG pO2 58 (80-105) L 02/14/18 10:39 POC ABG HCO3 31.8 02/14/18 10:39 POC ABG Total CO2 33 02/14/18 10:39 POC ABG O2 Sat 92 02/14/18 10:39 POC ABG Base Excess 9 02/14/18 10:39 FiO2 80 % 02/14/18 10:39 Sodium 138 mmol/L (137-145) 02/26/18 05:41 Potassium 4.6 mmol/L (3.6-5.0) 02/26/18 05:41 Chloride 98.3 mmol/L (98-107) 02/26/18 05:41 Carbon Dioxide 28 mmol/L (22-30) 02/26/18 05:41 Anion Gap 16 mmol/L 02/26/18 05:41 BUN 18 mg/dL (9-20) 02/26/18 05:41 Creatinine 0.8 mg/dL (0.8-1.5) 02/26/18 05:41 Estimated GFR > 60 ml/min 02/26/18 05:41 BUN/Creatinine Ratio 23 % 02/26/18 05:41 Glucose 163 mg/dL (75-100) H 02/26/18 05:41 POC Glucose 240 (70-105) H 02/27/18 11:49 Hemoglobin A1c 10.1 % (4-6) H 02/14/18 20:21 Lactic Acid 3.00 mmol/L (0.7-2.0) H* 02/15/18 05:53 Calcium 10.2 mg/dL (8.4-10.2) 02/26/18 05:41 Phosphorus 3.50 mg/dL (2.5-4.5) D 02/17/18 04:25 Magnesium 2.30 mg/dL (1.7-2.3) 02/17/18 04:25 Total Bilirubin 0.50 mg/dL (0.1-1.2) 02/15/18 02:16 AST 19 units/L (5-40) 02/15/18 02:16 ALT 41 units/L (7-56) 02/15/18 02:16 Alkaline Phosphatase 173 units/L (35-129) H 02/15/18 02:16 Total Creatine Kinase 46 units/L (55-170) L 02/14/18 10:15 C-Reactive Protein 4.50 mg/dL (0.00-1.30) H 02/20/18 05:03 Total Protein 6.2 g/dL (6.3-8.2) L 02/15/18 02:16 Albumin 2.0 g/dL (3.9-5) L 02/15/18 02:16 Albumin/Globulin Ratio 0.5 % 02/15/18 02:16 Urine Color Yellow (Yellow) 02/14/18 10:04 Urine Turbidity Hazy (Clear) 02/14/18 10:04 Urine pH 5.0 (5.0-7.0) 02/14/18 10:04 Ur Specific [place] 1.022 (1.003-1.030) 02/14/18 10:04 Urine Protein 30 mg/dl mg/dL (Negative) 02/14/18 10:04 Urine Glucose (UA) >=500 mg/dL (Negative) 02/14/18 10:04 Urine Ketones Neg mg/dL (Negative) 02/14/18 10:04 Urine Blood Sm (Negative) 02/14/18 10:04 Urine Nitrite Neg (Negative) 02/14/18 10:04 Urine Bilirubin Neg (Negative) 02/14/18 10:04 Urine Urobilinogen < 2.0 mg/dL (<2.0) 02/14/18 10:04 Ur Leukocyte Esterase Lg (Negative) 02/14/18 10:04 Urine WBC (Auto) 53.0 /HPF (0.0-6.0) H 02/14/18 10:04 Urine RBC (Auto) 13.0 /HPF (0.0-6.0) 02/14/18 10:04 U Epithel Cells (Auto) < 1.0 /HPF (0-13.0) 02/14/18 10:04 Urine Bacteria (Auto) 2+ /HPF (Negative) 02/14/18 10:04 Urine WBC Clumps 3+ /HPF 02/14/18 10:04 Hyaline Casts 7 /LPF 02/14/18 10:04 Urine Mucus Few /HPF 02/14/18 10:04 Vancomycin Trough 31.4 ug/mL (5.0-20.0) H 02/17/18 09:37 Random Vancomycin 16.5 ug/mL (0-40.0) 02/18/18 05:43 Blood Type O POSITIVE 02/14/18 10:15 Antibody Screen Negative 02/14/18 10:15
[2018-02-27] MEDS: TRANSDERM-SCOP TD SCH (17:54)
--- NOTE | 2018-02-27 20:24 | Progress Note ---
Assessment and Plan Assessment: 1) Sepsis: better. Etiology most likely multifactorial UTI +/- infected sacral decubitus +/- tracheobronchitis. 2) Complicated CA-UTI: Secondary to DIRECTOR OF STRATEGIC ALLIANCES Serratia and DIRECTOR OF STRATEGIC ALLIANCES Pseudomonas 3) Sacral debubitus infected - per wound care 5.5x9x1.5 cm with purulence, sloughing and necrosis -S/P debridement and wound VAC on 02/23. No clinical osteomyelitis. -OR cultures 02/23 DIRECTOR OF STRATEGIC ALLIANCES Pseudomonas, Proteus and Enterococcus raffinosus 4) Bilateral pneumonia-initial CXR did not show consolidation pt came hypoxemic. Repeat CXR - jeffrey infiltrates - still copious secretion 5) Acute on chronic resp failure 6) DM with hyperglycemia 7) Left heel eschar-present on admission 8) History of Intracranial hemorrhage, S/p tracheostomy/PEG Plan: -continue avycaz / - still lots of sputum production -pulmonary toilet -strict contact and droplet isolation due to [employer] OF STRATE[employer]IC [employer]IANCES -wound care -upon discharge will do avycaz 2.5 g IV q8 hours until 03/06/18. Orders sent to shoe caser -high risk for readmissions. Poor prognosis Thank you for your consultation, will follow up with you. Jess Luo MD Infectious Diseases Specialist [facility] ([facility] M [phone] O [phone] Subjective Date of service: 02/27/18 Principal diagnosis: [employer]OR OF STRATEGIC [employer]IANCES UTI Interval history: More alert, no fever. Microbiology: Blood cultures: 02/14 neg Urine cultures: 02/14 Serratia DIRECTOR OF STRATEGIC ALLIANCES, Pseudomonas MDR Tracheal asp: 02/14 many squamous cells OR cultures: 02/23 DIRECTOR OF STRATEGIC ALLIANCES Pseudomonas, Proteus and Enterococcus raffinosus Current Antimicrobials: 02/21 Avycaz Prior Antimicrobials: cefepime 02/18/18-02/21 Objective - Exam Narrative Exam: General appearance: somnolent in NAD, non conversant Eyes: anicteric sclerae, moist conjunctivae; no lid-lag; PERRLA HENT: Atraumatic; oropharynx limited Neck: Trach with thick greenish secretion Lungs: jeffrey loud rhonchi CV: RRR, no murmurs Abdomen: Soft, non-tender; Gtube Extremities: No peripheral edema or extremity lymphadenopathy Skin: Normal temperature, turgor and texture; no rash, ulcers or subcutaneous nodules Psych: non verbal Neuro: non verbal Lines: santos in place - Constitutional Vitals: Vital Signs Temp Pulse Resp BP Pulse Ox 98.2 F 85 24 135/76 96 02/27/18 07:50 02/27/18 15:00 02/27/18 07:50 02/27/18 15:00 02/27/18 09:00 Temperature -Last 24 Hours Temperature 98.2 F Temperature 98.1 F Temperature 99.4 F Temperature 99.3 F - Labs CBC & Chem 7: 02/25/18 04:16 02/26/18 05:41 Labs: Abnormal lab results 02/26/18 02/27/18 02/27/18 Range/Units 17:30 00:20 06:35 POC Glucose 186 H 154 H 211 H (70-105) 02/27/18 02/27/18 Range/Units 11:49 17:44 POC Glucose 240 H 200 H (70-105)
[2018-02-28] MEDS: DAKIN'S FULL STRENGTH TP SCH ×3 (02:57→22:00)
[2018-02-28] MEDS: HumaLOG SUB-Q SCH ×4 (02:58→18:22)
[2018-02-28] MEDS: SODIUM CHLORIDE FLUSH SYRINGE 10 ML IV SCH ×3 (03:01→23:44)
[2018-02-28 05:40] LABS: Basophils # (Auto) 0.1 K/mm3 (0.0-0.1); Basophils % (Auto) 0.6 % (0.0-1.8); Eosinophils # (Auto) 0.2 K/mm3 (0.0-0.4); Eosinophils % (Auto) 1.8 % (0.0-4.3); Hematocrit 37.2 % (35.5-45.6); Lymphocytes # (Auto) 1.6 K/mm3 (1.2-5.4); Lymphocytes % (Auto) 11.3 % (13.4-35.0); Mean Corpuscular HGB Conc 32 % (32-34); Mean Corpuscular Volume 75 fl (84-94); Monocytes # (Auto) 0.7 K/mm3 (0.0-0.8); Monocytes % (Auto) 4.9 % (0.0-7.3); Platelet Count 519 K/mm3 (140-440); Red Blood Count 4.99 M/mm3 (3.65-5.03); Red Cell Distribution Width 18.4 % (13.2-15.2)
[2018-02-28 05:48] LABS: Mean Corpuscular Hemoglobin 24 pg (28-32)
[2018-02-28 06:03] LABS: BUN/Creatinine Ratio 24; Blood Urea Nitrogen 19 mg/dL (9-20); Calcium 10.7 mg/dL (8.4-10.2); Hemolysis Index 1
[2018-02-28] MEDS: NACL 0.9% IV SCH ×3 (06:25→22:00)
[2018-02-28] MEDS: AVYCAZ IV SCH ×3 (06:25→22:00)
[2018-02-28] MEDS: LOPRESSOR FEEDTUBE SCH ×2 (06:27→13:48)
[2018-02-28] MEDS ORDERED: ZOFRAN ONE (10:15)
[2018-02-28] MEDS ORDERED: NEO SYNEPHRINE/NS Syringe(OR USE) IV ONE (10:15)
[2018-02-28] MEDS ORDERED: DECADRON ONE (10:15)
--- NOTE | 2018-02-28 10:30 | Progress Note ---
Assessment and Plan Assessment: 1) Sepsis: better. Etiology most likely multifactorial UTI +/- infected sacral decubitus +/- tracheobronchitis. 2) Complicated CA-UTI: Secondary to TRUSS P[employer]ER HELPER Serratia and TRUSS P[employer]ER HELPER Pseudomonas 3) Sacral debubitus infected - per wound care 5.5x9x1.5 cm with purulence, sloughing and necrosis -S/P debridement and wound VAC on 02/23. No clinical osteomyelitis. -OR cultures 02/23 TRUSS PULLER HELPER Pseudomonas, Proteus and Enterococcus raffinosus 4) Bilateral pneumonia-initial CXR did not show consolidation pt came hypoxemic. Repeat CXR - jeffrey infiltrates - still copious secretion 5) Acute on chronic resp failure 6) DM with hyperglycemia 7) Left heel eschar-present on admission 8) History of Intracranial hemorrhage, S/p tracheostomy/PEG Plan: -continue avycaz D8 -pulmonary toilet -strict contact and droplet isolation due to [employer]USS P[employer] HELPER -wound care -upon discharge will do avycaz 2.5 g IV q8 hours until 03/06/18. Orders sent to special education case manager -high risk for readmissions. I requested consideration of hospice. I am signing off Poor prognosis Thank you for your consultation, will follow up with you. Jess Luo MD Infectious Diseases Specialist [facility] ([facility] M [phone] O [phone] Subjective Date of service: 02/28/18 Principal diagnosis: [employer]USS P[employer] HELPER UTI Interval history: More alert, no fever. Lethargic Microbiology: Blood cultures: 02/14 neg Urine cultures: 02/14 Serratia [employer]USS P[employer]ER HELPER, Pseudomonas MDR Tracheal asp: 02/14 many squamous cells OR cultures: 02/23 [employer]USS P[employer]ER HELPER Pseudomonas, Proteus and Enterococcus raffinosus Current Antimicrobials: 02/21 Avycaz Prior Antimicrobials: cefepime 02/18/18-02/21 Objective - Exam Narrative Exam: General appearance: somnolent in NAD, non conversant Eyes: anicteric sclerae, moist conjunctivae; no lid-lag; PERRLA HENT: Atraumatic; oropharynx limited Neck: Trach clear ecretion Lungs: jeffrey loud rhonchi CV: RRR, no murmurs Abdomen: Soft, non-tender; Gtube Extremities: No peripheral edema or extremity lymphadenopathy Skin: Normal temperature, turgor and texture; no rash, ulcers or subcutaneous nodules Psych: non verbal Neuro: non verbal Lines: santos in place - Constitutional Vitals: Vital Signs Temp Pulse Resp BP Pulse Ox 99.2 F 106 H 20 136/87 98 02/28/18 08:33 02/28/18 08:33 02/28/18 08:33 02/28/18 08:33 02/28/18 09:53 Temperature -Last 24 Hours Temperature 99.2 F Temperature 98.8 F Temperature 98.6 F Temperature 98.9 F Temperature 99.2 F - Labs CBC & Chem 7: 02/28/18 04:11 02/28/18 04:11 Labs: Abnormal lab results 02/27/18 02/27/18 02/27/18 Range/Units 11:49 17:44 21:48 WBC (4.5-11.0) K/mm3 MCV (84-94) fl MCH (28-32) pg RDW (13.2-15.2) % Plt Count (140-440) K/mm3 Lymph % (Auto) (13.4-35.0) % Seg Neutrophils % (40.0-70.0) % Seg Neutrophils # (1.8-7.7) K/mm3 Sodium (137-145) mmol/L Chloride (98-107) mmol/L Carbon Dioxide (22-30) mmol/L Glucose (75-100) mg/dL POC Glucose 240 H 200 H 217 H (70-105) Calcium (8.4-10.2) mg/dL 02/28/18 02/28/18 02/28/18 Range/Units 04:11 04:11 05:36 WBC 14.2 H (4.5-11.0) K/mm3 MCV 75 L (84-94) fl MCH 24 L (28-32) pg RDW 18.4 H (13.2-15.2) % Plt Count 519 H (140-440) K/mm3 Lymph % (Auto) 11.3 L (13.4-35.0) % Seg Neutrophils % 81.4 H (40.0-70.0) % Seg Neutrophils # 11.6 H (1.8-7.7) K/mm3 Sodium 136 L (137-145) mmol/L Chloride 95.9 L (98-107) mmol/L Carbon Dioxide 31 H (22-30) mmol/L Glucose 242 H (75-100) mg/dL POC Glucose 235 H (70-105) Calcium 10.7 H (8.4-10.2) mg/dL
[2018-02-28] MEDS: PEPCID FEEDTUBE SCH ×2 (10:40→23:36)
[2018-02-28] MEDS: DESYREL PO SCH ×2 (10:40→23:36)
[2018-02-28] MEDS: SYMMETREL FEEDTUBE SCH (10:41)
[2018-02-28] MEDS: KEPPRA FEEDTUBE SCH ×2 (10:41→23:36)
[2018-02-28] MEDS: LANTUS SUB-Q SCH ×2 (10:47→23:37)
[2018-02-28] MEDS: ZESTRIL FEEDTUBE SCH (10:50)
--- NOTE | 2018-02-28 14:27 | Progress Note ---
Assessment and Plan Assessment and plan: 72-year-old -[place] male with history of hemorrhagic stroke, status [facility] for sepsis, dehydration acute on chronic respiratory failure - On tracheobronchitis - Trach was clogged on admission, copious secretions, on trach care - On 5 litres of oxygen Hypernatremia -Resolved Hypokalemia: - repleted, corrected Metabolic encephalopathy; - multifactorial - Lethargic Sepsis, due to UTI and Pneumonia, sacral wound infection - MATERIALS ASSOCIATE serratia and MATERIALS ASSOCIATE pseudomonas - CXR showed bilateral infiltrates - on Avibactam Day 05/23, was treated with cefepime - Lactic acidosis -OR cultures 02/23 MATERIALS ASSOCIATE Pseudomonas, Proteus and Enterococcus raffinosus Type 2 diabetes mellitus uncontrolled diabetes mellitus; - Accu-Chek sliding scale coverage - tube feeding, adjust insulin as needed sacral decubitus ulcer infected -Status post debridement and wound VAC placement -Pending surgical culture results Nutrition - Through PEG tube Dyslipidemia; - continue lipid lowering medications Hemorrhagic stroke - MRI showed could be chronic - Patient has history of hemorrhagic stroke - Repeat CT showed no change from baseline DVT prophylaxis; - SCD becaues of hemorrhagic stroke Severe malnutrition - Dietary consult Full CODE STATUS The family wants what option hospice people have. Prognosis: poor I have discussed the management plan and the prognosis with his Mrs Fleming yesterday. The plan [facility] to finish the IV antibiotics & complex case manager she is working on it. History Interval history: Patient is on trach and PEG, patient was lethargic and non communicative. No family member was in the room at the time of examination. I have discussed the management plan was his and his niece. Hospitalist Physical - Physical exam Narrative exam: Patient has trach and on 5 L of oxygen Vital signs as documented. Head exam is unremarkable. No scleral icterus . Neck is without jugular venous distension, thyromegaly, or carotid bruits. Lungs are clear to auscultation. Cardiac exam reveals regular rate and Rhythm. First and second heart sounds normal. No murmurs, rubs or gallops. Abdominal exam reveals PEG tube in place. Integumentary sacral and heel ulcer POA. 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 - Constitutional Vitals: Temp Pulse Resp BP Pulse Ox 98.8 F 118 H 20 133/85 97 02/28/18 12:41 02/28/18 12:41 02/28/18 12:41 02/28/18 13:48 02/28/18 12:41 General appearance: Present: no acute distress, other (nonviable) Results - Labs CBC & Chem 7: 02/28/18 04:11 02/28/18 04:11 Labs: Laboratory Last Values WBC 14.2 K/mm3 (4.5-11.0) H 02/28/18 04:11 RBC 4.99 M/mm3 (3.65-5.03) 02/28/18 04:11 Hgb 12.0 gm/dl (11.8-15.2) 02/28/18 04:11 Hct 37.2 % (35.5-45.6) D 02/28/18 04:11 MCV 75 fl (84-94) L 02/28/18 04:11 MCH 24 pg (28-32) L 02/28/18 04:11 MCHC 32 % (32-34) 02/28/18 04:11 RDW 18.4 % (13.2-15.2) H 02/28/18 04:11 Plt Count 519 K/mm3 (140-440) H 02/28/18 04:11 Lymph % (Auto) 11.3 % (13.4-35.0) L 02/28/18 04:11 [place] % (Auto) 4.9 % (0.0-7.3) 02/28/18 04:11 Eos % (Auto) 1.8 % (0.0-4.3) 02/28/18 04:11 Baso % (Auto) 0.6 % (0.0-1.8) 02/28/18 04:11 Lymph # 1.6 K/mm3 (1.2-5.4) 02/28/18 04:11 [place] # 0.7 K/mm3 (0.0-0.8) 02/28/18 04:11 Eos # 0.2 K/mm3 (0.0-0.4) 02/28/18 04:11 Baso # 0.1 K/mm3 (0.0-0.1) 02/28/18 04:11 Add Manual Diff Complete 02/20/18 05:03 Total Counted 100 02/20/18 05:03 Seg Neutrophils % 81.4 % (40.0-70.0) H 02/28/18 04:11 Seg Neuts % (Manual) 85.0 % (40.0-70.0) H 02/20/18 05:03 Band Neutrophils % 2.0 % 02/20/18 05:03 Lymphocytes % (Manual) 7.0 % (13.4-35.0) L 02/20/18 05:03 Reactive Lymphs % (Man) 0 % 02/20/18 05:03 Monocytes % (Manual) 1.0 % (0.0-7.3) 02/20/18 05:03 Eosinophils % (Manual) 2.0 % (0.0-4.3) 02/20/18 05:03 Basophils % (Manual) 0 % (0.0-1.8) 02/20/18 05:03 Metamyelocytes % 3.0 % 02/20/18 05:03 Myelocytes % 0 % 02/20/18 05:03 Promyelocytes % 0 % 02/20/18 05:03 Blast Cells % 0 % 02/20/18 05:03 Nucleated RBC % Not Reportable 02/20/18 05:03 Seg Neutrophils # 11.6 K/mm3 (1.8-7.7) H 02/28/18 04:11 Seg Neutrophils # Man 11.6 K/mm3 (1.8-7.7) H 02/20/18 05:03 Band Neutrophils # 0.3 K/mm3 02/20/18 05:03 Lymphocytes # (Manual) 1.0 K/mm3 (1.2-5.4) L 02/20/18 05:03 Abs React Lymphs (Man) 0.0 K/mm3 02/20/18 05:03 Monocytes # (Manual) 0.1 K/mm3 (0.0-0.8) 02/20/18 05:03 Eosinophils # (Manual) 0.3 K/mm3 (0.0-0.4) 02/20/18 05:03 Basophils # (Manual) 0.0 K/mm3 (0.0-0.1) 02/20/18 05:03 Metamyelocytes # 0.4 K/mm3 02/20/18 05:03 Myelocytes # 0.0 K/mm3 02/20/18 05:03 Promyelocytes # 0.0 K/mm3 02/20/18 05:03 Blast Cells # 0.0 K/mm3 02/20/18 05:03 WBC Morphology Not Reportable 02/20/18 05:03 Hypersegmented Neuts Not Reportable 02/20/18 05:03 Hyposegmented Neuts Not Reportable 02/20/18 05:03 Hypogranular Neuts Not Reportable 02/20/18 05:03 Smudge Cells Not Reportable 02/20/18 05:03 Toxic Granulation Not Reportable 02/20/18 05:03 Toxic Vacuolation Not Reportable 02/20/18 05:03 Dohle Bodies Not Reportable 02/20/18 05:03 Pelger-Huet Anomaly Not Reportable 02/20/18 05:03 Helene Rods Not Reportable 02/20/18 05:03 Platelet Estimate Appears normal 02/20/18 05:03 Clumped Platelets Not Reportable 02/20/18 05:03 Plt Clumps, EDTA Not Reportable 02/20/18 05:03 Large Platelets Not Reportable 02/20/18 05:03 Giant Platelets Not Reportable 02/20/18 05:03 Platelet Satelliting Not Reportable 02/20/18 05:03 Plt Morphology Comment Not Reportable 02/20/18 05:03 RBC Morphology Not Reportable 02/20/18 05:03 Dimorphic RBCs Not Reportable 02/20/18 05:03 Polychromasia 1+ 02/20/18 05:03 Hypochromasia Not Reportable 02/20/18 05:03 Poikilocytosis Not Reportable 02/20/18 05:03 Anisocytosis 1+ 02/20/18 05:03 Microcytosis Not Reportable 02/20/18 05:03 Macrocytosis Not Reportable 02/20/18 05:03 Spherocytes Not Reportable 02/20/18 05:03 Pappenheimer Bodies Not Reportable 02/20/18 05:03 Sickle Cells Not Reportable 02/20/18 05:03 Target Cells Not Reportable 02/20/18 05:03 Tear Drop Cells Few 02/20/18 05:03 Ovalocytes 1+ 02/20/18 05:03 Stomatocytes Few 02/20/18 05:03 Helmet Cells Rare 02/20/18 05:03 [place] Bodies Not Reportable 02/20/18 05:03 [place] Rings Not Reportable 02/20/18 05:03 [place] Cells Not Reportable 02/20/18 05:03 Bite Cells Not Reportable 02/20/18 05:03 Crenated Cell Not Reportable 02/20/18 05:03 Elliptocytes Few 02/20/18 05:03 Acanthocytes (Spur) Not Reportable 02/20/18 05:03 Rouleaux Not Reportable 02/20/18 05:03 Hemoglobin C Crystals Not Reportable 02/20/18 05:03 Schistocytes Not Reportable 02/20/18 05:03 Malaria parasites Not Reportable 02/20/18 05:03 Huy Bodies Not Reportable 02/20/18 05:03 Hem Pathologist Commnt No 02/20/18 05:03 APTT 31.9 Sec. (24.2-36.6) 02/14/18 10:15 POC ABG pH 7.521 (7.35-7.45) H 02/14/18 10:39 POC ABG pCO2 38.8 (35-45) 02/14/18 10:39 POC ABG pO2 58 (80-105) L 02/14/18 10:39 POC ABG HCO3 31.8 02/14/18 10:39 POC ABG Total CO2 33 02/14/18 10:39 POC ABG O2 Sat 92 02/14/18 10:39 POC ABG Base Excess 9 02/14/18 10:39 FiO2 80 % 02/14/18 10:39 Sodium 136 mmol/L (137-145) L 02/28/18 04:11 Potassium 4.9 mmol/L (3.6-5.0) 02/28/18 04:11 Chloride 95.9 mmol/L (98-107) L 02/28/18 04:11 Carbon Dioxide 31 mmol/L (22-30) H 02/28/18 04:11 Anion Gap 14 mmol/L 02/28/18 04:11 BUN 19 mg/dL (9-20) 02/28/18 04:11 Creatinine 0.8 mg/dL (0.8-1.5) 02/28/18 04:11 Estimated GFR > 60 ml/min 02/28/18 04:11 BUN/Creatinine Ratio 24 % 02/28/18 04:11 Glucose 242 mg/dL (75-100) H 02/28/18 04:11 POC Glucose 198 (70-105) H 02/28/18 12:02 Hemoglobin A1c 10.1 % (4-6) H 02/14/18 20:21 Lactic Acid 3.00 mmol/L (0.7-2.0) H* 02/15/18 05:53 Calcium 10.7 mg/dL (8.4-10.2) H 02/28/18 04:11 Phosphorus 3.50 mg/dL (2.5-4.5) D 02/17/18 04:25 Magnesium 2.30 mg/dL (1.7-2.3) 02/17/18 04:25 Total Bilirubin 0.50 mg/dL (0.1-1.2) 02/15/18 02:16 AST 19 units/L (5-40) 02/15/18 02:16 ALT 41 units/L (7-56) 02/15/18 02:16 Alkaline Phosphatase 173 units/L (35-129) H 02/15/18 02:16 Total Creatine Kinase 46 units/L (55-170) L 02/14/18 10:15 C-Reactive Protein 4.50 mg/dL (0.00-1.30) H 02/20/18 05:03 Total Protein 6.2 g/dL (6.3-8.2) L 02/15/18 02:16 Albumin 2.0 g/dL (3.9-5) L 02/15/18 02:16 Albumin/Globulin Ratio 0.5 % 02/15/18 02:16 Urine Color Yellow (Yellow) 02/14/18 10:04 Urine Turbidity Hazy (Clear) 02/14/18 10:04 Urine pH 5.0 (5.0-7.0) 02/14/18 10:04 Ur Specific [place] 1.022 (1.003-1.030) 02/14/18 10:04 Urine Protein 30 mg/dl mg/dL (Negative) 02/14/18 10:04 Urine Glucose (UA) >=500 mg/dL (Negative) 02/14/18 10:04 Urine Ketones Neg mg/dL (Negative) 02/14/18 10:04 Urine Blood Sm (Negative) 02/14/18 10:04 Urine Nitrite Neg (Negative) 02/14/18 10:04 Urine Bilirubin Neg (Negative) 02/14/18 10:04 Urine Urobilinogen < 2.0 mg/dL (<2.0) 02/14/18 10:04 Ur Leukocyte Esterase Lg (Negative) 02/14/18 10:04 Urine WBC (Auto) 53.0 /HPF (0.0-6.0) H 02/14/18 10:04 Urine RBC (Auto) 13.0 /HPF (0.0-6.0) 02/14/18 10:04 U Epithel Cells (Auto) < 1.0 /HPF (0-13.0) 02/14/18 10:04 Urine Bacteria (Auto) 2+ /HPF (Negative) 02/14/18 10:04 Urine WBC Clumps 3+ /HPF 02/14/18 10:04 Hyaline Casts 7 /LPF 02/14/18 10:04 Urine Mucus Few /HPF 02/14/18 10:04 Vancomycin Trough 31.4 ug/mL (5.0-20.0) H 02/17/18 09:37 Random Vancomycin 16.5 ug/mL (0-40.0) 02/18/18 05:43 Blood Type O POSITIVE 02/14/18 10:15 Antibody Screen Negative 02/14/18 10:15
[2018-03-01] MEDS: HumaLOG SUB-Q SCH ×4 (00:16→18:39)
[2018-03-01] MEDS: LOPRESSOR FEEDTUBE SCH ×4 (00:17→22:48)
[2018-03-01] MEDS: NACL 0.9% IV SCH ×3 (06:41→22:46)
[2018-03-01] MEDS: AVYCAZ IV SCH ×3 (06:41→22:46)
[2018-03-01] MEDS: DAKIN'S FULL STRENGTH TP SCH ×2 (10:35→23:28)
[2018-03-01] MEDS: KEPPRA FEEDTUBE SCH ×2 (10:36→22:48)
[2018-03-01] MEDS: PEPCID FEEDTUBE SCH ×2 (10:36→22:49)
[2018-03-01] MEDS: DESYREL PO SCH ×2 (10:36→22:48)
[2018-03-01] MEDS: ZESTRIL FEEDTUBE SCH ×2 (10:36→23:29)
[2018-03-01] MEDS: SYMMETREL FEEDTUBE SCH (10:37)
[2018-03-01] MEDS: LANTUS SUB-Q SCH ×2 (10:37→22:48)
[2018-03-01] MEDS: SODIUM CHLORIDE FLUSH SYRINGE 10 ML IV SCH ×2 (10:38→22:46)
--- NOTE | 2018-03-01 15:08 | Progress Note ---
Assessment and Plan Assessment and plan: 72-year-old -[place] male with history of hemorrhagic stroke, status post PEG and trach from shelter admitted for sepsis, dehydration acute on chronic respiratory failure - On tracheobronchitis - Trach was clogged on admission, copious secretions, on trach care - On 5 litres of oxygen Hypernatremia -Resolved Hypokalemia: - repleted, corrected Metabolic encephalopathy; - multifactorial - Lethargic Sepsis, due to UTI and Pneumonia, sacral wound infection - AURIST serratia and AURIST pseudomonas - CXR showed bilateral infiltrates - on Avibactam Day 06/23, was treated with cefepime - Lactic acidosis -OR cultures 02/23 AURIST Pseudomonas, Proteus and Enterococcus raffinosus Type 2 diabetes mellitus uncontrolled diabetes mellitus; - Accu-Chek sliding scale coverage - tube feeding, adjust insulin as needed sacral decubitus ulcer infected -Status post debridement and wound VAC placement -Pending surgical culture results Nutrition - Through PEG tube Dyslipidemia; - continue lipid lowering medications Hemorrhagic stroke - MRI showed could be chronic - Patient has history of hemorrhagic stroke - Repeat CT showed no change from baseline DVT prophylaxis; - SCD becaues of hemorrhagic stroke Severe malnutrition - Dietary consult Full CODE STATUS The family wants what option hospice people have. Prognosis: poor I have discussed the management plan and the prognosis with his , Mrs Fleming. The plan was to discharge to shelter to finish the IV antibiotics & outpatient case manager she is working on it. History Interval history: Patient is on trach and PEG, patient was lethargic and non communicative. No family member was in the room at the time of examination. I have discussed the management plan was his and his niece. Hospitalist Physical - Physical exam Narrative exam: Patient has trach and on 5 L of oxygen Vital signs as documented. Head exam is unremarkable. No scleral icterus . Neck is without jugular venous distension, thyromegaly, or carotid bruits. Lungs are clear to auscultation. Cardiac exam reveals regular rate and Rhythm. First and second heart sounds normal. No murmurs, rubs or gallops. Abdominal exam reveals PEG tube in place. Integumentary sacral and heel ulcer POA. 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 - Constitutional Vitals: Temp Pulse Resp BP Pulse Ox 98.6 F 95 H 36 H 130/83 94 03/01/18 08:14 03/01/18 08:14 03/01/18 08:14 03/01/18 08:14 03/01/18 14:41 General appearance: Present: no acute distress, other (nonviable) Results - Labs CBC & Chem 7: 02/28/18 04:11 02/28/18 04:11 Labs: Laboratory Last Values WBC 14.2 K/mm3 (4.5-11.0) H 02/28/18 04:11 RBC 4.99 M/mm3 (3.65-5.03) 02/28/18 04:11 Hgb 12.0 gm/dl (11.8-15.2) 02/28/18 04:11 Hct 37.2 % (35.5-45.6) D 02/28/18 04:11 MCV 75 fl (84-94) L 02/28/18 04:11 MCH 24 pg (28-32) L 02/28/18 04:11 MCHC 32 % (32-34) 02/28/18 04:11 RDW 18.4 % (13.2-15.2) H 02/28/18 04:11 Plt Count 519 K/mm3 (140-440) H 02/28/18 04:11 Lymph % (Auto) 11.3 % (13.4-35.0) L 02/28/18 04:11 [place] % (Auto) 4.9 % (0.0-7.3) 02/28/18 04:11 Eos % (Auto) 1.8 % (0.0-4.3) 02/28/18 04:11 Baso % (Auto) 0.6 % (0.0-1.8) 02/28/18 04:11 Lymph # 1.6 K/mm3 (1.2-5.4) 02/28/18 04:11 [place] # 0.7 K/mm3 (0.0-0.8) 02/28/18 04:11 Eos # 0.2 K/mm3 (0.0-0.4) 02/28/18 04:11 Baso # 0.1 K/mm3 (0.0-0.1) 02/28/18 04:11 Add Manual Diff Complete 02/20/18 05:03 Total Counted 100 02/20/18 05:03 Seg Neutrophils % 81.4 % (40.0-70.0) H 02/28/18 04:11 Seg Neuts % (Manual) 85.0 % (40.0-70.0) H 02/20/18 05:03 Band Neutrophils % 2.0 % 02/20/18 05:03 Lymphocytes % (Manual) 7.0 % (13.4-35.0) L 02/20/18 05:03 Reactive Lymphs % (Man) 0 % 02/20/18 05:03 Monocytes % (Manual) 1.0 % (0.0-7.3) 02/20/18 05:03 Eosinophils % (Manual) 2.0 % (0.0-4.3) 02/20/18 05:03 Basophils % (Manual) 0 % (0.0-1.8) 02/20/18 05:03 Metamyelocytes % 3.0 % 02/20/18 05:03 Myelocytes % 0 % 02/20/18 05:03 Promyelocytes % 0 % 02/20/18 05:03 Blast Cells % 0 % 02/20/18 05:03 Nucleated RBC % Not Reportable 02/20/18 05:03 Seg Neutrophils # 11.6 K/mm3 (1.8-7.7) H 02/28/18 04:11 Seg Neutrophils # Man 11.6 K/mm3 (1.8-7.7) H 02/20/18 05:03 Band Neutrophils # 0.3 K/mm3 02/20/18 05:03 Lymphocytes # (Manual) 1.0 K/mm3 (1.2-5.4) L 02/20/18 05:03 Abs React Lymphs (Man) 0.0 K/mm3 02/20/18 05:03 Monocytes # (Manual) 0.1 K/mm3 (0.0-0.8) 02/20/18 05:03 Eosinophils # (Manual) 0.3 K/mm3 (0.0-0.4) 02/20/18 05:03 Basophils # (Manual) 0.0 K/mm3 (0.0-0.1) 02/20/18 05:03 Metamyelocytes # 0.4 K/mm3 02/20/18 05:03 Myelocytes # 0.0 K/mm3 02/20/18 05:03 Promyelocytes # 0.0 K/mm3 02/20/18 05:03 Blast Cells # 0.0 K/mm3 02/20/18 05:03 WBC Morphology Not Reportable 02/20/18 05:03 Hypersegmented Neuts Not Reportable 02/20/18 05:03 Hyposegmented Neuts Not Reportable 02/20/18 05:03 Hypogranular Neuts Not Reportable 02/20/18 05:03 Smudge Cells Not Reportable 02/20/18 05:03 Toxic Granulation Not Reportable 02/20/18 05:03 Toxic Vacuolation Not Reportable 02/20/18 05:03 Dohle Bodies Not Reportable 02/20/18 05:03 Pelger-Huet Anomaly Not Reportable 02/20/18 05:03 Helene Rods Not Reportable 02/20/18 05:03 Platelet Estimate Appears normal 02/20/18 05:03 Clumped Platelets Not Reportable 02/20/18 05:03 Plt Clumps, EDTA Not Reportable 02/20/18 05:03 Large Platelets Not Reportable 02/20/18 05:03 Giant Platelets Not Reportable 02/20/18 05:03 Platelet Satelliting Not Reportable 02/20/18 05:03 Plt Morphology Comment Not Reportable 02/20/18 05:03 RBC Morphology Not Reportable 02/20/18 05:03 Dimorphic RBCs Not Reportable 02/20/18 05:03 Polychromasia 1+ 02/20/18 05:03 Hypochromasia Not Reportable 02/20/18 05:03 Poikilocytosis Not Reportable 02/20/18 05:03 Anisocytosis 1+ 02/20/18 05:03 Microcytosis Not Reportable 02/20/18 05:03 Macrocytosis Not Reportable 02/20/18 05:03 Spherocytes Not Reportable 02/20/18 05:03 Pappenheimer Bodies Not Reportable 02/20/18 05:03 Sickle Cells Not Reportable 02/20/18 05:03 Target Cells Not Reportable 02/20/18 05:03 Tear Drop Cells Few 02/20/18 05:03 Ovalocytes 1+ 02/20/18 05:03 Stomatocytes Few 02/20/18 05:03 Helmet Cells Rare 02/20/18 05:03 [place] Bodies Not Reportable 02/20/18 05:03 [place] Rings Not Reportable 02/20/18 05:03 [place] Cells Not Reportable 02/20/18 05:03 Bite Cells Not Reportable 02/20/18 05:03 Crenated Cell Not Reportable 02/20/18 05:03 Elliptocytes Few 02/20/18 05:03 Acanthocytes (Spur) Not Reportable 02/20/18 05:03 Rouleaux Not Reportable 02/20/18 05:03 Hemoglobin C Crystals Not Reportable 02/20/18 05:03 Schistocytes Not Reportable 02/20/18 05:03 Malaria parasites Not Reportable 02/20/18 05:03 Huy Bodies Not Reportable 02/20/18 05:03 Hem Pathologist Commnt No 02/20/18 05:03 APTT 31.9 Sec. (24.2-36.6) 02/14/18 10:15 POC ABG pH 7.521 (7.35-7.45) H 02/14/18 10:39 POC ABG pCO2 38.8 (35-45) 02/14/18 10:39 POC ABG pO2 58 (80-105) L 02/14/18 10:39 POC ABG HCO3 31.8 02/14/18 10:39 POC ABG Total CO2 33 02/14/18 10:39 POC ABG O2 Sat 92 02/14/18 10:39 POC ABG Base Excess 9 02/14/18 10:39 FiO2 80 % 02/14/18 10:39 Sodium 136 mmol/L (137-145) L 02/28/18 04:11 Potassium 4.9 mmol/L (3.6-5.0) 02/28/18 04:11 Chloride 95.9 mmol/L (98-107) L 02/28/18 04:11 Carbon Dioxide 31 mmol/L (22-30) H 02/28/18 04:11 Anion Gap 14 mmol/L 02/28/18 04:11 BUN 19 mg/dL (9-20) 02/28/18 04:11 Creatinine 0.8 mg/dL (0.8-1.5) 02/28/18 04:11 Estimated GFR > 60 ml/min 02/28/18 04:11 BUN/Creatinine Ratio 24 % 02/28/18 04:11 Glucose 242 mg/dL (75-100) H 02/28/18 04:11 POC Glucose 227 (70-105) H 03/01/18 13:58 Hemoglobin A1c 10.1 % (4-6) H 02/14/18 20:21 Lactic Acid 3.00 mmol/L (0.7-2.0) H* 02/15/18 05:53 Calcium 10.7 mg/dL (8.4-10.2) H 02/28/18 04:11 Phosphorus 3.50 mg/dL (2.5-4.5) D 02/17/18 04:25 Magnesium 2.30 mg/dL (1.7-2.3) 02/17/18 04:25 Total Bilirubin 0.50 mg/dL (0.1-1.2) 02/15/18 02:16 AST 19 units/L (5-40) 02/15/18 02:16 ALT 41 units/L (7-56) 02/15/18 02:16 Alkaline Phosphatase 173 units/L (35-129) H 02/15/18 02:16 Total Creatine Kinase 46 units/L (55-170) L 02/14/18 10:15 C-Reactive Protein 4.50 mg/dL (0.00-1.30) H 02/20/18 05:03 Total Protein 6.2 g/dL (6.3-8.2) L 02/15/18 02:16 Albumin 2.0 g/dL (3.9-5) L 02/15/18 02:16 Albumin/Globulin Ratio 0.5 % 02/15/18 02:16 Urine Color Yellow (Yellow) 02/14/18 10:04 Urine Turbidity Hazy (Clear) 02/14/18 10:04 Urine pH 5.0 (5.0-7.0) 02/14/18 10:04 Ur Specific [place] 1.022 (1.003-1.030) 02/14/18 10:04 Urine Protein 30 mg/dl mg/dL (Negative) 02/14/18 10:04 Urine Glucose (UA) >=500 mg/dL (Negative) 02/14/18 10:04 Urine Ketones Neg mg/dL (Negative) 02/14/18 10:04 Urine Blood Sm (Negative) 02/14/18 10:04 Urine Nitrite Neg (Negative) 02/14/18 10:04 Urine Bilirubin Neg (Negative) 02/14/18 10:04 Urine Urobilinogen < 2.0 mg/dL (<2.0) 02/14/18 10:04 Ur Leukocyte Esterase Lg (Negative) 02/14/18 10:04 Urine WBC (Auto) 53.0 /HPF (0.0-6.0) H 02/14/18 10:04 Urine RBC (Auto) 13.0 /HPF (0.0-6.0) 02/14/18 10:04 U Epithel Cells (Auto) < 1.0 /HPF (0-13.0) 02/14/18 10:04 Urine Bacteria (Auto) 2+ /HPF (Negative) 02/14/18 10:04 Urine WBC Clumps 3+ /HPF 02/14/18 10:04 Hyaline Casts 7 /LPF 02/14/18 10:04 Urine Mucus Few /HPF 02/14/18 10:04 Vancomycin Trough 31.4 ug/mL (5.0-20.0) H 02/17/18 09:37 Random Vancomycin 16.5 ug/mL (0-40.0) 02/18/18 05:43 Blood Type O POSITIVE 02/14/18 10:15 Antibody Screen Negative 02/14/18 10:15
[2018-03-02] MEDS: HumaLOG SUB-Q SCH ×5 (00:34→23:51)
[2018-03-02] MEDS: LOPRESSOR FEEDTUBE SCH ×3 (06:52→21:48)
[2018-03-02] MEDS: AVYCAZ IV SCH ×3 (07:00→21:39)
[2018-03-02] MEDS: NACL 0.9% IV SCH ×3 (07:00→21:39)
[2018-03-02] MEDS: LANTUS SUB-Q SCH ×2 (11:42→21:47)
[2018-03-02] MEDS: KEPPRA FEEDTUBE SCH ×2 (11:46→21:49)
[2018-03-02] MEDS: DESYREL PO SCH ×2 (11:46→21:48)
[2018-03-02] MEDS: ZESTRIL FEEDTUBE SCH (11:46)
[2018-03-02] MEDS: SYMMETREL FEEDTUBE SCH (11:46)
[2018-03-02] MEDS: PEPCID FEEDTUBE SCH ×2 (11:46→22:07)
[2018-03-02] MEDS: SODIUM CHLORIDE FLUSH SYRINGE 10 ML IV SCH ×2 (11:48→21:47)
[2018-03-02] MEDS: DAKIN'S FULL STRENGTH TP SCH ×2 (11:48→22:06)
--- NOTE | 2018-03-02 15:33 | Progress Note ---
Assessment and Plan Assessment and plan: 72-year-old -[place]ron[place] male with history of hemorrhagic stroke, status [facility] admitted for sepsis, dehydration acute on chronic respiratory failure - On tracheobronchitis - Trach was clogged on admission, copious secretions, on trach care - On 5 litres of oxygen Hypernatremia -Resolved Hypokalemia: - repleted, corrected Metabolic encephalopathy; - multifactorial - Lethargic Sepsis, due to UTI and Pneumonia, sacral wound infection - NEUROSCIENTIST serratia and NEUROSCIENTIST pseudomonas - CXR showed bilateral infiltrates - on Avibactam Day 06/23, was treated with cefepime - Lactic acidosis -OR cultures 02/23 NEUROSCIENTIST Pseudomonas, Proteus and Enterococcus raffinosus Type 2 diabetes mellitus uncontrolled diabetes mellitus; - Accu-Chek sliding scale coverage - tube feeding, adjust insulin as needed sacral decubitus ulcer infected -Status post debridement and wound VAC placement -Pending surgical culture results Nutrition - Through PEG tube Dyslipidemia; - continue lipid lowering medications Hemorrhagic stroke - MRI showed could be chronic - Patient has history of hemorrhagic stroke - Repeat CT showed no change from baseline DVT prophylaxis; - SCD becaues of hemorrhagic stroke Severe malnutrition - Dietary consult Full CODE STATUS The family wants what option hospice people have. Prognosis: poor I have discussed the management plan and the prognosis with his . [facility] & case finisher she is working on it. History Interval history: Patient is on trach and PEG, patient was lethargic and non communicative. No family member was in the room at the time of examination. I have discussed the management plan was his and his niece yesterday. Hospitalist Physical - Physical exam Narrative exam: Patient has trach and on 5 L of oxygen Vital signs as documented. Head exam is unremarkable. No scleral icterus . Neck is without jugular venous distension, thyromegaly, or carotid bruits. Lungs are clear to auscultation. Cardiac exam reveals regular rate and Rhythm. First and second heart sounds normal. No murmurs, rubs or gallops. Abdominal exam reveals PEG tube in place. Integumentary sacral and heel ulcer POA. LIFESTYLE DIRECTOR: minimally responsive. - Constitutional Vitals: Temp Pulse Resp BP Pulse Ox 98.2 F 113 H 20 121/82 97 03/02/18 06:53 03/02/18 06:53 03/02/18 06:53 03/02/18 06:53 03/02/18 13:15 General appearance: Present: no acute distress, other (nonviable) Results - Labs CBC & Chem 7: 02/28/18 04:11 02/28/18 04:11 Labs: Laboratory Last Values WBC 14.2 K/mm3 (4.5-11.0) H 02/28/18 04:11 RBC 4.99 M/mm3 (3.65-5.03) 02/28/18 04:11 Hgb 12.0 gm/dl (11.8-15.2) 02/28/18 04:11 Hct 37.2 % (35.5-45.6) D 02/28/18 04:11 MCV 75 fl (84-94) L 02/28/18 04:11 MCH 24 pg (28-32) L 02/28/18 04:11 MCHC 32 % (32-34) 02/28/18 04:11 RDW 18.4 % (13.2-15.2) H 02/28/18 04:11 Plt Count 519 K/mm3 (140-440) H 02/28/18 04:11 Lymph % (Auto) 11.3 % (13.4-35.0) L 02/28/18 04:11 [place] % (Auto) 4.9 % (0.0-7.3) 02/28/18 04:11 Eos % (Auto) 1.8 % (0.0-4.3) 02/28/18 04:11 Baso % (Auto) 0.6 % (0.0-1.8) 02/28/18 04:11 Lymph # 1.6 K/mm3 (1.2-5.4) 02/28/18 04:11 [place] # 0.7 K/mm3 (0.0-0.8) 02/28/18 04:11 Eos # 0.2 K/mm3 (0.0-0.4) 02/28/18 04:11 Baso # 0.1 K/mm3 (0.0-0.1) 02/28/18 04:11 Add Manual Diff Complete 02/20/18 05:03 Total Counted 100 02/20/18 05:03 Seg Neutrophils % 81.4 % (40.0-70.0) H 02/28/18 04:11 Seg Neuts % (Manual) 85.0 % (40.0-70.0) H 02/20/18 05:03 Band Neutrophils % 2.0 % 02/20/18 05:03 Lymphocytes % (Manual) 7.0 % (13.4-35.0) L 02/20/18 05:03 Reactive Lymphs % (Man) 0 % 02/20/18 05:03 Monocytes % (Manual) 1.0 % (0.0-7.3) 02/20/18 05:03 Eosinophils % (Manual) 2.0 % (0.0-4.3) 02/20/18 05:03 Basophils % (Manual) 0 % (0.0-1.8) 02/20/18 05:03 Metamyelocytes % 3.0 % 02/20/18 05:03 Myelocytes % 0 % 02/20/18 05:03 Promyelocytes % 0 % 02/20/18 05:03 Blast Cells % 0 % 02/20/18 05:03 Nucleated RBC % Not Reportable 02/20/18 05:03 Seg Neutrophils # 11.6 K/mm3 (1.8-7.7) H 02/28/18 04:11 Seg Neutrophils # Man 11.6 K/mm3 (1.8-7.7) H 02/20/18 05:03 Band Neutrophils # 0.3 K/mm3 02/20/18 05:03 Lymphocytes # (Manual) 1.0 K/mm3 (1.2-5.4) L 02/20/18 05:03 Abs React Lymphs (Man) 0.0 K/mm3 02/20/18 05:03 Monocytes # (Manual) 0.1 K/mm3 (0.0-0.8) 02/20/18 05:03 Eosinophils # (Manual) 0.3 K/mm3 (0.0-0.4) 02/20/18 05:03 Basophils # (Manual) 0.0 K/mm3 (0.0-0.1) 02/20/18 05:03 Metamyelocytes # 0.4 K/mm3 02/20/18 05:03 Myelocytes # 0.0 K/mm3 02/20/18 05:03 Promyelocytes # 0.0 K/mm3 02/20/18 05:03 Blast Cells # 0.0 K/mm3 02/20/18 05:03 WBC Morphology Not Reportable 02/20/18 05:03 Hypersegmented Neuts Not Reportable 02/20/18 05:03 Hyposegmented Neuts Not Reportable 02/20/18 05:03 Hypogranular Neuts Not Reportable 02/20/18 05:03 Smudge Cells Not Reportable 02/20/18 05:03 Toxic Granulation Not Reportable 02/20/18 05:03 Toxic Vacuolation Not Reportable 02/20/18 05:03 Dohle Bodies Not Reportable 02/20/18 05:03 Pelger-Huet Anomaly Not Reportable 02/20/18 05:03 Helene Rods Not Reportable 02/20/18 05:03 Platelet Estimate Appears normal 02/20/18 05:03 Clumped Platelets Not Reportable 02/20/18 05:03 Plt Clumps, EDTA Not Reportable 02/20/18 05:03 Large Platelets Not Reportable 02/20/18 05:03 Giant Platelets Not Reportable 02/20/18 05:03 Platelet Satelliting Not Reportable 02/20/18 05:03 Plt Morphology Comment Not Reportable 02/20/18 05:03 RBC Morphology Not Reportable 02/20/18 05:03 Dimorphic RBCs Not Reportable 02/20/18 05:03 Polychromasia 1+ 02/20/18 05:03 Hypochromasia Not Reportable 02/20/18 05:03 Poikilocytosis Not Reportable 02/20/18 05:03 Anisocytosis 1+ 02/20/18 05:03 Microcytosis Not Reportable 02/20/18 05:03 Macrocytosis Not Reportable 02/20/18 05:03 Spherocytes Not Reportable 02/20/18 05:03 Pappenheimer Bodies Not Reportable 02/20/18 05:03 Sickle Cells Not Reportable 02/20/18 05:03 Target Cells Not Reportable 02/20/18 05:03 Tear Drop Cells Few 02/20/18 05:03 Ovalocytes 1+ 02/20/18 05:03 Stomatocytes Few 02/20/18 05:03 Helmet Cells Rare 02/20/18 05:03 Chaudh[place] Bodies Not Reportable 02/20/18 05:03 [place] Rings Not Reportable 02/20/18 05:03 [place] Cells Not Reportable 02/20/18 05:03 Bite Cells Not Reportable 02/20/18 05:03 Crenated Cell Not Reportable 02/20/18 05:03 Elliptocytes Few 02/20/18 05:03 Acanthocytes (Spur) Not Reportable 02/20/18 05:03 Rouleaux Not Reportable 02/20/18 05:03 Hemoglobin C Crystals Not Reportable 02/20/18 05:03 Schistocytes Not Reportable 02/20/18 05:03 Malaria parasites Not Reportable 02/20/18 05:03 Huy Bodies Not Reportable 02/20/18 05:03 Hem Pathologist Commnt No 02/20/18 05:03 APTT 31.9 Sec. (24.2-36.6) 02/14/18 10:15 POC ABG pH 7.521 (7.35-7.45) H 02/14/18 10:39 POC ABG pCO2 38.8 (35-45) 02/14/18 10:39 POC ABG pO2 58 (80-105) L 02/14/18 10:39 POC ABG HCO3 31.8 02/14/18 10:39 POC ABG Total CO2 33 02/14/18 10:39 POC ABG O2 Sat 92 02/14/18 10:39 POC ABG Base Excess 9 02/14/18 10:39 FiO2 80 % 02/14/18 10:39 Sodium 136 mmol/L (137-145) L 02/28/18 04:11 Potassium 4.9 mmol/L (3.6-5.0) 02/28/18 04:11 Chloride 95.9 mmol/L (98-107) L 02/28/18 04:11 Carbon Dioxide 31 mmol/L (22-30) H 02/28/18 04:11 Anion Gap 14 mmol/L 02/28/18 04:11 BUN 19 mg/dL (9-20) 02/28/18 04:11 Creatinine 0.8 mg/dL (0.8-1.5) 02/28/18 04:11 Estimated GFR > 60 ml/min 02/28/18 04:11 BUN/Creatinine Ratio 24 % 02/28/18 04:11 Glucose 242 mg/dL (75-100) H 02/28/18 04:11 POC Glucose 249 (70-105) H 03/02/18 11:37 Hemoglobin A1c 10.1 % (4-6) H 02/14/18 20:21 Lactic Acid 3.00 mmol/L (0.7-2.0) H* 02/15/18 05:53 Calcium 10.7 mg/dL (8.4-10.2) H 02/28/18 04:11 Phosphorus 3.50 mg/dL (2.5-4.5) D 02/17/18 04:25 Magnesium 2.30 mg/dL (1.7-2.3) 02/17/18 04:25 Total Bilirubin 0.50 mg/dL (0.1-1.2) 02/15/18 02:16 AST 19 units/L (5-40) 02/15/18 02:16 ALT 41 units/L (7-56) 02/15/18 02:16 Alkaline Phosphatase 173 units/L (35-129) H 02/15/18 02:16 Total Creatine Kinase 46 units/L (55-170) L 02/14/18 10:15 C-Reactive Protein 4.50 mg/dL (0.00-1.30) H 02/20/18 05:03 Total Protein 6.2 g/dL (6.3-8.2) L 02/15/18 02:16 Albumin 2.0 g/dL (3.9-5) L 02/15/18 02:16 Albumin/Globulin Ratio 0.5 % 02/15/18 02:16 Urine Color Yellow (Yellow) 02/14/18 10:04 Urine Turbidity Hazy (Clear) 02/14/18 10:04 Urine pH 5.0 (5.0-7.0) 02/14/18 10:04 Ur Specific [place] 1.022 (1.003-1.030) 02/14/18 10:04 Urine Protein 30 mg/dl mg/dL (Negative) 02/14/18 10:04 Urine Glucose (UA) >=500 mg/dL (Negative) 02/14/18 10:04 Urine Ketones Neg mg/dL (Negative) 02/14/18 10:04 Urine Blood Sm (Negative) 02/14/18 10:04 Urine Nitrite Neg (Negative) 02/14/18 10:04 Urine Bilirubin Neg (Negative) 02/14/18 10:04 Urine Urobilinogen < 2.0 mg/dL (<2.0) 02/14/18 10:04 Ur Leukocyte Esterase Lg (Negative) 02/14/18 10:04 Urine WBC (Auto) 53.0 /HPF (0.0-6.0) H 02/14/18 10:04 Urine RBC (Auto) 13.0 /HPF (0.0-6.0) 02/14/18 10:04 U Epithel Cells (Auto) < 1.0 /HPF (0-13.0) 02/14/18 10:04 Urine Bacteria (Auto) 2+ /HPF (Negative) 02/14/18 10:04 Urine WBC Clumps 3+ /HPF 02/14/18 10:04 Hyaline Casts 7 /LPF 02/14/18 10:04 Urine Mucus Few /HPF 02/14/18 10:04 Vancomycin Trough 31.4 ug/mL (5.0-20.0) H 02/17/18 09:37 Random Vancomycin 16.5 ug/mL (0-40.0) 02/18/18 05:43 Blood Type O POSITIVE 02/14/18 10:15 Antibody Screen Negative 02/14/18 10:15
[2018-03-02] MEDS: TRANSDERM-SCOP TD SCH (18:10)
[2018-03-03] MEDS: LOPRESSOR FEEDTUBE SCH ×3 (05:07→23:02)
[2018-03-03] MEDS: HumaLOG SUB-Q SCH ×3 (05:43→18:40)
[2018-03-03] MEDS: AVYCAZ IV SCH ×3 (06:07→22:59)
[2018-03-03] MEDS: NACL 0.9% IV SCH ×3 (06:07→22:59)
[2018-03-03] MEDS: LANTUS SUB-Q SCH ×2 (09:11→22:42)
[2018-03-03] MEDS: DAKIN'S FULL STRENGTH TP SCH ×2 (11:18→22:05)
[2018-03-03] MEDS: SYMMETREL FEEDTUBE SCH (11:19)
[2018-03-03] MEDS: KEPPRA FEEDTUBE SCH ×2 (11:19→22:40)
[2018-03-03] MEDS: ZESTRIL FEEDTUBE SCH (11:20)
[2018-03-03] MEDS: DESYREL PO SCH ×2 (11:20→22:41)
[2018-03-03] MEDS: PEPCID FEEDTUBE SCH ×2 (11:20→22:41)
[2018-03-03] MEDS: SODIUM CHLORIDE FLUSH SYRINGE 10 ML IV SCH ×2 (11:23→23:03)
--- NOTE | 2018-03-03 14:29 | Progress Note ---
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 and AUTOMOTIVE ELECTRICAL HELPER pseudomonas - CXR showed bilateral infiltrates - on Avibactam Day 07/23, was treated with cefepime - Lactic acidosis -OR cultures 02/23 AUTOMOTIVE ELECTRICAL HELPER Pseudomonas, Proteus and Enterococcus raffinosus Type 2 diabetes mellitus uncontrolled diabetes mellitus; - Accu-Chek sliding scale coverage - tube feeding, adjust insulin as needed sacral decubitus ulcer infected -Status post debridement and wound VAC placement -Pending surgical culture results Nutrition - Through PEG tube Dyslipidemia; - continue lipid lowering medications Hemorrhagic stroke - MRI showed could be chronic - Patient has history of hemorrhagic stroke - Repeat CT showed no change from baseline DVT prophylaxis; - SCD becaues of hemorrhagic stroke Severe malnutrition - Dietary consult Full CODE STATUS The family wants what option hospice people have. Prognosis: poor I have discussed the management plan and the prognosis with his . [facility] IV antibiotics & rehabilitation case coordinator she is working on it. History Interval history: Patient is on trach and PEG, patient was lethargic and non communicative. No family member was in the room at the time of examination. Hospitalist Physical - Physical exam Narrative exam: Patient has trach and on 5 L of oxygen Vital signs as documented. Head exam is unremarkable. No scleral icterus . Neck is without jugular venous distension, thyromegaly, or carotid bruits. Lungs are clear to auscultation. Cardiac exam reveals regular rate and Rhythm. First and second heart sounds normal. No murmurs, rubs or gallops. Abdominal exam reveals PEG tube in place. Integumentary sacral and heel ulcer POA. ELEVATOR CONSTRUCTOR ELECTRIC: minimally responsive. - Constitutional Vitals: Temp Pulse Resp BP Pulse Ox 97.7 F 93 H 28 H 145/84 99 03/03/18 08:44 03/03/18 08:44 03/03/18 08:44 03/03/18 08:44 03/03/18 08:44 General appearance: Present: no acute distress, other (nonviable) Results - Labs CBC & Chem 7: 02/28/18 04:11 02/28/18 04:11 Labs: Laboratory Last Values WBC 14.2 K/mm3 (4.5-11.0) H 02/28/18 04:11 RBC 4.99 M/mm3 (3.65-5.03) 02/28/18 04:11 Hgb 12.0 gm/dl (11.8-15.2) 02/28/18 04:11 Hct 37.2 % (35.5-45.6) D 02/28/18 04:11 MCV 75 fl (84-94) L 02/28/18 04:11 MCH 24 pg (28-32) L 02/28/18 04:11 MCHC 32 % (32-34) 02/28/18 04:11 RDW 18.4 % (13.2-15.2) H 02/28/18 04:11 Plt Count 519 K/mm3 (140-440) H 02/28/18 04:11 Lymph % (Auto) 11.3 % (13.4-35.0) L 02/28/18 04:11 [place] % (Auto) 4.9 % (0.0-7.3) 02/28/18 04:11 Eos % (Auto) 1.8 % (0.0-4.3) 02/28/18 04:11 Baso % (Auto) 0.6 % (0.0-1.8) 02/28/18 04:11 Lymph # 1.6 K/mm3 (1.2-5.4) 02/28/18 04:11 [place] # 0.7 K/mm3 (0.0-0.8) 02/28/18 04:11 Eos # 0.2 K/mm3 (0.0-0.4) 02/28/18 04:11 Baso # 0.1 K/mm3 (0.0-0.1) 02/28/18 04:11 Add Manual Diff Complete 02/20/18 05:03 Total Counted 100 02/20/18 05:03 Seg Neutrophils % 81.4 % (40.0-70.0) H 02/28/18 04:11 Seg Neuts % (Manual) 85.0 % (40.0-70.0) H 02/20/18 05:03 Band Neutrophils % 2.0 % 02/20/18 05:03 Lymphocytes % (Manual) 7.0 % (13.4-35.0) L 02/20/18 05:03 Reactive Lymphs % (Man) 0 % 02/20/18 05:03 Monocytes % (Manual) 1.0 % (0.0-7.3) 02/20/18 05:03 Eosinophils % (Manual) 2.0 % (0.0-4.3) 02/20/18 05:03 Basophils % (Manual) 0 % (0.0-1.8) 02/20/18 05:03 Metamyelocytes % 3.0 % 02/20/18 05:03 Myelocytes % 0 % 02/20/18 05:03 Promyelocytes % 0 % 02/20/18 05:03 Blast Cells % 0 % 02/20/18 05:03 Nucleated RBC % Not Reportable 02/20/18 05:03 Seg Neutrophils # 11.6 K/mm3 (1.8-7.7) H 02/28/18 04:11 Seg Neutrophils # Man 11.6 K/mm3 (1.8-7.7) H 02/20/18 05:03 Band Neutrophils # 0.3 K/mm3 02/20/18 05:03 Lymphocytes # (Manual) 1.0 K/mm3 (1.2-5.4) L 02/20/18 05:03 Abs React Lymphs (Man) 0.0 K/mm3 02/20/18 05:03 Monocytes # (Manual) 0.1 K/mm3 (0.0-0.8) 02/20/18 05:03 Eosinophils # (Manual) 0.3 K/mm3 (0.0-0.4) 02/20/18 05:03 Basophils # (Manual) 0.0 K/mm3 (0.0-0.1) 02/20/18 05:03 Metamyelocytes # 0.4 K/mm3 02/20/18 05:03 Myelocytes # 0.0 K/mm3 02/20/18 05:03 Promyelocytes # 0.0 K/mm3 02/20/18 05:03 Blast Cells # 0.0 K/mm3 02/20/18 05:03 WBC Morphology Not Reportable 02/20/18 05:03 Hypersegmented Neuts Not Reportable 02/20/18 05:03 Hyposegmented Neuts Not Reportable 02/20/18 05:03 Hypogranular Neuts Not Reportable 02/20/18 05:03 Smudge Cells Not Reportable 02/20/18 05:03 Toxic Granulation Not Reportable 02/20/18 05:03 Toxic Vacuolation Not Reportable 02/20/18 05:03 Dohle Bodies Not Reportable 02/20/18 05:03 Pelger-Huet Anomaly Not Reportable 02/20/18 05:03 Helene Rods Not Reportable 02/20/18 05:03 Platelet Estimate Appears normal 02/20/18 05:03 Clumped Platelets Not Reportable 02/20/18 05:03 Plt Clumps, EDTA Not Reportable 02/20/18 05:03 Large Platelets Not Reportable 02/20/18 05:03 Giant Platelets Not Reportable 02/20/18 05:03 Platelet Satelliting Not Reportable 02/20/18 05:03 Plt Morphology Comment Not Reportable 02/20/18 05:03 RBC Morphology Not Reportable 02/20/18 05:03 Dimorphic RBCs Not Reportable 02/20/18 05:03 Polychromasia 1+ 02/20/18 05:03 Hypochromasia Not Reportable 02/20/18 05:03 Poikilocytosis Not Reportable 02/20/18 05:03 Anisocytosis 1+ 02/20/18 05:03 Microcytosis Not Reportable 02/20/18 05:03 Macrocytosis Not Reportable 02/20/18 05:03 Spherocytes Not Reportable 02/20/18 05:03 Pappenheimer Bodies Not Reportable 02/20/18 05:03 Sickle Cells Not Reportable 02/20/18 05:03 Target Cells Not Reportable 02/20/18 05:03 Tear Drop Cells Few 02/20/18 05:03 Ovalocytes 1+ 02/20/18 05:03 Stomatocytes Few 02/20/18 05:03 Helmet Cells Rare 02/20/18 05:03 [place] Bodies Not Reportable 02/20/18 05:03 [place] Rings Not Reportable 02/20/18 05:03 [place] Cells Not Reportable 02/20/18 05:03 Bite Cells Not Reportable 02/20/18 05:03 Crenated Cell Not Reportable 02/20/18 05:03 Elliptocytes Few 02/20/18 05:03 Acanthocytes (Spur) Not Reportable 02/20/18 05:03 Rouleaux Not Reportable 02/20/18 05:03 Hemoglobin C Crystals Not Reportable 02/20/18 05:03 Schistocytes Not Reportable 02/20/18 05:03 Malaria parasites Not Reportable 02/20/18 05:03 Huy Bodies Not Reportable 02/20/18 05:03 Hem Pathologist Commnt No 02/20/18 05:03 APTT 31.9 Sec. (24.2-36.6) 02/14/18 10:15 POC ABG pH 7.521 (7.35-7.45) H 02/14/18 10:39 POC ABG pCO2 38.8 (35-45) 02/14/18 10:39 POC ABG pO2 58 (80-105) L 02/14/18 10:39 POC ABG HCO3 31.8 02/14/18 10:39 POC ABG Total CO2 33 02/14/18 10:39 POC ABG O2 Sat 92 02/14/18 10:39 POC ABG Base Excess 9 02/14/18 10:39 FiO2 80 % 02/14/18 10:39 Sodium 136 mmol/L (137-145) L 02/28/18 04:11 Potassium 4.9 mmol/L (3.6-5.0) 02/28/18 04:11 Chloride 95.9 mmol/L (98-107) L 02/28/18 04:11 Carbon Dioxide 31 mmol/L (22-30) H 02/28/18 04:11 Anion Gap 14 mmol/L 02/28/18 04:11 BUN 19 mg/dL (9-20) 02/28/18 04:11 Creatinine 0.8 mg/dL (0.8-1.5) 02/28/18 04:11 Estimated GFR > 60 ml/min 02/28/18 04:11 BUN/Creatinine Ratio 24 % 02/28/18 04:11 Glucose 242 mg/dL (75-100) H 02/28/18 04:11 POC Glucose 130 (70-105) H 03/03/18 12:50 Hemoglobin A1c 10.1 % (4-6) H 02/14/18 20:21 Lactic Acid 3.00 mmol/L (0.7-2.0) H* 02/15/18 05:53 Calcium 10.7 mg/dL (8.4-10.2) H 02/28/18 04:11 Phosphorus 3.50 mg/dL (2.5-4.5) D 02/17/18 04:25 Magnesium 2.30 mg/dL (1.7-2.3) 02/17/18 04:25 Total Bilirubin 0.50 mg/dL (0.1-1.2) 02/15/18 02:16 AST 19 units/L (5-40) 02/15/18 02:16 ALT 41 units/L (7-56) 02/15/18 02:16 Alkaline Phosphatase 173 units/L (35-129) H 02/15/18 02:16 Total Creatine Kinase 46 units/L (55-170) L 02/14/18 10:15 C-Reactive Protein 4.50 mg/dL (0.00-1.30) H 02/20/18 05:03 Total Protein 6.2 g/dL (6.3-8.2) L 02/15/18 02:16 Albumin 2.0 g/dL (3.9-5) L 02/15/18 02:16 Albumin/Globulin Ratio 0.5 % 02/15/18 02:16 Urine Color Yellow (Yellow) 02/14/18 10:04 Urine Turbidity Hazy (Clear) 02/14/18 10:04 Urine pH 5.0 (5.0-7.0) 02/14/18 10:04 Ur Specific [place] 1.022 (1.003-1.030) 02/14/18 10:04 Urine Protein 30 mg/dl mg/dL (Negative) 02/14/18 10:04 Urine Glucose (UA) >=500 mg/dL (Negative) 02/14/18 10:04 Urine Ketones Neg mg/dL (Negative) 02/14/18 10:04 Urine Blood Sm (Negative) 02/14/18 10:04 Urine Nitrite Neg (Negative) 02/14/18 10:04 Urine Bilirubin Neg (Negative) 02/14/18 10:04 Urine Urobilinogen < 2.0 mg/dL (<2.0) 02/14/18 10:04 Ur Leukocyte Esterase Lg (Negative) 02/14/18 10:04 Urine WBC (Auto) 53.0 /HPF (0.0-6.0) H 02/14/18 10:04 Urine RBC (Auto) 13.0 /HPF (0.0-6.0) 02/14/18 10:04 U Epithel Cells (Auto) < 1.0 /HPF (0-13.0) 02/14/18 10:04 Urine Bacteria (Auto) 2+ /HPF (Negative) 02/14/18 10:04 Urine WBC Clumps 3+ /HPF 02/14/18 10:04 Hyaline Casts 7 /LPF 02/14/18 10:04 Urine Mucus Few /HPF 02/14/18 10:04 Vancomycin Trough 31.4 ug/mL (5.0-20.0) H 02/17/18 09:37 Random Vancomycin 16.5 ug/mL (0-40.0) 02/18/18 05:43 Blood Type O POSITIVE 02/14/18 10:15 Antibody Screen Negative 02/14/18 10:15
[2018-03-04] MEDS: HumaLOG SUB-Q SCH ×4 (00:50→18:55)
[2018-03-04 05:30] LABS: Basophils # (Auto) 0.1 K/mm3 (0.0-0.1); Basophils % (Auto) 1.3 % (0.0-1.8); Eosinophils # (Auto) 0.3 K/mm3 (0.0-0.4); Eosinophils % (Auto) 2.9 % (0.0-4.3); Hematocrit 39.8 % (35.5-45.6); Hemoglobin 12.9 gm/dl (11.8-15.2); Lymphocytes # (Auto) 1.5 K/mm3 (1.2-5.4); Lymphocytes % (Auto) 13.9 % (13.4-35.0); Mean Corpuscular HGB Conc 32 % (32-34); Mean Corpuscular Volume 76 fl (84-94); Monocytes # (Auto) 0.8 K/mm3 (0.0-0.8); Monocytes % (Auto) 7.1 % (0.0-7.3); Platelet Count 401 K/mm3 (140-440); Red Blood Count 5.24 M/mm3 (3.65-5.03)
[2018-03-04 05:36] LABS: Mean Corpuscular Hemoglobin 25 pg (28-32)
[2018-03-04] MEDS: NACL 0.9% IV SCH ×3 (05:36→22:22)
[2018-03-04] MEDS: AVYCAZ IV SCH ×3 (05:36→22:22)
[2018-03-04] MEDS: LOPRESSOR FEEDTUBE SCH ×3 (05:38→22:35)
[2018-03-04 05:46] LABS: BUN/Creatinine Ratio 31; Blood Urea Nitrogen 25 mg/dL (9-20); Calcium 10.9 mg/dL (8.4-10.2); Hemolysis Index 20
[2018-03-04] MEDS: LANTUS SUB-Q SCH ×2 (09:38→22:43)
[2018-03-04] MEDS: SYMMETREL FEEDTUBE SCH (09:41)
[2018-03-04] MEDS: KEPPRA FEEDTUBE SCH ×2 (09:41→22:14)
[2018-03-04] MEDS: PEPCID FEEDTUBE SCH ×2 (09:42→22:14)
[2018-03-04] MEDS: ZESTRIL FEEDTUBE SCH (09:42)
[2018-03-04] MEDS: DESYREL PO SCH ×2 (09:42→22:14)
[2018-03-04] MEDS: SODIUM CHLORIDE FLUSH SYRINGE 10 ML IV SCH ×2 (09:43→22:15)
[2018-03-04] MEDS: DAKIN'S FULL STRENGTH TP SCH ×2 (09:43→22:13)
--- NOTE | 2018-03-04 13:11 | Progress Note ---
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 and VOCAL MUSIC TEACHER pseudomonas - CXR showed bilateral infiltrates - on Avibactam Day 09/22, was treated with cefepime - Lactic acidosis -OR cultures 02/23 VOCAL MUSIC TEACHER Pseudomonas, Proteus and Enterococcus raffinosus Type 2 diabetes mellitus uncontrolled diabetes mellitus; - Accu-Chek sliding scale coverage - tube feeding, adjust insulin as needed sacral decubitus ulcer infected -Status post debridement and wound VAC placement -Pending surgical culture results Nutrition - Through PEG tube Dyslipidemia; - continue lipid lowering medications Hemorrhagic stroke - MRI showed could be chronic - Patient has history of hemorrhagic stroke - Repeat CT showed no change from baseline DVT prophylaxis; - SCD becaues of hemorrhagic stroke Severe malnutrition - Dietary consult Full CODE STATUS The family wants what option hospice people have. Prognosis: poor I have discussed the management plan and the prognosis with his . The plan was to [facility] to [facility] to finish the IV antibiotics & case coordinator she is working on it. History Interval history: Patient is on trach and PEG, patient was lethargic and non communicative. No family member was in the room at the time of examination. Hospitalist Physical - Physical exam Narrative exam: Patient has trach and on 5 L of oxygen Vital signs as documented. Head exam is unremarkable. No scleral icterus . Neck is without jugular venous distension, thyromegaly, or carotid bruits. Lungs are clear to auscultation. Cardiac exam reveals regular rate and Rhythm. First and second heart sounds normal. No murmurs, rubs or gallops. Abdominal exam reveals PEG tube in place. Integumentary sacral and heel ulcer POA. SUGAR GRINDER:comatose - Constitutional Vitals: Temp Pulse Resp BP Pulse Ox 97.5 F L 96 H 19 147/90 97 03/04/18 07:25 03/04/18 07:25 03/04/18 07:25 03/04/18 09:42 03/04/18 10:00 General appearance: Present: no acute distress, other (nonviable) Results - Labs CBC & Chem 7: 03/04/18 04:52 03/04/18 04:52 Labs: Laboratory Last Values WBC 10.8 K/mm3 (4.5-11.0) 03/04/18 04:52 RBC 5.24 M/mm3 (3.65-5.03) H 03/04/18 04:52 Hgb 12.9 gm/dl (11.8-15.2) 03/04/18 04:52 Hct 39.8 % (35.5-45.6) 03/04/18 04:52 MCV 76 fl (84-94) L 03/04/18 04:52 MCH 25 pg (28-32) L 03/04/18 04:52 MCHC 32 % (32-34) 03/04/18 04:52 RDW 19.0 % (13.2-15.2) H 03/04/18 04:52 Plt Count 401 K/mm3 (140-440) 03/04/18 04:52 Lymph % (Auto) 13.9 % (13.4-35.0) 03/04/18 04:52 [place] % (Auto) 7.1 % (0.0-7.3) 03/04/18 04:52 Eos % (Auto) 2.9 % (0.0-4.3) 03/04/18 04:52 Baso % (Auto) 1.3 % (0.0-1.8) 03/04/18 04:52 Lymph # 1.5 K/mm3 (1.2-5.4) 03/04/18 04:52 [place] # 0.8 K/mm3 (0.0-0.8) 03/04/18 04:52 Eos # 0.3 K/mm3 (0.0-0.4) 03/04/18 04:52 Baso # 0.1 K/mm3 (0.0-0.1) 03/04/18 04:52 Add Manual Diff Complete 02/20/18 05:03 Total Counted 100 02/20/18 05:03 Seg Neutrophils % 74.8 % (40.0-70.0) H 03/04/18 04:52 Seg Neuts % (Manual) 85.0 % (40.0-70.0) H 02/20/18 05:03 Band Neutrophils % 2.0 % 02/20/18 05:03 Lymphocytes % (Manual) 7.0 % (13.4-35.0) L 02/20/18 05:03 Reactive Lymphs % (Man) 0 % 02/20/18 05:03 Monocytes % (Manual) 1.0 % (0.0-7.3) 02/20/18 05:03 Eosinophils % (Manual) 2.0 % (0.0-4.3) 02/20/18 05:03 Basophils % (Manual) 0 % (0.0-1.8) 02/20/18 05:03 Metamyelocytes % 3.0 % 02/20/18 05:03 Myelocytes % 0 % 02/20/18 05:03 Promyelocytes % 0 % 02/20/18 05:03 Blast Cells % 0 % 02/20/18 05:03 Nucleated RBC % Not Reportable 02/20/18 05:03 Seg Neutrophils # 8.1 K/mm3 (1.8-7.7) H 03/04/18 04:52 Seg Neutrophils # Man 11.6 K/mm3 (1.8-7.7) H 02/20/18 05:03 Band Neutrophils # 0.3 K/mm3 02/20/18 05:03 Lymphocytes # (Manual) 1.0 K/mm3 (1.2-5.4) L 02/20/18 05:03 Abs React Lymphs (Man) 0.0 K/mm3 02/20/18 05:03 Monocytes # (Manual) 0.1 K/mm3 (0.0-0.8) 02/20/18 05:03 Eosinophils # (Manual) 0.3 K/mm3 (0.0-0.4) 02/20/18 05:03 Basophils # (Manual) 0.0 K/mm3 (0.0-0.1) 02/20/18 05:03 Metamyelocytes # 0.4 K/mm3 02/20/18 05:03 Myelocytes # 0.0 K/mm3 02/20/18 05:03 Promyelocytes # 0.0 K/mm3 02/20/18 05:03 Blast Cells # 0.0 K/mm3 02/20/18 05:03 WBC Morphology Not Reportable 02/20/18 05:03 Hypersegmented Neuts Not Reportable 02/20/18 05:03 Hyposegmented Neuts Not Reportable 02/20/18 05:03 Hypogranular Neuts Not Reportable 02/20/18 05:03 Smudge Cells Not Reportable 02/20/18 05:03 Toxic Granulation Not Reportable 02/20/18 05:03 Toxic Vacuolation Not Reportable 02/20/18 05:03 Dohle Bodies Not Reportable 02/20/18 05:03 Pelger-Huet Anomaly Not Reportable 02/20/18 05:03 Helene Rods Not Reportable 02/20/18 05:03 Platelet Estimate Appears normal 02/20/18 05:03 Clumped Platelets Not Reportable 02/20/18 05:03 Plt Clumps, EDTA Not Reportable 02/20/18 05:03 Large Platelets Not Reportable 02/20/18 05:03 Giant Platelets Not Reportable 02/20/18 05:03 Platelet Satelliting Not Reportable 02/20/18 05:03 Plt Morphology Comment Not Reportable 02/20/18 05:03 RBC Morphology Not Reportable 02/20/18 05:03 Dimorphic RBCs Not Reportable 02/20/18 05:03 Polychromasia 1+ 02/20/18 05:03 Hypochromasia Not Reportable 02/20/18 05:03 Poikilocytosis Not Reportable 02/20/18 05:03 Anisocytosis 1+ 02/20/18 05:03 Microcytosis Not Reportable 02/20/18 05:03 Macrocytosis Not Reportable 02/20/18 05:03 Spherocytes Not Reportable 02/20/18 05:03 Pappenheimer Bodies Not Reportable 02/20/18 05:03 Sickle Cells Not Reportable 02/20/18 05:03 Target Cells Not Reportable 02/20/18 05:03 Tear Drop Cells Few 02/20/18 05:03 Ovalocytes 1+ 02/20/18 05:03 Stomatocytes Few 02/20/18 05:03 Helmet Cells Rare 02/20/18 05:[address] [place] Bodies Not Reportable 02/20/18 05:03 [place] Rings Not Reportable 02/20/18 05:03 [place] Cells Not Reportable 02/20/18 05:03 Bite Cells Not Reportable 02/20/18 05:03 Crenated Cell Not Reportable 02/20/18 05:03 Elliptocytes Few 02/20/18 05:03 Acanthocytes (Spur) Not Reportable 02/20/18 05:03 Rouleaux Not Reportable 02/20/18 05:03 Hemoglobin C Crystals Not Reportable 02/20/18 05:03 Schistocytes Not Reportable 02/20/18 05:03 Malaria parasites Not Reportable 02/20/18 05:03 Huy Bodies Not Reportable 02/20/18 05:03 Hem Pathologist Commnt No 02/20/18 05:03 APTT 31.9 Sec. (24.2-36.6) 02/14/18 10:15 POC ABG pH 7.521 (7.35-7.45) H 02/14/18 10:39 POC ABG pCO2 38.8 (35-45) 02/14/18 10:39 POC ABG pO2 58 (80-105) L 02/14/18 10:39 POC ABG HCO3 31.8 02/14/18 10:39 POC ABG Total CO2 33 02/14/18 10:39 POC ABG O2 Sat 92 02/14/18 10:39 POC ABG Base Excess 9 02/14/18 10:39 FiO2 80 % 02/14/18 10:39 Sodium 137 mmol/L (137-145) 03/04/18 04:52 Potassium 4.9 mmol/L (3.6-5.0) 03/04/18 04:52 Chloride 93.7 mmol/L (98-107) L 03/04/18 04:52 Carbon Dioxide 32 mmol/L (22-30) H 03/04/18 04:52 Anion Gap 16 mmol/L 03/04/18 04:52 BUN 25 mg/dL (9-20) H 03/04/18 04:52 Creatinine 0.8 mg/dL (0.8-1.5) 03/04/18 04:52 Estimated GFR > 60 ml/min 03/04/18 04:52 BUN/Creatinine Ratio 31 % 03/04/18 04:52 Glucose 171 mg/dL (75-100) H 03/04/18 04:52 POC Glucose 218 (70-105) H 03/04/18 11:27 Hemoglobin A1c 10.1 % (4-6) H 02/14/18 20:21 Lactic Acid 3.00 mmol/L (0.7-2.0) H* 02/15/18 05:53 Calcium 10.9 mg/dL (8.4-10.2) H 03/04/18 04:52 Phosphorus 3.50 mg/dL (2.5-4.5) D 02/17/18 04:25 Magnesium 2.30 mg/dL (1.7-2.3) 02/17/18 04:25 Total Bilirubin 0.50 mg/dL (0.1-1.2) 02/15/18 02:16 AST 19 units/L (5-40) 02/15/18 02:16 ALT 41 units/L (7-56) 02/15/18 02:16 Alkaline Phosphatase 173 units/L (35-129) H 02/15/18 02:16 Total Creatine Kinase 46 units/L (55-170) L 02/14/18 10:15 C-Reactive Protein 4.50 mg/dL (0.00-1.30) H 02/20/18 05:03 Total Protein 6.2 g/dL (6.3-8.2) L 02/15/18 02:16 Albumin 2.0 g/dL (3.9-5) L 02/15/18 02:16 Albumin/Globulin Ratio 0.5 % 02/15/18 02:16 Urine Color Yellow (Yellow) 02/14/18 10:04 Urine Turbidity Hazy (Clear) 02/14/18 10:04 Urine pH 5.0 (5.0-7.0) 02/14/18 10:04 Ur Specific [place] 1.022 (1.003-1.030) 02/14/18 10:04 Urine Protein 30 mg/dl mg/dL (Negative) 02/14/18 10:04 Urine Glucose (UA) >=500 mg/dL (Negative) 02/14/18 10:04 Urine Ketones Neg mg/dL (Negative) 02/14/18 10:04 Urine Blood Sm (Negative) 02/14/18 10:04 Urine Nitrite Neg (Negative) 02/14/18 10:04 Urine Bilirubin Neg (Negative) 02/14/18 10:04 Urine Urobilinogen < 2.0 mg/dL (<2.0) 02/14/18 10:04 Ur Leukocyte Esterase Lg (Negative) 02/14/18 10:04 Urine WBC (Auto) 53.0 /HPF (0.0-6.0) H 02/14/18 10:04 Urine RBC (Auto) 13.0 /HPF (0.0-6.0) 02/14/18 10:04 U Epithel Cells (Auto) < 1.0 /HPF (0-13.0) 02/14/18 10:04 Urine Bacteria (Auto) 2+ /HPF (Negative) 02/14/18 10:04 Urine WBC Clumps 3+ /HPF 02/14/18 10:04 Hyaline Casts 7 /LPF 02/14/18 10:04 Urine Mucus Few /HPF 02/14/18 10:04 Vancomycin Trough 31.4 ug/mL (5.0-20.0) H 02/17/18 09:37 Random Vancomycin 16.5 ug/mL (0-40.0) 02/18/18 05:43 Blood Type O POSITIVE 02/14/18 10:15 Antibody Screen Negative 02/14/18 10:15
[2018-03-05] MEDS: HumaLOG SUB-Q SCH ×3 (00:01→18:13)
[2018-03-05] MEDS: AVYCAZ IV SCH ×3 (06:57→22:50)
[2018-03-05] MEDS: NACL 0.9% IV SCH ×3 (06:57→22:50)
[2018-03-05] MEDS: LOPRESSOR FEEDTUBE SCH ×3 (07:00→22:50)
--- NOTE | 2018-03-05 07:49 | Progress Note ---
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 and OBSTETRICS GYN PHYSICIAN pseudomonas - CXR showed bilateral infiltrates - on Avibactam Day , was treated with cefepime - Lactic acidosis -OR cultures 02/23 OBSTETRICS GYN PHYSICIAN Pseudomonas, Proteus and Enterococcus raffinosus Type 2 diabetes mellitus uncontrolled diabetes mellitus; - Accu-Chek sliding scale coverage - tube feeding, adjust insulin as needed sacral decubitus ulcer infected -Status post debridement and wound VAC placement -Pending surgical culture results Nutrition - Through PEG tube Dyslipidemia; - continue lipid lowering medications Hemorrhagic stroke - MRI showed could be chronic - Patient has history of hemorrhagic stroke - Repeat CT showed no change from baseline DVT prophylaxis; - SCD becaues of hemorrhagic stroke Severe malnutrition - Dietary consult Full CODE STATUS The family wants what option hospice people have. Prognosis: poor I have discussed the management plan and the prognosis with his . The plan was to discharge to care home to finish the IV antibiotics & correctional case manager she is working on it. History Interval history: Patient is on trach and PEG, patient was lethargic and non communicative. No family member was in the room at the time of examination. Hospitalist Physical - Physical exam Narrative exam: Patient has trach and on 5 L of oxygen Vital signs as documented. Head exam is unremarkable. No scleral icterus . Neck is without jugular venous distension, thyromegaly, or carotid bruits. Lungs are clear to auscultation. Cardiac exam reveals regular rate and Rhythm. First and second heart sounds normal. No murmurs, rubs or gallops. Abdominal exam reveals PEG tube in place. Integumentary sacral and heel ulcer POA. CERTIFIED ENERGY MANAGER:comatose - Constitutional Vitals: Temp Pulse Resp BP Pulse Ox 99.1 F 121 H 30 H 131/83 98 03/04/18 19:30 03/05/18 07:00 03/05/18 06:58 03/05/18 07:00 03/04/18 23:35 General appearance: Present: no acute distress, other (nonviable) Results - Labs CBC & Chem 7: 03/04/18 04:52 03/04/18 04:52 Labs: Laboratory Last Values WBC 10.8 K/mm3 (4.5-11.0) 03/04/18 04:52 RBC 5.24 M/mm3 (3.65-5.03) H 03/04/18 04:52 Hgb 12.9 gm/dl (11.8-15.2) 03/04/18 04:52 Hct 39.8 % (35.5-45.6) 03/04/18 04:52 MCV 76 fl (84-94) L 03/04/18 04:52 MCH 25 pg (28-32) L 03/04/18 04:52 MCHC 32 % (32-34) 03/04/18 04:52 RDW 19.0 % (13.2-15.2) H 03/04/18 04:52 Plt Count 401 K/mm3 (140-440) 03/04/18 04:52 Lymph % (Auto) 13.9 % (13.4-35.0) 03/04/18 04:52 [place] % (Auto) 7.1 % (0.0-7.3) 03/04/18 04:52 Eos % (Auto) 2.9 % (0.0-4.3) 03/04/18 04:52 Baso % (Auto) 1.3 % (0.0-1.8) 03/04/18 04:52 Lymph # 1.5 K/mm3 (1.2-5.4) 03/04/18 04:52 [place] # 0.8 K/mm3 (0.0-0.8) 03/04/18 04:52 Eos # 0.3 K/mm3 (0.0-0.4) 03/04/18 04:52 Baso # 0.1 K/mm3 (0.0-0.1) 03/04/18 04:52 Add Manual Diff Complete 02/20/18 05:03 Total Counted 100 02/20/18 05:03 Seg Neutrophils % 74.8 % (40.0-70.0) H 03/04/18 04:52 Seg Neuts % (Manual) 85.0 % (40.0-70.0) H 02/20/18 05:03 Band Neutrophils % 2.0 % 02/20/18 05:03 Lymphocytes % (Manual) 7.0 % (13.4-35.0) L 02/20/18 05:03 Reactive Lymphs % (Man) 0 % 02/20/18 05:03 Monocytes % (Manual) 1.0 % (0.0-7.3) 02/20/18 05:03 Eosinophils % (Manual) 2.0 % (0.0-4.3) 02/20/18 05:03 Basophils % (Manual) 0 % (0.0-1.8) 02/20/18 05:03 Metamyelocytes % 3.0 % 02/20/18 05:03 Myelocytes % 0 % 02/20/18 05:03 Promyelocytes % 0 % 02/20/18 05:03 Blast Cells % 0 % 02/20/18 05:03 Nucleated RBC % Not Reportable 02/20/18 05:03 Seg Neutrophils # 8.1 K/mm3 (1.8-7.7) H 03/04/18 04:52 Seg Neutrophils # Man 11.6 K/mm3 (1.8-7.7) H 02/20/18 05:03 Band Neutrophils # 0.3 K/mm3 02/20/18 05:03 Lymphocytes # (Manual) 1.0 K/mm3 (1.2-5.4) L 02/20/18 05:03 Abs React Lymphs (Man) 0.0 K/mm3 02/20/18 05:03 Monocytes # (Manual) 0.1 K/mm3 (0.0-0.8) 02/20/18 05:03 Eosinophils # (Manual) 0.3 K/mm3 (0.0-0.4) 02/20/18 05:03 Basophils # (Manual) 0.0 K/mm3 (0.0-0.1) 02/20/18 05:03 Metamyelocytes # 0.4 K/mm3 02/20/18 05:03 Myelocytes # 0.0 K/mm3 02/20/18 05:03 Promyelocytes # 0.0 K/mm3 02/20/18 05:03 Blast Cells # 0.0 K/mm3 02/20/18 05:03 WBC Morphology Not Reportable 02/20/18 05:03 Hypersegmented Neuts Not Reportable 02/20/18 05:03 Hyposegmented Neuts Not Reportable 02/20/18 05:03 Hypogranular Neuts Not Reportable 02/20/18 05:03 Smudge Cells Not Reportable 02/20/18 05:03 Toxic Granulation Not Reportable 02/20/18 05:03 Toxic Vacuolation Not Reportable 02/20/18 05:03 Dohle Bodies Not Reportable 02/20/18 05:03 Pelger-Huet Anomaly Not Reportable 02/20/18 05:03 Helene Rods Not Reportable 02/20/18 05:03 Platelet Estimate Appears normal 02/20/18 05:03 Clumped Platelets Not Reportable 02/20/18 05:03 Plt Clumps, EDTA Not Reportable 02/20/18 05:03 Large Platelets Not Reportable 02/20/18 05:03 Giant Platelets Not Reportable 02/20/18 05:03 Platelet Satelliting Not Reportable 02/20/18 05:03 Plt Morphology Comment Not Reportable 02/20/18 05:03 RBC Morphology Not Reportable 02/20/18 05:03 Dimorphic RBCs Not Reportable 02/20/18 05:03 Polychromasia 1+ 02/20/18 05:03 Hypochromasia Not Reportable 02/20/18 05:03 Poikilocytosis Not Reportable 02/20/18 05:03 Anisocytosis 1+ 02/20/18 05:03 Microcytosis Not Reportable 02/20/18 05:03 Macrocytosis Not Reportable 02/20/18 05:03 Spherocytes Not Reportable 02/20/18 05:03 Pappenheimer Bodies Not Reportable 02/20/18 05:03 Sickle Cells Not Reportable 02/20/18 05:03 Target Cells Not Reportable 02/20/18 05:03 Tear Drop Cells Few 02/20/18 05:03 Ovalocytes 1+ 02/20/18 05:03 Stomatocytes Few 02/20/18 05:03 Helmet Cells Rare 02/20/18 05:03 [place] Bodies Not Reportable 02/20/18 05:03 [place] Rings Not Reportable 02/20/18 05:03 [place] Cells Not Reportable 02/20/18 05:03 Bite Cells Not Reportable 02/20/18 05:03 Crenated Cell Not Reportable 02/20/18 05:03 Elliptocytes Few 02/20/18 05:03 Acanthocytes (Spur) Not Reportable 02/20/18 05:03 Rouleaux Not Reportable 02/20/18 05:03 Hemoglobin C Crystals Not Reportable 02/20/18 05:03 Schistocytes Not Reportable 02/20/18 05:03 Malaria parasites Not Reportable 02/20/18 05:03 Huy Bodies Not Reportable 02/20/18 05:03 Hem Pathologist Commnt No 02/20/18 05:03 APTT 31.9 Sec. (24.2-36.6) 02/14/18 10:15 POC ABG pH 7.521 (7.35-7.45) H 02/14/18 10:39 POC ABG pCO2 38.8 (35-45) 02/14/18 10:39 POC ABG pO2 58 (80-105) L 02/14/18 10:39 POC ABG HCO3 31.8 02/14/18 10:39 POC ABG Total CO2 33 02/14/18 10:39 POC ABG O2 Sat 92 02/14/18 10:39 POC ABG Base Excess 9 02/14/18 10:39 FiO2 80 % 02/14/18 10:39 Sodium 137 mmol/L (137-145) 03/04/18 04:52 Potassium 4.9 mmol/L (3.6-5.0) 03/04/18 04:52 Chloride 93.7 mmol/L (98-107) L 03/04/18 04:52 Carbon Dioxide 32 mmol/L (22-30) H 03/04/18 04:52 Anion Gap 16 mmol/L 03/04/18 04:52 BUN 25 mg/dL (9-20) H 03/04/18 04:52 Creatinine 0.8 mg/dL (0.8-1.5) 03/04/18 04:52 Estimated GFR > 60 ml/min 03/04/18 04:52 BUN/Creatinine Ratio 31 % 03/04/18 04:52 Glucose 171 mg/dL (75-100) H 03/04/18 04:52 POC Glucose 199 (70-105) H 03/05/18 06:23 Hemoglobin A1c 10.1 % (4-6) H 02/14/18 20:21 Lactic Acid 3.00 mmol/L (0.7-2.0) H* 02/15/18 05:53 Calcium 10.9 mg/dL (8.4-10.2) H 03/04/18 04:52 Phosphorus 3.50 mg/dL (2.5-4.5) D 02/17/18 04:25 Magnesium 2.30 mg/dL (1.7-2.3) 02/17/18 04:25 Total Bilirubin 0.50 mg/dL (0.1-1.2) 02/15/18 02:16 AST 19 units/L (5-40) 02/15/18 02:16 ALT 41 units/L (7-56) 02/15/18 02:16 Alkaline Phosphatase 173 units/L (35-129) H 02/15/18 02:16 Total Creatine Kinase 46 units/L (55-170) L 02/14/18 10:15 C-Reactive Protein 4.50 mg/dL (0.00-1.30) H 02/20/18 05:03 Total Protein 6.2 g/dL (6.3-8.2) L 02/15/18 02:16 Albumin 2.0 g/dL (3.9-5) L 02/15/18 02:16 Albumin/Globulin Ratio 0.5 % 02/15/18 02:16 Urine Color Yellow (Yellow) 02/14/18 10:04 Urine Turbidity Hazy (Clear) 02/14/18 10:04 Urine pH 5.0 (5.0-7.0) 02/14/18 10:04 Ur Specific [place] 1.022 (1.003-1.030) 02/14/18 10:04 Urine Protein 30 mg/dl mg/dL (Negative) 02/14/18 10:04 Urine Glucose (UA) >=500 mg/dL (Negative) 02/14/18 10:04 Urine Ketones Neg mg/dL (Negative) 02/14/18 10:04 Urine Blood Sm (Negative) 02/14/18 10:04 Urine Nitrite Neg (Negative) 02/14/18 10:04 Urine Bilirubin Neg (Negative) 02/14/18 10:04 Urine Urobilinogen < 2.0 mg/dL (<2.0) 02/14/18 10:04 Ur Leukocyte Esterase Lg (Negative) 02/14/18 10:04 Urine WBC (Auto) 53.0 /HPF (0.0-6.0) H 02/14/18 10:04 Urine RBC (Auto) 13.0 /HPF (0.0-6.0) 02/14/18 10:04 U Epithel Cells (Auto) < 1.0 /HPF (0-13.0) 02/14/18 10:04 Urine Bacteria (Auto) 2+ /HPF (Negative) 02/14/18 10:04 Urine WBC Clumps 3+ /HPF 02/14/18 10:04 Hyaline Casts 7 /LPF 02/14/18 10:04 Urine Mucus Few /HPF 02/14/18 10:04 Vancomycin Trough 31.4 ug/mL (5.0-20.0) H 02/17/18 09:37 Random Vancomycin 16.5 ug/mL (0-40.0) 02/18/18 05:43 Blood Type O POSITIVE 02/14/18 10:15 Antibody Screen Negative 02/14/18 10:15
[2018-03-05] MEDS: KEPPRA FEEDTUBE SCH ×2 (09:15→22:50)
[2018-03-05] MEDS: SYMMETREL FEEDTUBE SCH (09:16)
[2018-03-05] MEDS: DESYREL PO SCH ×2 (09:16→22:50)
[2018-03-05] MEDS: PEPCID FEEDTUBE SCH ×2 (09:16→22:50)
[2018-03-05] MEDS: ZESTRIL FEEDTUBE SCH (09:17)
[2018-03-05] MEDS: LANTUS SUB-Q SCH ×2 (09:19→22:50)
--- NOTE | 2018-03-05 11:52 | Progress Note ---
Subjective Date of service: 03/05/18 Principal diagnosis: [employer] UTI Interval history: labs notes and VS reviewed went over notes no change in neuro status continue to monitor closely Objective - Vital Sign Vital Signs - 12hr 03/05/18 03/05/18 03/05/18 06:58 07:00 07:35 Temperature 98.6 F Pulse Rate 121 H Respiratory 30 H 19 Rate Blood Pressure 131/83 126/80 O2 Sat by Pulse Oximetry O2 Sat by Pulse Oximetry [ Assessment] 03/05/18 03/05/18 03/05/18 09:10 09:12 09:17 Temperature Pulse Rate Respiratory Rate Blood Pressure 126/80 O2 Sat by Pulse 97 Oximetry O2 Sat by Pulse 97 Oximetry [ Assessment] - Laboratory Findings CBC and BMP: 03/04/18 04:52 03/04/18 04:52 Abnormal Lab Findings: Abnormal Labs 02/14/18 02/14/18 02/14/18 09:53 10:04 10:15 WBC 22.9 H RBC 5.53 H Hgb Hct MCV 78 L MCH 23 L MCHC 30 L RDW 17.5 H Plt Count Lymph % (Auto) Eos # Seg Neutrophils % Seg Neuts % (Manual) Lymphocytes % (Manual) 13.0 L Seg Neutrophils # Seg Neutrophils # Man 14.4 H Lymphocytes # (Manual) POC ABG pH POC ABG pO2 Sodium Potassium Chloride Carbon Dioxide BUN Creatinine Glucose POC Glucose > 500 H Hemoglobin A1c Lactic Acid Calcium Magnesium AST Alkaline Phosphatase Total Creatine Kinase C-Reactive Protein Total Protein Albumin Urine WBC (Auto) 53.0 H Vancomycin Trough 02/14/18 02/14/18 02/14/18 10:15 10:15 10:39 WBC RBC Hgb Hct MCV MCH MCHC RDW Plt Count Lymph % (Auto) Eos # Seg Neutrophils % Seg Neuts % (Manual) Lymphocytes % (Manual) Seg Neutrophils # Seg Neutrophils # Man Lymphocytes # (Manual) POC ABG pH 7.521 H POC ABG pO2 58 L Sodium 160 H Potassium 5.3 H Chloride 116.1 H Carbon Dioxide 31 H BUN 61 H Creatinine Glucose 544 H* POC Glucose Hemoglobin A1c Lactic Acid 3.80 H* Calcium 11.0 H Magnesium AST 52 H Alkaline Phosphatase 216 H Total Creatine Kinase 46 L C-Reactive Protein Total Protein Albumin 2.9 L Urine WBC (Auto) Vancomycin Trough 02/14/18 02/14/18 02/14/18 11:36 13:20 14:40 WBC RBC Hgb Hct MCV MCH MCHC RDW Plt Count Lymph % (Auto) Eos # Seg Neutrophils % Seg Neuts % (Manual) Lymphocytes % (Manual) Seg Neutrophils # Seg Neutrophils # Man Lymphocytes # (Manual) POC ABG pH POC ABG pO2 Sodium Potassium Chloride Carbon Dioxide BUN Creatinine Glucose POC Glucose 409 H Hemoglobin A1c Lactic Acid 3.20 H* 2.40 H* Calcium Magnesium AST Alkaline Phosphatase Total Creatine Kinase C-Reactive Protein Total Protein Albumin Urine WBC (Auto) Vancomycin Trough 02/14/18 02/14/18 02/14/18 17:05 18:35 20:21 WBC RBC Hgb Hct MCV MCH MCHC RDW Plt Count Lymph % (Auto) Eos # Seg Neutrophils % Seg Neuts % (Manual) Lymphocytes % (Manual) Seg Neutrophils # Seg Neutrophils # Man Lymphocytes # (Manual) POC ABG pH POC ABG pO2 Sodium Potassium Chloride Carbon Dioxide BUN Creatinine Glucose POC Glucose 386 H Hemoglobin A1c Lactic Acid 2.60 H* 2.70 H* Calcium Magnesium AST Alkaline Phosphatase Total Creatine Kinase C-Reactive Protein Total Protein Albumin Urine WBC (Auto) Vancomycin Trough 02/14/18 02/14/18 02/14/18 20:21 21:15 22:13 WBC RBC Hgb Hct MCV MCH MCHC RDW Plt Count Lymph % (Auto) Eos # Seg Neutrophils % Seg Neuts % (Manual) Lymphocytes % (Manual) Seg Neutrophils # Seg Neutrophils # Man Lymphocytes # (Manual) POC ABG pH POC ABG pO2 Sodium Potassium Chloride Carbon Dioxide BUN Creatinine Glucose POC Glucose Hemoglobin A1c 10.1 H Lactic Acid 2.80 H* 2.60 H* Calcium Magnesium AST Alkaline Phosphatase Total Creatine Kinase C-Reactive Protein Total Protein Albumin Urine WBC (Auto) Vancomycin Trough 02/14/18 02/14/18 02/15/18 22:17 22:54 00:02 WBC RBC Hgb Hct MCV MCH MCHC RDW Plt Count Lymph % (Auto) Eos # Seg Neutrophils % Seg Neuts % (Manual) Lymphocytes % (Manual) Seg Neutrophils # Seg Neutrophils # Man Lymphocytes # (Manual) POC ABG pH POC ABG pO2 Sodium Potassium Chloride Carbon Dioxide BUN Creatinine Glucose POC Glucose 360 H Hemoglobin A1c Lactic Acid 3.10 H* 2.80 H* Calcium Magnesium AST Alkaline Phosphatase Total Creatine Kinase C-Reactive Protein Total Protein Albumin Urine WBC (Auto) Vancomycin Trough 02/15/18 02/15/18 02/15/18 02:16 02:16 02:16 WBC 21.8 H RBC Hgb Hct MCV 77 L MCH 24 L MCHC 31 L RDW 18.0 H Plt Count Lymph % (Auto) Eos # Seg Neutrophils % Seg Neuts % (Manual) Lymphocytes % (Manual) 13.0 L Seg Neutrophils # Seg Neutrophils # Man 13.6 H Lymphocytes # (Manual) POC ABG pH POC ABG pO2 Sodium 163 H* Potassium Chloride 122.4 H Carbon Dioxide BUN 45 H Creatinine Glucose 390 H POC Glucose Hemoglobin A1c Lactic Acid 3.30 H* Calcium 10.7 H Magnesium AST Alkaline Phosphatase 173 H Total Creatine Kinase C-Reactive Protein Total Protein 6.2 L Albumin 2.0 L Urine WBC (Auto) Vancomycin Trough 02/15/18 02/15/18 02/15/18 05:53 08:03 11:30 WBC RBC Hgb Hct MCV MCH MCHC RDW Plt Count Lymph % (Auto) Eos # Seg Neutrophils % Seg Neuts % (Manual) Lymphocytes % (Manual) Seg Neutrophils # Seg Neutrophils # Man Lymphocytes # (Manual) POC ABG pH POC ABG pO2 Sodium Potassium Chloride Carbon Dioxide BUN Creatinine Glucose POC Glucose 242 H 306 H Hemoglobin A1c Lactic Acid 3.00 H* Calcium Magnesium AST Alkaline Phosphatase Total Creatine Kinase C-Reactive Protein Total Protein Albumin Urine WBC (Auto) Vancomycin Trough 02/15/18 02/15/18 02/15/18 16:13 19:26 23:30 WBC RBC Hgb Hct MCV MCH MCHC RDW Plt Count Lymph % (Auto) Eos # Seg Neutrophils % Seg Neuts % (Manual) Lymphocytes % (Manual) Seg Neutrophils # Seg Neutrophils # Man Lymphocytes # (Manual) POC ABG pH POC ABG pO2 Sodium 168 H* Potassium 3.2 L D Chloride 126.8 H Carbon Dioxide BUN 33 H Creatinine Glucose 206 H POC Glucose 246 H 252 H Hemoglobin A1c Lactic Acid Calcium 10.7 H Magnesium AST Alkaline Phosphatase Total Creatine Kinase C-Reactive Protein Total Protein Albumin Urine WBC (Auto) Vancomycin Trough 02/16/18 02/16/18 02/16/18 00:05 05:28 05:47 WBC RBC Hgb Hct MCV MCH MCHC RDW Plt Count Lymph % (Auto) Eos # Seg Neutrophils % Seg Neuts % (Manual) Lymphocytes % (Manual) Seg Neutrophils # Seg Neutrophils # Man Lymphocytes # (Manual) POC ABG pH POC ABG pO2 Sodium 166 H* 164 H* Potassium 3.3 L Chloride 123.1 H Carbon Dioxide BUN 32 H Creatinine Glucose 231 H POC Glucose 240 H Hemoglobin A1c Lactic Acid Calcium 10.3 H Magnesium 2.40 H AST Alkaline Phosphatase Total Creatine Kinase C-Reactive Protein Total Protein Albumin Urine WBC (Auto) Vancomycin Trough 02/16/18 02/16/18 02/16/18 10:17 11:42 16:41 WBC RBC Hgb Hct MCV MCH MCHC RDW Plt Count Lymph % (Auto) Eos # Seg Neutrophils % Seg Neuts % (Manual) Lymphocytes % (Manual) Seg Neutrophils # Seg Neutrophils # Man Lymphocytes # (Manual) POC ABG pH POC ABG pO2 Sodium 161 H* Potassium Chloride Carbon Dioxide BUN Creatinine Glucose POC Glucose 152 H 110 H Hemoglobin A1c Lactic Acid Calcium Magnesium AST Alkaline Phosphatase Total Creatine Kinase C-Reactive Protein Total Protein Albumin Urine WBC (Auto) Vancomycin Trough 02/16/18 02/16/18 02/17/18 21:13 21:31 04:25 WBC RBC Hgb Hct MCV MCH MCHC RDW Plt Count Lymph % (Auto) Eos # Seg Neutrophils % Seg Neuts % (Manual) Lymphocytes % (Manual) Seg Neutrophils # Seg Neutrophils # Man Lymphocytes # (Manual) POC ABG pH POC ABG pO2 Sodium 161 H* 160 H Potassium Chloride 121.6 H Carbon Dioxide BUN 28 H Creatinine Glucose 226 H POC Glucose 187 H Hemoglobin A1c Lactic Acid Calcium Magnesium AST Alkaline Phosphatase Total Creatine Kinase C-Reactive Protein Total Protein Albumin Urine WBC (Auto) Vancomycin Trough 02/17/18 02/17/18 02/17/18 04:25 06:18 09:37 WBC 18.7 H RBC Hgb 10.1 L Hct 32.8 L D MCV 76 L MCH 24 L MCHC 31 L RDW 17.2 H Plt Count Lymph % (Auto) Eos # Seg Neutrophils % Seg Neuts % (Manual) 78.0 H Lymphocytes % (Manual) Seg Neutrophils # Seg Neutrophils # Man 14.6 H Lymphocytes # (Manual) POC ABG pH POC ABG pO2 Sodium Potassium Chloride Carbon Dioxide BUN Creatinine Glucose POC Glucose 214 H Hemoglobin A1c Lactic Acid Calcium Magnesium AST Alkaline Phosphatase Total Creatine Kinase C-Reactive Protein Total Protein Albumin Urine WBC (Auto) Vancomycin Trough 31.4 H 02/17/18 02/17/18 02/17/18 12:31 17:38 23:51 WBC RBC Hgb Hct MCV MCH MCHC RDW Plt Count Lymph % (Auto) Eos # Seg Neutrophils % Seg Neuts % (Manual) Lymphocytes % (Manual) Seg Neutrophils # Seg Neutrophils # Man Lymphocytes # (Manual) POC ABG pH POC ABG pO2 Sodium Potassium Chloride Carbon Dioxide BUN Creatinine Glucose POC Glucose 141 H 209 H 261 H Hemoglobin A1c Lactic Acid Calcium Magnesium AST Alkaline Phosphatase Total Creatine Kinase C-Reactive Protein Total Protein Albumin Urine WBC (Auto) Vancomycin Trough 02/18/18 02/18/18 02/18/18 05:43 05:43 06:26 WBC 13.8 H RBC Hgb 9.5 L Hct 30.7 L MCV 76 L MCH 24 L MCHC 31 L RDW 17.1 H Plt Count Lymph % (Auto) 11.5 L Eos # 0.5 H Seg Neutrophils % 79.1 H Seg Neuts % (Manual) Lymphocytes % (Manual) Seg Neutrophils # 10.9 H Seg Neutrophils # Man Lymphocytes # (Manual) POC ABG pH POC ABG pO2 Sodium 152 H Potassium Chloride 114.3 H Carbon Dioxide BUN 26 H Creatinine Glucose 322 H POC Glucose 308 H Hemoglobin A1c Lactic Acid Calcium Magnesium AST Alkaline Phosphatase Total Creatine Kinase C-Reactive Protein Total Protein Albumin Urine WBC (Auto) Vancomycin Trough 02/18/18 02/18/18 02/18/18 12:21 16:29 21:24 WBC RBC Hgb Hct MCV MCH MCHC RDW Plt Count Lymph % (Auto) Eos # Seg Neutrophils % Seg Neuts % (Manual) Lymphocytes % (Manual) Seg Neutrophils # Seg Neutrophils # Man Lymphocytes # (Manual) POC ABG pH POC ABG pO2 Sodium Potassium Chloride Carbon Dioxide BUN Creatinine Glucose POC Glucose 328 H 296 H 249 H Hemoglobin A1c Lactic Acid Calcium Magnesium AST Alkaline Phosphatase Total Creatine Kinase C-Reactive Protein Total Protein Albumin Urine WBC (Auto) Vancomycin Trough 02/19/18 02/19/18 02/19/18 06:42 07:14 07:14 WBC 13.8 H RBC Hgb 10.2 L Hct 31.0 L MCV 74 L MCH 24 L MCHC RDW 16.9 H Plt Count Lymph % (Auto) Eos # Seg Neutrophils % Seg Neuts % (Manual) 86.0 H Lymphocytes % (Manual) 9.0 L Seg Neutrophils # Seg Neutrophils # Man 11.9 H Lymphocytes # (Manual) POC ABG pH POC ABG pO2 Sodium 149 H Potassium 3.5 L Chloride 111.1 H Carbon Dioxide BUN 24 H Creatinine Glucose 263 H POC Glucose 258 H Hemoglobin A1c Lactic Acid Calcium Magnesium AST Alkaline Phosphatase Total Creatine Kinase C-Reactive Protein Total Protein Albumin Urine WBC (Auto) Vancomycin Trough 02/19/18 02/19/18 02/19/18 11:36 16:42 21:36 WBC RBC Hgb Hct MCV MCH MCHC RDW Plt Count Lymph % (Auto) Eos # Seg Neutrophils % Seg Neuts % (Manual) Lymphocytes % (Manual) Seg Neutrophils # Seg Neutrophils # Man Lymphocytes # (Manual) POC ABG pH POC ABG pO2 Sodium Potassium Chloride Carbon Dioxide BUN Creatinine Glucose POC Glucose 293 H 264 H 208 H Hemoglobin A1c Lactic Acid Calcium Magnesium AST Alkaline Phosphatase Total Creatine Kinase C-Reactive Protein Total Protein Albumin Urine WBC (Auto) Vancomycin Trough 02/20/18 02/20/18 02/20/18 05:03 05:03 05:03 WBC 13.6 H RBC Hgb 10.1 L Hct 31.1 L MCV 74 L MCH 24 L MCHC RDW 16.7 H Plt Count Lymph % (Auto) Eos # Seg Neutrophils % Seg Neuts % (Manual) 85.0 H Lymphocytes % (Manual) 7.0 L Seg Neutrophils # Seg Neutrophils # Man 11.6 H Lymphocytes # (Manual) 1.0 L POC ABG pH POC ABG pO2 Sodium 151 H Potassium Chloride 112.5 H Carbon Dioxide BUN 24 H Creatinine Glucose 237 H POC Glucose Hemoglobin A1c Lactic Acid Calcium Magnesium AST Alkaline Phosphatase Total Creatine Kinase C-Reactive Protein 4.50 H Total Protein Albumin Urine WBC (Auto) Vancomycin Trough 02/20/18 02/20/18 02/20/18 05:57 11:46 16:09 WBC RBC Hgb Hct MCV MCH MCHC RDW Plt Count Lymph % (Auto) Eos # Seg Neutrophils % Seg Neuts % (Manual) Lymphocytes % (Manual) Seg Neutrophils # Seg Neutrophils # Man Lymphocytes # (Manual) POC ABG pH POC ABG pO2 Sodium Potassium Chloride Carbon Dioxide BUN Creatinine Glucose POC Glucose 264 H 266 H 233 H Hemoglobin A1c Lactic Acid Calcium Magnesium AST Alkaline Phosphatase Total Creatine Kinase C-Reactive Protein Total Protein Albumin Urine WBC (Auto) Vancomycin Trough 02/20/18 02/21/18 02/21/18 22:08 05:56 06:13 WBC RBC Hgb Hct MCV MCH MCHC RDW Plt Count Lymph % (Auto) Eos # Seg Neutrophils % Seg Neuts % (Manual) Lymphocytes % (Manual) Seg Neutrophils # Seg Neutrophils # Man Lymphocytes # (Manual) POC ABG pH POC ABG pO2 Sodium 146 H Potassium Chloride 108.2 H Carbon Dioxide BUN 21 H Creatinine Glucose 198 H POC Glucose 207 H 207 H Hemoglobin A1c Lactic Acid Calcium Magnesium AST Alkaline Phosphatase Total Creatine Kinase C-Reactive Protein Total Protein Albumin Urine WBC (Auto) Vancomycin Trough 02/21/18 02/21/18 02/21/18 12:20 17:14 19:26 WBC RBC Hgb Hct MCV MCH MCHC RDW Plt Count Lymph % (Auto) Eos # Seg Neutrophils % Seg Neuts % (Manual) Lymphocytes % (Manual) Seg Neutrophils # Seg Neutrophils # Man Lymphocytes # (Manual) POC ABG pH POC ABG pO2 Sodium Potassium Chloride Carbon Dioxide BUN Creatinine Glucose POC Glucose 168 H 116 H 121 H Hemoglobin A1c Lactic Acid Calcium Magnesium AST Alkaline Phosphatase Total Creatine Kinase C-Reactive Protein Total Protein Albumin Urine WBC (Auto) Vancomycin Trough 02/21/18 02/22/18 02/22/18 21:51 05:46 06:11 WBC RBC Hgb Hct MCV MCH MCHC RDW Plt Count Lymph % (Auto) Eos # Seg Neutrophils % Seg Neuts % (Manual) Lymphocytes % (Manual) Seg Neutrophils # Seg Neutrophils # Man Lymphocytes # (Manual) POC ABG pH POC ABG pO2 Sodium Potassium Chloride Carbon Dioxide BUN 22 H Creatinine Glucose 203 H POC Glucose 132 H 183 H Hemoglobin A1c Lactic Acid Calcium Magnesium AST Alkaline Phosphatase Total Creatine Kinase C-Reactive Protein Total Protein Albumin Urine WBC (Auto) Vancomycin Trough 02/22/18 02/22/18 02/22/18 11:30 17:36 22:15 WBC RBC Hgb Hct MCV MCH MCHC RDW Plt Count Lymph % (Auto) Eos # Seg Neutrophils % Seg Neuts % (Manual) Lymphocytes % (Manual) Seg Neutrophils # Seg Neutrophils # Man Lymphocytes # (Manual) POC ABG pH POC ABG pO2 Sodium Potassium Chloride Carbon Dioxide BUN Creatinine Glucose POC Glucose 222 H 249 H 203 H Hemoglobin A1c Lactic Acid Calcium Magnesium AST Alkaline Phosphatase Total Creatine Kinase C-Reactive Protein Total Protein Albumin Urine WBC (Auto) Vancomycin Trough 02/23/18 02/23/18 02/23/18 05:21 05:58 08:48 WBC RBC Hgb Hct MCV MCH MCHC RDW Plt Count Lymph % (Auto) Eos # Seg Neutrophils % Seg Neuts % (Manual) Lymphocytes % (Manual) Seg Neutrophils # Seg Neutrophils # Man Lymphocytes # (Manual) POC ABG pH POC ABG pO2 Sodium 147 H Potassium Chloride 107.3 H Carbon Dioxide 33 H BUN 21 H Creatinine Glucose 70 L POC Glucose 66 L 43 L Hemoglobin A1c Lactic Acid Calcium 10.6 H Magnesium AST Alkaline Phosphatase Total Creatine Kinase C-Reactive Protein Total Protein Albumin Urine WBC (Auto) Vancomycin Trough 02/23/18 02/23/18 02/23/18 09:43 17:05 23:54 WBC RBC Hgb Hct MCV MCH MCHC RDW Plt Count Lymph % (Auto) Eos # Seg Neutrophils % Seg Neuts % (Manual) Lymphocytes % (Manual) Seg Neutrophils # Seg Neutrophils # Man Lymphocytes # (Manual) POC ABG pH POC ABG pO2 Sodium Potassium Chloride Carbon Dioxide BUN Creatinine Glucose POC Glucose 107 H 110 H 219 H Hemoglobin A1c Lactic Acid Calcium Magnesium AST Alkaline Phosphatase Total Creatine Kinase C-Reactive Protein Total Protein Albumin Urine WBC (Auto) Vancomycin Trough 02/24/18 02/24/18 02/24/18 04:35 04:35 05:09 WBC 12.4 H RBC Hgb 10.3 L Hct 31.4 L MCV 74 L MCH 24 L MCHC RDW 17.3 H Plt Count Lymph % (Auto) 12.0 L Eos # Seg Neutrophils % 79.1 H Seg Neuts % (Manual) Lymphocytes % (Manual) Seg Neutrophils # 9.8 H Seg Neutrophils # Man Lymphocytes # (Manual) POC ABG pH POC ABG pO2 Sodium Potassium Chloride Carbon Dioxide BUN Creatinine Glucose 254 H POC Glucose 264 H Hemoglobin A1c Lactic Acid Calcium Magnesium AST Alkaline Phosphatase Total Creatine Kinase C-Reactive Protein Total Protein Albumin Urine WBC (Auto) Vancomycin Trough 02/24/18 02/24/18 02/25/18 11:21 16:33 00:08 WBC RBC Hgb Hct MCV MCH MCHC RDW Plt Count Lymph % (Auto) Eos # Seg Neutrophils % Seg Neuts % (Manual) Lymphocytes % (Manual) Seg Neutrophils # Seg Neutrophils # Man Lymphocytes # (Manual) POC ABG pH POC ABG pO2 Sodium Potassium Chloride Carbon Dioxide BUN Creatinine Glucose POC Glucose 276 H 227 H 250 H Hemoglobin A1c Lactic Acid Calcium Magnesium AST Alkaline Phosphatase Total Creatine Kinase C-Reactive Protein Total Protein Albumin Urine WBC (Auto) Vancomycin Trough 02/25/18 02/25/18 02/25/18 04:16 04:16 05:36 WBC 12.3 H RBC Hgb 10.2 L Hct 30.8 L MCV 74 L MCH 24 L MCHC RDW 17.9 H Plt Count Lymph % (Auto) Eos # Seg Neutrophils % 76.0 H Seg Neuts % (Manual) Lymphocytes % (Manual) Seg Neutrophils # 9.3 H Seg Neutrophils # Man Lymphocytes # (Manual) POC ABG pH POC ABG pO2 Sodium Potassium Chloride Carbon Dioxide BUN Creatinine 0.7 L Glucose 251 H POC Glucose 213 H Hemoglobin A1c Lactic Acid Calcium Magnesium AST Alkaline Phosphatase Total Creatine Kinase C-Reactive Protein Total Protein Albumin Urine WBC (Auto) Vancomycin Trough 02/25/18 02/25/18 02/26/18 13:30 17:42 00:28 WBC RBC Hgb Hct MCV MCH MCHC RDW Plt Count Lymph % (Auto) Eos # Seg Neutrophils % Seg Neuts % (Manual) Lymphocytes % (Manual) Seg Neutrophils # Seg Neutrophils # Man Lymphocytes # (Manual) POC ABG pH POC ABG pO2 Sodium Potassium Chloride Carbon Dioxide BUN Creatinine Glucose POC Glucose 121 H 111 H 164 H Hemoglobin A1c Lactic Acid Calcium Magnesium AST Alkaline Phosphatase Total Creatine Kinase C-Reactive Protein Total Protein Albumin Urine WBC (Auto) Vancomycin Trough 02/26/18 02/26/18 02/26/18 05:41 06:55 17:30 WBC RBC Hgb Hct MCV MCH MCHC RDW Plt Count Lymph % (Auto) Eos # Seg Neutrophils % Seg Neuts % (Manual) Lymphocytes % (Manual) Seg Neutrophils # Seg Neutrophils # Man Lymphocytes # (Manual) POC ABG pH POC ABG pO2 Sodium Potassium Chloride Carbon Dioxide BUN Creatinine Glucose 163 H POC Glucose 144 H 186 H Hemoglobin A1c Lactic Acid Calcium Magnesium AST Alkaline Phosphatase Total Creatine Kinase C-Reactive Protein Total Protein Albumin Urine WBC (Auto) Vancomycin Trough 02/27/18 02/27/18 02/27/18 00:20 06:35 11:49 WBC RBC Hgb Hct MCV MCH MCHC RDW Plt Count Lymph % (Auto) Eos # Seg Neutrophils % Seg Neuts % (Manual) Lymphocytes % (Manual) Seg Neutrophils # Seg Neutrophils # Man Lymphocytes # (Manual) POC ABG pH POC ABG pO2 Sodium Potassium Chloride Carbon Dioxide BUN Creatinine Glucose POC Glucose 154 H 211 H 240 H Hemoglobin A1c Lactic Acid Calcium Magnesium AST Alkaline Phosphatase Total Creatine Kinase C-Reactive Protein Total Protein Albumin Urine WBC (Auto) Vancomycin Trough 02/27/18 02/27/18 02/28/18 17:44 21:48 04:11 WBC 14.2 H RBC Hgb Hct MCV 75 L MCH 24 L MCHC RDW 18.4 H Plt Count 519 H Lymph % (Auto) 11.3 L Eos # Seg Neutrophils % 81.4 H Seg Neuts % (Manual) Lymphocytes % (Manual) Seg Neutrophils # 11.6 H Seg Neutrophils # Man Lymphocytes # (Manual) POC ABG pH POC ABG pO2 Sodium Potassium Chloride Carbon Dioxide BUN Creatinine Glucose POC Glucose 200 H 217 H Hemoglobin A1c Lactic Acid Calcium Magnesium AST Alkaline Phosphatase Total Creatine Kinase C-Reactive Protein Total Protein Albumin Urine WBC (Auto) Vancomycin Trough 02/28/18 02/28/18 02/28/18 04:11 05:36 12:02 WBC RBC Hgb Hct MCV MCH MCHC RDW Plt Count Lymph % (Auto) Eos # Seg Neutrophils % Seg Neuts % (Manual) Lymphocytes % (Manual) Seg Neutrophils # Seg Neutrophils # Man Lymphocytes # (Manual) POC ABG pH POC ABG pO2 Sodium 136 L Potassium Chloride 95.9 L Carbon Dioxide 31 H BUN Creatinine Glucose 242 H POC Glucose 235 H 198 H Hemoglobin A1c Lactic Acid Calcium 10.7 H Magnesium AST Alkaline Phosphatase Total Creatine Kinase C-Reactive Protein Total Protein Albumin Urine WBC (Auto) Vancomycin Trough 02/28/18 02/28/18 03/01/18 17:41 22:07 05:37 WBC RBC Hgb Hct MCV MCH MCHC RDW Plt Count Lymph % (Auto) Eos # Seg Neutrophils % Seg Neuts % (Manual) Lymphocytes % (Manual) Seg Neutrophils # Seg Neutrophils # Man Lymphocytes # (Manual) POC ABG pH POC ABG pO2 Sodium Potassium Chloride Carbon Dioxide BUN Creatinine Glucose POC Glucose 203 H 236 H 253 H Hemoglobin A1c Lactic Acid Calcium Magnesium AST Alkaline Phosphatase Total Creatine Kinase C-Reactive Protein Total Protein Albumin Urine WBC (Auto) Vancomycin Trough 03/01/18 03/01/18 03/01/18 13:58 17:31 22:04 WBC RBC Hgb Hct MCV MCH MCHC RDW Plt Count Lymph % (Auto) Eos # Seg Neutrophils % Seg Neuts % (Manual) Lymphocytes % (Manual) Seg Neutrophils # Seg Neutrophils # Man Lymphocytes # (Manual) POC ABG pH POC ABG pO2 Sodium Potassium Chloride Carbon Dioxide BUN Creatinine Glucose POC Glucose 227 H 210 H 136 H Hemoglobin A1c Lactic Acid Calcium Magnesium AST Alkaline Phosphatase Total Creatine Kinase C-Reactive Protein Total Protein Albumin Urine WBC (Auto) Vancomycin Trough 03/02/18 03/02/18 03/02/18 06:09 11:37 17:04 WBC RBC Hgb Hct MCV MCH MCHC RDW Plt Count Lymph % (Auto) Eos # Seg Neutrophils % Seg Neuts % (Manual) Lymphocytes % (Manual) Seg Neutrophils # Seg Neutrophils # Man Lymphocytes # (Manual) POC ABG pH POC ABG pO2 Sodium Potassium Chloride Carbon Dioxide BUN Creatinine Glucose POC Glucose 234 H 249 H 217 H Hemoglobin A1c Lactic Acid Calcium Magnesium AST Alkaline Phosphatase Total Creatine Kinase C-Reactive Protein Total Protein Albumin Urine WBC (Auto) Vancomycin Trough 03/02/18 03/03/18 03/03/18 21:17 12:50 18:37 WBC RBC Hgb Hct MCV MCH MCHC RDW Plt Count Lymph % (Auto) Eos # Seg Neutrophils % Seg Neuts % (Manual) Lymphocytes % (Manual) Seg Neutrophils # Seg Neutrophils # Man Lymphocytes # (Manual) POC ABG pH POC ABG pO2 Sodium Potassium Chloride Carbon Dioxide BUN Creatinine Glucose POC Glucose 121 H 130 H 121 H Hemoglobin A1c Lactic Acid Calcium Magnesium AST Alkaline Phosphatase Total Creatine Kinase C-Reactive Protein Total Protein Albumin Urine WBC (Auto) Vancomycin Trough 03/03/18 03/04/18 03/04/18 22:10 00:48 04:52 WBC RBC 5.24 H Hgb Hct MCV 76 L MCH 25 L MCHC RDW 19.0 H Plt Count Lymph % (Auto) Eos # Seg Neutrophils % 74.8 H Seg Neuts % (Manual) Lymphocytes % (Manual) Seg Neutrophils # 8.1 H Seg Neutrophils # Man Lymphocytes # (Manual) POC ABG pH POC ABG pO2 Sodium Potassium Chloride Carbon Dioxide BUN Creatinine Glucose POC Glucose 157 H 222 H Hemoglobin A1c Lactic Acid Calcium Magnesium AST Alkaline Phosphatase Total Creatine Kinase C-Reactive Protein Total Protein Albumin Urine WBC (Auto) Vancomycin Trough 03/04/18 03/04/18 03/04/18 04:52 06:35 11:27 WBC RBC Hgb Hct MCV MCH MCHC RDW Plt Count Lymph % (Auto) Eos # Seg Neutrophils % Seg Neuts % (Manual) Lymphocytes % (Manual) Seg Neutrophils # Seg Neutrophils # Man Lymphocytes # (Manual) POC ABG pH POC ABG pO2 Sodium Potassium Chloride 93.7 L Carbon Dioxide 32 H BUN 25 H Creatinine Glucose 171 H POC Glucose 209 H 218 H Hemoglobin A1c Lactic Acid Calcium 10.9 H Magnesium AST Alkaline Phosphatase Total Creatine Kinase C-Reactive Protein Total Protein Albumin Urine WBC (Auto) Vancomycin Trough 03/04/18 03/04/18 03/05/18 16:29 22:46 06:23 WBC RBC Hgb Hct MCV MCH MCHC RDW Plt Count Lymph % (Auto) Eos # Seg Neutrophils % Seg Neuts % (Manual) Lymphocytes % (Manual) Seg Neutrophils # Seg Neutrophils # Man Lymphocytes # (Manual) POC ABG pH POC ABG pO2 Sodium Potassium Chloride Carbon Dioxide BUN Creatinine Glucose POC Glucose 252 H 191 H 199 H Hemoglobin A1c Lactic Acid Calcium Magnesium AST Alkaline Phosphatase Total Creatine Kinase C-Reactive Protein Total Protein Albumin Urine WBC (Auto) Vancomycin Trough
[2018-03-05] MEDS: SODIUM CHLORIDE FLUSH SYRINGE 10 ML IV SCH ×2 (18:29→22:50)
[2018-03-05] MEDS: DAKIN'S FULL STRENGTH TP SCH ×2 (18:30→22:50)
[2018-03-05] MEDS: TRANSDERM-SCOP TD SCH (19:00)
[2018-03-06] MEDS: HumaLOG SUB-Q SCH ×4 (00:12→18:27)
[2018-03-06 05:16] LABS: Basophils # (Auto) 0.1 K/mm3 (0.0-0.1); Basophils % (Auto) 0.9 % (0.0-1.8); Eosinophils # (Auto) 0.5 K/mm3 (0.0-0.4); Hematocrit 34.6 % (35.5-45.6); Hemoglobin 11.4 gm/dl (11.8-15.2); Lymphocytes % (Auto) 16.9 % (13.4-35.0); Mean Corpuscular HGB Conc 33 % (32-34); Mean Corpuscular Volume 74 fl (84-94); Monocytes # (Auto) 0.9 K/mm3 (0.0-0.8); Monocytes % (Auto) 7.1 % (0.0-7.3); Platelet Count 349 K/mm3 (140-440); Red Blood Count 4.68 M/mm3 (3.65-5.03); Red Cell Distribution Width 18.6 % (13.2-15.2)
[2018-03-06 05:23] LABS: Mean Corpuscular Hemoglobin 24 pg (28-32)
[2018-03-06 05:36] LABS: BUN/Creatinine Ratio 54; Blood Urea Nitrogen 27 mg/dL (9-20); Calcium 8.2 mg/dL (8.4-10.2); Hemolysis Index 29
[2018-03-06] MEDS: NACL 0.9% IV SCH ×2 (05:47→15:13)
[2018-03-06] MEDS: LOPRESSOR FEEDTUBE SCH ×3 (05:47→22:32)
[2018-03-06] MEDS: AVYCAZ IV SCH ×2 (05:47→15:13)
[2018-03-06] MEDS: LANTUS SUB-Q SCH ×2 (08:00→22:33)
--- NOTE | 2018-03-06 11:16 | Progress Note ---
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 INSPECTOR pseudomonas - CXR showed bilateral infiltrates - on Avibactam Day , was treated with cefepime - Lactic acidosis -OR cultures 02/23 ROOMING HOUSE INSPECTOR Pseudomonas, Proteus and Enterococcus raffinosus Type 2 diabetes mellitus uncontrolled diabetes mellitus; - Accu-Chek sliding scale coverage - tube feeding, adjust insulin as needed sacral decubitus ulcer infected -Status post debridement and wound VAC placement -Pending surgical culture results Nutrition - Through PEG tube Dyslipidemia; - continue lipid lowering medications Hemorrhagic stroke - MRI showed could be chronic - Patient has history of hemorrhagic stroke - Repeat CT showed no change from baseline DVT prophylaxis; - SCD becaues of hemorrhagic stroke Severe malnutrition - Dietary consult Full CODE STATUS The family wants what option hospice people have. Prognosis: poor I have discussed the management plan and the prognosis with his . The plan was to discharge to snf to finish the IV antibiotics & case worker she is working on it. History Interval history: Patient is on trach and PEG, patient was lethargic and non communicative. No family member was in the room at the time of examination. Hospitalist Physical - Physical exam Narrative exam: Patient has trach and on 5 L of oxygen Vital signs as documented. Head exam is unremarkable. No scleral icterus . Neck is without jugular venous distension, thyromegaly, or carotid bruits. Lungs are clear to auscultation. Cardiac exam reveals regular rate and Rhythm. First and second heart sounds normal. No murmurs, rubs or gallops. Abdominal exam reveals PEG tube in place. Integumentary sacral and heel ulcer POA. 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 - Constitutional Vitals: Temp Pulse Resp BP Pulse Ox 99.2 F 95 H 32 H 143/81 96 03/06/18 08:07 03/06/18 08:07 03/06/18 08:07 03/06/18 08:07 03/06/18 08:07 General appearance: Present: no acute distress, other (nonviable) Results - Labs CBC & Chem 7: 03/06/18 04:35 03/06/18 04:35 Labs: Laboratory Last Values WBC 12.0 K/mm3 (4.5-11.0) H 03/06/18 04:35 RBC 4.68 M/mm3 (3.65-5.03) 03/06/18 04:35 Hgb 11.4 gm/dl (11.8-15.2) L 03/06/18 04:35 Hct 34.6 % (35.5-45.6) L 03/06/18 04:35 MCV 74 fl (84-94) L 03/06/18 04:35 MCH 24 pg (28-32) L 03/06/18 04:35 MCHC 33 % (32-34) 03/06/18 04:35 RDW 18.6 % (13.2-15.2) H 03/06/18 04:35 Plt Count 349 K/mm3 (140-440) 03/06/18 04:35 Lymph % (Auto) 16.9 % (13.4-35.0) 03/06/18 04:35 [place] % (Auto) 7.1 % (0.0-7.3) 03/06/18 04:35 Eos % (Auto) 4.0 % (0.0-4.3) 03/06/18 04:35 Baso % (Auto) 0.9 % (0.0-1.8) 03/06/18 04:35 Lymph # 2.0 K/mm3 (1.2-5.4) 03/06/18 04:35 [place] # 0.9 K/mm3 (0.0-0.8) H 03/06/18 04:35 Eos # 0.5 K/mm3 (0.0-0.4) H 03/06/18 04:35 Baso # 0.1 K/mm3 (0.0-0.1) 03/06/18 04:35 Add Manual Diff Complete 02/20/18 05:03 Total Counted 100 02/20/18 05:03 Seg Neutrophils % 71.1 % (40.0-70.0) H 03/06/18 04:35 Seg Neuts % (Manual) 85.0 % (40.0-70.0) H 02/20/18 05:03 Band Neutrophils % 2.0 % 02/20/18 05:03 Lymphocytes % (Manual) 7.0 % (13.4-35.0) L 02/20/18 05:03 Reactive Lymphs % (Man) 0 % 02/20/18 05:03 Monocytes % (Manual) 1.0 % (0.0-7.3) 02/20/18 05:03 Eosinophils % (Manual) 2.0 % (0.0-4.3) 02/20/18 05:03 Basophils % (Manual) 0 % (0.0-1.8) 02/20/18 05:03 Metamyelocytes % 3.0 % 02/20/18 05:03 Myelocytes % 0 % 02/20/18 05:03 Promyelocytes % 0 % 02/20/18 05:03 Blast Cells % 0 % 02/20/18 05:03 Nucleated RBC % Not Reportable 02/20/18 05:03 Seg Neutrophils # 8.5 K/mm3 (1.8-7.7) H 03/06/18 04:35 Seg Neutrophils # Man 11.6 K/mm3 (1.8-7.7) H 02/20/18 05:03 Band Neutrophils # 0.3 K/mm3 02/20/18 05:03 Lymphocytes # (Manual) 1.0 K/mm3 (1.2-5.4) L 02/20/18 05:03 Abs React Lymphs (Man) 0.0 K/mm3 02/20/18 05:03 Monocytes # (Manual) 0.1 K/mm3 (0.0-0.8) 02/20/18 05:03 Eosinophils # (Manual) 0.3 K/mm3 (0.0-0.4) 02/20/18 05:03 Basophils # (Manual) 0.0 K/mm3 (0.0-0.1) 02/20/18 05:03 Metamyelocytes # 0.4 K/mm3 02/20/18 05:03 Myelocytes # 0.0 K/mm3 02/20/18 05:03 Promyelocytes # 0.0 K/mm3 02/20/18 05:03 Blast Cells # 0.0 K/mm3 02/20/18 05:03 WBC Morphology Not Reportable 02/20/18 05:03 Hypersegmented Neuts Not Reportable 02/20/18 05:03 Hyposegmented Neuts Not Reportable 02/20/18 05:03 Hypogranular Neuts Not Reportable 02/20/18 05:03 Smudge Cells Not Reportable 02/20/18 05:03 Toxic Granulation Not Reportable 02/20/18 05:03 Toxic Vacuolation Not Reportable 02/20/18 05:03 Dohle Bodies Not Reportable 02/20/18 05:03 Pelger-Huet Anomaly Not Reportable 02/20/18 05:03 Helene Rods Not Reportable 02/20/18 05:03 Platelet Estimate Appears normal 02/20/18 05:03 Clumped Platelets Not Reportable 02/20/18 05:03 Plt Clumps, EDTA Not Reportable 02/20/18 05:03 Large Platelets Not Reportable 02/20/18 05:03 Giant Platelets Not Reportable 02/20/18 05:03 Platelet Satelliting Not Reportable 02/20/18 05:03 Plt Morphology Comment Not Reportable 02/20/18 05:03 RBC Morphology Not Reportable 02/20/18 05:03 Dimorphic RBCs Not Reportable 02/20/18 05:03 Polychromasia 1+ 02/20/18 05:03 Hypochromasia Not Reportable 02/20/18 05:03 Poikilocytosis Not Reportable 02/20/18 05:03 Anisocytosis 1+ 02/20/18 05:03 Microcytosis Not Reportable 02/20/18 05:03 Macrocytosis Not Reportable 02/20/18 05:03 Spherocytes Not Reportable 02/20/18 05:03 Pappenheimer Bodies Not Reportable 02/20/18 05:03 Sickle Cells Not Reportable 02/20/18 05:03 Target Cells Not Reportable 02/20/18 05:03 Tear Drop Cells Few 02/20/18 05:03 Ovalocytes 1+ 02/20/18 05:03 Stomatocytes Few 02/20/18 05:03 Helmet Cells Rare 02/20/18 05:03 Chaudhry-Ophir Bodies Not Reportable 02/20/18 05:03 [place] Rings Not Reportable 02/20/18 05:03 Patricia Cells Not Reportable 02/20/18 05:03 Bite Cells Not Reportable 02/20/18 05:03 Crenated Cell Not Reportable 02/20/18 05:03 Elliptocytes Few 02/20/18 05:03 Acanthocytes (Spur) Not Reportable 02/20/18 05:03 Rouleaux Not Reportable 02/20/18 05:03 Hemoglobin C Crystals Not Reportable 02/20/18 05:03 Schistocytes Not Reportable 02/20/18 05:03 Malaria parasites Not Reportable 02/20/18 05:03 Huy Bodies Not Reportable 02/20/18 05:03 Hem Pathologist Commnt No 02/20/18 05:03 APTT 31.9 Sec. (24.2-36.6) 02/14/18 10:15 POC ABG pH 7.521 (7.35-7.45) H 02/14/18 10:39 POC ABG pCO2 38.8 (35-45) 02/14/18 10:39 POC ABG pO2 58 (80-105) L 02/14/18 10:39 POC ABG HCO3 31.8 02/14/18 10:39 POC ABG Total CO2 33 02/14/18 10:39 POC ABG O2 Sat 92 02/14/18 10:39 POC ABG Base Excess 9 02/14/18 10:39 FiO2 80 % 02/14/18 10:39 Sodium 139 mmol/L (137-145) 03/06/18 04:35 Potassium 4.7 mmol/L (3.6-5.0) 03/06/18 04:35 Chloride 96.2 mmol/L (98-107) L 03/06/18 04:35 Carbon Dioxide 33 mmol/L (22-30) H 03/06/18 04:35 Anion Gap 15 mmol/L 03/06/18 04:35 BUN 27 mg/dL (9-20) H 03/06/18 04:35 Creatinine 0.5 mg/dL (0.8-1.5) L 03/06/18 04:35 Estimated GFR > 60 ml/min 03/06/18 04:35 BUN/Creatinine Ratio 54 % 03/06/18 04:35 Glucose 160 mg/dL (75-100) H 03/06/18 04:35 POC Glucose 147 (70-105) H 03/06/18 06:50 Hemoglobin A1c 10.1 % (4-6) H 02/14/18 20:21 Lactic Acid 3.00 mmol/L (0.7-2.0) H* 02/15/18 05:53 Calcium 8.2 mg/dL (8.4-10.2) L D 03/06/18 04:35 Phosphorus 3.50 mg/dL (2.5-4.5) D 02/17/18 04:25 Magnesium 2.30 mg/dL (1.7-2.3) 02/17/18 04:25 Total Bilirubin 0.50 mg/dL (0.1-1.2) 02/15/18 02:16 AST 19 units/L (5-40) 02/15/18 02:16 ALT 41 units/L (7-56) 02/15/18 02:16 Alkaline Phosphatase 173 units/L (35-129) H 02/15/18 02:16 Total Creatine Kinase 46 units/L (55-170) L 02/14/18 10:15 C-Reactive Protein 4.50 mg/dL (0.00-1.30) H 02/20/18 05:03 Total Protein 6.2 g/dL (6.3-8.2) L 02/15/18 02:16 Albumin 2.0 g/dL (3.9-5) L 02/15/18 02:16 Albumin/Globulin Ratio 0.5 % 02/15/18 02:16 Urine Color Yellow (Yellow) 02/14/18 10:04 Urine Turbidity Hazy (Clear) 02/14/18 10:04 Urine pH 5.0 (5.0-7.0) 02/14/18 10:04 Ur Specific [place] 1.022 (1.003-1.030) 02/14/18 10:04 Urine Protein 30 mg/dl mg/dL (Negative) 02/14/18 10:04 Urine Glucose (UA) >=500 mg/dL (Negative) 02/14/18 10:04 Urine Ketones Neg mg/dL (Negative) 02/14/18 10:04 Urine Blood Sm (Negative) 02/14/18 10:04 Urine Nitrite Neg (Negative) 02/14/18 10:04 Urine Bilirubin Neg (Negative) 02/14/18 10:04 Urine Urobilinogen < 2.0 mg/dL (<2.0) 02/14/18 10:04 Ur Leukocyte Esterase Lg (Negative) 02/14/18 10:04 Urine WBC (Auto) 53.0 /HPF (0.0-6.0) H 02/14/18 10:04 Urine RBC (Auto) 13.0 /HPF (0.0-6.0) 02/14/18 10:04 U Epithel Cells (Auto) < 1.0 /HPF (0-13.0) 02/14/18 10:04 Urine Bacteria (Auto) 2+ /HPF (Negative) 02/14/18 10:04 Urine WBC Clumps 3+ /HPF 02/14/18 10:04 Hyaline Casts 7 /LPF 02/14/18 10:04 Urine Mucus Few /HPF 02/14/18 10:04 Vancomycin Trough 31.4 ug/mL (5.0-20.0) H 02/17/18 09:37 Random Vancomycin 16.5 ug/mL (0-40.0) 02/18/18 05:43 Blood Type O POSITIVE 02/14/18 10:15 Antibody Screen Negative 02/14/18 10:15
[2018-03-06] MEDS: KEPPRA FEEDTUBE SCH ×2 (12:08→22:14)
[2018-03-06] MEDS: PEPCID FEEDTUBE SCH ×2 (12:10→22:14)
[2018-03-06] MEDS: SYMMETREL FEEDTUBE SCH (12:10)
[2018-03-06] MEDS: DESYREL PO SCH ×2 (12:10→22:14)
[2018-03-06] MEDS: SODIUM CHLORIDE FLUSH SYRINGE 10 ML IV SCH ×2 (12:11→22:35)
[2018-03-06] MEDS: ZESTRIL FEEDTUBE SCH (12:11)
[2018-03-06] MEDS: DAKIN'S FULL STRENGTH TP SCH ×2 (13:18→22:15)
[2018-03-07] MEDS: HumaLOG SUB-Q SCH ×2 (00:31→06:48)
[2018-03-07] MEDS: LOPRESSOR FEEDTUBE SCH (05:13)
[2018-03-07 09:18] VITALS: BP 151/92
[2018-03-07] MEDS: LANTUS SUB-Q SCH (10:09)
[2018-03-07] MEDS: DESYREL PO SCH (10:10)
[2018-03-07] MEDS: SYMMETREL FEEDTUBE SCH (10:10)
[2018-03-07] MEDS: DAKIN'S FULL STRENGTH TP SCH (10:10)
[2018-03-07] MEDS: KEPPRA FEEDTUBE SCH (10:11)
[2018-03-07] MEDS: ZESTRIL FEEDTUBE SCH (10:11)
[2018-03-07] MEDS: PEPCID FEEDTUBE SCH (10:11)
[2018-03-07] MEDS: SODIUM CHLORIDE FLUSH SYRINGE 10 ML IV SCH (10:12)
--- NOTE | 2018-03-07 11:17 | Discharge Summary ---
Providers - Providers Date of Admission: 02/14/18 11:09 Attending physician: MCKENZIE LAROSE MD 02/14/18 Consult to Case Management [CONS] Routine Services Needed at Discharge: Home Health Services Notified:: COPY GIVEN TO 02/14/18 19:54 Physical Therapy Evaluation and Treat [CONS] Routine Comment: Reason For Exam: debility 02/14/18 20:00 Consult to Wound/ET Nurse [CONS] Routine Reason For Exam: wound eval 02/15/18 08:02 Consult to Dietitian/Nutrition [CONS] Routine Physician Instructions: Reason For Exam: Malnutrition Reason for Consult: Pt needs oral supplement 02/15/18 11:36 Consult to Dietitian/Nutrition [CONS] Stat Physician Instructions: Reason For Exam: Reason for Consult: Write/Manage Tube Feeding 02/18/18 11:33 Consult to Physician [CONS] Routine Comment: Consulting Provider: JESS BURNETT Physician Instructions: Reason For Exam: multi drug resistant UTI 02/19/18 19:19 Occupational Therapy Evaluate and Treat [CONS] Routine Comment: SNF Placement Reason For Exam: Debility 02/21/18 08:24 Consult to Physician [CONS] Routine Comment: Consulting Provider: JUSTEN PINA Physician Instructions: Reason For Exam: sacral decubitus ulcer, may need debridement 02/23/18 08:39 Consult to Wound/ET Nurse [CONS] Routine Reason For Exam: Wound Vac Management 02/26/18 13:56 Consult to Physician [CONS] Routine Comment: Consulting Provider: CHRISTIAN MOREL Physician Instructions: Reason For Exam: CVA 02/27/18 20:25 Consult to Case Management [CONS] Stat Services Needed at Discharge: Other Notified:: education trainer Additional Physician Instructions: [facility] 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 Fax results to [phone] Jess Acevedo MD 02/27/18 Primary care physician: TRAIN ATTENDANT Hospitalization Reason for admission: CVA, sepsis Condition: Poor Disposition: DC/[place]-03 SNF W [facility] Time spent for discharge: 45 minutes - Discharge Diagnoses (1) CVA (cerebral vascular accident) Status: Acute (2) Decubitus ulcer Status: Acute Qualifiers: Pressure ulcer location: sacral region Pressure ulcer stage: unspecified pressure ulcer stage Qualified Code(s): L89.159 - Pressure ulcer of sacral region, unspecified stage (3) Dehydration Status: Acute (4) Hyperglycemia Status: Acute (5) Hypernatremia Status: Acute (6) Sepsis Status: Acute Core Measure Documentation - Palliative Care Palliative Care/ Comfort Measures: Not Applicable - Core Measures Any of the following diagnoses?: stroke - Stroke Discharge Requirements Statin for LDL = or >70 mg/dl on DC: Yes Anticoag for atrial fib/atrial flutter: Not Applicable Antithrombotic for ischemic stroke: No Reason for no antithrombotic on DC: Medical Contraindication (Patient has hemorrhagic stroke) Exam - Physical Exam Narrative exam: Patient has trach and on 5 L of oxygen Vital signs as documented. Head exam is unremarkable. No scleral icterus . Neck is without jugular venous distension, thyromegaly, or carotid bruits. Lungs are clear to auscultation. Cardiac exam reveals regular rate and Rhythm. First and second heart sounds normal. No murmurs, rubs or gallops. Abdominal exam reveals PEG tube in place. Integumentary sacral and heel ulcer POA. 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
== END 2018-03-07 14:45 | DRG 853 ==
LOC: ED 09:45 → 4A 11:09 → 3A 13:39
PROVIDERS: ADMIT Internal Medicine; ATTEND Internal Medicine
PROC: 4A033R1 Measurement of Arterial Saturation, Peripheral, Percutaneous Approach (ICD-10-PCS; 2018-02-14)
PROC: 0KBP0ZZ Excision of Left Hip Muscle, Open Approach (ICD-10-PCS; principal; 2018-02-23)
PROC: 0KBN0ZZ Excision of Right Hip Muscle, Open Approach (ICD-10-PCS; 2018-02-23)
DX: A41.9 Sepsis, unspecified organism (principal); E43 Unspecified severe protein-calorie malnutrition; G93.41 Metabolic encephalopathy; J96.20 Acute and chronic respiratory failure, unspecified whether with hypoxia or hypercapnia; J18.1 Lobar pneumonia, unspecified organism; E87.0 Hyperosmolality and hypernatremia; N39.0 Urinary tract infection, site not specified; N17.9 Acute kidney failure, unspecified; E86.0 Dehydration; L89.150 Pressure ulcer of sacral region, unstageable; E87.5 Hyperkalemia; I10 Essential (primary) hypertension; E78.5 Hyperlipidemia, unspecified; N40.0 Benign prostatic hyperplasia without lower urinary tract symptoms; R56.9 Unspecified convulsions; E11.65 Type 2 diabetes mellitus with hyperglycemia; K21.9 Gastro-esophageal reflux disease without esophagitis; E87.6 Hypokalemia; Z88.6 Allergy status to analgesic agent; Z93.0 Tracheostomy status; Z82.49 Family history of ischemic heart disease and other diseases of the circulatory system; Z93.1 Gastrostomy status; I69.298 Other sequelae of other nontraumatic intracranial hemorrhage
CPT/HCPCS: 36415; 70450; 70551; 71045; 74177; 80048; 80053; 80202; 81001; 82140; 82550; 82803; 82962; 83036; 83735; 84100; 84295; 85007; 85025; 85730; 86140; 86850; 86900; 86901; 87040; 87076; 87086; 87116; 87186; 87205; 88304; 88305; 93005; 93010; 94760; 96365; 96367; 96375; A9270-GY; G8987-GO; G8988-GO; G8989-GO; J0692; J1100; J1205; J1644; J1815; J2060; J2250; J2370; J2405; J2543; J3010; J3370; J7030; J7040; J7042; J7070; J7120; Q9967

== ENCOUNTER 2018-03-27 19:26 | Inpatient (IN) | payer MEDICARE ==
[2018-03-27] MEDS ORDERED: TYLENOL PR ONE ×2 (19:34→20:00)
[2018-03-27] MEDS ORDERED: NACL 0.9% 500 ML 500 ML IV ONE (19:48)
[2018-03-27] MEDS ORDERED: NACL 0.9% 1000 ML 1,000 ML IV ONE ×2 (19:57→19:58)
--- NOTE | 2018-03-27 19:57 | Emergency Department Report ---
ED General Adult HPI - General Chief complaint: Altered Mental Status Stated complaint: SEPTIC/ALTERED MENTAL STATUS Time Seen by Provider: 03/27/18 19:56 Source: EMS Mode of arrival: Stretcher Limitations: Altered Mental Status - History of Present Illness Initial comments: Patient was transported to the emergency room by EMS for fever. Patient is nonverbal and does not communicate. -: Gradual Treatments Prior to Arrival: none - Related Data Home Medications Medication Instructions Recorded Confirmed Last Taken Acetaminophen [Acetaminophen TAB] 650 mg FEEDTUBE Q6HR PRN 02/14/18 02/14/18 Unknown Amantadine [Symmetrel] 10 ml FEEDTUBE QDAY 02/14/18 02/14/18 Unknown Benazepril (Nf) 5 mg FEEDTUBE QDAY 02/14/18 02/14/18 Unknown Bisacodyl [Bisac-Evac] 10 mg RC Q24H PRN 02/14/18 02/14/18 Unknown Collagenase [Santyl] 1 applicatio TP QDAY 02/14/18 02/14/18 Unknown Famotidine [Pepcid] 20 mg FEEDTUBE BID 02/14/18 02/14/18 Unknown Insulin Glargine,Hum.rec.anlog 45 units SUB-Q Q12H 02/14/18 02/14/18 Unknown [Basaglar Kwikpen U-100] Insulin Lispro [Humalog 100 See Protocol SUB-Q Q6H 02/14/18 02/14/18 Unknown UNITS/ML Kwikpen] Ipratropium/Albuterol Sulfate 1 ampul IH Q4HR PRN 02/14/18 02/14/18 Unknown [DUONEB *Not for PRN Use*] Ipratropium/Albuterol Sulfate 1 ampul IH Q6HR PRN 02/14/18 02/14/18 Unknown [DUONEB *Not for PRN Use*] Levobunolol HCl [Betagan] 1 drop OU QDAY 02/14/18 02/14/18 Unknown Metoprolol [Lopressor TAB] 50 mg FEEDTUBE Q8H 02/14/18 02/14/18 Unknown Scopolamine [Transderm-Scop] 1 each TD Q3D 02/14/18 02/14/18 Unknown Sennosides [Senna] 8.6 mg FEEDTUBE QDAY PRN 02/14/18 02/14/18 Unknown levETIRAcetam [Levetiracetam] 5 ml FEEDTUBE Q12H 02/14/18 02/14/18 Unknown traZODone [Desyrel] 25 mg FEEDTUBE BID 02/14/18 02/14/18 Unknown Previous Rx's Medication Instructions Recorded Last Taken Type Atorvastatin Calcium [Lipitor] 40 mg FEEDTUBE HS #30 03/07/18 Unknown Rx Allergies Allergy/AdvReac Type Severity Reaction Status Date / Time aspirin Allergy Unknown Verified 02/14/18 09:48 ED Review of Systems ROS: Stated complaint: SEPTIC/ALTERED MENTAL STATUS Other details as noted in HPI Comment: Unobtainable due to pts medical conditions (altered mental status) ED Past Medical Hx - Past Medical History Hx Hypertension: Yes Hx Diabetes: Yes Hx GERD: Yes Hx Renal Disease: Yes (ARF) Hx Seizures: Yes Additional medical history: acute respiratory failure. generalized muscle weakness. anemia. dysphagia. hyperlipidemia. BPH. cataracts - Surgical History Additional Surgical History: trach. PEG tube - Social History Smoking Status: Unknown if ever smoked - Medications Home Medications: Home Medications Medication Instructions Recorded Confirmed Last Taken Type Acetaminophen [Acetaminophen TAB] 650 mg FEEDTUBE Q6HR PRN 02/14/18 02/14/18 Unknown History Amantadine [Symmetrel] 10 ml FEEDTUBE QDAY 02/14/18 02/14/18 Unknown History Benazepril (Nf) 5 mg FEEDTUBE QDAY 02/14/18 02/14/18 Unknown History Bisacodyl [Bisac-Evac] 10 mg RC Q24H PRN 02/14/18 02/14/18 Unknown History Collagenase [Santyl] 1 applicatio TP QDAY 02/14/18 02/14/18 Unknown History Famotidine [Pepcid] 20 mg FEEDTUBE BID 02/14/18 02/14/18 Unknown History Insulin Glargine,Hum.rec.anlog 45 units SUB-Q Q12H 02/14/18 02/14/18 Unknown History [Basaglar Kwikpen U-100] Insulin Lispro [Humalog 100 See Protocol SUB-Q Q6H 02/14/18 02/14/18 Unknown History UNITS/ML Kwikpen] Ipratropium/Albuterol Sulfate 1 ampul IH Q4HR PRN 02/14/18 02/14/18 Unknown History [DUONEB *Not for PRN Use*] Ipratropium/Albuterol Sulfate 1 ampul IH Q6HR PRN 02/14/18 02/14/18 Unknown History [DUONEB *Not for PRN Use*] Levobunolol HCl [Betagan] 1 drop OU QDAY 02/14/18 02/14/18 Unknown History Metoprolol [Lopressor TAB] 50 mg FEEDTUBE Q8H 02/14/18 02/14/18 Unknown History Scopolamine [Transderm-Scop] 1 each TD Q3D 02/14/18 02/14/18 Unknown History Sennosides [Senna] 8.6 mg FEEDTUBE QDAY PRN 02/14/18 02/14/18 Unknown History levETIRAcetam [Levetiracetam] 5 ml FEEDTUBE Q12H 02/14/18 02/14/18 Unknown History traZODone [Desyrel] 25 mg FEEDTUBE BID 02/14/18 02/14/18 Unknown History Atorvastatin Calcium [Lipitor] 40 mg FEEDTUBE HS #30 03/07/18 02/14/18 Unknown Rx ED Physical Exam - General Limitations: Altered Mental Status General appearance: alert, in no apparent distress - Head Head exam: Absent: atraumatic, normocephalic, normal inspection - Eye Eye exam: Absent: normal appearance, PERRL, EOMI Pupils: Present: normal accommodation - ENT ENT exam: Present: normal exam, normal orophraynx, mucous membranes dry - Neck Neck exam: Present: normal inspection, full ROM, other (Tracheostomy) - Respiratory Respiratory exam: Present: normal lung sounds bilaterally. Absent: respiratory distress, wheezes, rales, rhonchi - Cardiovascular Cardiovascular Exam: Present: normal rhythm, tachycardia, normal heart sounds - GI/Abdominal GI/Abdominal exam: Present: soft, tenderness, normal bowel sounds. Absent: distended, guarding, rebound - Extremities Exam Extremities exam: Present: pedal edema - Neurological Exam Neurological exam: Present: alert - Psychiatric Psychiatric exam: Present: flat affect - Skin Skin exam: Present: warm, dry ED Course Vital Signs 03/27/18 03/27/18 03/27/18 19:43 19:46 19:52 Temperature 102.4 F H Pulse Rate 150 H 151 H Respiratory 46 H 25 H 46 H Rate Blood Pressure 123/67 123/67 Blood Pressure [Left] O2 Sat by Pulse 87 87 Oximetry 03/27/18 03/27/18 03/27/18 19:54 19:57 20:00 Temperature Pulse Rate 149 H 148 H 150 H Respiratory 49 H 42 H Rate Blood Pressure 103/64 Blood Pressure 113/72 [Left] O2 Sat by Pulse 97 95 Oximetry 03/27/18 03/27/18 03/27/18 20:15 20:30 20:45 Temperature Pulse Rate 141 H 137 H 134 H Respiratory 46 H 42 H 40 H Rate Blood Pressure 106/72 105/71 106/69 Blood Pressure [Left] O2 Sat by Pulse 95 97 Oximetry 03/27/18 03/27/18 03/27/18 21:00 21:15 21:30 Temperature Pulse Rate 132 H 131 H 131 H Respiratory 36 H 38 H 37 H Rate Blood Pressure 104/70 106/71 112/70 Blood Pressure [Left] O2 Sat by Pulse 97 98 92 Oximetry 03/27/18 03/27/18 03/27/18 21:45 22:00 22:15 Temperature Pulse Rate 128 H 126 H 124 H Respiratory 30 H 26 H 32 H Rate Blood Pressure 110/76 107/72 114/74 Blood Pressure [Left] O2 Sat by Pulse 98 97 Oximetry 03/27/18 03/27/18 03/27/18 22:30 22:45 23:00 Temperature Pulse Rate 122 H 122 H 121 H Respiratory 30 H 32 H 36 H Rate Blood Pressure 116/76 113/74 117/77 Blood Pressure [Left] O2 Sat by Pulse Oximetry 03/27/18 03/27/18 03/27/18 23:15 23:29 23:30 Temperature Pulse Rate 121 H 119 H 120 H Respiratory 28 H 27 H 25 H Rate Blood Pressure 109/75 109/75 114/72 Blood Pressure [Left] O2 Sat by Pulse 94 98 97 Oximetry 03/27/18 03/27/18 03/28/18 23:45 23:49 00:00 Temperature Pulse Rate 120 H 119 H 119 H Respiratory 31 H 28 H 25 H Rate Blood Pressure 117/76 117/76 115/76 Blood Pressure [Left] O2 Sat by Pulse 99 Oximetry 03/28/18 03/28/18 00:15 00:30 Temperature Pulse Rate 119 H 118 H Respiratory 30 H 28 H Rate Blood Pressure 121/79 111/75 Blood Pressure [Left] O2 Sat by Pulse Oximetry - Reevaluation(s) Reevaluation #1: 03/28/18 01:20 Patient was admitted to the hospitalist for further evaluation and management. ED Medical Decision Making - Lab Data Result diagrams: 03/27/18 20:01 03/27/18 20:01 - EKG Data -: EKG Interpreted by Me EKG shows normal: sinus rhythm (148) Rate: tachycardia - EKG Data When compared to previous EKG there are: previous EKG unavailable Interpretation: LVH, other (No STEMI) - Radiology Data Radiology results: report reviewed, image reviewed Critical Care Time: Yes Critical care time in (mins) excluding proc time.: 45 Critical care attestation.: If time is entered above; I have spent that time in minutes in the direct care of this critically ill patient, excluding procedure time. ED Disposition Clinical Impression: Dehydration, Hypernatremia Decubitus ulcer Qualifiers: Pressure ulcer location: sacral region Pressure ulcer stage: stage 4 Qualified Code(s): L89.154 - Pressure ulcer of sacral region, stage 4 Fever Qualifiers: Fever type: unspecified Qualified Code(s): R50.9 - Fever, unspecified Disposition: OP ADMIT IP TO THIS HOSP Is pt being admited?: Yes Does the pt Need Aspirin: No Condition: Stable Referrals: PRIMARY CARE, [Primary Care Provider] - 3-5 Days Time of Disposition: 21:15
[2018-03-27 20:28] LABS: Basophils % (Auto) 0.3 % (0.0-1.8); Eosinophils # (Auto) 0.1 K/mm3 (0.0-0.4); Eosinophils % (Auto) 0.6 % (0.0-4.3); Lymphocytes # (Auto) 2.8 K/mm3 (1.2-5.4); Lymphocytes % (Auto) 16.9 % (13.4-35.0); Mean Corpuscular HGB Conc 31 % (32-34); Mean Corpuscular Volume 79 fl (84-94); Monocytes % (Auto) 6.3 % (0.0-7.3); Platelet Count 337 K/mm3 (140-440); Red Blood Count 5.38 M/mm3 (3.65-5.03); Red Cell Distribution Width 19.3 % (13.2-15.2)
[2018-03-27 20:29] LABS: Bacteria,Urine 1+ /HPF (Negative); Bilirubin,Urine NEG (Negative); Blood,Urine NEG (Negative); Color,Urine Yellow (Yellow); Mucus,Urine FEW /HPF; Protein,Urine <15 mg/dL mg/dL (Negative); Urobilinogen,Urine < 2.0 mg/dL (<2.0); WBC,Urine < 1.0 /HPF (0.0-6.0)
[2018-03-27 20:30] LABS: Hematocrit 42.2 % (35.5-45.6); Mean Corpuscular Hemoglobin 24 pg (28-32)
[2018-03-27 20:39] LABS: INR 1.13 (0.87-1.13)
[2018-03-27 20:44] LABS: Alanine Aminotransferase 203 units/L (7-56); Albumin 2.6 g/dL (3.9-5); BUN/Creatinine Ratio 53; Blood Urea Nitrogen 53 mg/dL (9-20); Hemolysis Index 3
[2018-03-27 20:57] LABS: Chol/HDL Ratio 3.92 %
--- NOTE | 2018-03-27 21:59 | XRay Report ---
FINAL REPORT PROCEDURE: XR CHEST 1V AP TECHNIQUE: Chest radiograph anteroposterior view. CPT 71192 HISTORY: possible Sepsis COMPARISON: No prior studies are available for comparison. FINDINGS: Heart: Normal. Mediastinum/Vessels: Normal. Lungs/Pleural space: Subsegmental atelectatic changes are noted in bilateral lung bases. There are no confluent infiltrates or mass lesions. There is minimal thickening of right pleura inferiorly.. Bony thorax: No acute osseous abnormality. Life support devices: Tracheostomy tube is in place.. IMPRESSION: No acute pulmonary infiltrates. There is interval resolution of bilateral lower lung infiltrates. Minimal thickening of right pleural stripe inferiorly may represent minimal right pleural effusion..
[2018-03-27] MEDS ORDERED: ZOSYN/NS 4.5GM/100ML 4.5 GM/100 ML VIAL IV ONE (23:00)
[2018-03-28] MEDS ORDERED: VANCOMYCIN 1,000 MG in NACL 0.9% 500 ML 500 ML IV ONE (01:31)
[2018-03-28] MEDS ORDERED: VANCOMYCIN/NS 1 GM/250 ML 1 GM/250 ML BAG IV ONE (02:00)
[2018-03-28] MEDS ORDERED: D50W (25GM) Syringe IV PRN (02:09)
[2018-03-28] MEDS ORDERED: VANCOMYCIN PHARMACY TO DOSE IV SCH (03:00)
--- NOTE | 2018-03-28 05:25 | History and Physical Report ---
History of Present Illness Date of examination: 03/28/18 Date of admission: 03/28/18 01:23 Chief complaint: Fever History of present illness: Patient is a 72 year old -[place] male, a resident of [facility] who was brought to the ED on account of fever. Patient was a poor historian, so history was obtained from the chart. On arrival to the ED, patient's temperature was noted to be 102.4F. No other history was obtained. Past History Past Medical History: anemia, diabetes, GERD, hypertension, hyperlipidemia, renal failure, seizures, other (BPH, dysphagia, chronic respt failure, BPH) Past Surgical History: Other (S/P PEG TUBE PLACEMENT AND TRACH) Social history: other (could not be obtained due to altered mental status) Family history: other (could not be obtained due to altered mental status) Medications and Allergies Allergies Allergy/AdvReac Type Severity Reaction Status Date / Time aspirin Allergy Unknown Verified 02/14/18 09:48 Home Medications Medication Instructions Recorded Confirmed Last Taken Type Acetaminophen [Acetaminophen TAB] 650 mg FEEDTUBE Q6HR PRN 02/14/18 03/28/18 Unknown History Amantadine [Symmetrel] 10 ml FEEDTUBE QDAY 02/14/18 03/28/18 Unknown History Benazepril (Nf) 10 mg FEEDTUBE QDAY 02/14/18 03/28/18 Unknown History Bisacodyl [Bisac-Evac] 10 mg RC Q24H PRN 02/14/18 03/28/18 Unknown History Collagenase [Santyl] 1 applicatio TP QDAY 02/14/18 03/28/18 Unknown History Famotidine [Pepcid] 20 mg FEEDTUBE BID 02/14/18 03/28/18 Unknown History Insulin Glargine,Hum.rec.anlog 50 units SUB-Q Q12H 02/14/18 03/28/18 Unknown History [Basaglar Kwikpen U-100] Insulin Lispro [Humalog 100 See Protocol SUB-Q BID 02/14/18 03/28/18 Unknown History UNITS/ML Kwikpen] Ipratropium/Albuterol Sulfate 1 ampul IH Q4HR PRN 02/14/18 03/28/18 Unknown History [DUONEB *Not for PRN Use*] Ipratropium/Albuterol Sulfate 1 ampul IH Q6HR PRN 02/14/18 03/28/18 Unknown History [DUONEB *Not for PRN Use*] Levobunolol HCl [Betagan] 1 drop OU QDAY 02/14/18 03/28/18 Unknown History Metoprolol [Lopressor TAB] 50 mg FEEDTUBE Q8H 02/14/18 03/28/18 Unknown History Scopolamine [Transderm-Scop] 1 each TD Q3D 02/14/18 03/28/18 Unknown History Sennosides [Senna] 8.6 mg FEEDTUBE QDAY PRN 02/14/18 03/28/18 Unknown History levETIRAcetam [Levetiracetam] 5 ml FEEDTUBE Q12H 02/14/18 03/28/18 Unknown History traZODone [Desyrel] 25 mg FEEDTUBE BID 02/14/18 03/28/18 Unknown History Atorvastatin Calcium [Lipitor] 40 mg FEEDTUBE HS #30 03/07/18 03/28/18 Unknown Rx Active Meds: Active Medications Dextrose (D50w (25gm) Syringe) 50 ml IV PRN PRN PRN Reason: Hypoglycemia Dextrose (D5w) 1,000 mls @ 42 mls/hr IV DIRECT [facility]IA LUZ Piperacillin Sod/Tazobactam Sod (Zosyn/Ns 3.375gm/50ml) 3.375 gm in 50 mls @ 100 mls/hr IV Q8HR [facility] LUZ; Protocol Vancomycin HCl (Vancomycin/Ns 1 Gm/250 Ml) 1 gm in 250 mls @ 250 mls/hr IV Q18H [facility]Z Insulin Glargine (Lantus) 20 units SUB-Q BID MARIA LUZ Insulin Human Regular (Humulin R) 0 units SUB-Q ACHS MARIA LUZ; Protocol Vancomycin HCl (Vancomycin Pharmacy To Dose) 1 each IV PKCONSULT MARIA LUZ; Protocol Review of Systems ROS unobtainable: due to mental status Exam - Constitutional Vitals: Temp Pulse Resp BP Pulse Ox 102.4 F H 115 H 26 H 124/78 99 03/27/18 19:43 03/28/18 03:15 03/28/18 03:15 03/28/18 03:15 03/27/18 23:49 General appearance: Present: no acute distress - EENT Eyes: Present: PERRL ENT: clear oral mucosa - Neck Neck: Present: supple - Respiratory Respiratory effort: normal Respiratory: bilateral: rales - Cardiovascular Rhythm: other (tachycardia with regular rhythm) Heart Sounds: Present: S1 & S2 - Extremities Extremities: No edema - Abdominal General gastrointestinal: Present: soft, non-tender, non-distended, normal bowel sounds, other (PEG tube noted) - Integumentary Integumentary: Present: erythema (decubitus ulcers) - Neurologic Neurologic: other (pt is bedridden) Results - Labs CBC & Chem 7: 03/27/18 20:01 03/27/18 20:01 Labs: Laboratory Last Values WBC 16.7 K/mm3 (4.5-11.0) H 03/27/18 20: RBC 5.38 M/mm3 (3.65-5.03) H 03/27/18 20: Hgb 13.0 gm/dl (11.8-15.2) 03/27/18 20: Hct 42.2 % (35.5-45.6) 03/27/18 20: MCV 79 fl (84-94) L 03/27/18 20: MCH 24 pg (28-32) L 03/27/18 20: MCHC 31 % (32-34) L 03/27/18 20: RDW 19.3 % (13.2-15.2) H 03/27/18 20: Plt Count 337 K/mm3 (140-440) 03/27/18 20:01 Lymph % (Auto) 16.9 % (13.4-35.0) 03/27/18 20: [place] % (Auto) 6.3 % (0.0-7.3) 03/27/18 20:01 Eos % (Auto) 0.6 % (0.0-4.3) 03/27/18 20: Baso % (Auto) 0.3 % (0.0-1.8) 03/27/18 20: Lymph # 2.8 K/mm3 (1.2-5.4) 03/27/18 20:01 [place] # 1.0 K/mm3 (0.0-0.8) H 03/27/18 20: Eos # 0.1 K/mm3 (0.0-0.4) 03/27/18 20:01 Baso # 0.0 K/mm3 (0.0-0.1) 03/27/18 20:01 Seg Neutrophils % 75.9 % (40.0-70.0) H 03/27/18 20:01 Seg Neutrophils # 12.7 K/mm3 (1.8-7.7) H 03/27/18 20:01 PT 15.1 Sec. (12.2-14.9) H 03/27/18 20:01 INR 1.13 (0.87-1.13) 03/27/18 20:01 APTT 32.0 Sec. (24.2-36.6) 03/27/18 20:01 VBG pH 7.425 (7.320-7.420) H 03/27/18 20:01 Sodium 166 mmol/L (137-145) H* 03/27/18 20:01 Potassium 4.0 mmol/L (3.6-5.0) 03/27/18 20:01 Chloride 121.2 mmol/L (98-107) H 03/27/18 20:01 Carbon Dioxide 33 mmol/L (22-30) H 03/27/18 20:01 Anion Gap 15 mmol/L 03/27/18 20:01 BUN 53 mg/dL (9-20) H 03/27/18 20:01 Creatinine 1.0 mg/dL (0.8-1.5) 03/27/18 20:01 Estimated GFR > 60 ml/min 03/27/18 20:01 BUN/Creatinine Ratio 53 % 03/27/18 20:01 Glucose 446 mg/dL (75-100) H 03/27/18 20:01 Lactic Acid 2.70 mmol/L (0.7-2.0) H* 03/28/18 00:50 Calcium 11.0 mg/dL (8.4-10.2) H 03/27/18 20:01 Total Bilirubin 0.30 mg/dL (0.1-1.2) 03/27/18 20:01 AST 78 units/L (5-40) H 03/27/18 20:01 ALT 203 units/L (7-56) H 03/27/18 20:01 Alkaline Phosphatase 208 units/L (35-129) H 03/27/18 20:01 Troponin T 0.048 ng/mL (0.00-0.029) H 03/27/18 20:05 Total Protein 6.9 g/dL (6.3-8.2) 03/27/18 20:01 Albumin 2.6 g/dL (3.9-5) L 03/27/18 20:01 Albumin/Globulin Ratio 0.6 % 03/27/18 20:01 Triglycerides 151 mg/dL (2-149) H 03/27/18 20:05 Cholesterol 106 mg/dL (50-199) 03/27/18 20:05 LDL Cholesterol Direct 57 mg/dL (50-130) 03/27/18 20:05 HDL Cholesterol 27 mg/dL (40-59) L 03/27/18 20:05 Cholesterol/HDL Ratio 3.92 % 03/27/18 20:05 Urine Color Yellow (Yellow) 03/27/18 19:51 Urine Turbidity Clear (Clear) 03/27/18 19:51 Urine pH 5.0 (5.0-7.0) 03/27/18 19:51 Ur Specific [place] 1.023 (1.003-1.030) 03/27/18 19:51 Urine Protein <15 mg/dl mg/dL (Negative) 03/27/18 19:51 Urine Glucose (UA) >=500 mg/dL (Negative) 03/27/18 19:51 Urine Ketones Neg mg/dL (Negative) 03/27/18 19:51 Urine Blood Neg (Negative) 03/27/18 19:51 Urine Nitrite Neg (Negative) 03/27/18 19:51 Urine Bilirubin Neg (Negative) 03/27/18 19:51 Urine Urobilinogen < 2.0 mg/dL (<2.0) 03/27/18 19:51 Ur Leukocyte Esterase Neg (Negative) 03/27/18 19:51 Urine WBC (Auto) < 1.0 /HPF (0.0-6.0) 03/27/18 19:51 Urine RBC (Auto) 1.0 /HPF (0.0-6.0) 03/27/18 19:51 U Epithel Cells (Auto) < 1.0 /HPF (0-13.0) 03/27/18 19:51 Urine Bacteria (Auto) 1+ /HPF (Negative) 03/27/18 19:51 Urine Mucus Few /HPF 03/27/18 19:51 Assessment and Plan Assessment and plan: Severe sepsis -Probably secondary to infected decubitus ulcers versus pneumonia -Patient will be placed on sepsis protocol -Follow up blood and sputum culture results Hypernatremia -Patient will be placed on IV fluid with close monitoring of his sodium level -Will also need free water adjustment -Nephrology consulted Sacral decubital ulcers -Surgery consulted in the ED IDDM2 with hyperglycemia -Patient will be placed on both basal and prandial insulin regimen Chronic respiratory failure with hypoxia -Status post tracheostomy -Continue oxygen supplementation as needed Dysphagia status post PEG tube placement -Dietitian consulted Seizure disorder -Resume home [place] HTN -BP stable Prophylaxis -DVT prophylaxis with Lovenox 40 minutes spent coordinating care
[2018-03-28] MEDS ORDERED: ZOSYN/NS 3.375GM/50ML 3.375 GM/50 ML BAG IV SCH (06:00)
[2018-03-28] MEDS: HumuLIN R SUB-Q SCH ×3 (07:30→18:43)
[2018-03-28] MEDS ORDERED: DUONEB *Not for PRN Use IH (08:29)
[2018-03-28] MEDS ORDERED: INSULIN GLARGINE HUM REC ANLOG 50 UNIT SUB-Q SCH (08:30)
[2018-03-28] MEDS ORDERED: LEVETIRACETAM FEEDTUBE SCH (08:30)
--- NOTE | 2018-03-28 08:34 | Progress Note ---
Assessment and Plan Assessment and plan: --Severe sepsis Probably secondary to infected decubitus ulcers versus pneumonia Continue sepsis protocol, empiric antibiotics, Follow up blood urine and wound cultures --Hypernatremia Free water flushes via PEG tube,Continue 5W, closely monitor electrolytes, Nephrology following --Sacral decubital ulcers Wound care and wound cultures Surgery following Possible surgical debridement and patient is stable --type 2 diabetes mellitus ; Accu-Chek sliding scale coverage and ADA diet and insulin shock and long-acting --Chronic respiratory failure with hypoxia; status post tracheostomy trach care, oxygen and nebulizers as needed --Dysphagia status post PEG tube placement Feeds per protocol --History of Seizure disorder Seizure precautions, antiepileptic medications Keppra --Malignant HTN; Moderate control, continue current antihypertensives and when necessary medications -DVT prophylaxis with Lovenox --full code status Nephrology evaluation and recommendation noted and appreciated Closely monitor the patient and just management as needed Critical care time 31 minutes History Interval history: Patient seen and examined in the ER waiting room assignment Patient with chronic hypoxia status post trach and PEG was admitted through the emergency room Retrieval with MAXIMUM TEMPERATUREof 102.4F She'll evaluation was consistent with sepsis severe hyponatremia and stage IV sacral decubitus ulcers Patient is admitted to the hospital, advised free water flushes and supportive care Patient is chronically ill-looking cachectic He mentioned it to being dehydrated Vital signs reviewed Febrile Hospitalist Physical - Constitutional Vitals: Temp Pulse Resp BP Pulse Ox 98.3 F 116 H 28 H 134/82 98 03/28/18 07:48 03/28/18 06:00 03/28/18 06:00 03/28/18 06:00 03/28/18 06:00 General appearance: Present: mild distress, cachectic, disheveled, other - EENT Eyes: Present: PERRL, EOM intact (dehydrated) ENT: other (status post tracheostomy on T piece) - Neck Neck: Present: supple, other (tracheostomy and T piece) - Respiratory Respiratory effort: normal Respiratory: bilateral: diminished, rhonchi, negative: rales, wheezing - Cardiovascular Rhythm: regular Heart Sounds: Present: S1 & S2 - Extremities Extremities: no ischemia Extremity abnormal: edema - Abdominal General gastrointestinal: soft, non-tender, non-distended, normal bowel sounds - Integumentary Integumentary: Present: clear, warm, erythema (stage IV sacral decubitus ulcer) - Psychiatric Psychiatric: other (minimally communicative) - Neurologic Neurologic: other (minimally communicative) Results - Labs CBC & Chem 7: 03/27/18 20:01 03/28/18 14:38 Labs: Laboratory Last Values WBC 16.7 K/mm3 (4.5-11.0) H 03/27/18 20:01 RBC 5.38 M/mm3 (3.65-5.03) H 03/27/18 20:01 Hgb 13.0 gm/dl (11.8-15.2) 03/27/18 20:01 Hct 42.2 % (35.5-45.6) 03/27/18 20:01 MCV 79 fl (84-94) L 03/27/18 20:01 MCH 24 pg (28-32) L 03/27/18 20:01 MCHC 31 % (32-34) L 03/27/18 20:01 RDW 19.3 % (13.2-15.2) H 03/27/18 20:01 Plt Count 337 K/mm3 (140-440) 03/27/18 20:01 Lymph % (Auto) 16.9 % (13.4-35.0) 03/27/18 20:01 [place] % (Auto) 6.3 % (0.0-7.3) 03/27/18 20:01 Eos % (Auto) 0.6 % (0.0-4.3) 03/27/18 20:01 Baso % (Auto) 0.3 % (0.0-1.8) 03/27/18 20:01 Lymph # 2.8 K/mm3 (1.2-5.4) 03/27/18 20:01 [place] # 1.0 K/mm3 (0.0-0.8) H 03/27/18 20:01 Eos # 0.1 K/mm3 (0.0-0.4) 03/27/18 20:01 Baso # 0.0 K/mm3 (0.0-0.1) 03/27/18 20:01 Seg Neutrophils % 75.9 % (40.0-70.0) H 03/27/18 20:01 Seg Neutrophils # 12.7 K/mm3 (1.8-7.7) H 03/27/18 20:01 PT 15.1 Sec. (12.2-14.9) H 03/27/18 20:01 INR 1.13 (0.87-1.13) 03/27/18 20:01 APTT 32.0 Sec. (24.2-36.6) 03/27/18 20:01 VBG pH 7.425 (7.320-7.420) H 03/27/18 20:01 Sodium 166 mmol/L (137-145) H* 03/27/18 20:01 Potassium 4.0 mmol/L (3.6-5.0) 03/27/18 20:01 Chloride 121.2 mmol/L (98-107) H 03/27/18 20:01 Carbon Dioxide 33 mmol/L (22-30) H 03/27/18 20:01 Anion Gap 15 mmol/L 03/27/18 20:01 BUN 53 mg/dL (9-20) H 03/27/18 20:01 Creatinine 1.0 mg/dL (0.8-1.5) 03/27/18 20:01 Estimated GFR > 60 ml/min 03/27/18 20:01 BUN/Creatinine Ratio 53 % 03/27/18 20:01 Glucose 446 mg/dL (75-100) H 03/27/18 20:01 POC Glucose 195 (70-105) H 03/28/18 07:45 Lactic Acid 5.40 mmol/L (0.7-2.0) H* 03/28/18 04:50 Calcium 11.0 mg/dL (8.4-10.2) H 03/27/18 20:01 Total Bilirubin 0.30 mg/dL (0.1-1.2) 03/27/18 20:01 AST 78 units/L (5-40) H 03/27/18 20:01 ALT 203 units/L (7-56) H 03/27/18 20:01 Alkaline Phosphatase 208 units/L (35-129) H 03/27/18 20:01 Troponin T 0.048 ng/mL (0.00-0.029) H 03/27/18 20:05 Total Protein 6.9 g/dL (6.3-8.2) 03/27/18 20:01 Albumin 2.6 g/dL (3.9-5) L 03/27/18 20:01 Albumin/Globulin Ratio 0.6 % 03/27/18 20:01 Triglycerides 151 mg/dL (2-149) H 03/27/18 20:05 Cholesterol 106 mg/dL (50-199) 03/27/18 20:05 LDL Cholesterol Direct 57 mg/dL (50-130) 03/27/18 20:05 HDL Cholesterol 27 mg/dL (40-59) L 03/27/18 20:05 Cholesterol/HDL Ratio 3.92 % 03/27/18 20:05 Urine Color Yellow (Yellow) 03/27/18 19:51 Urine Turbidity Clear (Clear) 03/27/18 19:51 Urine pH 5.0 (5.0-7.0) 03/27/18 19:51 Ur Specific [place] 1.023 (1.003-1.030) 03/27/18 19:51 Urine Protein <15 mg/dl mg/dL (Negative) 03/27/18 19:51 Urine Glucose (UA) >=500 mg/dL (Negative) 03/27/18 19:51 Urine Ketones Neg mg/dL (Negative) 03/27/18 19:51 Urine Blood Neg (Negative) 03/27/18 19:51 Urine Nitrite Neg (Negative) 03/27/18 19:51 Urine Bilirubin Neg (Negative) 03/27/18 19:51 Urine Urobilinogen < 2.0 mg/dL (<2.0) 03/27/18 19:51 Ur Leukocyte Esterase Neg (Negative) 03/27/18 19:51 Urine WBC (Auto) < 1.0 /HPF (0.0-6.0) 03/27/18 19:51 Urine RBC (Auto) 1.0 /HPF (0.0-6.0) 03/27/18 19:51 U Epithel Cells (Auto) < 1.0 /HPF (0-13.0) 03/27/18 19:51 Urine Bacteria (Auto) 1+ /HPF (Negative) 03/27/18 19:51 Urine Mucus Few /HPF 03/27/18 19:51
[2018-03-28] MEDS ORDERED: D5W 1,000 ML IV ONE (08:44)
--- NOTE | 2018-03-28 08:48 | Consultation ---
History of Present Illness - Reason for Consult Consult date: 03/28/18 acute renal failure, hypernatremia - History of Present Illness The patient is a 72 YO male with history significant for DM-2, HTN, HLD, Hemorrhagic stroke, Respiratory failure s/p Tracheostomy, Sacral decubital ulcer , Dysphagia status post PEG tube, Seizure disorder and alf resident who was brought to the ED for evaluation of fever. Unable to obtain any history from patient and information was obtained from the chart. On arrival to the ED, his temperature was noted to be 102.4 F. His labs were significant for Sodium 171, Lactate 5.1 and WBC 16.7. He was treated for similar illness and discharged from [facility] on 03/07/18. Past History Past Medical History: anemia, diabetes, GERD, hypertension, hyperlipidemia, renal failure, seizures, other (BPH, dysphagia, chronic respt failure, BPH) Past Surgical History: Other (S/P PEG TUBE PLACEMENT AND TRACH) Social history: other (could not be obtained due to altered mental status) Family history: other (could not be obtained due to altered mental status) Medications and Allergies Allergies Allergy/AdvReac Type Severity Reaction Status Date / Time aspirin Allergy Unknown Verified 02/14/18 09:48 Home Medications Medication Instructions Recorded Confirmed Last Taken Type Acetaminophen [Acetaminophen TAB] 650 mg FEEDTUBE Q6HR PRN 02/14/18 03/28/18 Unknown History Amantadine [Symmetrel] 10 ml FEEDTUBE QDAY 02/14/18 03/28/18 Unknown History Benazepril (Nf) 10 mg FEEDTUBE QDAY 02/14/18 03/28/18 Unknown History Bisacodyl [Bisac-Evac] 10 mg RC Q24H PRN 02/14/18 03/28/18 Unknown History Collagenase [Santyl] 1 applicatio TP QDAY 02/14/18 03/28/18 Unknown History Famotidine [Pepcid] 20 mg FEEDTUBE BID 02/14/18 03/28/18 Unknown History Insulin Glargine,Hum.rec.anlog 50 units SUB-Q Q12H 02/14/18 03/28/18 Unknown History [Basaglar Kwikpen U-100] Insulin Lispro [Humalog 100 See Protocol SUB-Q BID 02/14/18 03/28/18 Unknown History UNITS/ML Kwikpen] Ipratropium/Albuterol Sulfate 1 ampul IH Q4HR PRN 02/14/18 03/28/18 Unknown History [DUONEB *Not for PRN Use*] Ipratropium/Albuterol Sulfate 1 ampul IH Q6HR PRN 02/14/18 03/28/18 Unknown History [DUONEB *Not for PRN Use*] Levobunolol HCl [Betagan] 1 drop OU QDAY 02/14/18 03/28/18 Unknown History Metoprolol [Lopressor TAB] 50 mg FEEDTUBE Q8H 02/14/18 03/28/18 Unknown History Scopolamine [Transderm-Scop] 1 each TD Q3D 02/14/18 03/28/18 Unknown History Sennosides [Senna] 8.6 mg FEEDTUBE QDAY PRN 02/14/18 03/28/18 Unknown History levETIRAcetam [Levetiracetam] 5 ml FEEDTUBE Q12H 02/14/18 03/28/18 Unknown History traZODone [Desyrel] 25 mg FEEDTUBE BID 02/14/18 03/28/18 Unknown History Atorvastatin Calcium [Lipitor] 40 mg FEEDTUBE HS #30 03/07/18 03/28/18 Unknown Rx Active Meds: Active Medications Albuterol/Ipratropium (Duoneb *Not For Prn Use*) 1 ampul IH Q4HR PRN PRN Reason: Shortness Of Breath Amantadine HCl (Symmetrel) 100 mg FEEDTUBE QDAY MARIA LUZ Atorvastatin Calcium (Lipitor) 40 mg FEEDTUBE HS MARIA LUZ Dextrose (D50w (25gm) Syringe) 50 ml IV PRN PRN PRN Reason: Hypoglycemia Enoxaparin Sodium (Lovenox) 30 mg SUB-Q QDAY MARIA LUZ Famotidine (Pepcid) 20 mg FEEDTUBE BID MARIA LUZ Dextrose (D5w) 1,000 mls @ 42 mls/hr IV DIRECT MARIA LUZ Vancomycin HCl (Vancomycin/Ns 1 Gm/250 Ml) 1 gm in 250 mls @ 250 mls/hr IV Q18H MARIA LUZ Piperacillin Sod/Tazobactam Sod (Zosyn/Ns 4.5gm/100ml) 4.5 gm in 100 mls @ 200 mls/hr IV Q8HR MARIA LUZ Insulin Glargine (Lantus) 20 units SUB-Q BID MARIA LUZ Insulin Human Lispro (Humalog) 0 unit SUB-Q Q6HR MARIA LUZ; Protocol Insulin Human Regular (Humulin R) 0 units SUB-Q ACHS MARIA LUZ; Protocol Metoprolol Tartrate (Lopressor) 50 mg FEEDTUBE Q8H MARIA LUZ Miscellaneous Medication (Benazepril (Nf)) 10 mg FEEDTUBE QDAY MARIA LUZ Miscellaneous Medication (Insulin Glargine,Hum.Rec.Anlog [Basaglar Kwikpen U-100 ]) 50 units SUB-Q Q12H MARIA LUZ Miscellaneous Medication (Levetiracetam [Levetiracetam]) 5 ml FEEDTUBE Q12H MARIA LUZ Scopolamine (Transderm-Scop) 1 each TD Q3D MARIA LUZ Senna (Senokot) 8.6 mg FEEDTUBE QDAY PRN PRN Reason: Constipation Trazodone HCl (Desyrel) 25 mg PO BID MARIA LUZ Vancomycin HCl (Vancomycin Pharmacy To Dose) 1 each IV PKCONSULT MARIA LUZ; Protocol Review of Systems ROS unobtainable: due to mental status Exam - Vital Signs Vital signs: Vital Signs Temp Pulse Resp BP Pulse Ox 102.4 F H 150 H 46 H 123/67 87 03/27/18 19:43 03/27/18 19:43 03/27/18 19:43 03/27/18 19:43 03/27/18 19:43 - General Appearance General appearance: well-developed, appears stated age, other (barely arousable) EENT: ATNC Neck: Present: Other (Trached, On T-piece) Respiratory: Other (coarse breath sounds) Heart: regular, S1S2, no murmurs Gastrointestinal: Present: normoactive bowel sounds, other (PEG tube noted). Absent: tenderness Integumentary: no rash Neurologic: other (non-verbal, not following any command) Musculoskeletal: Present: other (no edema) Results - Lab Results 03/27/18 20:01 03/28/18 13:15 Most recent lab results Calcium 11.0 mg/dL (8.4-10.2) H 03/27/18 20:01 Assessment and Plan 1. Hypernatremia: Continue IV D5W. Monitor Sodium levels. 2. Azotemia / Acute kidney injury: Vasomotor / hemodynamically mediated [place]. Continue IV fluids. 3. Sepsis. 4. HTN. 5. Sacral decubitus.
[2018-03-28] MEDS: D5W 1,000 ML IV SCH (08:59)
[2018-03-28 09:49] LABS: BUN/Creatinine Ratio 58; Blood Urea Nitrogen 46 mg/dL (9-20); Calcium 10.6 mg/dL (8.4-10.2); Hemolysis Index 5
[2018-03-28] MEDS ORDERED: SENOKOT FEEDTUBE PRN (10:00)
[2018-03-28] MEDS ORDERED: BENAZEPRIL 10 MG FEEDTUBE SCH (10:00)
[2018-03-28] MEDS ORDERED: LOVENOX SUB-Q SCH (10:00)
[2018-03-28] MEDS ORDERED: ZESTRIL PO SCH (11:00)
[2018-03-28] MEDS ORDERED: LOVENOX SUB-Q ONE (11:07)
[2018-03-28] MEDS ORDERED: KEPPRA PO ONE (11:07)
[2018-03-28] MEDS ORDERED: DESYREL PO ONE (11:07)
[2018-03-28] MEDS ORDERED: PEPCID ONE (11:08)
[2018-03-28] MEDS ORDERED: LOPRESSOR ONE (11:08)
[2018-03-28] MEDS: DESYREL PO SCH (11:17)
[2018-03-28] MEDS: KEPPRA FEEDTUBE SCH ×2 (11:17→22:30)
[2018-03-28] MEDS: LOPRESSOR FEEDTUBE SCH ×3 (11:17→22:30)
[2018-03-28] MEDS: PEPCID FEEDTUBE SCH ×2 (11:18→22:30)
[2018-03-28] MEDS: DAKIN'S HALF STRENGTH TP SCH (11:20)
[2018-03-28] MEDS: TRANSDERM-SCOP TD SCH (11:21)
[2018-03-28] MEDS: SYMMETREL FEEDTUBE SCH (11:21)
[2018-03-28] MEDS ORDERED: LANTUS SUB-Q SCH (11:30)
[2018-03-28] MEDS ORDERED: ZESTRIL ONE (11:46)
[2018-03-28] MEDS: ZESTRIL FEEDTUBE SCH (11:53)
[2018-03-28] MEDS ORDERED: SODIUM BICARBONATE FEEDTUBE PRN (12:00)
[2018-03-28] MEDS ORDERED: PROVENTIL IH PRN (12:00)
[2018-03-28] MEDS ORDERED: HumaLOG SUB-Q SCH (12:00)
[2018-03-28] MEDS ORDERED: PANCREAZE DR 10,500 UNIT FEEDTUBE PRN (12:00)
[2018-03-28] MEDS ORDERED: SIMPLE SYRUP FEEDTUBE PRN ×2 (12:00)
[2018-03-28] MEDS: LANTUS SUB-Q SCH (12:37)
--- NOTE | 2018-03-28 13:41 | Consultation ---
History of Present Illness Consult date: 03/28/18 Chief complaint: sacral wound - History of present illness History of present illness: 72 yo M chronically bed bound, s/p trach/PEG and with known sacral wound presents with fevers from [facility]. The patient is nonverbal and all of the history is obtained from the chart. The patient was admitted last month and seen by Dr. Hart for sacral wound. The patient was taken to the OR and underwent debridement at that time and placement of wound vac. Unfortunately , he returned to hospital with signs of sepsis. Past History Past Medical History: anemia, diabetes, GERD, hypertension, hyperlipidemia, renal failure, seizures, other (BPH, dysphagia, chronic respt failure, BPH) Past Surgical History: Other (S/P PEG TUBE PLACEMENT AND TRACH, debridement sacral wound) Social history: other (could not be obtained due to altered mental status) Family history: other (could not be obtained due to altered mental status) Medications and Allergies Allergies Allergy/AdvReac Type Severity Reaction Status Date / Time aspirin Allergy Unknown Verified 02/14/18 09:48 Home Medications Medication Instructions Recorded Confirmed Last Taken Type Acetaminophen [Acetaminophen TAB] 650 mg FEEDTUBE Q6HR PRN 02/14/18 03/28/18 Unknown History Amantadine [Symmetrel] 10 ml FEEDTUBE QDAY 02/14/18 03/28/18 Unknown History Benazepril (Nf) 10 mg FEEDTUBE QDAY 02/14/18 03/28/18 Unknown History Bisacodyl [Bisac-Evac] 10 mg RC Q24H PRN 02/14/18 03/28/18 Unknown History Collagenase [Santyl] 1 applicatio TP QDAY 02/14/18 03/28/18 Unknown History Famotidine [Pepcid] 20 mg FEEDTUBE BID 02/14/18 03/28/18 Unknown History Insulin Glargine,Hum.rec.anlog 50 units SUB-Q Q12H 02/14/18 03/28/18 Unknown History [Basaglar Kwikpen U-100] Insulin Lispro [Humalog 100 See Protocol SUB-Q BID 02/14/18 03/28/18 Unknown History UNITS/ML Kwikpen] Ipratropium/Albuterol Sulfate 1 ampul IH Q4HR PRN 02/14/18 03/28/18 Unknown History [DUONEB *Not for PRN Use*] Ipratropium/Albuterol Sulfate 1 ampul IH Q6HR PRN 02/14/18 03/28/18 Unknown History [DUONEB *Not for PRN Use*] Levobunolol HCl [Betagan] 1 drop OU QDAY 02/14/18 03/28/18 Unknown History Metoprolol [Lopressor TAB] 50 mg FEEDTUBE Q8H 02/14/18 03/28/18 Unknown History Scopolamine [Transderm-Scop] 1 each TD Q3D 02/14/18 03/28/18 Unknown History Sennosides [Senna] 8.6 mg FEEDTUBE QDAY PRN 02/14/18 03/28/18 Unknown History levETIRAcetam [Levetiracetam] 5 ml FEEDTUBE Q12H 02/14/18 03/28/18 Unknown History traZODone [Desyrel] 25 mg FEEDTUBE BID 02/14/18 03/28/18 Unknown History Atorvastatin Calcium [Lipitor] 40 mg FEEDTUBE HS #30 03/07/18 03/28/18 Unknown Rx Active Meds: Active Medications Albuterol (Proventil) 2.5 mg IH Q4HRT PRN PRN Reason: Shortness Of Breath Amantadine HCl (Symmetrel) 100 mg FEEDTUBE QDAY [facility] Last Admin: 03/28/18 11:21 Dose: 100 mg Lipase/Protease/Amylase (Pancreaze Dr 10,500 Unit) 1 each FEEDTUBE PRN PRN PRN Reason: For Clogged Feeding Tube Atorvastatin Calcium (Lipitor) 40 mg FEEDTUBE QHS [facility] Dextrose (D50w (25gm) Syringe) 50 ml IV PRN PRN PRN Reason: Hypoglycemia Enoxaparin Sodium (Lovenox) 40 mg SUB-Q QDAY@1000 [facility] LU[facility] Famotidine (Pepcid) 20 mg FEEDTUBE BID [facility] Last Admin: 03/28/18 11:18 Dose: 20 mg Dextrose (D5w) 1,000 mls @ 100 mls/hr IV DIRECT [facility]IA LU[facility] Last Infusion: 03/28/18 10:56 Dose: 100 mls/hr Vancomycin HCl (Vancomycin/Ns 1 Gm/250 Ml) 1 gm in 250 mls @ 250 mls/hr IV Q18H [facility] Piperacillin Sod/Tazobactam Sod (Zosyn/Ns 4.5gm/100ml) 4.5 gm in 100 mls @ 200 mls/hr IV Q8HR [facility] Insulin Glargine (Lantus) 20 units SUB-Q BID [facility] Last Admin: 03/28/18 12:37 Dose: 20 units Insulin Human Regular (Humulin R) 0 units SUB-Q ACHS [facility]; Protocol Last Admin: 03/28/18 07:30 Dose: Not Given Levetiracetam (Keppra) 500 mg FEEDTUBE BID [facility] Last Admin: 03/28/18 11:17 Dose: 500 mg Lisinopril (Zestril) 10 mg FEEDTUBE QDAY [facility] Last Admin: 03/28/18 11:53 Dose: 10 mg Metoprolol Tartrate (Lopressor) 50 mg FEEDTUBE Q8HR [facility] Last Admin: 03/28/18 11:17 Dose: 50 mg Scopolamine (Transderm-Scop) 1 each TD Q3D [facility] Last Admin: 03/28/18 11:21 Dose: 1 each Senna (Senokot) 8.6 mg FEEDTUBE QDAY PRN PRN Reason: Constipation Simple Syrup (Simple Syrup) 15 ml FEEDTUBE PRN PRN PRN Reason: Hypoglycemia Simple Syrup (Simple Syrup) 30 ml FEEDTUBE PRN PRN PRN Reason: Hypoglycemia Sodium Bicarbonate (Sodium Bicarbonate) 325 mg FEEDTUBE PRN PRN PRN Reason: For Clogged Feeding Tube Sodium Hypochlorite (Dakin's Half Strength) 1 applic TP BID [facility] Last Admin: 03/28/18 11:20 Dose: 1 1000units Trazodone HCl (Desyrel) 25 mg PO BID [facility] Last Admin: 03/28/18 11:17 Dose: 25 mg Vancomycin HCl (Vancomycin Pharmacy To Dose) 1 each IV PKCONSULT [facility]; Protocol Review of Systems ROS unobtainable: due to mental status Exam Vital Signs Temp Pulse Resp BP Pulse Ox 102.4 F H 150 H 46 H 123/67 87 03/27/18 19:43 03/27/18 19:43 03/27/18 19:43 03/27/18 19:43 03/27/18 19:43 Narrative exam: Gen: Awake. NAD ENT: tracheostomy to O2 CV: s1, S2+ resp: even and unlabored Abd; soft, NT, ND. PEG tube in place, flushes easily and pulls back gastric contents Ext: L heel superficial wound Sacrum: 8.5X8X2.5 cm stage 4 sacral wound - wound bed covered with slough. No drainage. packed with mesalt, gauze, and secured with coversite dressing. Results - Labs 03/27/18 20:01 03/28/18 13:15 Abnormal lab results 03/27/18 03/27/18 03/27/18 Range/Units 20:01 20:01 20:01 WBC 16.7 H (4.5-11.0) K/mm3 RBC 5.38 H (3.65-5.03) M/mm3 MCV 79 L (84-94) fl MCH 24 L (28-32) pg MCHC 31 L (32-34) % RDW 19.3 H (13.2-15.2) % Bennett # 1.0 H (0.0-0.8) K/mm3 Seg Neutrophils % 75.9 H (40.0-70.0) % Seg Neutrophils # 12.7 H (1.8-7.7) K/mm3 PT 15.1 H (12.2-14.9) Sec. VBG pH (7.320-7.420) Sodium 166 H* (137-145) mmol/L Chloride 121.2 H (98-107) mmol/L Carbon Dioxide 33 H (22-30) mmol/L BUN 53 H (9-20) mg/dL Glucose 446 H (75-100) mg/dL POC Glucose (70-105) Lactic Acid (0.7-2.0) mmol/L Calcium 11.0 H (8.4-10.2) mg/dL AST 78 H (5-40) units/L ALT 203 H (7-56) units/L Alkaline Phosphatase 208 H (35-129) units/L Troponin T (0.00-0.029) ng/mL Albumin 2.6 L (3.9-5) g/dL Triglycerides (2-149) mg/dL HDL Cholesterol (40-59) mg/dL 03/27/18 03/27/18 03/27/18 Range/Units 20:01 20:01 20:05 WBC (4.5-11.0) K/mm3 RBC (3.65-5.03) M/mm3 MCV (84-94) fl MCH (28-32) pg MCHC (32-34) % RDW (13.2-15.2) % Bennett # (0.0-0.8) K/mm3 Seg Neutrophils % (40.0-70.0) % Seg Neutrophils # (1.8-7.7) K/mm3 PT (12.2-14.9) Sec. VBG pH 7.425 H (7.320-7.420) Sodium (137-145) mmol/L Chloride (98-107) mmol/L Carbon Dioxide (22-30) mmol/L BUN (9-20) mg/dL Glucose (75-100) mg/dL POC Glucose (70-105) Lactic Acid 4.10 H* (0.7-2.0) mmol/L Calcium (8.4-10.2) mg/dL AST (5-40) units/L ALT (7-56) units/L Alkaline Phosphatase (35-129) units/L Troponin T 0.048 H (0.00-0.029) ng/mL Albumin (3.9-5) g/dL Triglycerides 151 H (2-149) mg/dL HDL Cholesterol 27 L (40-59) mg/dL 03/27/18 03/27/18/ Range/Units 21:29 22:04 22:55 WBC (4.5-11.0) K/mm3 RBC (3.65-5.03) M/mm3 MCV (84-94) fl MCH (28-32) pg MCHC (32-34) % RDW (13.2-15.2) % Bennett # (0.0-0.8) K/mm3 Seg Neutrophils % (40.0-70.0) % Seg Neutrophils # (1.8-7.7) K/mm3 PT (12.2-14.9) Sec. VBG pH (7.320-7.420) Sodium (137-145) mmol/L Chloride (98-107) mmol/L Carbon Dioxide (22-30) mmol/L BUN (9-20) mg/dL Glucose (75-100) mg/dL POC Glucose (70-105) Lactic Acid 3.20 H* 3.30 H* 2.70 H* (0.7-2.0) mmol/L Calcium (8.4-10.2) mg/dL AST (5-40) units/L ALT (7-56) units/L Alkaline Phosphatase (35-129) units/L Troponin T (0.00-0.029) ng/mL Albumin (3.9-5) g/dL Triglycerides (2-149) mg/dL HDL Cholesterol (40-59) mg/dL 03/28/18 03/28/18 03/28/18 Range/Units 00:50 04:50 07:45 WBC (4.5-11.0) K/mm3 RBC (3.65-5.03) M/mm3 MCV (84-94) fl MCH (28-32) pg MCHC (32-34) % RDW (13.2-15.2) % Bennett # (0.0-0.8) K/mm3 Seg Neutrophils % (40.0-70.0) % Seg Neutrophils # (1.8-7.7) K/mm3 PT (12.2-14.9) Sec. VBG pH (7.320-7.420) Sodium (137-145) mmol/L Chloride (98-107) mmol/L Carbon Dioxide (22-30) mmol/L BUN (9-20) mg/dL Glucose (75-100) mg/dL POC Glucose 195 H (70-105) Lactic Acid 2.70 H* 5.40 H* (0.7-2.0) mmol/L Calcium (8.4-10.2) mg/dL AST (5-40) units/L ALT (7-56) units/L Alkaline Phosphatase (35-129) units/L Troponin T (0.00-0.029) ng/mL Albumin (3.9-5) g/dL Triglycerides (2-149) mg/dL HDL Cholesterol (40-59) mg/dL 03/28/18 03/28/18 03/28/18 Range/Units 09:22 09:22 10:51 WBC (4.5-11.0) K/mm3 RBC (3.65-5.03) M/mm3 MCV (84-94) fl MCH (28-32) pg MCHC (32-34) % RDW (13.2-15.2) % Bennett # (0.0-0.8) K/mm3 Seg Neutrophils % (40.0-70.0) % Seg Neutrophils # (1.8-7.7) K/mm3 PT (12.2-14.9) Sec. VBG pH (7.320-7.420) Sodium 171 H* (137-145) mmol/L Chloride 130.8 H (98-107) mmol/L Carbon Dioxide 35 H (22-30) mmol/L BUN 46 H (9-20) mg/dL Glucose 203 H (75-100) mg/dL POC Glucose 224 H (70-105) Lactic Acid 2.10 H* (0.7-2.0) mmol/L Calcium 10.6 H (8.4-10.2) mg/dL AST (5-40) units/L ALT (7-56) units/L Alkaline Phosphatase (35-129) units/L Troponin T (0.00-0.029) ng/mL Albumin (3.9-5) g/dL Triglycerides (2-149) mg/dL HDL Cholesterol (40-59) mg/dL 18 / Range/Units 10:52 12:43 WBC (4.5-11.0) K/mm3 RBC (3.65-5.03) M/mm3 MCV (84-94) fl MCH (28-32) pg MCHC (32-34) % RDW (13.2-15.2) % Bennett # (0.0-0.8) K/mm3 Seg Neutrophils % (40.0-70.0) % Seg Neutrophils # (1.8-7.7) K/mm3 PT (12.2-14.9) Sec. VBG pH (7.320-7.420) Sodium (137-145) mmol/L Chloride (98-107) mmol/L Carbon Dioxide (22-30) mmol/L BUN (9-20) mg/dL Glucose (75-100) mg/dL POC Glucose 214 H (70-105) Lactic Acid 2.50 H* (0.7-2.0) mmol/L Calcium (8.4-10.2) mg/dL AST (5-40) units/L ALT (7-56) units/L Alkaline Phosphatase (35-129) units/L Troponin T (0.00-0.029) ng/mL Albumin (3.9-5) g/dL Triglycerides (2-149) mg/dL HDL Cholesterol (40-59) mg/dL Diabetes panel 03/27/18 03/27/18 03/28/18 Range/Units 20:01 20:05 09:22 Sodium 166 H* 171 H* (137-145) mmol/L Potassium 4.0 4.1 (3.6-5.0) mmol/L Chloride 121.2 H 130.8 H (98-107) mmol/L Carbon Dioxide 33 H 35 H (22-30) mmol/L BUN 53 H 46 H (9-20) mg/dL Creatinine 1.0 0.8 (0.8-1.5) mg/dL Glucose 446 H 203 H (75-100) mg/dL Calcium 11.0 H 10.6 H (8.4-10.2) mg/dL AST 78 H (5-40) units/L ALT 203 H (7-56) units/L Alkaline Phosphatase 208 H (35-129) units/L Total Protein 6.9 (6.3-8.2) g/dL Albumin 2.6 L (3.9-5) g/dL Triglycerides 151 H (2-149) mg/dL HDL Cholesterol 27 L (40-59) mg/dL Calcium panel 03/27/18 03/28/18 Range/Units 20:01 09:22 Calcium 11.0 H 10.6 H (8.4-10.2) mg/dL Albumin 2.6 L (3.9-5) g/dL Pituitary panel 03/27/18 03/28/18 Range/Units 20:01 09:22 Sodium 166 H* 171 H* (137-145) mmol/L Potassium 4.0 4.1 (3.6-5.0) mmol/L Chloride 121.2 H 130.8 H (98-107) mmol/L Carbon Dioxide 33 H 35 H (22-30) mmol/L BUN 53 H 46 H (9-20) mg/dL Creatinine 1.0 0.8 (0.8-1.5) mg/dL Glucose 446 H 203 H (75-100) mg/dL Calcium 11.0 H 10.6 H (8.4-10.2) mg/dL Adrenal panel 03/27/18 03/28/18 Range/Units 20:01 09:22 Sodium 166 H* 171 H* (137-145) mmol/L Potassium 4.0 4.1 (3.6-5.0) mmol/L Chloride 121.2 H 130.8 H (98-107) mmol/L Carbon Dioxide 33 H 35 H (22-30) mmol/L BUN 53 H 46 H (9-20) mg/dL Creatinine 1.0 0.8 (0.8-1.5) mg/dL Glucose 446 H 203 H (75-100) mg/dL Calcium 11.0 H 10.6 H (8.4-10.2) mg/dL Total Bilirubin 0.30 (0.1-1.2) mg/dL AST 78 H (5-40) units/L ALT 203 H (7-56) units/L Alkaline Phosphatase 208 H (35-129) units/L Total Protein 6.9 (6.3-8.2) g/dL Albumin 2.6 L (3.9-5) g/dL Assessment and Plan 72 yo M with 1. sepsis 2. infected sacral wound - stage 4 3. hypernatremia 4. dehydration 5. malnutrition - albumin 2.6 6. lactic acidosis 7. positive troponin Plan: 1. dakins to sacral wound BID 2. valve steamer following 3. IV abx - vanco and zosyn 4. needs debridement but will need correction of Na prior to any surgical procedure 5. offloading, turn patient q2 6. optimize nutrition 7. start TF via PEG 8. PEG tube is patent - free water flushes may be administered through PEG I discussed the patient's condition with his over the telephone in great detail. I recommend surgical debridement of the sacral wound in order to remove as much necrotic tissue as possible and place vac. At this time however, the patient is not a good candidate for surgery because of his severe hypernatremia. She understands. I told her that we are trying to correct the electrolyte issues, optimize his nutrition, and treat the infection with antibiotics. However, this takes time and needs to be sustained even when he leaves the hospital. With his overall health status being so poor, I did tell her that he may never heal the wound. She understands. She would like to hold off on any surgical debridement until the labs have improved, which I agree with. She will think about surgery over the next few days and I will be back in touch with her for consent if she chooses to proceed. Thank you for this consultation, please call with questions or concerns
[2018-03-28 13:55] LABS: BUN/Creatinine Ratio 55; Blood Urea Nitrogen 44 mg/dL (9-20); Calcium 10.4 mg/dL (8.4-10.2); Hemolysis Index 43
[2018-03-28] MEDS: ZOSYN/NS 4.5GM/100ML 4.5 GM/100 ML VIAL IV SCH (14:50)
[2018-03-28 16:31] LABS: BUN/Creatinine Ratio 49; Blood Urea Nitrogen 44 mg/dL (9-20); Calcium 10.4 mg/dL (8.4-10.2); Hemolysis Index 9
[2018-03-28 21:01] LABS: BUN/Creatinine Ratio 53; Blood Urea Nitrogen 42 mg/dL (9-20); Calcium 10.4 mg/dL (8.4-10.2); Hemolysis Index 9
--- NOTE | 2018-03-29 07:18 | Progress Note ---
Assessment and Plan 1. Hypernatremia: Continue IV D5W and water flushes. Monitor Sodium levels. 2. Azotemia / Acute kidney injury: Vasomotor / hemodynamically mediated [place]. Renal function is improving. Continue IV fluids. 3. Hyperkalemia: Will stop Lisinopril. Patient is on IV D5W. 4. Sepsis. 5. HTN. 6. Sacral decubitus. Subjective Date of service: 03/29/18 Interval history: Patient was seen and examined at the bedside. Objective - Vital Signs Vital signs: Vital Signs - 12hr 03/28/18 03/28/18 03/28/18 20:17 20:57 21:16 Temperature 97.5 F L Pulse Rate 90 Respiratory 20 Rate Blood Pressure 120/80 [Left] O2 Sat by Pulse 99 98 Oximetry O2 Sat by Pulse 98 Oximetry [ Assessment] - General Appearance General appearance: well-developed, appears stated age, other (stuporous) EENT: ATNC, PERRL Neck: supple Respiratory: Present: Clear to Ascultation Cardiology: regular, S1S2, no murmurs Gastrointestinal: normoactive bowel sounds, other (PEG tube noted) Integumentary: no rash Neurologic: other (not following any command) - Lab 03/27/18 20:01 03/29/18 10:42 Most recent lab results Calcium 10.4 mg/dL (8.4-10.2) H 03/28/18 20:24
[2018-03-29] MEDS: HumuLIN R SUB-Q SCH ×3 (09:54→22:47)
[2018-03-29] MEDS: DESYREL PO SCH ×2 (09:55→22:46)
[2018-03-29] MEDS: LOVENOX SUB-Q SCH (09:55)
[2018-03-29] MEDS: LOPRESSOR FEEDTUBE SCH ×3 (09:56→22:46)
[2018-03-29] MEDS: PEPCID FEEDTUBE SCH ×2 (09:56→22:47)
[2018-03-29] MEDS: KEPPRA FEEDTUBE SCH ×2 (09:56→22:46)
[2018-03-29] MEDS: LANTUS SUB-Q SCH ×2 (09:58→11:32)
--- NOTE | 2018-03-29 09:59 | Progress Note ---
Assessment and Plan Assessment and plan: --Hypernatremia; mild improvement and 171-163 Free water flushes via PEG tube,Continue 5W, closely monitor electrolytes, Nephrology following --Severe sepsis; Probably secondary to infected decubitus ulcers and pneumonia Continue current antibiotics, follow cultures --Sacral decubital ulcers Wound care and wound cultures Surgery following Possible surgical debridement when patient is stable --type 2 diabetes mellitus ; uncontrolled, partly secondary to D5W Accu-Chek sliding scale coverage and ADA diet Increase long-acting insulin dose --Chronic respiratory failure with hypoxia; status post tracheostomy trach care, oxygen and nebulizers as needed --Dysphagia status post PEG tube placement Feeds per protocol --History of Seizure disorder Seizure precautions, antiepileptic medications Keppra --Malignant HTN; Moderate control, continue current antihypertensives and when necessary medications -DVT prophylaxis with Lovenox --full code status Consults and recommendations noted and appreciated Plan of care reviewed with the patient's nurse History Interval history: Patient seen and examined medical records reviewed Patient feels slightly better, sodium levels mild mild improvement No new events reported by the nursing Patient is alert and awake not in acute distress Vital signs reviewed Hospitalist Physical - Constitutional Vitals: Temp Pulse Resp BP Pulse Ox 97.4 F L 88 18 126/81 97 03/29/18 08:31 03/29/18 08:31 03/29/18 08:31 03/29/18 08:31 03/29/18 09:09 General appearance: Present: no acute distress, cachectic, disheveled - EENT Eyes: Present: PERRL, EOM intact - Neck Neck: Present: supple, normal ROM, other (status post tracheostomy) - Respiratory Respiratory effort: normal Respiratory: bilateral: diminished, rales, negative: rhonchi, wheezing - Cardiovascular Rhythm: regular Heart Sounds: Present: S1 & S2 - Extremities Extremities: no ischemia, No edema - Abdominal General gastrointestinal: soft, non-tender, non-distended, other (PEG tube in place) - Integumentary Integumentary: Present: clear, warm, erythema (stage IV sacral decubitus ulcer) - Psychiatric Psychiatric: other (confused minimally communicative) - Neurologic Neurologic: other (subjective weakness) Results - Labs CBC & Chem 7: 03/29/18 15:16 03/29/18 10:42 Labs: Laboratory Last Values WBC 16.7 K/mm3 (4.5-11.0) H 03/27/18 20:01 RBC 5.38 M/mm3 (3.65-5.03) H 03/27/18 20:01 Hgb 13.0 gm/dl (11.8-15.2) 03/27/18 20: Hct 42.2 % (35.5-45.6) 03/27/18 20: MCV 79 fl (84-94) L 03/27/18 20: MCH 24 pg (28-32) L 03/27/18 20: MCHC 31 % (32-34) L 03/27/18 20: RDW 19.3 % (13.2-15.2) H 03/27/18 20:01 Plt Count 337 K/mm3 (140-440) 03/27/18 20:01 Lymph % (Auto) 16.9 % (13.4-35.0) 03/27/18 20:01 Grant % (Auto) 6.3 % (0.0-7.3) 03/27/18 20:01 Eos % (Auto) 0.6 % (0.0-4.3) 03/27/18 20:01 Baso % (Auto) 0.3 % (0.0-1.8) 03/27/18 20: Lymph # 2.8 K/mm3 (1.2-5.4) 03/27/18 20:01 Grant # 1.0 K/mm3 (0.0-0.8) H 03/27/18 20:01 Eos # 0.1 K/mm3 (0.0-0.4) 03/27/18 20:01 Baso # 0.0 K/mm3 (0.0-0.1) 03/27/18 20:01 Seg Neutrophils % 75.9 % (40.0-70.0) H 03/27/18 20:01 Seg Neutrophils # 12.7 K/mm3 (1.8-7.7) H 03/27/18 20:01 PT 15.1 Sec. (12.2-14.9) H 03/27/18 20:01 INR 1.13 (0.87-1.13) 03/27/18 20:01 APTT 32.0 Sec. (24.2-36.6) 03/27/18 20:01 VBG pH 7.425 (7.320-7.420) H 03/27/18 20:01 Sodium 167 mmol/L (137-145) H* 03/28/18 20:24 Potassium 4.0 mmol/L (3.6-5.0) 03/28/18 20:24 Chloride 125.1 mmol/L (98-107) H 03/28/18 20:24 Carbon Dioxide 32 mmol/L (22-30) H 03/28/18 20:24 Anion Gap 14 mmol/L 03/28/18 20:24 BUN 42 mg/dL (9-20) H 03/28/18 20:24 Creatinine 0.8 mg/dL (0.8-1.5) 03/28/18 20:24 Estimated GFR > 60 ml/min 03/28/18 20:24 BUN/Creatinine Ratio 53 % 03/28/18 20:24 Glucose 206 mg/dL (75-100) H 03/28/18 20:24 POC Glucose 243 (70-105) H 03/29/18 09:34 Lactic Acid 2.70 mmol/L (0.7-2.0) H* 03/28/18 14:38 Calcium 10.4 mg/dL (8.4-10.2) H 03/28/18 20:24 Total Bilirubin 0.30 mg/dL (0.1-1.2) 03/27/18 20:01 AST 78 units/L (5-40) H 03/27/18 20:01 ALT 203 units/L (7-56) H 03/27/18 20:01 Alkaline Phosphatase 208 units/L (35-129) H 03/27/18 20:01 Troponin T 0.048 ng/mL (0.00-0.029) H 03/27/18 20:05 Total Protein 6.9 g/dL (6.3-8.2) 03/27/18 20:01 Albumin 2.6 g/dL (3.9-5) L 03/27/18 20:01 Albumin/Globulin Ratio 0.6 % 03/27/18 20:01 Triglycerides 151 mg/dL (2-149) H 03/27/18 20:05 Cholesterol 106 mg/dL (50-199) 03/27/18 20:05 LDL Cholesterol Direct 57 mg/dL (50-130) 03/27/18 20:05 HDL Cholesterol 27 mg/dL (40-59) L 03/27/18 20:05 Cholesterol/HDL Ratio 3.92 % 03/27/18 20:05 Urine Color Yellow (Yellow) 03/27/18 19:51 Urine Turbidity Clear (Clear) 03/27/18 19:51 Urine pH 5.0 (5.0-7.0) 03/27/18 19:51 Ur Specific [place] 1.023 (1.003-1.030) 03/27/18 19:51 Urine Protein <15 mg/dl mg/dL (Negative) 03/27/18 19:51 Urine Glucose (UA) >=500 mg/dL (Negative) 03/27/18 19:51 Urine Ketones Neg mg/dL (Negative) 03/27/18 19:51 Urine Blood Neg (Negative) 03/27/18 19:51 Urine Nitrite Neg (Negative) 03/27/18 19:51 Urine Bilirubin Neg (Negative) 03/27/18 19:51 Urine Urobilinogen < 2.0 mg/dL (<2.0) 03/27/18 19:51 Ur Leukocyte Esterase Neg (Negative) 03/27/18 19:51 Urine WBC (Auto) < 1.0 /HPF (0.0-6.0) 03/27/18 19:51 Urine RBC (Auto) 1.0 /HPF (0.0-6.0) 03/27/18 19:51 U Epithel Cells (Auto) < 1.0 /HPF (0-13.0) 03/27/18 19:51 Urine Bacteria (Auto) 1+ /HPF (Negative) 03/27/18 19:51 Urine Mucus Few /HPF 03/27/18 19:51
[2018-03-29] MEDS: ZESTRIL FEEDTUBE SCH (10:32)
[2018-03-29] MEDS: ZOSYN/NS 4.5GM/100ML 4.5 GM/100 ML VIAL IV SCH ×4 (11:34→22:47)
[2018-03-29 11:41] LABS: Albumin 1.9 g/dL (3.9-5); BUN/Creatinine Ratio 53; Blood Urea Nitrogen 37 mg/dL (9-20); Calcium 10.2 mg/dL (8.4-10.2); Hemolysis Index 181
[2018-03-29 12:09] LABS: Alanine Aminotransferase 99 units/L (7-56)
[2018-03-29] MEDS: VANCOMYCIN/NS 1 GM/250 ML 1 GM/250 ML BAG IV SCH (12:19)
[2018-03-29] MEDS ORDERED: KIONEX PO ONE (14:00)
[2018-03-29] MEDS: SYMMETREL FEEDTUBE SCH (15:00)
[2018-03-29] MEDS: D5W 1,000 ML IV SCH (15:03)
[2018-03-29 16:07] LABS: Mean Corpuscular HGB Conc 28 % (32-34); Mean Corpuscular Volume 82 fl (84-94); Red Blood Count 5.64 M/mm3 (3.65-5.03); Red Cell Distribution Width 19.3 % (13.2-15.2)
[2018-03-29 16:12] LABS: Hematocrit 46.4 % (35.5-45.6); Hemoglobin 13.1 gm/dl (11.8-15.2); Mean Corpuscular Hemoglobin 23 pg (28-32); Platelet Count 203 K/mm3 (140-440)
--- NOTE | 2018-03-29 16:37 | Progress Note ---
Assessment and Plan 72 yo M with 1. sepsis 2. infected sacral wound - stage 4 3. hypernatremia 4. dehydration 5. malnutrition - albumin 2.6 6. lactic acidosis 7. positive troponin Plan: 1. dakins to sacral wound BID 2. airport baggage screener following 3. IV abx - vanco and zosyn 4. offloading, turn patient q2 5. optimize nutrition 6. start TF via PEG 7. free water flushes may be administered through PEG The patient needs a sacral debridement but his overall prognosis is poor. I don' t feel that in his overall condition, he is a good candidate for the OR. If his wishes to proceed with debridement, will attempt to perform at the bedside. However, this is unlikely to improve his prognosis overall. Thank you for this consultation, please call with questions or concerns Subjective Date of service: 03/29/18 Narrative: Pt seen and examined. Appears more lethargic today. D/W nursing and patient has been this way all day. Afebrile today. Objective Vital Signs - 12hr 03/29/18 03/29/18 03/29/18 08:31 09:09 10:00 Temperature 97.4 F L Pulse Rate 88 Respiratory 18 16 Rate Blood Pressure 126/81 O2 Sat by Pulse 99 97 Oximetry 03/29/18 03/29/18 13:47 15:02 Temperature 98.2 F Pulse Rate 96 H 96 H Respiratory 18 Rate Blood Pressure 129/85 129/85 O2 Sat by Pulse 99 Oximetry - General physical appearance Narrative Exam: Gen: Lethargic appearing. Opens eyes to stimuli CV: S1, S2+ resp: even and unlabored ExT: no c/c/e. Flacid - Labs 03/29/18 15:16 03/29/18 10:42 Diabetes panel 03/28/18 03/28/18 03/29/18 Range/Units 14:38 20:24 10:42 Sodium 170 H* 167 H* 163 H* (137-145) mmol/L Potassium 4.0 5.4 H D (3.6-5.0) mmol/L Chloride 125.1 H 124.0 H (98-107) mmol/L Carbon Dioxide 32 H 30 (22-30) mmol/L BUN 42 H 37 H (9-20) mg/dL Creatinine 0.8 0.7 L (0.8-1.5) mg/dL Glucose 206 H 236 H (75-100) mg/dL Calcium 10.4 H 10.2 (8.4-10.2) mg/dL AST 42 H (5-40) units/L ALT 99 H (7-56) units/L Alkaline Phosphatase 143 H (35-129) units/L Total Protein 5.9 L (6.3-8.2) g/dL Albumin 1.9 L (3.9-5) g/dL Calcium panel 03/28/18 03/29/18 Range/Units 20:24 10:42 Calcium 10.4 H 10.2 (8.4-10.2) mg/dL Phosphorus 3.90 (2.5-4.5) mg/dL Albumin 1.9 L (3.9-5) g/dL Pituitary panel 03/28/18 03/28/18 03/29/18 Range/Units 14:38 20:24 10:42 Sodium 170 H* 167 H* 163 H* (137-145) mmol/L Potassium 4.0 5.4 H D (3.6-5.0) mmol/L Chloride 125.1 H 124.0 H (98-107) mmol/L Carbon Dioxide 32 H 30 (22-30) mmol/L BUN 42 H 37 H (9-20) mg/dL Creatinine 0.8 0.7 L (0.8-1.5) mg/dL Glucose 206 H 236 H (75-100) mg/dL Calcium 10.4 H 10.2 (8.4-10.2) mg/dL Adrenal panel 03/28/18 03/28/18 03/29/18 Range/Units 14:38 20:24 10:42 Sodium 170 H* 167 H* 163 H* (137-145) mmol/L Potassium 4.0 5.4 H D (3.6-5.0) mmol/L Chloride 125.1 H 124.0 H (98-107) mmol/L Carbon Dioxide 32 H 30 (22-30) mmol/L BUN 42 H 37 H (9-20) mg/dL Creatinine 0.8 0.7 L (0.8-1.5) mg/dL Glucose 206 H 236 H (75-100) mg/dL Calcium 10.4 H 10.2 (8.4-10.2) mg/dL Total Bilirubin 0.60 (0.1-1.2) mg/dL AST 42 H (5-40) units/L ALT 99 H (7-56) units/L Alkaline Phosphatase 143 H (35-129) units/L Total Protein 5.9 L (6.3-8.2) g/dL Albumin 1.9 L (3.9-5) g/dL
[2018-03-29 16:55] LABS: Basophils % (Manual) 0 % (0.0-1.8); Eosinophils % (Manual) 0 % (0.0-4.3); Total Cells Counted 100
[2018-03-29 16:57] LABS: Anisocytosis 1+; Target Cells Few
[2018-03-29] MEDS: DAKIN'S HALF STRENGTH TP SCH (22:48)
[2018-03-30] MEDS: D5W 1,000 ML IV SCH ×2 (01:11→14:03)
[2018-03-30] MEDS: LOPRESSOR FEEDTUBE SCH ×2 (06:27→13:55)
[2018-03-30] MEDS: ZOSYN/NS 4.5GM/100ML 4.5 GM/100 ML VIAL IV SCH ×2 (06:27→13:56)
[2018-03-30] MEDS: VANCOMYCIN/NS 1 GM/250 ML 1 GM/250 ML BAG IV SCH (07:23)
[2018-03-30 09:09] LABS: Alanine Aminotransferase 75 units/L (7-56); Albumin 1.8 g/dL (3.9-5); BUN/Creatinine Ratio 45; Blood Urea Nitrogen 27 mg/dL (9-20); Calcium 9.7 mg/dL (8.4-10.2); Hemolysis Index 13
--- NOTE | 2018-03-30 09:12 | Progress Note ---
Assessment and Plan 1. Hypernatremia: Continue IV D5W and water flushes. Sodium level is improving. 2. Azotemia / Acute kidney injury: Vasomotor / hemodynamically mediated [place]. Renal function is improving. Continue IV fluids. 3. Hypokalemia: Replete K. 4. Sepsis. 5. HTN. 6. Sacral decubitus. Subjective Date of service: 03/30/18 Interval history: Patient was seen and examined at the bedside. Objective - Vital Signs Vital signs: Vital Signs - 12hr 03/29/18 03/29/18 03/29/18 22:40 22:46 23:38 Pulse Rate 96 H Respiratory 18 Rate O2 Sat by Pulse Oximetry O2 Sat by Pulse 96 Oximetry [ Assessment] 03/29/18 03/30/18 03/30/18 23:49 02:00 06:27 Pulse Rate 96 H 96 H Respiratory Rate O2 Sat by Pulse 97 Oximetry O2 Sat by Pulse Oximetry [ Assessment] 03/30/18 03/30/18 08:09 08:12 Pulse Rate Respiratory Rate O2 Sat by Pulse 98 Oximetry O2 Sat by Pulse 98 Oximetry [ Assessment] - General Appearance General appearance: well-developed, appears stated age, other (no distress) EENT: ATNC Neck: other (trached) Respiratory: Present: Clear to Ascultation Cardiology: regular, S1S2, no murmurs Gastrointestinal: normoactive bowel sounds, no tenderness, other (PEG tube noted ) Integumentary: no rash Neurologic: other (stuporous) Musculoskeletal: other (no edema) - Lab 03/29/18 15:16 03/30/18 08:27 Most recent lab results Calcium 9.7 mg/dL (8.4-10.2) 03/30/18 08:27 Phosphorus 3.90 mg/dL (2.5-4.5) 03/29/18 10:42 Magnesium 2.60 mg/dL (1.7-2.3) H 03/29/18 10:42
[2018-03-30 09:19] LABS: Bilirubin,Direct < 0.2 mg/dL (0-0.2)
[2018-03-30] MEDS ORDERED: POTASSIUM CHLORIDE FEEDTUBE ONE ×2 (09:24→12:00)
[2018-03-30] MEDS: HumuLIN R SUB-Q SCH ×3 (10:00→17:23)
[2018-03-30] MEDS: PEPCID FEEDTUBE SCH (11:23)
[2018-03-30] MEDS: LOVENOX SUB-Q SCH (11:23)
[2018-03-30] MEDS: KEPPRA FEEDTUBE SCH (11:23)
[2018-03-30] MEDS: SYMMETREL FEEDTUBE SCH (11:23)
[2018-03-30] MEDS: DESYREL PO SCH (11:24)
[2018-03-30] MEDS: DAKIN'S HALF STRENGTH TP SCH (11:31)
[2018-03-30] MEDS ORDERED: PANCREAZE DR 10,500 UNIT FEEDTUBE PRN (14:57)
[2018-03-30] MEDS ORDERED: SIMPLE SYRUP FEEDTUBE PRN ×2 (14:57)
[2018-03-30] MEDS ORDERED: SODIUM BICARBONATE FEEDTUBE PRN (14:57)
--- NOTE | 2018-03-30 20:43 | Progress Note ---
Assessment and Plan Assessment and plan: --Hypernatremia; mild improvement and 171-163-and 57 Free water flushes via PEG tube,Continue 5W, closely monitor electrolytes, Nephrology following --Severe sepsis; Probably secondary to infected decubitus ulcers and pneumonia Continue current antibiotics, follow cultures --Sacral decubital ulcers Wound care and wound cultures Surgery following Possible surgical debridement when patient is stable --type 2 diabetes mellitus ; uncontrolled, partly secondary to D5W Accu-Chek sliding scale coverage and ADA diet Increase long-acting insulin dose --Chronic respiratory failure with hypoxia; status post tracheostomy trach care, oxygen and nebulizers as needed --Dysphagia status post PEG tube placement Feeds per protocol --History of Seizure disorder Seizure precautions, antiepileptic medications Keppra --Malignant HTN; Moderate control, continue current antihypertensives and when necessary medications Transaminitis; trending down, probably secondary to sepsis closely monitor Severe malnutrition/hypoalbuminemia; supportive care nutrition supplements, nutrition consult Hyperkalemia; resolved -DVT prophylaxis with Lovenox --full code status Consults and recommendations noted and appreciated Plan of care reviewed with the patient's nurse History Interval history: Patient seen and examined medical records reviewed Status post trach and PEG on T piece No new events reported Vital signs stable Hospitalist Physical - Constitutional Vitals: Temp Pulse Resp BP Pulse Ox 97.7 F 81 18 152/81 99 03/30/18 13:30 03/30/18 13:55 03/30/18 13:30 03/30/18 13:55 03/30/18 13:30 General appearance: Present: no acute distress, cachectic, disheveled, other ( trach and PEG) - EENT Eyes: Present: PERRL, EOM intact - Neck Neck: Present: supple, normal ROM - Respiratory Respiratory effort: normal Respiratory: bilateral: diminished, negative: rales, rhonchi - Cardiovascular Rhythm: regular Heart Sounds: Present: S1 & S2 - Extremities Extremities: no ischemia, No edema - Abdominal General gastrointestinal: soft, non-tender, non-distended, normal bowel sounds - Integumentary Integumentary: Present: clear, warm - Psychiatric Psychiatric: other (noncommunicative) - Neurologic Neurologic: other (noncommunicative) Results - Labs CBC & Chem 7: 03/29/18 15:16 03/30/18 08:27 Labs: Laboratory Last Values WBC 16.9 K/mm3 (4.5-11.0) H 03/29/18 15:16 RBC 5.64 M/mm3 (3.65-5.03) H 03/29/18 15:16 Hgb 13.1 gm/dl (11.8-15.2) 03/29/18 15:16 Hct 46.4 % (35.5-45.6) H 03/29/18 15:16 MCV 82 fl (84-94) L 03/29/18 15:16 MCH 23 pg (28-32) L 03/29/18 15:16 MCHC 28 % (32-34) L 03/29/18 15:16 RDW 19.3 % (13.2-15.2) H 03/29/18 15:16 Plt Count 203 K/mm3 (140-440) 03/29/18 15:16 Lymph % (Auto) Clinical Academic Allergist 03/29/18 15:16 [place] % (Auto) Clinical Academic Allergist 03/29/18 15:16 Eos % (Auto) Clinical Academic Allergist 03/29/18 15:16 Baso % (Auto) Clinical Academic Allergist 03/29/18 15:16 Lymph # Clinical Academic Allergist 03/29/18 15:16 [place] # Clinical Academic Allergist 03/29/18 15:16 Eos # Clinical Academic Allergist 03/29/18 15:16 Baso # Clinical Academic Allergist 03/29/18 15:16 Add Manual Diff Complete 03/29/18 15:16 Total Counted 100 03/29/18 15:16 Seg Neutrophils % Clinical Academic Allergist 03/29/18 15:16 Seg Neuts % (Manual) 83.0 % (40.0-70.0) H 03/29/18 15:16 Band Neutrophils % 0 % 03/29/18 15:16 Lymphocytes % (Manual) 13.0 % (13.4-35.0) L 03/29/18 15:16 Reactive Lymphs % (Man) 0 % 03/29/18 15:16 Monocytes % (Manual) 4.0 % (0.0-7.3) 03/29/18 15:16 Eosinophils % (Manual) 0 % (0.0-4.3) 03/29/18 15:16 Basophils % (Manual) 0 % (0.0-1.8) 03/29/18 15:16 Metamyelocytes % 0 % 03/29/18 15:16 Myelocytes % 0 % 03/29/18 15:16 Promyelocytes % 0 % 03/29/18 15:16 Blast Cells % 0 % 03/29/18 15:16 Nucleated RBC % 1.0 % (0.0-0.9) H 03/29/18 15:16 Seg Neutrophils # Clinical Academic Allergist 03/29/18 15:16 Seg Neutrophils # Man 14.0 K/mm3 (1.8-7.7) H 03/29/18 15:16 Band Neutrophils # 0.0 K/mm3 03/29/18 15:16 Lymphocytes # (Manual) 2.2 K/mm3 (1.2-5.4) 03/29/18 15:16 Abs React Lymphs (Man) 0.0 K/mm3 03/29/18 15:16 Monocytes # (Manual) 0.7 K/mm3 (0.0-0.8) 03/29/18 15:16 Eosinophils # (Manual) 0.0 K/mm3 (0.0-0.4) 03/29/18 15:16 Basophils # (Manual) 0.0 K/mm3 (0.0-0.1) 03/29/18 15:16 Metamyelocytes # 0.0 K/mm3 03/29/18 15:16 Myelocytes # 0.0 K/mm3 03/29/18 15:16 Promyelocytes # 0.0 K/mm3 03/29/18 15:16 Blast Cells # 0.0 K/mm3 03/29/18 15:16 WBC Morphology Not Reportable 03/29/18 15:16 Hypersegmented Neuts Not Reportable 03/29/18 15:16 Hyposegmented Neuts Not Reportable 03/29/18 15:16 Hypogranular Neuts Not Reportable 03/29/18 15:16 Smudge Cells Not Reportable 03/29/18 15:16 Toxic Granulation Not Reportable 03/29/18 15:16 Toxic Vacuolation Not Reportable 03/29/18 15:16 Dohle Bodies Not Reportable 03/29/18 15:16 Pelger-Huet Anomaly Not Reportable 03/29/18 15:16 Helene Rods Not Reportable 03/29/18 15:16 Platelet Estimate Appears normal 03/29/18 15:16 Clumped Platelets Not Reportable 03/29/18 15:16 Plt Clumps, EDTA Not Reportable 03/29/18 15:16 Large Platelets Not Reportable 03/29/18 15:16 Giant Platelets Not Reportable 03/29/18 15:16 Platelet Satelliting Not Reportable 03/29/18 15:16 Plt Morphology Comment Not Reportable 03/29/18 15:16 RBC Morphology Not Reportable 03/29/18 15:16 Dimorphic RBCs Not Reportable 03/29/18 15:16 Polychromasia Not Reportable 03/29/18 15:16 Hypochromasia Not Reportable 03/29/18 15:16 Poikilocytosis Not Reportable 03/29/18 15:16 Anisocytosis 1+ 03/29/18 15:16 Microcytosis Not Reportable 03/29/18 15:16 Macrocytosis Not Reportable 03/29/18 15:16 Spherocytes Not Reportable 03/29/18 15:16 Pappenheimer Bodies Not Reportable 03/29/18 15:16 Sickle Cells Not Reportable 03/29/18 15:16 Target Cells Few 03/29/18 15:16 Tear Drop Cells Not Reportable 03/29/18 15:16 Ovalocytes Not Reportable 03/29/18 15:16 Helmet Cells Not Reportable 03/29/18 15:16 Chaudhry-Eugenio Saenz Bodies Not Reportable 03/29/18 15:16 [place] Rings Not Reportable 03/29/18 15:16 [place] Cells Not Reportable 03/29/18 15:16 Bite Cells Not Reportable 03/29/18 15:16 Crenated Cell Not Reportable 03/29/18 15:16 Elliptocytes Rare 03/29/18 15:16 Acanthocytes (Spur) Not Reportable 03/29/18 15:16 Rouleaux Not Reportable 03/29/18 15:16 Hemoglobin C Crystals Not Reportable 03/29/18 15:16 Schistocytes Not Reportable 03/29/18 15:16 Malaria parasites Not Reportable 03/29/18 15:16 Huy Bodies Not Reportable 03/29/18 15:16 Hem Pathologist Commnt No 03/29/18 15:16 PT 15.1 Sec. (12.2-14.9) H 03/27/18 20:01 INR 1.13 (0.87-1.13) 06/18/18 20:01 APTT 32.0 Sec. (24.2-36.6) 03/27/18 20:01 VBG pH 7.425 (7.320-7.420) H 03/27/18 20:01 Sodium 157 mmol/L (137-145) H 03/30/18 08:27 Potassium 3.3 mmol/L (3.6-5.0) L D 03/30/18 08:27 Chloride 116.8 mmol/L (98-107) H 03/30/18 08:27 Carbon Dioxide 30 mmol/L (22-30) 03/30/18 08:27 Anion Gap 14 mmol/L 03/30/18 08:27 BUN 27 mg/dL (9-20) H 03/30/18 08:27 Creatinine 0.6 mg/dL (0.8-1.5) L 03/30/18 08:27 Estimated GFR > 60 ml/min 03/30/18 08:27 BUN/Creatinine Ratio 45 % 03/30/18 08:27 Glucose 235 mg/dL (75-100) H 03/30/18 08:27 POC Glucose 331 (70-105) H 03/30/18 16:25 Lactic Acid 2.70 mmol/L (0.7-2.0) H* 03/28/18 14:38 Calcium 9.7 mg/dL (8.4-10.2) 03/30/18 08:27 Phosphorus 3.90 mg/dL (2.5-4.5) 03/29/18 10:42 Magnesium 2.60 mg/dL (1.7-2.3) H 03/29/18 10:42 Total Bilirubin 0.60 mg/dL (0.1-1.2) 03/30/18 08:27 Direct Bilirubin < 0.2 mg/dL (0-0.2) 03/30/18 08:27 Indirect Bilirubin 0.4 mg/dL 03/30/18 08:27 AST 22 units/L (5-40) 03/30/18 08:27 ALT 75 units/L (7-56) H 03/30/18 08:27 Alkaline Phosphatase 135 units/L (35-129) H 03/30/18 08:27 Troponin T 0.048 ng/mL (0.00-0.029) H 03/27/18 20:05 Total Protein 5.5 g/dL (6.3-8.2) L 03/30/18 08:27 Albumin 1.8 g/dL (3.9-5) L 03/30/18 08:27 Albumin/Globulin Ratio 0.5 % 03/30/18 08:27 Triglycerides 151 mg/dL (2-149) H 03/27/18 20:05 Cholesterol 106 mg/dL (50-199) 03/27/18 20:05 LDL Cholesterol Direct 57 mg/dL (50-130) 03/27/18 20:05 HDL Cholesterol 27 mg/dL (40-59) L 03/27/18 20:05 Cholesterol/HDL Ratio 3.92 % 03/27/18 20:05 Urine Color Yellow (Yellow) 03/27/18 19:51 Urine Turbidity Clear (Clear) 03/27/18 19:51 Urine pH 5.0 (5.0-7.0) 03/27/18 19:51 Ur Specific [place] 1.023 (1.003-1.030) 03/27/18 19:51 Urine Protein <15 mg/dl mg/dL (Negative) 03/27/18 19:51 Urine Glucose (UA) >=500 mg/dL (Negative) 03/27/18 19:51 Urine Ketones Neg mg/dL (Negative) 03/27/18 19:51 Urine Blood Neg (Negative) 03/27/18 19:51 Urine Nitrite Neg (Negative) 03/27/18 19:51 Urine Bilirubin Neg (Negative) 03/27/18 19:51 Urine Urobilinogen < 2.0 mg/dL (<2.0) 03/27/18 19:51 Ur Leukocyte Esterase Neg (Negative) 03/27/18 19:51 Urine WBC (Auto) < 1.0 /HPF (0.0-6.0) 03/27/18 19:51 Urine RBC (Auto) 1.0 /HPF (0.0-6.0) 03/27/18 19:51 U Epithel Cells (Auto) < 1.0 /HPF (0-13.0) 03/27/18 19:51 Urine Bacteria (Auto) 1+ /HPF (Negative) 03/27/18 19:51 Urine Mucus Few /HPF 03/27/18 19:51
[2018-03-31] MEDS: VANCOMYCIN/NS 1 GM/250 ML 1 GM/250 ML BAG IV SCH (00:10)
[2018-03-31] MEDS: ZOSYN/NS 4.5GM/100ML 4.5 GM/100 ML VIAL IV SCH ×3 (00:31→22:19)
[2018-03-31] MEDS: DESYREL PO SCH ×4 (00:32→22:20)
[2018-03-31] MEDS: KEPPRA FEEDTUBE SCH ×3 (00:32→22:20)
[2018-03-31] MEDS: PEPCID FEEDTUBE SCH ×3 (00:32→22:20)
[2018-03-31] MEDS: LOPRESSOR FEEDTUBE SCH ×4 (00:36→22:23)
[2018-03-31] MEDS: HumuLIN R SUB-Q SCH ×5 (00:44→17:00)
[2018-03-31] MEDS: D5W 1,000 ML IV SCH ×3 (00:46→22:17)
[2018-03-31] MEDS: DAKIN'S HALF STRENGTH TP SCH ×4 (05:35→22:16)
[2018-03-31 06:14] LABS: BUN/Creatinine Ratio 32; Blood Urea Nitrogen 19 mg/dL (9-20); Calcium 9.1 mg/dL (8.4-10.2); Hemolysis Index 0
[2018-03-31] MEDS ORDERED: POTASSIUM CHLORIDE FEEDTUBE NR (07:29)
--- NOTE | 2018-03-31 07:38 | Progress Note ---
Assessment and Plan Assessment and plan: --Hypernatremia; mild improvement and [phone] Free water flushes via PEG tube,Continue reduce D5W to 50 mL per hour closely monitor electrolytes --Hypokalemia; will replenish per protocol and monitor levels --Severe sepsis; Due to infected decubitus ulcers and pneumonia Continue Vanco Zosyn, follow cultures --Stage IV Sacral decubital ulcers Wound care and wound cultures Surgery following surgical debridement when patient is stable --type 2 diabetes mellitus ; uncontrolled, partly secondary to D5W Accu-Chek sliding scale coverage and ADA diet Increase long-acting insulin dose --Chronic respiratory failure with hypoxia; status post tracheostomy trach care, oxygen and nebulizers as needed --Dysphagia status post PEG tube placement Feeds per protocol --History of Seizure disorder Seizure precautions, antiepileptic medications Keppra --Malignant HTN; Moderate control, continue current antihypertensives and when necessary medications --Transaminitis; trending down, probably secondary to sepsis closely monitor --Severe malnutrition/hypoalbuminemia; supportive care nutrition supplements, nutrition consult -DVT prophylaxis with Lovenox --full code status Consults and recommendations noted and appreciated Plan of care reviewed with the patient's nurse History Interval history: Patient Seen and examined medical records reviewed No new events reported by the nursing Electrolytes slightly improved Vital signs reviewed Hospitalist Physical - Constitutional Vitals: Temp Pulse Resp BP Pulse Ox 98.4 F 86 20 157/90 99 03/31/18 02:42 03/31/18 05:33 03/31/18 02:42 03/31/18 05:33 03/31/18 02:42 General appearance: Present: no acute distress, cachectic, disheveled, other ( trach and PEG) - EENT Eyes: Present: PERRL, EOM intact - Neck Neck: Present: supple, normal ROM, other (tracheostomy) - Respiratory Respiratory effort: normal Respiratory: bilateral: diminished, rhonchi, negative: rales, wheezing - Cardiovascular Rhythm: regular Heart Sounds: Present: S1 & S2 - Extremities Extremities: no ischemia, No edema - Abdominal General gastrointestinal: soft, non-tender, non-distended, other (PEG tube in place) - Integumentary Integumentary: Present: clear, warm - Psychiatric Psychiatric: other (noncommunicative) - Neurologic Neurologic: other (noncommunicative) Results - Labs CBC & Chem 7: 03/29/18 15:16 03/31/18 04:50 Labs: Laboratory Last Values WBC 16.9 K/mm3 (4.5-11.0) H 03/29/18 15:16 RBC 5.64 M/mm3 (3.65-5.03) H 03/29/18 15:16 Hgb 13.1 gm/dl (11.8-15.2) 03/29/18 15:16 Hct 46.4 % (35.5-45.6) H 03/29/18 15:16 MCV 82 fl (84-94) L 03/29/18 15:16 MCH 23 pg (28-32) L 03/29/18 15:16 MCHC 28 % (32-34) L 03/29/18 15:16 RDW 19.3 % (13.2-15.2) H 03/29/18 15:16 Plt Count 203 K/mm3 (140-440) 03/29/18 15:16 Lymph % (Auto) [place] 03/29/18 15:16 [place] % (Auto) [place] 03/29/18 15:16 Eos % (Auto) [place] 03/29/18 15:16 Baso % (Auto) [place] 03/29/18 15:16 Lymph # [place] 03/29/18 15:16 [place] # [place] 03/29/18 15:16 Eos # [place] 03/29/18 15:16 Baso # [place] 03/29/18 15:16 Add Manual Diff Complete 03/29/18 15:16 Total Counted 100 03/29/18 15:16 Seg Neutrophils % [place] 03/29/18 15:16 Seg Neuts % (Manual) 83.0 % (40.0-70.0) H 03/29/18 15:16 Band Neutrophils % 0 % 03/29/18 15:16 Lymphocytes % (Manual) 13.0 % (13.4-35.0) L 03/29/18 15:16 Reactive Lymphs % (Man) 0 % 03/29/18 15:16 Monocytes % (Manual) 4.0 % (0.0-7.3) 03/29/18 15:16 Eosinophils % (Manual) 0 % (0.0-4.3) 03/29/18 15:16 Basophils % (Manual) 0 % (0.0-1.8) 03/29/18 15:16 Metamyelocytes % 0 % 03/29/18 15:16 Myelocytes % 0 % 03/29/18 15:16 Promyelocytes % 0 % 03/29/18 15:16 Blast Cells % 0 % 03/29/18 15:16 Nucleated RBC % 1.0 % (0.0-0.9) H 03/29/18 15:16 Seg Neutrophils # [place] 03/29/18 15:16 Seg Neutrophils # Man 14.0 K/mm3 (1.8-7.7) H 03/29/18 15:16 Band Neutrophils # 0.0 K/mm3 03/29/18 15:16 Lymphocytes # (Manual) 2.2 K/mm3 (1.2-5.4) 03/29/18 15:16 Abs React Lymphs (Man) 0.0 K/mm3 03/29/18 15:16 Monocytes # (Manual) 0.7 K/mm3 (0.0-0.8) 03/29/18 15:16 Eosinophils # (Manual) 0.0 K/mm3 (0.0-0.4) 03/29/18 15:16 Basophils # (Manual) 0.0 K/mm3 (0.0-0.1) 03/29/18 15:16 Metamyelocytes # 0.0 K/mm3 03/29/18 15:16 Myelocytes # 0.0 K/mm3 03/29/18 15:16 Promyelocytes # 0.0 K/mm3 03/29/18 15:16 Blast Cells # 0.0 K/mm3 03/29/18 15:16 WBC Morphology Not Reportable 03/29/18 15:16 Hypersegmented Neuts Not Reportable 03/29/18 15:16 Hyposegmented Neuts Not Reportable 03/29/18 15:16 Hypogranular Neuts Not Reportable 03/29/18 15:16 Smudge Cells Not Reportable 03/29/18 15:16 Toxic Granulation Not Reportable 03/29/18 15:16 Toxic Vacuolation Not Reportable 03/29/18 15:16 Dohle Bodies Not Reportable 03/29/18 15:16 Pelger-Huet Anomaly Not Reportable 03/29/18 15:16 Helene Rods Not Reportable 03/29/18 15:16 Platelet Estimate Appears normal 03/29/18 15:16 Clumped Platelets Not Reportable 03/29/18 15:16 Plt Clumps, EDTA Not Reportable 03/29/18 15:16 Large Platelets Not Reportable 03/29/18 15:16 Giant Platelets Not Reportable 03/29/18 15:16 Platelet Satelliting Not Reportable 03/29/18 15:16 Plt Morphology Comment Not Reportable 03/29/18 15:16 RBC Morphology Not Reportable 03/29/18 15:16 Dimorphic RBCs Not Reportable 03/29/18 15:16 Polychromasia Not Reportable 03/29/18 15:16 Hypochromasia Not Reportable 03/29/18 15:16 Poikilocytosis Not Reportable 03/29/18 15:16 Anisocytosis 1+ 03/29/18 15:16 Microcytosis Not Reportable 03/29/18 15:16 Macrocytosis Not Reportable 03/29/18 15:16 Spherocytes Not Reportable 03/29/18 15:16 Pappenheimer Bodies Not Reportable 03/29/18 15:16 Sickle Cells Not Reportable 03/29/18 15:16 Target Cells Few 03/29/18 15:16 Tear Drop Cells Not Reportable 03/29/18 15:16 Ovalocytes Not Reportable 03/29/18 15:16 Helmet Cells Not Reportable 03/29/18 15:16 Chaudhry-[place] Bodies Not Reportable 03/29/18 15:16 [place] Rings Not Reportable 03/29/18 15:16 [place] Cells Not Reportable 03/29/18 15:16 Bite Cells Not Reportable 03/29/18 15:16 Crenated Cell Not Reportable 03/29/18 15:16 Elliptocytes Rare 03/29/18 15:16 Acanthocytes (Spur) Not Reportable 03/29/18 15:16 Rouleaux Not Reportable 03/29/18 15:16 Hemoglobin C Crystals Not Reportable 03/29/18 15:16 Schistocytes Not Reportable 03/29/18 15:16 Malaria parasites Not Reportable 03/29/18 15:16 Huy Bodies Not Reportable 03/29/18 15:16 Hem Pathologist Commnt No 03/29/18 15:16 PT 15.1 Sec. (12.2-14.9) H 03/27/18 20:01 INR 1.13 (0.87-1.13) 03/27/18 20:01 APTT 32.0 Sec. (24.2-36.6) 03/27/18 20:01 VBG pH 7.425 (7.320-7.420) H 03/27/18 20:01 Sodium 152 mmol/L (137-145) H 03/31/18 04:50 Potassium 3.1 mmol/L (3.6-5.0) L 03/31/18 04:50 Chloride 111.9 mmol/L (98-107) H 03/31/18 04:50 Carbon Dioxide 30 mmol/L (22-30) 03/31/18 04:50 Anion Gap 13 mmol/L 03/31/18 04:50 BUN 19 mg/dL (9-20) 03/31/18 04:50 Creatinine 0.6 mg/dL (0.8-1.5) L 03/31/18 04:50 Estimated GFR > 60 ml/min 03/31/18 04:50 BUN/Creatinine Ratio 32 % 03/31/18 04:50 Glucose 198 mg/dL (75-100) H 03/31/18 04:50 POC Glucose 264 (70-105) H 03/30/18 21:43 Lactic Acid 2.70 mmol/L (0.7-2.0) H* 03/28/18 14:38 Calcium 9.1 mg/dL (8.4-10.2) 03/31/18 04:50 Phosphorus 2.50 mg/dL (2.5-4.5) 03/31/18 04:50 Magnesium 2.60 mg/dL (1.7-2.3) H 03/29/18 10:42 Total Bilirubin 0.60 mg/dL (0.1-1.2) 03/30/18 08:27 Direct Bilirubin < 0.2 mg/dL (0-0.2) 03/30/18 08:27 Indirect Bilirubin 0.4 mg/dL 03/30/18 08:27 AST 22 units/L (5-40) 03/30/18 08:27 ALT 75 units/L (7-56) H 03/30/18 08:27 Alkaline Phosphatase 135 units/L (35-129) H 03/30/18 08:27 Troponin T 0.048 ng/mL (0.00-0.029) H 03/27/18 20:05 Total Protein 5.5 g/dL (6.3-8.2) L 03/30/18 08:27 Albumin 1.8 g/dL (3.9-5) L 03/30/18 08:27 Albumin/Globulin Ratio 0.5 % 03/30/18 08:27 Triglycerides 151 mg/dL (2-149) H 03/27/18 20:05 Cholesterol 106 mg/dL (50-199) 03/27/18 20:05 LDL Cholesterol Direct 57 mg/dL (50-130) 03/27/18 20:05 HDL Cholesterol 27 mg/dL (40-59) L 03/27/18 20:05 Cholesterol/HDL Ratio 3.92 % 03/27/18 20:05 Urine Color Yellow (Yellow) 03/27/18 19:51 Urine Turbidity Clear (Clear) 03/27/18 19:51 Urine pH 5.0 (5.0-7.0) 03/27/18 19:51 Ur Specific [place] 1.023 (1.003-1.030) 03/27/18 19:51 Urine Protein <15 mg/dl mg/dL (Negative) 03/27/18 19:51 Urine Glucose (UA) >=500 mg/dL (Negative) 03/27/18 19:51 Urine Ketones Neg mg/dL (Negative) 03/27/18 19:51 Urine Blood Neg (Negative) 03/27/18 19:51 Urine Nitrite Neg (Negative) 03/27/18 19:51 Urine Bilirubin Neg (Negative) 03/27/18 19:51 Urine Urobilinogen < 2.0 mg/dL (<2.0) 03/27/18 19:51 Ur Leukocyte Esterase Neg (Negative) 03/27/18 19:51 Urine WBC (Auto) < 1.0 /HPF (0.0-6.0) 03/27/18 19:51 Urine RBC (Auto) 1.0 /HPF (0.0-6.0) 03/27/18 19:51 U Epithel Cells (Auto) < 1.0 /HPF (0-13.0) 03/27/18 19:51 Urine Bacteria (Auto) 1+ /HPF (Negative) 03/27/18 19:51 Urine Mucus Few /HPF 03/27/18 19:51
--- NOTE | 2018-03-31 08:28 | Progress Note ---
Assessment and Plan 1. Hypernatremia: Continue IV D5W and water flushes. A dose of IV Diuril today. Sodium level is improving. 2. Azotemia / Acute kidney injury: Vasomotor / hemodynamically mediated [place]. Renal function is improving. Continue IV fluids. 3. Hypokalemia: Replete K. 4. Sepsis. 5. HTN: IV Diuril today. 6. Sacral decubitus. Subjective Date of service: 03/31/18 Interval history: Patient was seen and examined at the bedside. Objective - Vital Signs Vital signs: Vital Signs - 12hr 03/30/18 03/30/18 03/31/18 21:15 22:00 00:36 Temperature 98.6 F Pulse Rate 76 97 H Respiratory 20 Rate Blood Pressure 172/87 172/87 O2 Sat by Pulse 97 97 Oximetry 03/31/18 03/31/18 02:42 05:33 Temperature 98.4 F Pulse Rate 86 86 Respiratory 20 Rate Blood Pressure 157/90 157/90 O2 Sat by Pulse 99 Oximetry - General Appearance General appearance: well-developed, appears stated age, other (barely arousable , Trached on T-piece) EENT: ATNC Neck: supple Respiratory: Present: Clear to Ascultation Cardiology: regular, S1S2, no murmurs Gastrointestinal: normoactive bowel sounds, no tenderness, other (PEG tube noted ) Integumentary: no rash Neurologic: other (stuporous) Musculoskeletal: other (no edema) - Lab 03/29/18 15:16 03/31/18 04:50 Most recent lab results Calcium 9.1 mg/dL (8.4-10.2) 03/31/18 04:50 Phosphorus 2.50 mg/dL (2.5-4.5) 03/31/18 04:50 Magnesium 2.60 mg/dL (1.7-2.3) H 03/29/18 10:42
[2018-03-31] MEDS ORDERED: DIURIL IV SCH (09:00)
[2018-03-31] MEDS ORDERED: DIURIL 500 MG in NACL 0.9% 50 ML IV ONE (09:00)
[2018-03-31] MEDS: SYMMETREL FEEDTUBE SCH (10:34)
[2018-03-31] MEDS: LOVENOX SUB-Q SCH (10:34)
[2018-03-31] MEDS: TRANSDERM-SCOP TD SCH (10:35)
--- NOTE | 2018-03-31 12:35 | Progress Note ---
Assessment and Plan 72 yo M with 1. sepsis 2. infected sacral wound - stage 4, wound cultures proteus mirabilis 3. hypernatremia 4. dehydration 5. malnutrition - albumin 2.6 -> 1.8 6. lactic acidosis 7. positive troponin Plan: 1. dakins to sacral wound BID 2. clerical administrative assistant following 3. IV abx - vanco and zosyn 4. offloading, turn patient q2 5. optimize nutrition 6. TF via PEG 7. free water flushes may be administered through PEG, Na improving I will call his to discuss how aggressive she wants to be with care. Recommend continuing conservative management as I don't feel the patient is a good candidate for anesthesia/OR. Per case management note patient is on hospice at facility. Thank you for this consultation, please call with questions or concerns Subjective Date of service: 03/31/18 Narrative: Pt seen and examined. Nursing noted episodes of Vtach overnight. No f/c. Objective Vital Signs - 12hr 03/31/18 03/31/18 03/31/18 00:36 02:42 05:33 Temperature 98.4 F Pulse Rate 97 H 86 86 Respiratory 20 Rate Blood Pressure 172/87 157/90 157/90 O2 Sat by Pulse 99 Oximetry O2 Sat by Pulse Oximetry [ Assessment] 03/31/18 03/31/18 03/31/18 08:23 09:00 10:00 Temperature 99.1 F Pulse Rate 83 Respiratory 18 Rate Blood Pressure 151/79 O2 Sat by Pulse 100 98 Oximetry O2 Sat by Pulse 100 Oximetry [ Assessment] - General physical appearance Narrative Exam: Gen: Awake, nonverbal ENT: trach in place, thick yellow secretions from trach CV: S1, S2+ Resp: even and unlabored Abd: soft, NT, ND. PEG tube with TF running Ext: trace pedal edema - Labs 03/29/18 15:16 03/31/18 04:50 Diabetes panel 03/31/18 Range/Units 04:50 Sodium 152 H (137-145) mmol/L Potassium 3.1 L (3.6-5.0) mmol/L Chloride 111.9 H (98-107) mmol/L Carbon Dioxide 30 (22-30) mmol/L BUN 19 (9-20) mg/dL Creatinine 0.6 L (0.8-1.5) mg/dL Glucose 198 H (75-100) mg/dL Calcium 9.1 (8.4-10.2) mg/dL Calcium panel 03/31/18 Range/Units 04:50 Calcium 9.1 (8.4-10.2) mg/dL Phosphorus 2.50 (2.5-4.5) mg/dL Pituitary panel 03/31/18 Range/Units 04:50 Sodium 152 H (137-145) mmol/L Potassium 3.1 L (3.6-5.0) mmol/L Chloride 111.9 H (98-107) mmol/L Carbon Dioxide 30 (22-30) mmol/L BUN 19 (9-20) mg/dL Creatinine 0.6 L (0.8-1.5) mg/dL Glucose 198 H (75-100) mg/dL Calcium 9.1 (8.4-10.2) mg/dL Adrenal panel 03/31/18 Range/Units 04:50 Sodium 152 H (137-145) mmol/L Potassium 3.1 L (3.6-5.0) mmol/L Chloride 111.9 H (98-107) mmol/L Carbon Dioxide 30 (22-30) mmol/L BUN 19 (9-20) mg/dL Creatinine 0.6 L (0.8-1.5) mg/dL Glucose 198 H (75-100) mg/dL Calcium 9.1 (8.4-10.2) mg/dL
[2018-03-31] MEDS ORDERED: XYLOCAINE TOPICAL 4% TP ONE (15:44)
--- NOTE | 2018-03-31 15:44 | Event Note ---
Date: 03/31/18 Spoke with the patient's at the bedside. I told her that with the patient' s overall health, poor nutrition, being bed bound that it will be very difficult to heal the sacral wound. In addition, I explained to her that he is a poor candidate for anesthesia/OR due to his medical conditions and current state. We discussed the option of hospice and keeping his comfortable. She was against this and feels that hospice wants her to put her of a morphine drip and "let him go". I explained to her that the goal of hospice is to keep him comfortable if he feels pain or anxiety and not starting a morphine drip. She understands and states she "can't give up" and she wants to give him all the options. She is ok allowing me to do a bedside debridement with the understanding that I am limited to the extent of debridement being done at the bedside and that he may have discomfort during the procedure. I will try and remove as much necrotic tissue as possible without increasing his risk for bleeding. She understands. All risks, benefits, and alternatives to surgery were discussed with her and consent signed. I will prepare the patient for bedside debridement in the am.
[2018-03-31] MEDS ORDERED: POTASSIUM CHLORIDE FEEDTUBE ONE (16:00)
[2018-04-01] MEDS: HumuLIN R SUB-Q SCH ×5 (00:48→22:46)
[2018-04-01] MEDS: ZOSYN/NS 4.5GM/100ML 4.5 GM/100 ML VIAL IV SCH ×5 (06:03→22:47)
[2018-04-01] MEDS: LOPRESSOR FEEDTUBE SCH ×3 (06:06→22:38)
[2018-04-01 06:41] LABS: BUN/Creatinine Ratio 22; Blood Urea Nitrogen 13 mg/dL (9-20); Calcium 9.1 mg/dL (8.4-10.2); Hemolysis Index 7
[2018-04-01 06:50] LABS: Basophils % (Auto) 0.2 % (0.0-1.8); Eosinophils # (Auto) 0.2 K/mm3 (0.0-0.4); Eosinophils % (Auto) 1.8 % (0.0-4.3); Hematocrit 30.3 % (35.5-45.6); Hemoglobin 9.4 gm/dl (11.8-15.2); Lymphocytes # (Auto) 1.2 K/mm3 (1.2-5.4); Lymphocytes % (Auto) 10.1 % (13.4-35.0); Mean Corpuscular HGB Conc 31 % (32-34); Mean Corpuscular Volume 77 fl (84-94); Monocytes # (Auto) 0.5 K/mm3 (0.0-0.8); Platelet Count 243 K/mm3 (140-440); Red Blood Count 3.96 M/mm3 (3.65-5.03); Red Cell Distribution Width 18.2 % (13.2-15.2)
[2018-04-01] MEDS: D5W 1,000 ML IV SCH (06:51)
[2018-04-01 06:54] LABS: Mean Corpuscular Hemoglobin 24 pg (28-32)
--- NOTE | 2018-04-01 07:11 | Progress Note ---
Assessment and Plan 1. Hypernatremia: Continue water flushes. Sodium level is better. Will stop D5W due to hyperglycemia. 2. Azotemia / Acute kidney injury: Vasomotor / hemodynamically mediated [place]. Renal function has improved. 3. Hypokalemia: Replete K. 4. Sepsis. 5. HTN: BP is better. 6. Sacral decubitus. Subjective Date of service: 04/01/18 Interval history: Patient was seen and examined at the bedside. Objective - Vital Signs Vital signs: Vital Signs - 12hr 03/31/18 03/31/18 03/31/18 20:07 22:00 22:23 Temperature 97.6 F Pulse Rate 95 H Pulse Rate [ 95 H Apical] Respiratory 20 18 Rate Respiratory 18 Rate [denies] Blood Pressure 141/81 141/81 O2 Sat by Pulse 98 Oximetry O2 Sat by Pulse Oximetry [ Assessment] 04/01/18 04/01/18 04/01/18 00:15 02:00 03:23 Temperature 98.7 F Pulse Rate 87 89 Pulse Rate [ Apical] Respiratory 20 Rate Respiratory Rate [denies] Blood Pressure 124/67 O2 Sat by Pulse 100 Oximetry O2 Sat by Pulse 98 Oximetry [ Assessment] 04/01/18 06:06 Temperature Pulse Rate 94 H Pulse Rate [ Apical] Respiratory Rate Respiratory Rate [denies] Blood Pressure 132/78 O2 Sat by Pulse Oximetry O2 Sat by Pulse Oximetry [ Assessment] - General Appearance General appearance: well-developed, appears stated age, other (no distress) EENT: ATNC, PERRL Neck: other (Trached, on T-piece) Respiratory: Present: Clear to Ascultation Cardiology: regular, S1S2, no murmurs Gastrointestinal: normoactive bowel sounds, no tenderness, other (PEG tube noted ) Integumentary: no rash Neurologic: other (barely arousable) Musculoskeletal: other (no edema) - Lab 04/01/18 05:57 04/01/18 05:57 Most recent lab results Calcium 9.1 mg/dL (8.4-10.2) 04/01/18 05:57 Phosphorus 2.50 mg/dL (2.5-4.5) 03/31/18 04:50 Magnesium 2.60 mg/dL (1.7-2.3) H 03/29/18 10:42
[2018-04-01] MEDS: DESYREL PO SCH ×3 (08:27→22:58)
[2018-04-01] MEDS: DAKIN'S HALF STRENGTH TP SCH ×3 (08:28→22:39)
[2018-04-01] MEDS: PEPCID FEEDTUBE SCH ×3 (08:29→22:39)
[2018-04-01] MEDS: LOVENOX SUB-Q SCH ×2 (08:29→10:00)
[2018-04-01] MEDS: SYMMETREL FEEDTUBE SCH ×2 (08:29→10:00)
[2018-04-01] MEDS: KEPPRA FEEDTUBE SCH ×3 (08:29→22:38)
--- NOTE | 2018-04-01 09:58 | Progress Note ---
Assessment and Plan Assessment and plan: --Stage IV Sacral decubital ulcers Wound care and possible surgical debridement per surgery today --Wound cultures; Proteus, continue Zosyn --Hypernatremia; resolved, continue supportive care --Severe sepsis; Due to infected decubitus ulcers and pneumonia ContinueZosyn, --type 2 diabetes mellitus ; uncontrolled, DC D5W Accu-Chek sliding scale coverage and ADA diet Increase long-acting insulin dose --Chronic respiratory failure with hypoxia; status post tracheostomy trach care, oxygen and nebulizers as needed --Dysphagia status post PEG tube placement Feeds per protocol --History of Seizure disorder Seizure precautions, antiepileptic medications Keppra --Malignant HTN; Moderate control, continue current antihypertensives and when necessary medications --Transaminitis; trending down, probably secondary to sepsis closely monitor --Severe malnutrition/hypoalbuminemia; supportive care nutrition supplements, nutrition consult -DVT prophylaxis with Lovenox --full code status Consults and recommendations noted and appreciated History Interval history: Patient seen and examined medical records reviewed No new events reported, not in acute distress Surgery planning bedside surgical debridement Vital signs reviewed Hospitalist Physical - Constitutional Vitals: Temp Pulse Resp BP Pulse Ox 98.3 F 80 18 133/74 96 04/01/18 07:35 04/01/18 07:35 04/01/18 07:35 04/01/18 07:35 04/01/18 08:42 General appearance: Present: no acute distress, cachectic, disheveled, other ( trach and PEG) - EENT Eyes: Present: PERRL, EOM intact - Neck Neck: Present: supple, normal ROM - Respiratory Respiratory effort: normal Respiratory: bilateral: diminished, rhonchi, negative: rales, wheezing - Cardiovascular Rhythm: regular Heart Sounds: Present: S1 & S2 - Extremities Extremities: no ischemia, No edema - Abdominal General gastrointestinal: soft, non-tender, non-distended, normal bowel sounds - Integumentary Integumentary: Present: clear (stage IV sacral decubitus ulcer) - Psychiatric Psychiatric: other (noncommunicative) - Neurologic Neurologic: other (noncommunicative) Results - Labs CBC & Chem 7: 04/01/18 05:57 04/01/18 05:57 Labs: Laboratory Last Values WBC 12.1 K/mm3 (4.5-11.0) H 04/01/18 05:57 RBC 3.96 M/mm3 (3.65-5.03) 04/01/18 05:57 Hgb 9.4 gm/dl (11.8-15.2) L D 04/01/18 05:57 Hct 30.3 % (35.5-45.6) L D 04/01/18 05:57 MCV 77 fl (84-94) L 04/01/18 05:57 MCH 24 pg (28-32) L 04/01/18 05:57 MCHC 31 % (32-34) L 04/01/18 05:57 RDW 18.2 % (13.2-15.2) H 04/01/18 05:57 Plt Count 243 K/mm3 (140-440) 04/01/18 05:57 Lymph % (Auto) 10.1 % (13.4-35.0) L 04/01/18 05:57 [place] % (Auto) 4.0 % (0.0-7.3) 04/01/18 05:57 Eos % (Auto) 1.8 % (0.0-4.3) 04/01/18 05:57 Baso % (Auto) 0.2 % (0.0-1.8) 04/01/18 05:57 Lymph # 1.2 K/mm3 (1.2-5.4) 04/01/18 05:57 [place] # 0.5 K/mm3 (0.0-0.8) 04/01/18 05:57 Eos # 0.2 K/mm3 (0.0-0.4) 04/01/18 05:57 Baso # 0.0 K/mm3 (0.0-0.1) 04/01/18 05:57 Add Manual Diff Complete 03/29/18 15:16 Total Counted 100 03/29/18 15:16 Seg Neutrophils % 83.9 % (40.0-70.0) H 04/01/18 05:57 Seg Neuts % (Manual) 83.0 % (40.0-70.0) H 03/29/18 15:16 Band Neutrophils % 0 % 03/29/18 15:16 Lymphocytes % (Manual) 13.0 % (13.4-35.0) L 03/29/18 15:16 Reactive Lymphs % (Man) 0 % 03/29/18 15:16 Monocytes % (Manual) 4.0 % (0.0-7.3) 03/29/18 15:16 Eosinophils % (Manual) 0 % (0.0-4.3) 03/29/18 15:16 Basophils % (Manual) 0 % (0.0-1.8) 03/29/18 15:16 Metamyelocytes % 0 % 03/29/18 15:16 Myelocytes % 0 % 03/29/18 15:16 Promyelocytes % 0 % 03/29/18 15:16 Blast Cells % 0 % 03/29/18 15:16 Nucleated RBC % 1.0 % (0.0-0.9) H 03/29/18 15:16 Seg Neutrophils # 10.1 K/mm3 (1.8-7.7) H 04/01/18 05:57 Seg Neutrophils # Man 14.0 K/mm3 (1.8-7.7) H 03/29/18 15:16 Band Neutrophils # 0.0 K/mm3 03/29/18 15:16 Lymphocytes # (Manual) 2.2 K/mm3 (1.2-5.4) 03/29/18 15:16 Abs React Lymphs (Man) 0.0 K/mm3 03/29/18 15:16 Monocytes # (Manual) 0.7 K/mm3 (0.0-0.8) 03/29/18 15:16 Eosinophils # (Manual) 0.0 K/mm3 (0.0-0.4) 03/29/18 15:16 Basophils # (Manual) 0.0 K/mm3 (0.0-0.1) 03/29/18 15:16 Metamyelocytes # 0.0 K/mm3 03/29/18 15:16 Myelocytes # 0.0 K/mm3 03/29/18 15:16 Promyelocytes # 0.0 K/mm3 03/29/18 15:16 Blast Cells # 0.0 K/mm3 03/29/18 15:16 WBC Morphology Not Reportable 03/29/18 15:16 Hypersegmented Neuts Not Reportable 03/29/18 15:16 Hyposegmented Neuts Not Reportable 03/29/18 15:16 Hypogranular Neuts Not Reportable 03/29/18 15:16 Smudge Cells Not Reportable 03/29/18 15:16 Toxic Granulation Not Reportable 03/29/18 15:16 Toxic Vacuolation Not Reportable 03/29/18 15:16 Dohle Bodies Not Reportable 03/29/18 15:16 Pelger-Huet Anomaly Not Reportable 03/29/18 15:16 Helene Rods Not Reportable 03/29/18 15:16 Platelet Estimate Appears normal 03/29/18 15:16 Clumped Platelets Not Reportable 03/29/18 15:16 Plt Clumps, EDTA Not Reportable 03/29/18 15:16 Large Platelets Not Reportable 03/29/18 15:16 Giant Platelets Not Reportable 03/29/18 15:16 Platelet Satelliting Not Reportable 03/29/18 15:16 Plt Morphology Comment Not Reportable 03/29/18 15:16 RBC Morphology Not Reportable 03/29/18 15:16 Dimorphic RBCs Not Reportable 03/29/18 15:16 Polychromasia Not Reportable 03/29/18 15:16 Hypochromasia Not Reportable 03/29/18 15:16 Poikilocytosis Not Reportable 03/29/18 15:16 Anisocytosis 1+ 03/29/18 15:16 Microcytosis Not Reportable 03/29/18 15:16 Macrocytosis Not Reportable 03/29/18 15:16 Spherocytes Not Reportable 03/29/18 15:16 Pappenheimer Bodies Not Reportable 03/29/18 15:16 Sickle Cells Not Reportable 03/29/18 15:16 Target Cells Few 03/29/18 15:16 Tear Drop Cells Not Reportable 03/29/18 15:16 Ovalocytes Not Reportable 03/29/18 15:16 Helmet Cells Not Reportable 03/29/18 15:16 Chaudhry-Black Bodies Not Reportable 03/29/18 15:16 [place] Rings Not Reportable 03/29/18 15:16 [place] Cells Not Reportable 03/29/18 15:16 Bite Cells Not Reportable 03/29/18 15:16 Crenated Cell Not Reportable 03/29/18 15:16 Elliptocytes Rare 03/29/18 15:16 Acanthocytes (Spur) Not Reportable 03/29/18 15:16 Rouleaux Not Reportable 03/29/18 15:16 Hemoglobin C Crystals Not Reportable 03/29/18 15:16 Schistocytes Not Reportable 03/29/18 15:16 Malaria parasites Not Reportable 03/29/18 15:16 Huy Bodies Not Reportable 03/29/18 15:16 Hem Pathologist Commnt No 03/29/18 15:16 PT 15.1 Sec. (12.2-14.9) H 03/27/18 20:01 INR 1.13 (0.87-1.13) 03/27/18 20:01 APTT 32.0 Sec. (24.2-36.6) 03/27/18 20:01 VBG pH 7.425 (7.320-7.420) H 03/27/18 20:01 Sodium 145 mmol/L (137-145) 04/01/18 05:57 Potassium 3.8 mmol/L (3.6-5.0) D 04/01/18 05:57 Chloride 106.6 mmol/L (98-107) 04/01/18 05:57 Carbon Dioxide 28 mmol/L (22-30) 04/01/18 05:57 Anion Gap 14 mmol/L 04/01/18 05:57 BUN 13 mg/dL (9-20) 04/01/18 05:57 Creatinine 0.6 mg/dL (0.8-1.5) L 04/01/18 05:57 Estimated GFR > 60 ml/min 04/01/18 05:57 BUN/Creatinine Ratio 22 % 04/01/18 05:57 Glucose 379 mg/dL (75-100) H 04/01/18 05:57 POC Glucose 296 (70-105) H 04/01/18 07:42 Lactic Acid 2.70 mmol/L (0.7-2.0) H* 03/28/18 14:38 Calcium 9.1 mg/dL (8.4-10.2) 04/01/18 05:57 Phosphorus 2.50 mg/dL (2.5-4.5) 03/31/18 04:50 Magnesium 2.60 mg/dL (1.7-2.3) H 03/29/18 10:42 Total Bilirubin 0.60 mg/dL (0.1-1.2) 03/30/18 08:27 Direct Bilirubin < 0.2 mg/dL (0-0.2) 03/30/18 08:27 Indirect Bilirubin 0.4 mg/dL 03/30/18 08:27 AST 22 units/L (5-40) 03/30/18 08:27 ALT 75 units/L (7-56) H 03/30/18 08:27 Alkaline Phosphatase 135 units/L (35-129) H 03/30/18 08:27 Troponin T 0.048 ng/mL (0.00-0.029) H 03/27/18 20:05 Total Protein 5.5 g/dL (6.3-8.2) L 03/30/18 08:27 Albumin 1.8 g/dL (3.9-5) L 03/30/18 08:27 Albumin/Globulin Ratio 0.5 % 03/30/18 08:27 Triglycerides 151 mg/dL (2-149) H 03/27/18 20:05 Cholesterol 106 mg/dL (50-199) 03/27/18 20:05 LDL Cholesterol Direct 57 mg/dL (50-130) 03/27/18 20:05 HDL Cholesterol 27 mg/dL (40-59) L 03/27/18 20:05 Cholesterol/HDL Ratio 3.92 % 03/27/18 20:05 Urine Color Yellow (Yellow) 03/27/18 19:51 Urine Turbidity Clear (Clear) 03/27/18 19:51 Urine pH 5.0 (5.0-7.0) 03/27/18 19:51 Ur Specific [place] 1.023 (1.003-1.030) 03/27/18 19:51 Urine Protein <15 mg/dl mg/dL (Negative) 03/27/18 19:51 Urine Glucose (UA) >=500 mg/dL (Negative) 03/27/18 19:51 Urine Ketones Neg mg/dL (Negative) 03/27/18 19:51 Urine Blood Neg (Negative) 03/27/18 19:51 Urine Nitrite Neg (Negative) 03/27/18 19:51 Urine Bilirubin Neg (Negative) 03/27/18 19:51 Urine Urobilinogen < 2.0 mg/dL (<2.0) 03/27/18 19:51 Ur Leukocyte Esterase Neg (Negative) 03/27/18 19:51 Urine WBC (Auto) < 1.0 /HPF (0.0-6.0) 03/27/18 19:51 Urine RBC (Auto) 1.0 /HPF (0.0-6.0) 03/27/18 19:51 U Epithel Cells (Auto) < 1.0 /HPF (0-13.0) 03/27/18 19:51 Urine Bacteria (Auto) 1+ /HPF (Negative) 03/27/18 19:51 Urine Mucus Few /HPF 03/27/18 19:51
[2018-04-01] MEDS ORDERED: POTASSIUM CHLORIDE FEEDTUBE ONE (12:37)
--- NOTE | 2018-04-01 16:18 | Procedure Note ---
Date of procedure: 04/01/18 Pre-op diagnosis: infected stage 4 sacral decubitus wound Post-op diagnosis: same Procedure: excisional debridement of infected sacral decubitus wound Findings: Time out performed. Pain control was achieved with 4% topical lidocaine applied to the wound bed for 15 minutes prior to the procedure. The patient was placed in right lateral decubitus position. The slough and necrotic tissue was excised using a 10 blade and foreceps. There was some bleeding from the wound bed which was controlled with direct pressure and application of surgicel. The patient could not tolerate debridement of the entire wound secondary to pain which was noted by change in his facial expressions during the procedure. Approximately 50 % of the necrotic tissue and slough were debrided. Once hemostasis was ensured, the wound was packed with dakins moistened kerlex and covered with dry gauze, ABD pads and tape. Predebridement measurements: 8.5X8X2.5 Post debridement measurements: 8.5c, x 8.2 cm x 3cm. All sharps were disposed of appropriately. Anesthesia: local Surgeon: PENELOPE AGUILAR Estimated blood loss: minimal Pathology: none Condition: stable Disposition: floor
[2018-04-02] MEDS: LOPRESSOR FEEDTUBE SCH ×3 (06:05→22:25)
[2018-04-02] MEDS: ZOSYN/NS 4.5GM/100ML 4.5 GM/100 ML VIAL IV SCH ×3 (06:05→22:25)
[2018-04-02 07:00] LABS: BUN/Creatinine Ratio 20; Blood Urea Nitrogen 10 mg/dL (9-20); Calcium 9.3 mg/dL (8.4-10.2); Hemolysis Index 2
--- NOTE | 2018-04-02 08:18 | Progress Note ---
Assessment and Plan 1. Hypernatremia: Continue water flushes. Sodium level is better. Intermittent Thiazide. 2. Azotemia / Acute kidney injury: Vasomotor / hemodynamically mediated [place]. Renal function has improved. 3. Hypokalemia: K level is better. 4. Sepsis. 5. HTN: BP is better. 6. Sacral decubitus. Subjective Date of service: 04/02/18 Interval history: Patient was seen and examined at the bedside. Objective - Vital Signs Vital signs: Vital Signs - 12hr 04/01/18 04/01/18 04/02/18 22:00 22:38 02:00 Temperature Pulse Rate 94 H 94 H Pulse Rate [ 94 H Apical] Respiratory Rate Blood Pressure 142/86 O2 Sat by Pulse Oximetry O2 Sat by Pulse Oximetry [ Assessment] 04/02/18 04/02/18 04/02/18 02:07 02:11 05:28 Temperature 99.4 F Pulse Rate 87 Pulse Rate [ Apical] Respiratory 18 Rate Blood Pressure 132/71 O2 Sat by Pulse 98 Oximetry O2 Sat by Pulse 98 98 Oximetry [ Assessment] 04/02/18 04/02/18 04/02/18 06:05 07:44 07:45 Temperature Pulse Rate 87 Pulse Rate [ Apical] Respiratory Rate Blood Pressure 132/71 O2 Sat by Pulse 99 Oximetry O2 Sat by Pulse 99 Oximetry [ Assessment] - General Appearance General appearance: well-developed, appears stated age, other (Trached on T- piece) EENT: ATNC Respiratory: Present: Clear to Ascultation Cardiology: regular, S1S2, no murmurs Gastrointestinal: normoactive bowel sounds, no tenderness, other (PEG tube noted ) Integumentary: no rash Neurologic: other (barely arousable) Musculoskeletal: other (no edema) - Lab 04/01/18 05:57 04/02/18 06:08 Most recent lab results Calcium 9.3 mg/dL (8.4-10.2) 04/02/18 06:08 Phosphorus 2.20 mg/dL (2.5-4.5) L 04/02/18 06:08 Magnesium 2.00 mg/dL (1.7-2.3) 04/02/18 06:08
--- NOTE | 2018-04-02 08:38 | Progress Note ---
Assessment and Plan Assessment and plan: --Stage IV Sacral decubital ulcer: s/p surgical debridement yesterday, Possible wound VAC placement --Wound cultures; Proteus, continue Zosyn, DC on oral cefuroxime --Hypernatremia; resolved, continue supportive care --Severe sepsis; Due to infected decubitus ulcers and pneumonia ContinueZosyn, d/c on oral cefuroxime. --type 2 diabetes mellitus ; uncontrolled, Accu-Chek sliding scale coverage Tube feeding, long-acting insulin adjust as needed --Chronic respiratory failure with hypoxia; status post tracheostomy trach care, oxygen and nebulizers as needed --Dysphagia status ; PEG feeds per protocol --History of Seizure disorder; Seizure precautions, continue Keppra --Malignant HTN; well controlled, on antihypertensives and PRN medications --Transaminitis; trending down, probably secondary to sepsis closely monitor --Severe malnutrition/hypoalbuminemia; nutrition consult, nutrition supplements --DVT prophylaxis with Lovenox --full code status DC planning; possible discharge back to SNF when medically stable Plan of care reviewed with the patient's nurse History Interval history: The patient seen and examined medical records reviewed Underwent surgical debridement yesterday for surgery Feels better, no new events reported Noncommunicative comfortable Vital signs noted Hospitalist Physical - Constitutional Vitals: Temp Pulse Resp BP Pulse Ox 99.4 F 87 18 132/71 99 04/02/18 02:11 04/02/18 06:05 04/02/18 02:11 04/02/18 06:05 04/02/18 07:45 General appearance: Present: no acute distress, cachectic, disheveled, other ( trach and PEG) - EENT Eyes: Present: PERRL, EOM intact - Neck Neck: Present: supple, other (tracheostomy in place on T piece) - Respiratory Respiratory effort: normal Respiratory: bilateral: diminished, rhonchi, negative: rales, wheezing - Cardiovascular Rhythm: regular Heart Sounds: Present: S1 & S2 - Extremities Extremities: no ischemia - Abdominal General gastrointestinal: soft, non-tender, non-distended, normal bowel sounds, other (PEG tube in place) - Integumentary Integumentary: Present: clear, warm - Psychiatric Psychiatric: other (noncommunicative) - Neurologic Neurologic: other (noncommunicative) Results - Labs CBC & Chem 7: 04/01/18 05:57 04/02/18 06:08 Labs: Laboratory Last Values WBC 12.1 K/mm3 (4.5-11.0) H 04/01/18 05:57 RBC 3.96 M/mm3 (3.65-5.03) 04/01/18 05:57 Hgb 9.4 gm/dl (11.8-15.2) L D 04/01/18 05:57 Hct 30.3 % (35.5-45.6) L D 04/01/18 05:57 MCV 77 fl (84-94) L 04/01/18 05:57 MCH 24 pg (28-32) L 04/01/18 05:57 MCHC 31 % (32-34) L 04/01/18 05:57 RDW 18.2 % (13.2-15.2) H 04/01/18 05:57 Plt Count 243 K/mm3 (140-440) 04/01/18 05:57 Lymph % (Auto) 10.1 % (13.4-35.0) L 04/01/18 05:57 [place] % (Auto) 4.0 % (0.0-7.3) 04/01/18 05:57 Eos % (Auto) 1.8 % (0.0-4.3) 04/01/18 05:57 Baso % (Auto) 0.2 % (0.0-1.8) 04/01/18 05:57 Lymph # 1.2 K/mm3 (1.2-5.4) 04/01/18 05:57 [place] # 0.5 K/mm3 (0.0-0.8) 04/01/18 05:57 Eos # 0.2 K/mm3 (0.0-0.4) 04/01/18 05:57 Baso # 0.0 K/mm3 (0.0-0.1) 04/01/18 05:57 Add Manual Diff Complete 03/29/18 15:16 Total Counted 100 03/29/18 15:16 Seg Neutrophils % 83.9 % (40.0-70.0) H 04/01/18 05:57 Seg Neuts % (Manual) 83.0 % (40.0-70.0) H 03/29/18 15:16 Band Neutrophils % 0 % 03/29/18 15:16 Lymphocytes % (Manual) 13.0 % (13.4-35.0) L 03/29/18 15:16 Reactive Lymphs % (Man) 0 % 03/29/18 15:16 Monocytes % (Manual) 4.0 % (0.0-7.3) 03/29/18 15:16 Eosinophils % (Manual) 0 % (0.0-4.3) 03/29/18 15:16 Basophils % (Manual) 0 % (0.0-1.8) 03/29/18 15:16 Metamyelocytes % 0 % 03/29/18 15:16 Myelocytes % 0 % 03/29/18 15:16 Promyelocytes % 0 % 03/29/18 15:16 Blast Cells % 0 % 03/29/18 15:16 Nucleated RBC % 1.0 % (0.0-0.9) H 03/29/18 15:16 Seg Neutrophils # 10.1 K/mm3 (1.8-7.7) H 04/01/18 05:57 Seg Neutrophils # Man 14.0 K/mm3 (1.8-7.7) H 03/29/18 15:16 Band Neutrophils # 0.0 K/mm3 03/29/18 15:16 Lymphocytes # (Manual) 2.2 K/mm3 (1.2-5.4) 03/29/18 15:16 Abs React Lymphs (Man) 0.0 K/mm3 03/29/18 15:16 Monocytes # (Manual) 0.7 K/mm3 (0.0-0.8) 03/29/18 15:16 Eosinophils # (Manual) 0.0 K/mm3 (0.0-0.4) 03/29/18 15:16 Basophils # (Manual) 0.0 K/mm3 (0.0-0.1) 03/29/18 15:16 Metamyelocytes # 0.0 K/mm3 03/29/18 15:16 Myelocytes # 0.0 K/mm3 03/29/18 15:16 Promyelocytes # 0.0 K/mm3 03/29/18 15:16 Blast Cells # 0.0 K/mm3 03/29/18 15:16 WBC Morphology Not Reportable 03/29/18 15:16 Hypersegmented Neuts Not Reportable 03/29/18 15:16 Hyposegmented Neuts Not Reportable 03/29/18 15:16 Hypogranular Neuts Not Reportable 03/29/18 15:16 Smudge Cells Not Reportable 03/29/18 15:16 Toxic Granulation Not Reportable 03/29/18 15:16 Toxic Vacuolation Not Reportable 03/29/18 15:16 Dohle Bodies Not Reportable 03/29/18 15:16 Pelger-Huet Anomaly Not Reportable 03/29/18 15:16 Helene Rods Not Reportable 03/29/18 15:16 Platelet Estimate Appears normal 03/29/18 15:16 Clumped Platelets Not Reportable 03/29/18 15:16 Plt Clumps, EDTA Not Reportable 03/29/18 15:16 Large Platelets Not Reportable 03/29/18 15:16 Giant Platelets Not Reportable 03/29/18 15:16 Platelet Satelliting Not Reportable 03/29/18 15:16 Plt Morphology Comment Not Reportable 03/29/18 15:16 RBC Morphology Not Reportable 03/29/18 15:16 Dimorphic RBCs Not Reportable 03/29/18 15:16 Polychromasia Not Reportable 03/29/18 15:16 Hypochromasia Not Reportable 03/29/18 15:16 Poikilocytosis Not Reportable 03/29/18 15:16 Anisocytosis 1+ 03/29/18 15:16 Microcytosis Not Reportable 03/29/18 15:16 Macrocytosis Not Reportable 03/29/18 15:16 Spherocytes Not Reportable 03/29/18 15:16 Pappenheimer Bodies Not Reportable 03/29/18 15:16 Sickle Cells Not Reportable 03/29/18 15:16 Target Cells Few 03/29/18 15:16 Tear Drop Cells Not Reportable 03/29/18 15:16 Ovalocytes Not Reportable 03/29/18 15:16 Helmet Cells Not Reportable 03/29/18 15:16 Chaudh[place] Bodies Not Reportable 03/29/18 15:16 [place] Rings Not Reportable 03/29/18 15:16 [place] Cells Not Reportable 03/29/18 15:16 Bite Cells Not Reportable 03/29/18 15:16 Crenated Cell Not Reportable 03/29/18 15:16 Elliptocytes Rare 03/29/18 15:16 Acanthocytes (Spur) Not Reportable 03/29/18 15:16 Rouleaux Not Reportable 03/29/18 15:16 Hemoglobin C Crystals Not Reportable 03/29/18 15:16 Schistocytes Not Reportable 03/29/18 15:16 Malaria parasites Not Reportable 03/29/18 15:16 Huy Bodies Not Reportable 03/29/18 15:16 Hem Pathologist Commnt No 03/29/18 15:16 PT 15.1 Sec. (12.2-14.9) H 03/27/18 20:01 INR 1.13 (0.87-1.13) 03/27/18 20:01 APTT 32.0 Sec. (24.2-36.6) 03/27/18 20:01 VBG pH 7.425 (7.320-7.420) H 03/27/18 20:01 Sodium 148 mmol/L (137-145) H 04/02/18 06:08 Potassium 4.1 mmol/L (3.6-5.0) 04/02/18 06:08 Chloride 108.4 mmol/L (98-107) H 04/02/18 06:08 Carbon Dioxide 31 mmol/L (22-30) H 04/02/18 06:08 Anion Gap 13 mmol/L 04/02/18 06:08 BUN 10 mg/dL (9-20) 04/02/18 06:08 Creatinine 0.5 mg/dL (0.8-1.5) L 04/02/18 06:08 Estimated GFR > 60 ml/min 04/02/18 06:08 BUN/Creatinine Ratio 20 % 04/02/18 06:08 Glucose 192 mg/dL (75-100) H 04/02/18 06:08 POC Glucose 210 (70-105) H 04/02/18 07:48 Lactic Acid 2.70 mmol/L (0.7-2.0) H* 03/28/18 14:38 Calcium 9.3 mg/dL (8.4-10.2) 04/02/18 06:08 Phosphorus 2.20 mg/dL (2.5-4.5) L 04/02/18 06:08 Magnesium 2.00 mg/dL (1.7-2.3) 04/02/18 06:08 Total Bilirubin 0.60 mg/dL (0.1-1.2) 03/30/18 08:27 Direct Bilirubin < 0.2 mg/dL (0-0.2) 03/30/18 08:27 Indirect Bilirubin 0.4 mg/dL 03/30/18 08:27 AST 22 units/L (5-40) 03/30/18 08:27 ALT 75 units/L (7-56) H 03/30/18 08:27 Alkaline Phosphatase 135 units/L (35-129) H 03/30/18 08:27 Troponin T 0.048 ng/mL (0.00-0.029) H 03/27/18 20:05 Total Protein 5.5 g/dL (6.3-8.2) L 03/30/18 08:27 Albumin 1.8 g/dL (3.9-5) L 03/30/18 08:27 Albumin/Globulin Ratio 0.5 % 03/30/18 08:27 Triglycerides 151 mg/dL (2-149) H 03/27/18 20:05 Cholesterol 106 mg/dL (50-199) 03/27/18 20:05 LDL Cholesterol Direct 57 mg/dL (50-130) 03/27/18 20:05 HDL Cholesterol 27 mg/dL (40-59) L 03/27/18 20:05 Cholesterol/HDL Ratio 3.92 % 03/27/18 20:05 Urine Color Yellow (Yellow) 03/27/18 19:51 Urine Turbidity Clear (Clear) 03/27/18 19:51 Urine pH 5.0 (5.0-7.0) 03/27/18 19:51 Ur Specific [place] 1.023 (1.003-1.030) 03/27/18 19:51 Urine Protein <15 mg/dl mg/dL (Negative) 03/27/18 19:51 Urine Glucose (UA) >=500 mg/dL (Negative) 03/27/18 19:51 Urine Ketones Neg mg/dL (Negative) 03/27/18 19:51 Urine Blood Neg (Negative) 03/27/18 19:51 Urine Nitrite Neg (Negative) 03/27/18 19:51 Urine Bilirubin Neg (Negative) 03/27/18 19:51 Urine Urobilinogen < 2.0 mg/dL (<2.0) 03/27/18 19:51 Ur Leukocyte Esterase Neg (Negative) 03/27/18 19:51 Urine WBC (Auto) < 1.0 /HPF (0.0-6.0) 03/27/18 19:51 Urine RBC (Auto) 1.0 /HPF (0.0-6.0) 03/27/18 19:51 U Epithel Cells (Auto) < 1.0 /HPF (0-13.0) 03/27/18 19:51 Urine Bacteria (Auto) 1+ /HPF (Negative) 03/27/18 19:51 Urine Mucus Few /HPF 03/27/18 19:51
[2018-04-02] MEDS: SYMMETREL FEEDTUBE SCH ×2 (08:58→10:00)
[2018-04-02] MEDS: HumuLIN R SUB-Q SCH ×4 (08:58→22:39)
[2018-04-02] MEDS: PHOS-NAK PO SCH ×2 (08:59→22:25)
[2018-04-02] MEDS: KEPPRA FEEDTUBE SCH ×3 (08:59→22:39)
[2018-04-02] MEDS: PEPCID FEEDTUBE SCH ×2 (08:59→22:24)
[2018-04-02] MEDS: LOVENOX SUB-Q SCH (08:59)
[2018-04-02] MEDS: DESYREL PO SCH ×2 (08:59→22:24)
[2018-04-02] MEDS: DAKIN'S HALF STRENGTH TP SCH ×2 (09:00→22:26)
--- NOTE | 2018-04-02 14:26 | Progress Note ---
Assessment and Plan 72 yo M s/p bedside debridement of stage 4 infected sacral wound 04/01/18 Plan: 1. c/w abx - cx proteus sensitive to zosyn 2. c/w TF and optimizing nutrition 3. offloading 4. will reeval wound in am with shell maker lockstitch and make decision regarding vac placement Thank you for this consultation, please call with questions or concerns. Subjective Date of service: 04/02/18 Narrative: Pt seen and examined. No overnight events. No f/c. Objective Vital Signs - 12hr 04/02/18 04/02/18 04/02/18 05:28 06:05 07:40 Temperature 98.2 F Pulse Rate 87 79 Respiratory 18 Rate Blood Pressure 132/71 123/74 O2 Sat by Pulse 100 Oximetry O2 Sat by Pulse 98 Oximetry [ Assessment] 04/02/18 04/02/18 04/02/18 07:44 07:45 10:00 Temperature Pulse Rate 79 Respiratory Rate Blood Pressure O2 Sat by Pulse 99 Oximetry O2 Sat by Pulse 99 Oximetry [ Assessment] - General physical appearance Narrative Exam: Gen: Less awake today. NAD Sacrum: All packing removed. Wound bed that was debrided yesterday is clean and dry without bleeding, base is pink. Cepahlad and lateral aspect of wound bed with necrotic slough. No erythema or cellulitis of periwound skin. Packed with 4x4 gauze moistened with dakins, covered with dry 4x4 gauze, and gel sacral dressing. - Labs 04/01/18 05:57 04/02/18 06:08 Diabetes panel 04/02/18 Range/Units 06:08 Sodium 148 H (137-145) mmol/L Potassium 4.1 (3.6-5.0) mmol/L Chloride 108.4 H (98-107) mmol/L Carbon Dioxide 31 H (22-30) mmol/L BUN 10 (9-20) mg/dL Creatinine 0.5 L (0.8-1.5) mg/dL Glucose 192 H (75-100) mg/dL Calcium 9.3 (8.4-10.2) mg/dL Calcium panel 04/02/18 Range/Units 06:08 Calcium 9.3 (8.4-10.2) mg/dL Phosphorus 2.20 L (2.5-4.5) mg/dL Pituitary panel 04/02/18 Range/Units 06:08 Sodium 148 H (137-145) mmol/L Potassium 4.1 (3.6-5.0) mmol/L Chloride 108.4 H (98-107) mmol/L Carbon Dioxide 31 H (22-30) mmol/L BUN 10 (9-20) mg/dL Creatinine 0.5 L (0.8-1.5) mg/dL Glucose 192 H (75-100) mg/dL Calcium 9.3 (8.4-10.2) mg/dL Adrenal panel 04/02/18 Range/Units 06:08 Sodium 148 H (137-145) mmol/L Potassium 4.1 (3.6-5.0) mmol/L Chloride 108.4 H (98-107) mmol/L Carbon Dioxide 31 H (22-30) mmol/L BUN 10 (9-20) mg/dL Creatinine 0.5 L (0.8-1.5) mg/dL Glucose 192 H (75-100) mg/dL Calcium 9.3 (8.4-10.2) mg/dL
[2018-04-03] MEDS: ZOSYN/NS 4.5GM/100ML 4.5 GM/100 ML VIAL IV SCH ×3 (05:06→21:41)
[2018-04-03] MEDS: LOPRESSOR FEEDTUBE SCH ×3 (05:06→21:44)
[2018-04-03 06:38] LABS: Alanine Aminotransferase 32 units/L (7-56); Albumin 2.2 g/dL (3.9-5); BUN/Creatinine Ratio 20; Blood Urea Nitrogen 12 mg/dL (9-20); Calcium 9.6 mg/dL (8.4-10.2); Hemolysis Index 31
--- NOTE | 2018-04-03 08:04 | Progress Note ---
Assessment and Plan Assessment and plan: --Stage IV Sacral decubital ulcer: s/p surgical debridement yesterday, Possible wound VAC placement --Proteus Wound cultures; continue Zosyn, DC on oral cefuroxime --Hypernatremia; resolved, continue supportive care --Severe sepsis; Due to infected decubitus ulcers and pneumonia ContinueZosyn, d/c on oral cefuroxime. --type 2 diabetes mellitus ; uncontrolled, Accu-Chek sliding scale coverage Tube feeding, long-acting insulin adjust as needed --Chronic respiratory failure;s/p tracheostomy trach care, oxygen and nebulizers as needed --Dysphagia s/p PEG: PEG feeds per protocol --History of Seizure disorder; Seizure precautions, continue Keppra --Malignant HTN; well controlled, on antihypertensives and PRN medications --Transaminitis; trending down, probably secondary to sepsis closely monitor --Severe malnutrition/hypoalbuminemia; nutrition consult, nutrition supplements --DVT prophylaxis with Lovenox --full code status --DC planning; possible discharge back to SNF when medically stable Plan of care reviewed with the patient's nurse History Interval history: Patient seen and examined medical records reviewed Patient is noncommunicative, status post treatment. Comfortable no new complaints by the nursing staff Vital signs reviewed Hospitalist Physical - Constitutional Vitals: Temp Pulse Resp BP Pulse Ox 97.2 F L 89 16 146/85 98 04/03/18 02:00 04/03/18 05:06 04/03/18 02:00 04/03/18 05:06 04/03/18 04:07 General appearance: Present: no acute distress, cachectic, disheveled, other ( trach and PEG) - EENT Eyes: Present: PERRL, EOM intact - Neck Neck: Present: supple, normal ROM - Respiratory Respiratory effort: normal Respiratory: bilateral: diminished, negative: rales, rhonchi, wheezing - Cardiovascular Rhythm: regular Heart Sounds: Present: S1 & S2 - Extremities Extremities: no ischemia, No edema - Abdominal General gastrointestinal: soft, non-tender, non-distended, normal bowel sounds - Integumentary Integumentary: Present: clear, warm - Psychiatric Psychiatric: other (noncommunicative) - Neurologic Neurologic: other (noncommunicative) Results - Labs CBC & Chem 7: 04/01/18 05:57 04/03/18 05:54 Labs: Laboratory Last Values WBC 12.1 K/mm3 (4.5-11.0) H 04/01/18 05:57 RBC 3.96 M/mm3 (3.65-5.03) 04/01/18 05:57 Hgb 9.4 gm/dl (11.8-15.2) L D 04/01/18 05:57 Hct 30.3 % (35.5-45.6) L D 04/01/18 05:57 MCV 77 fl (84-94) L 04/01/18 05:57 MCH 24 pg (28-32) L 04/01/18 05:57 MCHC 31 % (32-34) L 04/01/18 05:57 RDW 18.2 % (13.2-15.2) H 04/01/18 05:57 Plt Count 243 K/mm3 (140-440) 04/01/18 05:57 Lymph % (Auto) 10.1 % (13.4-35.0) L 04/01/18 05:57 [place] % (Auto) 4.0 % (0.0-7.3) 04/01/18 05:57 Eos % (Auto) 1.8 % (0.0-4.3) 04/01/18 05:57 Baso % (Auto) 0.2 % (0.0-1.8) 04/01/18 05:57 Lymph # 1.2 K/mm3 (1.2-5.4) 04/01/18 05:57 [place] # 0.5 K/mm3 (0.0-0.8) 04/01/18 05:57 Eos # 0.2 K/mm3 (0.0-0.4) 04/01/18 05:57 Baso # 0.0 K/mm3 (0.0-0.1) 04/01/18 05:57 Add Manual Diff Complete 03/29/18 15:16 Total Counted 100 03/29/18 15:16 Seg Neutrophils % 83.9 % (40.0-70.0) H 04/01/18 05:57 Seg Neuts % (Manual) 83.0 % (40.0-70.0) H 03/29/18 15:16 Band Neutrophils % 0 % 03/29/18 15:16 Lymphocytes % (Manual) 13.0 % (13.4-35.0) L 03/29/18 15:16 Reactive Lymphs % (Man) 0 % 03/29/18 15:16 Monocytes % (Manual) 4.0 % (0.0-7.3) 03/29/18 15:16 Eosinophils % (Manual) 0 % (0.0-4.3) 03/29/18 15:16 Basophils % (Manual) 0 % (0.0-1.8) 03/29/18 15:16 Metamyelocytes % 0 % 03/29/18 15:16 Myelocytes % 0 % 03/29/18 15:16 Promyelocytes % 0 % 03/29/18 15:16 Blast Cells % 0 % 03/29/18 15:16 Nucleated RBC % 1.0 % (0.0-0.9) H 03/29/18 15:16 Seg Neutrophils # 10.1 K/mm3 (1.8-7.7) H 04/01/18 05:57 Seg Neutrophils # Man 14.0 K/mm3 (1.8-7.7) H 03/29/18 15:16 Band Neutrophils # 0.0 K/mm3 03/29/18 15:16 Lymphocytes # (Manual) 2.2 K/mm3 (1.2-5.4) 03/29/18 15:16 Abs React Lymphs (Man) 0.0 K/mm3 03/29/18 15:16 Monocytes # (Manual) 0.7 K/mm3 (0.0-0.8) 03/29/18 15:16 Eosinophils # (Manual) 0.0 K/mm3 (0.0-0.4) 03/29/18 15:16 Basophils # (Manual) 0.0 K/mm3 (0.0-0.1) 03/29/18 15:16 Metamyelocytes # 0.0 K/mm3 03/29/18 15:16 Myelocytes # 0.0 K/mm3 03/29/18 15:16 Promyelocytes # 0.0 K/mm3 03/29/18 15:16 Blast Cells # 0.0 K/mm3 03/29/18 15:16 WBC Morphology Not Reportable 03/29/18 15:16 Hypersegmented Neuts Not Reportable 03/29/18 15:16 Hyposegmented Neuts Not Reportable 03/29/18 15:16 Hypogranular Neuts Not Reportable 03/29/18 15:16 Smudge Cells Not Reportable 03/29/18 15:16 Toxic Granulation Not Reportable 03/29/18 15:16 Toxic Vacuolation Not Reportable 03/29/18 15:16 Dohle Bodies Not Reportable 03/29/18 15:16 Pelger-Huet Anomaly Not Reportable 03/29/18 15:16 Helene Rods Not Reportable 03/29/18 15:16 Platelet Estimate Appears normal 03/29/18 15:16 Clumped Platelets Not Reportable 03/29/18 15:16 Plt Clumps, EDTA Not Reportable 03/29/18 15:16 Large Platelets Not Reportable 03/29/18 15:16 Giant Platelets Not Reportable 03/29/18 15:16 Platelet Satelliting Not Reportable 03/29/18 15:16 Plt Morphology Comment Not Reportable 03/29/18 15:16 RBC Morphology Not Reportable 03/29/18 15:16 Dimorphic RBCs Not Reportable 03/29/18 15:16 Polychromasia Not Reportable 03/29/18 15:16 Hypochromasia Not Reportable 03/29/18 15:16 Poikilocytosis Not Reportable 03/29/18 15:16 Anisocytosis 1+ 03/29/18 15:16 Microcytosis Not Reportable 03/29/18 15:16 Macrocytosis Not Reportable 03/29/18 15:16 Spherocytes Not Reportable 03/29/18 15:16 Pappenheimer Bodies Not Reportable 03/29/18 15:16 Sickle Cells Not Reportable 03/29/18 15:16 Target Cells Few 03/29/18 15:16 Tear Drop Cells Not Reportable 03/29/18 15:16 Ovalocytes Not Reportable 03/29/18 15:16 Helmet Cells Not Reportable 03/29/18 15:16 Chaudhry-[place] Bodies Not Reportable 03/29/18 15:16 [place] Rings Not Reportable 03/29/18 15:16 [place] Cells Not Reportable 03/29/18 15:16 Bite Cells Not Reportable 03/29/18 15:16 Crenated Cell Not Reportable 03/29/18 15:16 Elliptocytes Rare 03/29/18 15:16 Acanthocytes (Spur) Not Reportable 03/29/18 15:16 Rouleaux Not Reportable 03/29/18 15:16 Hemoglobin C Crystals Not Reportable 03/29/18 15:16 Schistocytes Not Reportable 03/29/18 15:16 Malaria parasites Not Reportable 03/29/18 15:16 Huy Bodies Not Reportable 03/29/18 15:16 Hem Pathologist Commnt No 03/29/18 15:16 PT 15.1 Sec. (12.2-14.9) H 03/27/18 20:01 INR 1.13 (0.87-1.13) 03/27/18 20:01 APTT 32.0 Sec. (24.2-36.6) 03/27/18 20:01 VBG pH 7.425 (7.320-7.420) H 03/27/18 20:01 Sodium 145 mmol/L (137-145) 04/03/18 05:54 Potassium 4.6 mmol/L (3.6-5.0) 04/03/18 05:54 Chloride 104.5 mmol/L (98-107) 04/03/18 05:54 Carbon Dioxide 32 mmol/L (22-30) H 04/03/18 05:54 Anion Gap 13 mmol/L 04/03/18 05:54 BUN 12 mg/dL (9-20) 04/03/18 05:54 Creatinine 0.6 mg/dL (0.8-1.5) L 04/03/18 05:54 Estimated GFR > 60 ml/min 04/03/18 05:54 BUN/Creatinine Ratio 20 % 04/03/18 05:54 Glucose 234 mg/dL (75-100) H 04/03/18 05:54 POC Glucose 177 (70-105) H 04/02/18 21:12 Lactic Acid 2.70 mmol/L (0.7-2.0) H* 03/28/18 14:38 Calcium 9.6 mg/dL (8.4-10.2) 04/03/18 05:54 Phosphorus 2.70 mg/dL (2.5-4.5) D 04/03/18 05:54 Magnesium 2.10 mg/dL (1.7-2.3) 04/03/18 05:54 Total Bilirubin 0.40 mg/dL (0.1-1.2) 04/03/18 05:54 Direct Bilirubin < 0.2 mg/dL (0-0.2) 03/30/18 08:27 Indirect Bilirubin 0.4 mg/dL 03/30/18 08:27 AST 18 units/L (5-40) 04/03/18 05:54 ALT 32 units/L (7-56) 04/03/18 05:54 Alkaline Phosphatase 136 units/L (35-129) H 04/03/18 05:54 Troponin T 0.048 ng/mL (0.00-0.029) H 03/27/18 20:05 Total Protein 5.2 g/dL (6.3-8.2) L 04/03/18 05:54 Albumin 2.2 g/dL (3.9-5) L 04/03/18 05:54 Albumin/Globulin Ratio 0.7 % 04/03/18 05:54 Triglycerides 151 mg/dL (2-149) H 03/27/18 20:05 Cholesterol 106 mg/dL (50-199) 03/27/18 20:05 LDL Cholesterol Direct 57 mg/dL (50-130) 03/27/18 20:05 HDL Cholesterol 27 mg/dL (40-59) L 03/27/18 20:05 Cholesterol/HDL Ratio 3.92 % 03/27/18 20:05 Urine Color Yellow (Yellow) 03/27/18 19:51 Urine Turbidity Clear (Clear) 03/27/18 19:51 Urine pH 5.0 (5.0-7.0) 03/27/18 19:51 Ur Specific [place] 1.023 (1.003-1.030) 03/27/18 19:51 Urine Protein <15 mg/dl mg/dL (Negative) 03/27/18 19:51 Urine Glucose (UA) >=500 mg/dL (Negative) 03/27/18 19:51 Urine Ketones Neg mg/dL (Negative) 03/27/18 19:51 Urine Blood Neg (Negative) 03/27/18 19:51 Urine Nitrite Neg (Negative) 03/27/18 19:51 Urine Bilirubin Neg (Negative) 03/27/18 19:51 Urine Urobilinogen < 2.0 mg/dL (<2.0) 03/27/18 19:51 Ur Leukocyte Esterase Neg (Negative) 03/27/18 19:51 Urine WBC (Auto) < 1.0 /HPF (0.0-6.0) 03/27/18 19:51 Urine RBC (Auto) 1.0 /HPF (0.0-6.0) 03/27/18 19:51 U Epithel Cells (Auto) < 1.0 /HPF (0-13.0) 03/27/18 19:51 Urine Bacteria (Auto) 1+ /HPF (Negative) 03/27/18 19:51 Urine Mucus Few /HPF 03/27/18 19:51
[2018-04-03] MEDS: HumuLIN R SUB-Q SCH ×3 (08:44→17:25)
--- NOTE | 2018-04-03 10:58 | Progress Note ---
Assessment and Plan 1. Hypernatremia: Continue water flushes. Sodium level is better. Started on HCTZ. 2. Azotemia / Acute kidney injury: Vasomotor / hemodynamically mediated [place]. Renal function has improved. 3. Hypokalemia: K level is better. 4. Sepsis. 5. HTN: Monitor BP. 6. Sacral decubitus. Subjective Date of service: 04/03/18 Interval history: Patient was seen and examined at the bedside. Objective - Vital Signs Vital signs: Vital Signs - 12hr 04/03/18 04/03/18 04/03/18 02:00 04:07 04:33 Temperature 97.2 F L Pulse Rate 89 89 Respiratory 16 Rate Blood Pressure Blood Pressure 146/85 [Left] O2 Sat by Pulse 99 98 Oximetry 04/03/18 04/03/18 04/03/18 05:06 08:28 10:35 Temperature 97.4 F L Pulse Rate 89 100 H Respiratory 18 Rate Blood Pressure 146/85 160/87 Blood Pressure [Left] O2 Sat by Pulse 100 100 Oximetry - General Appearance General appearance: well-developed, appears stated age, other (Trached, on T- piece) EENT: ATNC Neck: supple Respiratory: Present: Clear to Ascultation Cardiology: regular, S1S2, no murmurs Gastrointestinal: normoactive bowel sounds, other (PEG tube noted) Integumentary: no rash Neurologic: other (opens eyes) Musculoskeletal: other (no edema) - Lab 04/01/18 05:57 04/03/18 05:54 Most recent lab results Calcium 9.6 mg/dL (8.4-10.2) 04/03/18 05:54 Phosphorus 2.70 mg/dL (2.5-4.5) D 04/03/18 05:54 Magnesium 2.10 mg/dL (1.7-2.3) 04/03/18 05:54
[2018-04-03] MEDS: KEPPRA FEEDTUBE SCH ×2 (11:08→21:42)
[2018-04-03] MEDS: TRANSDERM-SCOP TD SCH (11:08)
[2018-04-03] MEDS: PHOS-NAK PO SCH ×2 (11:09→21:42)
[2018-04-03] MEDS: DESYREL PO SCH ×2 (11:09→21:43)
[2018-04-03] MEDS: SYMMETREL FEEDTUBE SCH (11:09)
[2018-04-03] MEDS: DAKIN'S HALF STRENGTH TP SCH (11:10)
[2018-04-03] MEDS: PEPCID FEEDTUBE SCH ×2 (12:16→21:43)
[2018-04-03] MEDS: LOVENOX SUB-Q SCH (12:16)
[2018-04-03] MEDS: HCTZ FEEDTUBE SCH (12:23)
--- NOTE | 2018-04-03 17:13 | Progress Note ---
Assessment and Plan 72 yo M s/p bedside debridement of stage 4 infected sacral wound 04/01/18 Plan: 1. c/w abx - cx proteus sensitive to zosyn 2. c/w TF and optimizing nutrition 3. offloading 4. vac placement by electroplating worker tomorrow. May be discharged to extended care facility after vac placement from surgical standpoint. Thank you for this consultation, please call with questions or concerns. Subjective Date of service: 04/03/18 Narrative: Pt seen and examined. No overnight events noted. Patient comfortable. Objective Vital Signs - 12hr 04/03/18 04/03/18 04/03/18 08:28 10:35 13:48 Temperature 97.4 F L 99.1 F Pulse Rate 100 H 108 H Respiratory 18 18 Rate Blood Pressure 160/87 127/80 O2 Sat by Pulse 100 100 100 Oximetry 04/03/18 14:25 Temperature Pulse Rate 108 H Respiratory Rate Blood Pressure 127/80 O2 Sat by Pulse Oximetry - General physical appearance Narrative Exam: Gen: Awake, non communicative. NAD Sacral wound: Slough and loose necrotic tissue cephalad and lateral aspect of wound. This was removed using scissors and a forcep. Surgical applied to wound bed and pressure held. No bleeding. Wound packed by RN with dakins moistened 4x4 gauze and covered with sacral gel dressing. - Labs 04/01/18 05:57 04/03/18 05:54 Diabetes panel 04/03/18 Range/Units 05:54 Sodium 145 (137-145) mmol/L Potassium 4.6 (3.6-5.0) mmol/L Chloride 104.5 (98-107) mmol/L Carbon Dioxide 32 H (22-30) mmol/L BUN 12 (9-20) mg/dL Creatinine 0.6 L (0.8-1.5) mg/dL Glucose 234 H (75-100) mg/dL Calcium 9.6 (8.4-10.2) mg/dL AST 18 (5-40) units/L ALT 32 (7-56) units/L Alkaline Phosphatase 136 H (35-129) units/L Total Protein 5.2 L (6.3-8.2) g/dL Albumin 2.2 L (3.9-5) g/dL Calcium panel 04/03/18 Range/Units 05:54 Calcium 9.6 (8.4-10.2) mg/dL Phosphorus 2.70 D (2.5-4.5) mg/dL Albumin 2.2 L (3.9-5) g/dL Pituitary panel 04/03/18 Range/Units 05:54 Sodium 145 (137-145) mmol/L Potassium 4.6 (3.6-5.0) mmol/L Chloride 104.5 (98-107) mmol/L Carbon Dioxide 32 H (22-30) mmol/L BUN 12 (9-20) mg/dL Creatinine 0.6 L (0.8-1.5) mg/dL Glucose 234 H (75-100) mg/dL Calcium 9.6 (8.4-10.2) mg/dL Adrenal panel 04/03/18 Range/Units 05:54 Sodium 145 (137-145) mmol/L Potassium 4.6 (3.6-5.0) mmol/L Chloride 104.5 (98-107) mmol/L Carbon Dioxide 32 H (22-30) mmol/L BUN 12 (9-20) mg/dL Creatinine 0.6 L (0.8-1.5) mg/dL Glucose 234 H (75-100) mg/dL Calcium 9.6 (8.4-10.2) mg/dL Total Bilirubin 0.40 (0.1-1.2) mg/dL AST 18 (5-40) units/L ALT 32 (7-56) units/L Alkaline Phosphatase 136 H (35-129) units/L Total Protein 5.2 L (6.3-8.2) g/dL Albumin 2.2 L (3.9-5) g/dL
[2018-04-04] MEDS: HumuLIN R SUB-Q SCH ×4 (00:01→17:25)
[2018-04-04] MEDS: DAKIN'S HALF STRENGTH TP SCH ×2 (00:02→10:38)
[2018-04-04] MEDS: LOPRESSOR FEEDTUBE SCH ×3 (05:22→23:32)
[2018-04-04] MEDS: ZOSYN/NS 4.5GM/100ML 4.5 GM/100 ML VIAL IV SCH ×3 (05:22→23:29)
--- NOTE | 2018-04-04 07:05 | Progress Note ---
Assessment and Plan 1. Hypernatremia: Continue water flushes. Sodium level is better. Continue HCTZ. 2. Azotemia / Acute kidney injury: Vasomotor / hemodynamically mediated [place]. Renal function has improved. 3. Hypokalemia: K level is better. 4. Sepsis. 5. HTN: Monitor BP. 6. Sacral decubitus. Subjective Date of service: 04/04/18 Interval history: Patient was seen and examined at the bedside. Objective - Vital Signs Vital signs: Vital Signs - 12hr 04/03/18 04/03/18 04/03/18 19:18 20:02 21:44 Temperature 99.0 F Pulse Rate 93 H 93 H Pulse Rate [ Apical] Respiratory 24 Rate Blood Pressure 148/87 148/87 O2 Sat by Pulse 97 99 Oximetry 04/03/18 04/04/18 04/04/18 22:00 02:27 04:05 Temperature 97.8 F Pulse Rate 89 91 H Pulse Rate [ 93 H Apical] Respiratory 20 Rate Blood Pressure 156/93 O2 Sat by Pulse 99 99 Oximetry 04/04/18 05:22 Temperature Pulse Rate 89 Pulse Rate [ Apical] Respiratory Rate Blood Pressure 156/93 O2 Sat by Pulse Oximetry - General Appearance General appearance: well-developed, appears stated age, other (Trached, on T- piece) EENT: ATNC Neck: supple Respiratory: Present: Clear to Ascultation Cardiology: regular, S1S2 Gastrointestinal: normoactive bowel sounds, other (PEG tube) Integumentary: no rash Neurologic: other (stuporous) Musculoskeletal: other (no edema) - Lab 04/05/18 06:15 04/05/18 06:15 Most recent lab results Calcium 9.6 mg/dL (8.4-10.2) 04/03/18 05:54 Phosphorus 2.70 mg/dL (2.5-4.5) D 04/03/18 05:54 Magnesium 2.10 mg/dL (1.7-2.3) 04/03/18 05:54
[2018-04-04 10:07] LABS: BUN/Creatinine Ratio 22; Blood Urea Nitrogen 11 mg/dL (9-20); Calcium 9.7 mg/dL (8.4-10.2); Hemolysis Index 40
[2018-04-04] MEDS: LOVENOX SUB-Q SCH (10:37)
[2018-04-04] MEDS: PEPCID FEEDTUBE SCH ×2 (10:37→23:29)
[2018-04-04] MEDS: SYMMETREL FEEDTUBE SCH (10:37)
[2018-04-04] MEDS: HCTZ FEEDTUBE SCH (10:37)
[2018-04-04] MEDS: KEPPRA FEEDTUBE SCH ×2 (10:37→23:31)
[2018-04-04] MEDS: DESYREL PO SCH ×2 (10:38→23:30)
[2018-04-04] MEDS: PHOS-NAK PO SCH (10:38)
--- NOTE | 2018-04-04 17:29 | Event Note ---
Date: 04/04/18 Discussed patient with wound care nurse. On evaluation of wound today there was a little oozing from the sacral wound. I instructed RN to pack wound with dakins and wound vac may be applied at nursing home care facility after discharge. Patient is being discharged to hospice per case management. Pt may be discharged from surgery standpoint.
--- NOTE | 2018-04-04 21:27 | Progress Note ---
Assessment and Plan Assessment and plan: --Stage IV Sacral decubital ulcer: s/p surgical debridement yesterday, Possible wound VAC placement --Proteus Wound cultures; continue Zosyn, DC on oral cefuroxime --Hypernatremia; resolved, continue supportive care --Severe sepsis; Due to infected decubitus ulcers and pneumonia ContinueZosyn, d/c on oral cefuroxime. --type 2 diabetes mellitus ; uncontrolled, Accu-Chek sliding scale coverage Tube feeding, long-acting insulin adjust as needed --Chronic respiratory failure;s/p tracheostomy trach care, oxygen and nebulizers as needed --Dysphagia s/p PEG: PEG feeds per protocol --History of Seizure disorder; Seizure precautions, continue Keppra --Malignant HTN; well controlled, on antihypertensives and PRN medications --Transaminitis; trending down, probably secondary to sepsis closely monitor --Severe malnutrition/hypoalbuminemia; nutrition consult, nutrition supplements --DVT prophylaxis with Lovenox --full code status --DC planning; per case management possible discharge back to SNF with the wound VAC when medically stable Plan of care reviewed with the patient's nurse and case management History Interval history: 72-year-old [facility] bedbound patient status post tracheostomy and PEG placement was admitted through emergency room with altered level of consciousness, noted to have severe hypertension. Continue in stage IV sacral decubitus ulcer and sepsis Nephrology evaluated, sodium levels brought to normal range, evaluated by surgery, patient underwent surgical debridement Wound cultures positive for Proteus and Pseudomonas, on antibiotics Awaiting wound VAC and discharge planning Patient feels slightly better, afebrile, no new events reported by the nursing Vital signs reviewed stable Hospitalist Physical - Constitutional Vitals: Temp Pulse Resp BP Pulse Ox 98.3 F 102 H 20 133/79 100 04/04/18 20:16 04/04/18 20:17 04/04/18 20:16 04/04/18 20:16 04/04/18 20:17 General appearance: Present: no acute distress, cachectic, disheveled, other ( trach and PEG) - EENT Eyes: Present: PERRL, EOM intact - Neck Neck: Present: supple, normal ROM - Respiratory Respiratory effort: normal Respiratory: bilateral: diminished, rales, negative: rhonchi, wheezing - Cardiovascular Rhythm: regular Heart Sounds: Present: S1 & S2 - Extremities Extremities: abnormal (contacted chronic changes) Extremity abnormal: edema - Abdominal General gastrointestinal: soft, non-tender, other (PEG tube in place) - Integumentary Integumentary: Present: clear, warm - Psychiatric Psychiatric: other (uncommunicative) - Neurologic Neurologic: other (noncommunicative) Results - Labs CBC & Chem 7: 04/01/18 05:57 04/04/18 08:05 Labs: Laboratory Last Values WBC 12.1 K/mm3 (4.5-11.0) H 04/01/18 05:57 RBC 3.96 M/mm3 (3.65-5.03) 04/01/18 05:57 Hgb 9.4 gm/dl (11.8-15.2) L D 04/01/18 05:57 Hct 30.3 % (35.5-45.6) L D 04/01/18 05:57 MCV 77 fl (84-94) L 04/01/18 05:57 MCH 24 pg (28-32) L 04/01/18 05:57 MCHC 31 % (32-34) L 04/01/18 05:57 RDW 18.2 % (13.2-15.2) H 04/01/18 05:57 Plt Count 243 K/mm3 (140-440) 04/01/18 05:57 Lymph % (Auto) 10.1 % (13.4-35.0) L 04/01/18 05:57 [place] % (Auto) 4.0 % (0.0-7.3) 04/01/18 05:57 Eos % (Auto) 1.8 % (0.0-4.3) 04/01/18 05:57 Baso % (Auto) 0.2 % (0.0-1.8) 04/01/18 05:57 Lymph # 1.2 K/mm3 (1.2-5.4) 04/01/18 05:57 [place] # 0.5 K/mm3 (0.0-0.8) 04/01/18 05:57 Eos # 0.2 K/mm3 (0.0-0.4) 04/01/18 05:57 Baso # 0.0 K/mm3 (0.0-0.1) 04/01/18 05:57 Add Manual Diff Complete 03/29/18 15:16 Total Counted 100 03/29/18 15:16 Seg Neutrophils % 83.9 % (40.0-70.0) H 04/01/18 05:57 Seg Neuts % (Manual) 83.0 % (40.0-70.0) H 03/29/18 15:16 Band Neutrophils % 0 % 03/29/18 15:16 Lymphocytes % (Manual) 13.0 % (13.4-35.0) L 03/29/18 15:16 Reactive Lymphs % (Man) 0 % 03/29/18 15:16 Monocytes % (Manual) 4.0 % (0.0-7.3) 03/29/18 15:16 Eosinophils % (Manual) 0 % (0.0-4.3) 03/29/18 15:16 Basophils % (Manual) 0 % (0.0-1.8) 03/29/18 15:16 Metamyelocytes % 0 % 03/29/18 15:16 Myelocytes % 0 % 03/29/18 15:16 Promyelocytes % 0 % 03/29/18 15:16 Blast Cells % 0 % 03/29/18 15:16 Nucleated RBC % 1.0 % (0.0-0.9) H 03/29/18 15:16 Seg Neutrophils # 10.1 K/mm3 (1.8-7.7) H 04/01/18 05:57 Seg Neutrophils # Man 14.0 K/mm3 (1.8-7.7) H 03/29/18 15:16 Band Neutrophils # 0.0 K/mm3 03/29/18 15:16 Lymphocytes # (Manual) 2.2 K/mm3 (1.2-5.4) 03/29/18 15:16 Abs React Lymphs (Man) 0.0 K/mm3 03/29/18 15:16 Monocytes # (Manual) 0.7 K/mm3 (0.0-0.8) 03/29/18 15:16 Eosinophils # (Manual) 0.0 K/mm3 (0.0-0.4) 03/29/18 15:16 Basophils # (Manual) 0.0 K/mm3 (0.0-0.1) 03/29/18 15:16 Metamyelocytes # 0.0 K/mm3 03/29/18 15:16 Myelocytes # 0.0 K/mm3 03/29/18 15:16 Promyelocytes # 0.0 K/mm3 03/29/18 15:16 Blast Cells # 0.0 K/mm3 03/29/18 15:16 WBC Morphology Not Reportable 03/29/18 15:16 Hypersegmented Neuts Not Reportable 03/29/18 15:16 Hyposegmented Neuts Not Reportable 03/29/18 15:16 Hypogranular Neuts Not Reportable 03/29/18 15:16 Smudge Cells Not Reportable 03/29/18 15:16 Toxic Granulation Not Reportable 03/29/18 15:16 Toxic Vacuolation Not Reportable 03/29/18 15:16 Dohle Bodies Not Reportable 03/29/18 15:16 Pelger-Huet Anomaly Not Reportable 03/29/18 15:16 Helene Rods Not Reportable 03/29/18 15:16 Platelet Estimate Appears normal 03/29/18 15:16 Clumped Platelets Not Reportable 03/29/18 15:16 Plt Clumps, EDTA Not Reportable 03/29/18 15:16 Large Platelets Not Reportable 03/29/18 15:16 Giant Platelets Not Reportable 03/29/18 15:16 Platelet Satelliting Not Reportable 03/29/18 15:16 Plt Morphology Comment Not Reportable 03/29/18 15:16 RBC Morphology Not Reportable 03/29/18 15:16 Dimorphic RBCs Not Reportable 03/29/18 15:16 Polychromasia Not Reportable 03/29/18 15:16 Hypochromasia Not Reportable 03/29/18 15:16 Poikilocytosis Not Reportable 03/29/18 15:16 Anisocytosis 1+ 03/29/18 15:16 Microcytosis Not Reportable 03/29/18 15:16 Macrocytosis Not Reportable 03/29/18 15:16 Spherocytes Not Reportable 03/29/18 15:16 Pappenheimer Bodies Not Reportable 03/29/18 15:16 Sickle Cells Not Reportable 03/29/18 15:16 Target Cells Few 03/29/18 15:16 Tear Drop Cells Not Reportable 03/29/18 15:16 Ovalocytes Not Reportable 03/29/18 15:16 Helmet Cells Not Reportable 03/29/18 15:16 [place] Bodies Not Reportable 03/29/18 15:16 [place] Rings Not Reportable 03/29/18 15:16 [place] Cells Not Reportable 03/29/18 15:16 Bite Cells Not Reportable 03/29/18 15:16 Crenated Cell Not Reportable 03/29/18 15:16 Elliptocytes Rare 03/29/18 15:16 Acanthocytes (Spur) Not Reportable 03/29/18 15:16 Rouleaux Not Reportable 03/29/18 15:16 Hemoglobin C Crystals Not Reportable 03/29/18 15:16 Schistocytes Not Reportable 03/29/18 15:16 Malaria parasites Not Reportable 03/29/18 15:16 Huy Bodies Not Reportable 03/29/18 15:16 Hem Pathologist Commnt No 03/29/18 15:16 PT 15.1 Sec. (12.2-14.9) H 03/27/18 20:01 INR 1.13 (0.87-1.13) 03/27/18 20:01 APTT 32.0 Sec. (24.2-36.6) 03/27/18 20:01 VBG pH 7.425 (7.320-7.420) H 03/27/18 20:01 Sodium 142 mmol/L (137-145) 04/04/18 08:05 Potassium 4.4 mmol/L (3.6-5.0) 04/04/18 08:05 Chloride 102.6 mmol/L (98-107) 04/04/18 08:05 Carbon Dioxide 29 mmol/L (22-30) 04/04/18 08:05 Anion Gap 15 mmol/L 04/04/18 08:05 BUN 11 mg/dL (9-20) 04/04/18 08:05 Creatinine 0.5 mg/dL (0.8-1.5) L 04/04/18 08:05 Estimated GFR > 60 ml/min 04/04/18 08:05 BUN/Creatinine Ratio 22 % 04/04/18 08:05 Glucose 227 mg/dL (75-100) H 04/04/18 08:05 POC Glucose 240 (70-105) H 04/04/18 16:20 Lactic Acid 2.70 mmol/L (0.7-2.0) H* 03/28/18 14:38 Calcium 9.7 mg/dL (8.4-10.2) 04/04/18 08:05 Phosphorus 2.70 mg/dL (2.5-4.5) D 04/03/18 05:54 Magnesium 2.10 mg/dL (1.7-2.3) 04/03/18 05:54 Total Bilirubin 0.40 mg/dL (0.1-1.2) 04/03/18 05:54 Direct Bilirubin < 0.2 mg/dL (0-0.2) 03/30/18 08:27 Indirect Bilirubin 0.4 mg/dL 03/30/18 08:27 AST 18 units/L (5-40) 04/03/18 05:54 ALT 32 units/L (7-56) 04/03/18 05:54 Alkaline Phosphatase 136 units/L (35-129) H 04/03/18 05:54 Troponin T 0.048 ng/mL (0.00-0.029) H 03/27/18 20:05 Total Protein 5.2 g/dL (6.3-8.2) L 04/03/18 05:54 Albumin 2.2 g/dL (3.9-5) L 04/03/18 05:54 Albumin/Globulin Ratio 0.7 % 04/03/18 05:54 Triglycerides 151 mg/dL (2-149) H 03/27/18 20:05 Cholesterol 106 mg/dL (50-199) 03/27/18 20:05 LDL Cholesterol Direct 57 mg/dL (50-130) 03/27/18 20:05 HDL Cholesterol 27 mg/dL (40-59) L 03/27/18 20:05 Cholesterol/HDL Ratio 3.92 % 03/27/18 20:05 Urine Color Yellow (Yellow) 03/27/18 19:51 Urine Turbidity Clear (Clear) 03/27/18 19:51 Urine pH 5.0 (5.0-7.0) 03/27/18 19:51 Ur Specific [place] 1.023 (1.003-1.030) 03/27/18 19:51 Urine Protein <15 mg/dl mg/dL (Negative) 03/27/18 19:51 Urine Glucose (UA) >=500 mg/dL (Negative) 03/27/18 19:51 Urine Ketones Neg mg/dL (Negative) 03/27/18 19:51 Urine Blood Neg (Negative) 03/27/18 19:51 Urine Nitrite Neg (Negative) 03/27/18 19:51 Urine Bilirubin Neg (Negative) 03/27/18 19:51 Urine Urobilinogen < 2.0 mg/dL (<2.0) 03/27/18 19:51 Ur Leukocyte Esterase Neg (Negative) 03/27/18 19:51 Urine WBC (Auto) < 1.0 /HPF (0.0-6.0) 03/27/18 19:51 Urine RBC (Auto) 1.0 /HPF (0.0-6.0) 03/27/18 19:51 U Epithel Cells (Auto) < 1.0 /HPF (0-13.0) 03/27/18 19:51 Urine Bacteria (Auto) 1+ /HPF (Negative) 03/27/18 19:51 Urine Mucus Few /HPF 03/27/18 19:51
[2018-04-05] MEDS: HumuLIN R SUB-Q SCH ×3 (00:35→12:52)
[2018-04-05 06:19] LABS: Basophils # (Auto) 0.1 K/mm3 (0.0-0.1); Basophils % (Auto) 0.6 % (0.0-1.8); Eosinophils # (Auto) 0.3 K/mm3 (0.0-0.4); Eosinophils % (Auto) 2.5 % (0.0-4.3); Hematocrit 30.5 % (35.5-45.6); Hemoglobin 9.8 gm/dl (11.8-15.2); Lymphocytes # (Auto) 2.1 K/mm3 (1.2-5.4); Lymphocytes % (Auto) 19.3 % (13.4-35.0); Mean Corpuscular HGB Conc 32 % (32-34); Mean Corpuscular Hemoglobin 24 pg (28-32); Mean Corpuscular Volume 75 fl (84-94); Monocytes # (Auto) 0.8 K/mm3 (0.0-0.8); Monocytes % (Auto) 7.4 % (0.0-7.3); Platelet Count 365 K/mm3 (140-440); Red Blood Count 4.07 M/mm3 (3.65-5.03); Red Cell Distribution Width 18.3 % (13.2-15.2)
[2018-04-05 06:44] LABS: BUN/Creatinine Ratio 18; Blood Urea Nitrogen 11 mg/dL (9-20); Calcium 9.9 mg/dL (8.4-10.2); Hemolysis Index 0
--- NOTE | 2018-04-05 07:42 | Progress Note ---
Assessment and Plan 1. Hypernatremia: Continue water flushes. Sodium level is better. Continue HCTZ at a lower dose. 2. Azotemia / Acute kidney injury: Vasomotor / hemodynamically mediated [place]. Renal function has improved. 3. Hypokalemia: K level is better. 4. Sepsis. 5. HTN: Monitor BP. 6. Sacral decubitus. Subjective Date of service: 04/05/18 Interval history: Patient was seen and examined at the bedside. Objective - Vital Signs Vital signs: Vital Signs - 12hr 04/04/18 04/04/18 04/04/18 20:10 20:16 20:17 Temperature 98.3 F Pulse Rate 102 H 102 H Pulse Rate [ Apical] Respiratory 20 Rate Blood Pressure 133/79 O2 Sat by Pulse 99 100 100 Oximetry O2 Sat by Pulse 98 Oximetry [ Assessment] 04/04/18 04/04/18 04/05/18 22:00 23:32 03:00 Temperature Pulse Rate 102 H Pulse Rate [ 102 H Apical] Respiratory Rate Blood Pressure 133/79 O2 Sat by Pulse 100 98 Oximetry O2 Sat by Pulse 98 Oximetry [ Assessment] 04/05/18 04:10 Temperature 98.5 F Pulse Rate 111 H Pulse Rate [ Apical] Respiratory 22 Rate Blood Pressure 141/84 O2 Sat by Pulse 98 Oximetry O2 Sat by Pulse Oximetry [ Assessment] - General Appearance General appearance: well-developed, appears stated age, other (Trached, on T- piece, no distress) EENT: ATNC Neck: supple Respiratory: Present: Clear to Ascultation Cardiology: regular, S1S2, no murmurs Gastrointestinal: normoactive bowel sounds, other (PEG tube noted) Integumentary: no rash Neurologic: other (Stuporous) Musculoskeletal: other (no edema) - Lab 04/05/18 06:15 04/05/18 06:15 Most recent lab results Calcium 9.9 mg/dL (8.4-10.2) 04/05/18 06:15 Phosphorus 2.70 mg/dL (2.5-4.5) D 04/03/18 05:54 Magnesium 2.00 mg/dL (1.7-2.3) 04/05/18 06:15
[2018-04-05] MEDS: PEPCID FEEDTUBE SCH (09:28)
[2018-04-05] MEDS: KEPPRA FEEDTUBE SCH (09:28)
[2018-04-05] MEDS: DESYREL PO SCH (09:28)
[2018-04-05] MEDS: SYMMETREL FEEDTUBE SCH (09:29)
[2018-04-05] MEDS: LOVENOX SUB-Q SCH (09:29)
[2018-04-05 09:35] VITALS: BP 147/87
[2018-04-05] MEDS: HCTZ FEEDTUBE SCH (09:35)
[2018-04-05] MEDS: DAKIN'S HALF STRENGTH TP SCH (09:50)
--- NOTE | 2018-04-05 11:34 | Discharge Summary ---
Providers - Providers Date of Admission: 03/28/18 01:23 Date of discharge: 04/05/18 Attending physician: WOODY SYED 03/28/18 01:35 Consult to Physician [CONS] Stat Comment: Consulting Provider: PENELOPE AGUILAR Physician Instructions: Reason For Exam: Sacral Decubitus Ulcer 03/28/18 02:10 Consult to Dietitian/Nutrition [CONS] Routine Physician Instructions: Reason For Exam: Reason for Consult: Write/Manage Tube Feeding Consult to Physician [CONS] Routine Comment: Consulting Provider: ALVAREZ BALL Physician Instructions: Reason For Exam: hypernatremia 03/28/18 07:45 Consult to Wound/ET Nurse [CONS] Routine Reason For Exam: wound eval; sacrum 04/02/18 15:20 Consult to Dietitian/Nutrition [CONS] Routine Physician Instructions: Reason For Exam: severe malnutrition Reason for Consult: Nutrition Recommendations Reason for Consult: Malnutrition Primary care physician: [employer] Hospitalization Condition: Stable Pertinent studies: CXR: No acute pulmonary infiltrates. There is interval resolution of bilateral lower lung infiltrates. Minimal thickening of right pleural stripe inferiorly may represent minimal right pleural effusion.. Hospital course: 72-year-old halfway bedbound patient status post tracheostomy and PEG placement was admitted through emergency room with altered level of consciousness, and severe hypernatremia. Patient also has stage IV sacral decubitus ulcer and presented with sepsis Due to infected decubitus ulcers and pneumonia. Nephrology evaluated the patient, sodium levels brought to normal range, evaluated by surgery, patient underwent surgical debridement Wound cultures positive for Proteus and Pseudomonas, continued on antibiotics. Surgery recommended wound VAC and discharged back to SNF. Discharge diagnosis and management: --Stage IV Sacral decubital ulcer: s/p surgical debridement with wound VAC placement --Proteus Wound cultures; Placed on Zosyn, DCed on oral cefuroxime --Hypernatremia; resolved with hypotonic fluid, provided supportive care --Severe sepsis; Due to infected decubitus ulcers and pneumonia Continued on Zosyn, d/c on oral cefuroxime. --type 2 diabetes mellitus ; uncontrolled, managed with Accu-Chek sliding scale coverage Tube feeding, long-acting insulin adjusted as needed --Chronic respiratory failure;s/p tracheostomy Given regular trach care, oxygen and nebulizers as needed --Dysphagia s/p PEG: PEG feeds per protocol --History of Seizure disorder; Seizure precautions, continue Keppra --Malignant HTN; well controlled on discharge, on antihypertensives and PRN medications --Transaminitis; trended down, probably secondary to sepsis closely monitor --Severe malnutrition/hypoalbuminemia; nutrition consulted, on nutrition supplements --DVT prophylaxis with Lovenox --full code status --DC planning; per case management Discharge back to SNF with the wound VAC Disposition: DC/[place]-[facility] SNF [facility] Time spent for discharge: 34 minutes Core Measure Documentation - Palliative Care Palliative Care/ Comfort Measures: Not Applicable - Core Measures Any of the following diagnoses?: history only Exam - Physical Exam Narrative exam: General appearance: Present: no acute distress, cachectic, disheveled, other ( trach and PEG) - EENT Eyes: Present: PERRL, EOM intact - Neck Neck: Present: supple, normal ROM - Respiratory Respiratory effort: normal Respiratory: bilateral: diminished, rales, negative: rhonchi, wheezing - Cardiovascular Rhythm: regular Heart Sounds: Present: S1 & S2 - Extremities Extremities: abnormal (contacted chronic changes) Extremity abnormal: edema - Abdominal General gastrointestinal: soft, non-tender, other (PEG tube in place) - Integumentary Integumentary: Present: clear, warm - Psychiatric Psychiatric: other (uncommunicative) - Neurologic Neurologic: other (noncommunicative) - Constitutional Vitals: Temp Pulse Resp BP Pulse Ox 98.5 F 120 H 18 147/87 98 04/05/18 09:57 04/05/18 09:57 04/05/18 09:57 04/05/18 09:57 04/05/18 09:57 Plan Activity: other (bedrest) Diet: per dietitian instruction, other (TF) Wound: per your surgeon's advice, drain care as instructed Follow up with: PRIMARY CARE, [Primary Care Provider] - 3-5 Days Prescriptions: ALBUTEROL NEB's [Proventil 0.083% NEBS] 2.5 mg IH Q4HRT PRN #30 nebu PRN Reason: Shortness Of Breath Cefuroxime [Ceftin] 250 mg PO Q12H #14 tablet Hydrochlorothiazide [HCTZ] 12.5 mg FEEDTUBE QDAY #30 capsule
--- NOTE | 2018-04-05 13:23 | Event Note ---
Date: 04/05/18 Discussed patient's disposition to hospice with patient's Jennifer Haynes over the telephone at the request of case management. The patient was planned to be discharged today to alf care facility on hospice. He was on hospice prior to be admitted to the hospital. I spoke with Ms Haynes regarding this and reiterated to her that hospice will keep the patient comfortable and free of pain for the remainder of his life. However, they do not provide aggressive care to patients which includes the wound vac for the sacral wound. Ms. Haynes states that she does not want hospice and cannot give up hope that Mr. Fleming will get better. I spoke with catalytic case operator Cyndie who will discuss dispo with 1' team and Ms. Haynes.
[2018-04-05] MEDS ORDERED: HCTZ FEEDTUBE SCH (14:00)
[2018-04-05] MEDS: LOPRESSOR FEEDTUBE SCH (14:19)
== END 2018-04-05 15:40 | disposition hospice, inpatient (51) | DRG 853 ==
LOC: ED 19:26 → 4A 03-28 01:23 → 2B-ACE 03-28 15:53
PROVIDERS: ADMIT Internal Medicine; ATTEND Internal Medicine
PROC: 0JB70ZZ Excision of Back Subcutaneous Tissue and Fascia, Open Approach (ICD-10-PCS; principal; 2018-04-01)
DX: A41.9 Sepsis, unspecified organism (principal); L89.154 Pressure ulcer of sacral region, stage 4; J18.9 Pneumonia, unspecified organism; E43 Unspecified severe protein-calorie malnutrition; E87.0 Hyperosmolality and hypernatremia; Z68.1 Body mass index [BMI] 19.9 or less, adult; J96.11 Chronic respiratory failure with hypoxia; N17.9 Acute kidney failure, unspecified; R65.20 Severe sepsis without septic shock; E86.0 Dehydration; L89.159 Pressure ulcer of sacral region, unspecified stage; K21.9 Gastro-esophageal reflux disease without esophagitis; E83.52 Hypercalcemia; E11.9 Type 2 diabetes mellitus without complications; E87.5 Hyperkalemia; G40.909 Epilepsy, unspecified, not intractable, without status epilepticus; E78.5 Hyperlipidemia, unspecified; N40.0 Benign prostatic hyperplasia without lower urinary tract symptoms; Z93.0 Tracheostomy status; Z88.6 Allergy status to analgesic agent; Z79.4 Long term (current) use of insulin; Z93.1 Gastrostomy status; Z79.899 Other long term (current) drug therapy; Z74.01 Bed confinement status
CPT/HCPCS: 36415; 71045; 80048; 80053; 80061; 80074; 81001; 82140; 82805; 82962; 83735; 84100; 84484; 85007; 85025; 85610; 85730; 87040; 87076; 87086; 87116; 87186; 87205; 93005; 93010; 94760; 96360; 96361; A6260; A9270-GY; J1205; J1650; J1815; J2543; J3370; J7030; J7070